=== PATIENT | female | born 1965 | race Caucasian/White ===

== ENCOUNTER → 2018-08-07 | Outpatient (CLI) | payer BC ==
[2018-08-07 11:19] LABS: HGB 14.5 gm/dL (11.4-16.0); MCHC 31.4 g/dL (31.0-37.0); MCV 104.9 fL (80.0-100.0); Macrocytosis Slight; Mean Platelet Volume 8.9; Platelet Count 231 k/uL (150-450); RBC 4.39 m/uL (3.80-5.40); RDW 12.5 % (11.5-15.5); WBC 5.8 k/uL (3.8-10.6)
== END ==
LOC: LABPAT 10:29
PROVIDERS: ATTEND Orthopaedic Surgery
DX: Z01.812 Encounter for preprocedural laboratory examination (principal); S52.91XA Unspecified fracture of right forearm, initial encounter for closed fracture
CPT/HCPCS: 36415; 85027

== ENCOUNTER 2018-08-10 06:25 | Day surgery (SDC) | payer BC ==
[2018-08-04 10:57] VITALS: BMI 19.6
[~2018-08-10 06:25] MED LIST: HYDROmorphone 0.5 MG/0.5 ML SYRINGE IVP PRN; LACTATED RINGERS 1,000 ML IV SCH; LIDOCAINE 1% 20 ML VIAL (10MG/ML) FOR IV START INTRADERMA PRN; ONDANSETRON 4 MG/2 ML VIAL IVP ONE; ceFAZolin IN SWFI 2 GM/20 ML SYRINGE IVP ONE
[2018-08-10] MEDS ORDERED: MIDAZOLAM 2 MG/2 ML VIAL IVP ONE (07:18)
[2018-08-10] MEDS ORDERED: fentaNYL (PF) 50 MCG/ML 2 ML AMP ONE (08:12)
[2018-08-10] MEDS ORDERED: PROPOFOL 10 MG/ML 20 ML VIAL IV ONE (08:12)
[2018-08-10] MEDS ORDERED: MIDAZOLAM 2 MG/2 ML VIAL ONE (08:12)
[2018-08-10] MEDS ORDERED: LIDOCAINE 1% INJ 10MG/ML (20 ML MDV) ONE (08:12)
[2018-08-10] MEDS ORDERED: SUCCINYLCHOLINE CHLORIDE 100 MG/5 ML SYR IV ONE (08:12)
[2018-08-10] MEDS ORDERED: HYDROmorphone (PF) 1 MG/ML ONE (08:12)
[2018-08-10] MEDS ORDERED: ROPIVACAINE 5 MG/ML 30 ML VIAL ONE (08:12)
[2018-08-10] MEDS ORDERED: LACTATED RINGERS 1,000 ML IV ONE (09:37)
[2018-08-10 09:55] VITALS: RESP 16; TEMP 97.3
--- NOTE | 2018-08-10 10:03 | P.OP ---
Date of Procedure: 08/10/18 Procedure(s) Performed: PREOPERATIVE DIAGNOSES: 1. Right ulnar shaft fracture, acute 2. Right ulnar shaft fracture, acute POSTOPERATIVE DIAGNOSES: 1. Right ulnar shaft fracture, acute 2. Right ulnar shaft fracture, acute 3. Poor bone quality/osteopenia PROCEDURES PERFORMED: 1. Right ulnar shaft fracture open reduction and internal fixationwith supplemental local bone graft and application of DBX putty ANESTHESIA: Gen. WINDSCREEN FITTER: Natalie Jimenez PA-C (assistance with: Patient positioning, retraction, exposure, fixation, hemostasis, closure, dressing, splint) COMPLICATIONS: None ESTIMATED BLOOD LOSS: Less than 1 mL. DISPOSITION: To post-anesthesia care unit INDICATIONS: Sarah is a 53-year-old right hand dominant female who has sustained a right ulnar shaft fracture which shows no signs of healing at this point after 7 weeks. I have advised open reduction and internal fixation with the application of local bone graft and/or DBX bone putty. I have explained the risks and potential complications of this surgery as being inclusive of but not limited to bleeding, infection, scarring, discomfort, blood vessel and/or nerve damage, malunion, nonunion, stiffness, hardware irritation, deformity, rotational abnormality, need for further surgery, and other risks. We have extensively discussed the risk of stiffness of the wrist joint, which is something that commonly occurs with these kinds of injuries. she is at increased risk of complications due to her history of alcoholism, smoking, and apparent diminished bone quality. We have discussed the need for extended rehabilitation and occupational therapy to regain motion. The consent form has been signed. PROCEDURE: After appropriate consent was obtained, the patient was taken to the operating room placed in the supine position. Anesthesia was initiated, and after confirmation of adequate anesthesia, the patient was carefully positioned. Care was taken to make sure that all pressure points were adequately padded. Prepping and draping were completed in the usual aseptic fashion using CDuraPrepep. Timeout was called, confirming patient identity, side, procedure, and administration of antibiotics. The limb was exsanguinated with an Esmarch bandage and the tourniquet was inflated to 250 mmHg. Incision was created over the ulnar aspect of the forearm in line with the ulnar shaft. Incision was centered over the fracture site. Total length of incision was approximately 4 inches. Incision was carried down through skin into subcu tissues and then to muscular fascia. The raphae between the extensor and flexor structures was developed. Self- retaining retractor was applied. The fracture site was then exposed with subperiosteal dissection. Bone quality was judged as very poor. A sparse amount of new bone formation was noted around the fracture site which was removed on the volar side to create a flat surface for application of the plate. The interior of the fracture site was exposed and organizing soft tissue in this region was removed. The continuity of the intramedullary canal was reestablished using a small drill bit. Subsequent, the fracture was reduced anatomically. A 5 hole 3.5 mm DCP plate was used on the volar side and clamped into position on both sides of the fracture site. A slight bend was placed in the plate to allow for proper compression technique. Screws were filled first distally using nonlocking 3.5 mm cortical screws. Then compression technique was used on the more proximal screws. Good compression was noted at the fracture site. C-arm imaging was then used to confirm proper plate placement, reduction, and screw lengths. These parameters were judged to be satisfactory. Irrigation was performed using normal saline and hemostasis was obtained using electrocautery after tourniquet deflation. Some of the good quality previous bone that was removed on exposure of the fracture site was reapplied at the fracture site, along with a quantity of DBX bone putty. Closure was performed of the deep fascia using 0 Vicryl suture, followed by 2-0 Vicryl suture in the subcu tissues and 3-0 Monocryl suture for the skin. Dermabond adhesive was then applied. A well-padded well molded ulnar gutter splint was placed. Neurovascular status was satisfactory. Patient tolerated the procedure well and taken to recovery room in stable condition.
[2018-08-10] MEDS ORDERED: KETOROLAC 30 MG/ML 1 ML VIAL IVP ONE (10:16)
--- NOTE | 2018-08-10 10:25 | XR ---
Limited right wrist HISTORY: Open reduction internal fixation 2 intraoperative C-arm images document the procedure.
--- NOTE | 2018-08-10 10:26 | FL ---
Fluoroscopy HISTORY: Open reduction internal fixation 6 seconds fluoroscopy time supplied to the referring clinician. 2 intraoperative C-arm images docume nt the procedure. See dictated report from orthopedic surgery.
[2018-08-10 11:27] VITALS: BP 155/70; PULSE 67
--- NOTE | 2018-08-10 12:46 | P.ONQ ---
Anesthesiology Proc Note - PNB - Peripheral Nerve Block Performed Right Infraclavicular Single Time Out Performed: Yes Procedure Start Time: :18 Procedure Stop Time: : Indication: Acute Post-Operative Pain, Requested by physician Sedation Type: Sedate with meaningful contact maintained Preparation: Sterile Prep Position: Supine Needle Size: 50mm (2") Needle Gauge: 21 Technique: Ultrasound Injectate: 0.5% Ropivacaine (see comment for volume) (ropi .5% 8cc and was rpeated with 20cc of ropi .5%) Blood Aspirated: No Pain Paresthesia on Injection Noted: No Resistance on Injection: Normal Events: Uneventful and Well Tolerated
== END 2018-08-10 11:38 | disposition home or self-care (01) ==
LOC: OR 06:25
PROVIDERS: ATTEND Orthopaedic Surgery
DX: S52.201A Unspecified fracture of shaft of right ulna, initial encounter for closed fracture (principal); W19.XXXA Unspecified fall, initial encounter; M85.80 Other specified disorders of bone density and structure, unspecified site; I10 Essential (primary) hypertension; Z79.899 Other long term (current) drug therapy; F17.210 Nicotine dependence, cigarettes, uncomplicated
CPT/HCPCS: 73100; 25545; C1713 ×2; J2250; J2405; J2001; J3010; J1885; J1170 ×2; J2795; J0330; J2704; J0690

== ENCOUNTER 2018-11-26 06:51 | Day surgery (SDC) | payer BC, OTHER ==
[2018-11-26] MEDS ORDERED: LACTATED RINGERS 1,000 ML IV SCH (06:54)
[2018-11-26] MEDS ORDERED: LIDOCAINE 1% 20 ML VIAL (10MG/ML) FOR IV START INTRADERMA PRN (06:54)
[2018-11-26 07:13] VITALS: RESP 20; TEMP 98.7
[2018-11-26] MEDS ORDERED: PROPOFOL 10 MG/ML 20 ML VIAL IV ONE (08:11)
--- NOTE | 2018-11-26 09:00 | P.PCN ---
Date of Procedure: 11/26/18 Procedure(s) Performed: Procedure: Colonoscopy and biopsy. Preoperative diagnosis: Diarrhea and screening for colon cancer. Postoperative diagnosis: 1. Exam of the colon and terminal ileum within normal limits. 2. Biopsies obtained from the terminal ileum and right colon. Brief clinical history: The patient is a 53-year-old female who is scheduled for this evaluation because of history of diarrhea for the last 3 weeks as well as for screening for neoplasia. She had a prior colonoscopy around 5 years ago. Apparently, she had C. diff colitis at that time. This evaluation is to assess for neoplasia and for etiology of her diarrhea. Procedure: With the patient on her left lateral decubitus position and after informed consent and adequate sedation, the perianal area was inspected and it did not show any fissures or fistulas. There were no masses felt on digital rectal examination. Initially, the Olympus CFH 190L video colonoscope was inserted in the rectum in the usual fashion, however, I was not able to advance it safely in the sigmoid. I exchanged it for the PCFH 190L videocolonoscope which I was able to advance safely all the way to the cecum. I intubated the ileocecal valve and examined the terminal ileum. Terminal ileum and colon appeared healthy with no edema, erythema, friability, ulceration, exudation or spontaneous bleeding. No polyps or tumors were seen or any obvious diverticular disease or other pathology. I obtained biopsies from the terminal ileum and right colon then I retroflexed the endoscope in the rectum before the endoscope was withdrawn. The patient tolerated the procedure well. Plan: I summarized the findings to the patient. Will await biopsy results. Further plans based on her course and biopsy results. For screening for colon cancer, I recommended repeat exam in 10 years. She will follow-up with you as planned.
[2018-11-26 09:08] VITALS: BP 151/94; PULSE 96
== END 2018-11-26 09:37 | disposition home or self-care (01) ==
LOC: ORWHC2ENDO 06:51
DX: R19.7 Diarrhea, unspecified (principal); I10 Essential (primary) hypertension; F32.9 Major depressive disorder, single episode, unspecified; F17.210 Nicotine dependence, cigarettes, uncomplicated; Z79.899 Other long term (current) drug therapy; Z85.3 Personal history of malignant neoplasm of breast
CPT/HCPCS: 88305; 45380; J2704

== ENCOUNTER 2021-01-16 11:45 | Inpatient (IN) | payer BC, OTHER ==
[2021-01-16] MEDS ORDERED: HYDROmorphone 0.5 MG/0.5 ML SYRINGE IVP STA (13:21)
[2021-01-16 13:51] LABS: Basophils % (A) 0 %; Eosinophils # (A) 0.3 k/uL (0-0.7); Eosinophils % (A) 1 %; HGB 13.7 gm/dL (11.4-16.0); Lymphocytes # (A) 1.3 k/uL (1.0-4.8); Lymphocytes % (A) 6 %; MCH 35.2 pg (25.0-35.0); MCHC 34.2 g/dL (31.0-37.0); MCV 103.1 fL (80.0-100.0); Macrocytosis Slight; Mean Platelet Volume 7.3; Monocytes # (A) 0.9 k/uL (0-1.0); Monocytes % (A) 4 %; Neutrophils # (A) 17.3 k/uL (1.3-7.7); Neutrophils % (A) 88 %; Platelet Count 656 k/uL (150-450); RBC 3.88 m/uL (3.80-5.40); RDW 12.9 % (11.5-15.5); WBC 19.7 k/uL (3.8-10.6)
[2021-01-16 14:00] LABS: ALT 17 U/L (4-34); AST 27 U/L (14-36); African American GFR (CKD) >90 (>60 ml/min/1.73 sqM); Albumin 3.4 g/dL (3.5-5.0); Alkaline Phosphatase 147 U/L (38-126); Amylase 45 U/L (30-110); Anion Gap 9 mmol/L; Blood Urea Nitrogen 18 mg/dL (7-17); Calcium 9.4 mg/dL (8.4-10.2); Carbon Dioxide 28 mmol/L (22-30); Chloride 97 mmol/L (98-107); Glucose 101 mg/dL (74-99); Lipase 89 U/L (23-300); Non-African American GFR(CKD) >90 (>60 ml/min/1.73 sqM); Potassium 3.8 mmol/L (3.5-5.1); Sodium 134 mmol/L (137-145); Total Protein 6.7 g/dL (6.3-8.2)
[2021-01-16 14:25] LABS: Appearance,Urine Cloudy (Clear); Bacteria,Urine Many /hpf; Bilirubin,Urine 1+ (Negative); Blood,Urine Negative (Negative); Color,Urine Yellow; Glucose,Urine (UA) Negative (Negative); Ketones,Urine 2+ (Negative); Leukocyte Esterase,Urine Small (Negative); Mucus,Urine Many /hpf; Nitrite,Urine Positive (Negative); Protein,Urine 1+ (Negative); RBC,Urine 1 /hpf (0-5); Specific Gravity,Urine 1.027 (1.001-1.035); Squamous Epithelial Cell,Urine 5 /hpf (0-4); WBC,Urine 13 /hpf (0-5)
--- NOTE | 2021-01-16 14:29 | CT ---
EXAMINATION TYPE: CT abdomen pelvis wo con DATE OF EXAM: 01/16/2021 HISTORY: Generalized pain with bowel changes and nausea CT DLP: 324.4 mGycm. Automated Exposure Control for Dose Reduction was Utilized. TECHNIQUE: CT scan of the abdomen and pelvis is performed without oral or IV contrast. COMPARISON: NONE FINDINGS: Within the limitations of a non-contrast study, the following observations are made. LUNG BASES: No significant abnormality is appreciated. LIVER/GB: Liver heterogeneously slightly hypodense relative to spleen consistent with mild diffuse fa tty infiltration and/or underlying hepatocellular disease. Small amount of ascites anterior superior aspect noted. Liver size upper limits of normal. PANCREAS: No significant abnormality is seen. SPLEEN: No significant abnormality is seen. ADRENALS: No significant abnormality is seen. KIDNEYS: No significant abnormality is seen. BOWEL: Stomach poorly distended and thus suboptimally evaluated. Nondistended small bowel loops in th e central abdomen. There are more prominent fluid filled bowel loops in the periphery including abnor mal fluid-filled colonic loops. Colonic loops are more prominent. There are diverticula in the sigmoi d colon. There is abrupt change in caliber in the left pelvis mid sigmoid colon level with severe con centric wall thickening. Suspicious ovoid 4.6 x 3.7 cm left pelvic fluid-filled structure axial image 115 with air-fluid level. Some adjacent fat stranding. No free air. Suspected additional focal phleg mon or developing abscess upper mid abdomen coronal image 55 difficult localizing this to bowel loop. GENITAL ORGANS: Uterus poorly seen and may be surgically absent and/or atrophic. LYMPH NODES: No greater than 1cm abdominal or pelvic lymph nodes are appreciated. OSSEOUS STRUCTURES: [id number] disc space narrowing with vacuum disc phenomenon lumbosacral j unction. OTHER: No significant additional abnormality is seen. IMPRESSION: Suboptimal study. 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 Cannot exclude adjacent small to moderate size left pelvic abscess(es) and/or phlegmons though they could reflect dilated fluid-filled bowel loop, without contrast it is difficult to trace. Advise surgical consult. Consider colonoscopy or open surg ical exploration to further evaluate. Underlying neoplasm favored over perforated diverticulitis
[2021-01-16] MEDS ORDERED: PIPERACILLIN-TAZOBACTAM 3.375 GM in SODIUM CHLORIDE 0.9% 100 ML IVPB STA (14:33)
--- NOTE | 2021-01-16 15:23 | ED ---
General Adult HPI - General Chief complaint: Abdominal Pain Stated complaint: abd pain Time Seen by Provider: 01/16/21 11:45 Source: patient, RN notes reviewed, old records reviewed Mode of arrival: ambulatory Limitations: no limitations - History of Present Illness Initial comments: This is a 55-year-old female presents emergency Department complaining of abdominal pain. Patient states that abdominal pain started yesterday morning and has been excruciating ever since. Patient states she's mildly nauseated but has not vomited. Patient complains of pain in the lower abdomen both right and left. Patient denies any fever chills. Patient denies any back pain. Patient denies diarrhea. Patient denies any chest pain difficulty breathing shortest breath. Patient denies any dysuria hematuria urinary frequency. - Related Data Home Medications Medication Instructions Recorded Confirmed lisinopriL [Zestril] 20 mg PO BID 08/04/18 01/16/21 Sertraline [Zoloft] 50 mg PO DAILY 11/24/18 01/16/21 Allergies Allergy/AdvReac Type Severity Reaction Status Date / Time No Known Allergies Allergy Verified 01/16/21 13:37 Review of Systems ROS Statement: Those systems with pertinent positive or pertinent negative responses have been documented in the HPI. ROS Other: All systems not noted in ROS Statement are negative. Past Medical History Past Medical History: Cancer, Hypertension Additional Past Medical History / Comment(s): hx lt breast cancer with surgery & radiation tx (Aug 2009)., Hx of right ulnar fx., Hx of c-diff (3 yrs ago) and colitis., states currently having 10-12 diarreha stools per day & hx of blood in stool. History of Any Multi-Drug Resistant Organisms: None Reported Past Surgical History: Breast Surgery, Section, Hysterectomy Additional Past Surgical History / Comment(s): LT BREAST LUMPECTOMY X2 , CLEFT PALATE SURGERYS, RIGHT ULNAR FX WITH PLATE & PINS (JUL 2018). COLONOSCOPY. C- SEC X 2 Past Anesthesia/Blood Transfusion Reactions: No Reported Reaction Past Psychological History: Depression Smoking Status: Current every day smoker Past Alcohol Use History: Occasional Past Drug Use History: None Reported - Past Family History Sister(s) Family Medical History: Pulmonary Embolus General Exam - General Exam Comments Initial Comments: GENERAL: Patient is well-developed and well-nourished. Patient is nontoxic and well- hydrated and is in moderate distress. ENT: Neck is soft and supple. No significant lymphadenopathy is noted. Oropharynx is clear. Moist mucous membranes. Neck has full range of motion without eliciting any pain. EYES: The sclera were anicteric and conjunctiva were pink and moist. Extraocular movements were intact and pupils were equal round and reactive to light. Eyelids were unremarkable. PULMONARY: Unlabored respirations. Good breath sounds bilaterally. No audible rales rhonchi or wheezing was noted. CARDIOVASCULAR: There is a regular rate and rhythm without any murmurs gallops or rubs. ABDOMEN: Lower abdomen is acutely tender patient has rebound tenderness both left and right. SKIN: Skin is clear with no lesions or rashes and otherwise unremarkable. NEUROLOGIC: Patient is alert and oriented x3. Cranial nerves II through XII are grossly intact. Motor and sensory are also intact. Normal speech, volume and content. Symmetrical smile. MUSCULOSKELETAL: Normal extremities with adequate strength and full range of motion. LYMPHATICS: No significant lymphadenopathy is noted PSYCHIATRIC: Normal psychiatric evaluation. Limitations: no limitations Course Vital Signs 01/16/21 11:47 Temperature 97.9 F Pulse Rate 133 H Respiratory 16 Rate Blood Pressure 117/84 O2 Sat by Pulse 97 Oximetry Medical Decision Making - Medical Decision Making Patient had a CAT scan of the abdomen showed probable neoplasm with an apple core appearance and obstruction of the distal bowel. Patient also has an area of inflammation in the pelvis which could correspond to an abscess. I started the patient on an approximately. I spoke with Dr. Mcfarland he ishistory come down and evaluate the patient and he stated that the patient will go to surgery tomorrow. Patient also received pain medicine the emergency department. I wrote admitting orders. - Lab Data Result diagrams: 01/16/21 13:37 01/16/21 13:37 Lab Results 01/16/21 01/16/21 01/16/21 Range/Units 13:37 13:37 13:37 WBC 19.7 H (3.8-10.6) k/uL RBC 3.88 (3.80-5.40) m/uL Hgb 13.7 (11.4-16.0) gm/dL Hct 40.0 (34.0-46.0) % MCV 103.1 H (80.0-100.0) fL MCH 35.2 H (25.0-35.0) pg MCHC 34.2 (31.0-37.0) g/dL RDW 12.9 (11.5-15.5) % Plt Count 656 H (150-450) k/uL MPV 7.3 Neutrophils % 88 % Lymphocytes % 6 % Monocytes % 4 % Eosinophils % 1 % Basophils % 0 % Neutrophils # 17.3 H (1.3-7.7) k/uL Lymphocytes # 1.3 (1.0-4.8) k/uL Monocytes # 0.9 (0-1.0) k/uL Eosinophils # 0.3 (0-0.7) k/uL Basophils # 0.0 (0-0.2) k/uL Macrocytosis Slight Sodium 134 L (137-145) mmol/L Potassium 3.8 (3.5-5.1) mmol/L Chloride 97 L (98-107) mmol/L Carbon Dioxide 28 (22-30) mmol/L Anion Gap 9 mmol/L BUN 18 H (7-17) mg/dL Creatinine 0.52 (0.52-1.04) mg/dL Est GFR (CKD-EPI)AfAm >90 (>60 ml/min/1.73 sqM) Est GFR (CKD-EPI)NonAf >90 (>60 ml/min/1.73 sqM) Glucose 101 H (74-99) mg/dL Plasma Lactic Acid Stewart 1.1 (0.7-2.0) mmol/L Calcium 9.4 (8.4-10.2) mg/dL Total Bilirubin 1.0 (0.2-1.3) mg/dL AST 27 (14-36) U/L ALT 17 (4-34) U/L Alkaline Phosphatase 147 H (38-126) U/L Total Protein 6.7 (6.3-8.2) g/dL Albumin 3.4 L (3.5-5.0) g/dL Amylase 45 (30-110) U/L Lipase 89 (23-300) U/L Urine Color Urine Appearance (Clear) Urine pH (5.0-8.0) Ur Specific [place] (1.001-1.035) Urine Protein (Negative) Urine Glucose (UA) (Negative) Urine Ketones (Negative) Urine Blood (Negative) Urine Nitrite (Negative) Urine Bilirubin (Negative) Urine Urobilinogen (<2.0) mg/dL Ur Leukocyte Esterase (Negative) Urine RBC (0-5) /hpf Urine WBC (0-5) /hpf Ur Squamous Epith Cells (0-4) /hpf Urine Bacteria (None) /hpf Urine Mucus (None) /hpf 01/16/21 Range/Units 13:52 WBC (3.8-10.6) k/uL RBC (3.80-5.40) m/uL Hgb (11.4-16.0) gm/dL Hct (34.0-46.0) % MCV (80.0-100.0) fL MCH (25.0-35.0) pg MCHC (31.0-37.0) g/dL RDW (11.5-15.5) % Plt Count (150-450) k/uL MPV Neutrophils % % Lymphocytes % % Monocytes % % Eosinophils % % Basophils % % Neutrophils # (1.3-7.7) k/uL Lymphocytes # (1.0-4.8) k/uL Monocytes # (0-1.0) k/uL Eosinophils # (0-0.7) k/uL Basophils # (0-0.2) k/uL Macrocytosis Sodium (137-145) mmol/L Potassium (3.5-5.1) mmol/L Chloride (98-107) mmol/L Carbon Dioxide (22-30) mmol/L Anion Gap mmol/L BUN (7-17) mg/dL Creatinine (0.52-1.04) mg/dL Est GFR (CKD-EPI)AfAm (>60 ml/min/1.73 sqM) Est GFR (CKD-EPI)NonAf (>60 ml/min/1.73 sqM) Glucose (74-99) mg/dL Plasma Lactic Acid Stewart (0.7-2.0) mmol/L Calcium (8.4-10.2) mg/dL Total Bilirubin (0.2-1.3) mg/dL AST (14-36) U/L ALT (4-34) U/L Alkaline Phosphatase (38-126) U/L Total Protein (6.3-8.2) g/dL Albumin (3.5-5.0) g/dL Amylase (30-110) U/L Lipase (23-300) U/L Urine Color Yellow Urine Appearance Cloudy H (Clear) Urine pH 6.0 (5.0-8.0) Ur Specific [place] 1.027 (1.001-1.035) Urine Protein 1+ H (Negative) Urine Glucose (UA) Negative (Negative) Urine Ketones 2+ H (Negative) Urine Blood Negative (Negative) Urine Nitrite Positive H (Negative) Urine Bilirubin 1+ H (Negative) Urine Urobilinogen 3.0 (<2.0) mg/dL Ur Leukocyte Esterase Small H (Negative) Urine RBC 1 (0-5) /hpf Urine WBC 13 H (0-5) /hpf Ur Squamous Epith Cells 5 H (0-4) /hpf Urine Bacteria Many H (None) /hpf Urine Mucus Many H (None) /hpf Disposition Clinical Impression: Bowel obstruction, Pelvic abscess Disposition: ADMITTED IP TO THIS HOSP Referrals: Kavita Boyer DO [Primary Care Provider] - 1-2 days Time of Disposition: 15:23
[2021-01-16] MEDS ORDERED: HYDROmorphone 0.5 MG/0.5 ML SYRINGE IVP PRN (15:25)
[2021-01-16] MEDS ORDERED: SODIUM CHLORIDE 0.9% 1,000 ML IV ONE (15:25)
[2021-01-16] MEDS ORDERED: ONDANSETRON 4 MG/2 ML VIAL IVP PRN (15:26)
--- NOTE | 2021-01-16 15:39 | P.GSHP ---
History of Present Illness H&P Date: 01/16/21 CHIEF COMPLAINT: Abdominal pain HISTORY OF PRESENT ILLNESS: This is a 55-year-old female with a known history of alcohol abuse and had currently been at [facility] for rehab admitted on 01/02/2021. Patient also has a known history of left breast cancer with lumpectomy and radiation treatment in 2008, hypertension, depression, C. diff colitis and nicotine dependence. Her last colonoscopy she reports a couple years ago and was told that it was normal. She has surgical history of 2 C-sections and hysterectomy. Patient presented to the emergency room with sudden onset of pain that started yesterday. She reports the pain is stabbing and is throughout her whole abdomen. She rates the pain 10 out of 10. She has been nauseated and having dry heaves. She's had decrease in appetite. Patient has noted some weight loss. She denies any fever or chills. She has been having blood in her stools. She denies any chest pain or shortness of breath. Denies any cardiac history or diabetes. 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 Cannot exclude adjacent small to moderate size left pelvic abscess and/or phlegmons though they could reflect dilated fluid-filled bowel loops. Patient's white count is elevated at 19. And she has been t achycardic. PAST MEDICAL HISTORY: See list. PAST SURGICAL HISTORY: See list. MEDICATIONS: See list. ALLERGIES: See list. SOCIAL HISTORY: No illicit drug use. REVIEW OF SYSTEMS: CONSTITUTIONAL: Denies fever or chills. HEENT: Denies blurred vision, vision changes, or eye pain. Denies hemoptysis CARDIOVASCULAR: Denies chest pain or pressure. RESPIRATORY: No shortness of breath. GASTROINTESTINAL: See HPI for pertinent findings HEMATOLOGIC: Denies bleeding disorders. GENITOURINARY: Denies any blood in urine or increased urinary frequency. SKIN: Denies pruitis. Denies rash. PHYSICAL EXAM: VITAL SIGNS: Reviewed GENERAL: Well-developed in no acute distress. HEENT: No sclera icterus. Extraocular movements grossly intact. Moist buccal mucosa. Head is atraumatic, normocephalic. No nasal drainage. ABDOMEN: Soft. Nondistended. Diffuse abdominal tenderness NEUROLOGIC: Alert and oriented. Cranial nerves II through XII grossly intact. 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 Cannot exclude adjacent small to moderate size left pelvic abscess and/or phlegmons though they could reflect dilated fluid-filled bowel loops. ASSESSMENT: 1. Abdominal pain 2. 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 3. Possible pelvic abscess 4. Prior history of left breast cancer with lumpectomy and radiation treatment in 2008 5. Prior history of alcohol abuse 6. Prior surgical history of 2 and hysterectomy PLAN: -Patient is scheduled for colectomy with colostomy placement tomorrow 01/17/[address] Mcfarland -Keep patient nothing by mouth -Continue IV Zosyn -Continue IV fluids -Continue IV Dilaudid as needed for pain -Continue IV Zofran as needed for nausea and vomiting -Consult medicine for medical management -Follow up with labs in a.m. Physician Pipe St[employer] Repairer note has been reviewed by physician. Signing provider agrees with the documented findings, assessment, and plan of care. Past Medical History Past Medical History: Cancer, Hypertension Additional Past Medical History / Comment(s): hx lt breast cancer with surgery & radiation tx (Aug 2009)., Hx of right ulnar fx., Hx of c-diff (3 yrs ago) and colitis., states currently having 10-12 diarreha stools per day & hx of blood in stool. History of Any Multi-Drug Resistant Organisms: None Reported Past Surgical History: Breast Surgery, Section, Hysterectomy Additional Past Surgical History / Comment(s): LT BREAST LUMPECTOMY X2 , CLEFT PALATE SURGERYS, RIGHT ULNAR FX WITH PLATE & PINS (JUL 2018). COLONOSCOPY. C- SEC X 2 Past Anesthesia/Blood Transfusion Reactions: No Reported Reaction Past Psychological History: Depression Smoking Status: Current every day smoker Past Alcohol Use History: Occasional Past Drug Use History: None Reported - Past Family History Sister(s) Family Medical History: Pulmonary Embolus Medications and Allergies Home Medications Medication Instructions Recorded Confirmed Type lisinopriL [Zestril] 20 mg PO BID 08/04/18 01/16/21 History Sertraline [Zoloft] 50 mg PO DAILY 11/24/18 01/16/21 History Allergies Allergy/AdvReac Type Severity Reaction Status Date / Time No Known Allergies Allergy Verified 01/16/21 13:37 Surgical - Exam Vital Signs Temp Pulse Resp BP Pulse Ox 97.9 F 133 H 16 117/84 97 01/16/21 11:47 01/16/21 11:47 01/16/21 11:47 01/16/21 11:47 01/16/21 11:47 Results - Labs 01/16/21 13:37 01/16/21 13:37 Abnormal Lab Results - Last 24 Hours (Table) 01/16/21 01/16/21 01/16/21 Range/Units 13:37 13:37 13:52 WBC 19.7 H (3.8-10.6) k/uL MCV 103.1 H (80.0-100.0) fL MCH 35.2 H (25.0-35.0) pg Plt Count 656 H (150-450) k/uL Neutrophils # 17.3 H (1.3-7.7) k/uL Sodium 134 L (137-145) mmol/L Chloride 97 L (98-107) mmol/L BUN 18 H (7-17) mg/dL Glucose 101 H (74-99) mg/dL Alkaline Phosphatase 147 H (38-126) U/L Albumin 3.4 L (3.5-5.0) g/dL Urine Appearance Cloudy H (Clear) Urine Protein 1+ H (Negative) Urine Ketones 2+ H (Negative) Urine Nitrite Positive H (Negative) Urine Bilirubin 1+ H (Negative) Ur Leukocyte Esterase Small H (Negative) Urine WBC 13 H (0-5) /hpf Ur Squamous Epith Cells 5 H (0-4) /hpf Urine Bacteria Many H (None) /hpf Urine Mucus Many H (None) /hpf Diabetes panel 01/16/21 Range/Units 13:37 Sodium 134 L (137-145) mmol/L Potassium 3.8 (3.5-5.1) mmol/L Chloride 97 L (98-107) mmol/L Carbon Dioxide 28 (22-30) mmol/L BUN 18 H (7-17) mg/dL Creatinine 0.52 (0.52-1.04) mg/dL Glucose 101 H (74-99) mg/dL Calcium 9.4 (8.4-10.2) mg/dL AST 27 (14-36) U/L ALT 17 (4-34) U/L Alkaline Phosphatase 147 H (38-126) U/L Total Protein 6.7 (6.3-8.2) g/dL Albumin 3.4 L (3.5-5.0) g/dL Calcium panel 01/16/21 Range/Units 13:37 Calcium 9.4 (8.4-10.2) mg/dL Albumin 3.4 L (3.5-5.0) g/dL Pituitary panel 01/16/21 Range/Units 13:37 Sodium 134 L (137-145) mmol/L Potassium 3.8 (3.5-5.1) mmol/L Chloride 97 L (98-107) mmol/L Carbon Dioxide 28 (22-30) mmol/L BUN 18 H (7-17) mg/dL Creatinine 0.52 (0.52-1.04) mg/dL Glucose 101 H (74-99) mg/dL Calcium 9.4 (8.4-10.2) mg/dL Adrenal panel 01/16/21 Range/Units 13:37 Sodium 134 L (137-145) mmol/L Potassium 3.8 (3.5-5.1) mmol/L Chloride 97 L (98-107) mmol/L Carbon Dioxide 28 (22-30) mmol/L BUN 18 H (7-17) mg/dL Creatinine 0.52 (0.52-1.04) mg/dL Glucose 101 H (74-99) mg/dL Calcium 9.4 (8.4-10.2) mg/dL Total Bilirubin 1.0 (0.2-1.3) mg/dL AST 27 (14-36) U/L ALT 17 (4-34) U/L Alkaline Phosphatase 147 H (38-126) U/L Total Protein 6.7 (6.3-8.2) g/dL Albumin 3.4 L (3.5-5.0) g/dL
[2021-01-16] MEDS: PANTOPRAZOLE 40 MG/10 ML VIAL IVP SCH (16:06)
[2021-01-16] MEDS: HYDROmorphone 1 MG/ML 1 ML SYRINGE IVP PRN ×2 (16:08→20:53)
[2021-01-16] MEDS: ENOXAPARIN 40 MG/0.4 ML SYRINGE SQ SCH (20:50)
--- NOTE | 2021-01-16 23:36 | P.CONS ---
History of Present Illness - Reason for Consult Consult date: 01/16/21 Medical management Requesting physician: Hugo Mcfarland - Chief Complaint Abdominal pain - History of Present Illness Consultation: This is a pleasant 55-year-old patient of Dr. Kavita johansen. Chronic stable medical conditions include hypertension, anxiety depression, nicotine dependence. Patient started having yesterday with increasing abdominal pain was progressively got worse. Also some nausea. Some vomiting this morning. Patient bowel movements have been variable for quite some time. Occasionally gets diarrhea. Also notices blood in the stool. Her weight has always been around 100 125 pounds. She lost about 10 pounds in the last few months. No fever no chills. Computed tomography scan of the abdomen and pelvis showed prominent fluid-filled bowel loops and abrupt change in caliber in the sigmoid colon: Area. Question about an abscess 2. Also severe concentric wall thickening. Dr. Mcfarland is planning for surgery. Patient denies any cardiac or pulmonary history. Denies any chest pain or shortness of breath. Has a good exercise tolerance otherwise. Review of systems: GEN.: Decreased appetite and weight loss EYES: None HEENT: None NECK: None RESPIRATORY: None CARDIOVASCULAR: None GASTROINTESTINAL: As above GENITOURINARY: None MUSCULOSKELETAL: None LYMPHATICS: None HEMATOLOGICAL: None PSYCHIATRY: None NEUROLOGICAL: None Past medical history to include: Hypertension, history of left breast cancer with surgery and radiation in 2008. Anxiety depression, smoker, Social history: Smokes about half a pack a day. For many years. Alcohol occasionally. 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 Physical examination: VITAL SIGNS: 98, 113, 17, 137/85, 95% room air GENERAL: BMI 18.8, laying in bed, a bit tired. EYES: Pupils equal. Conjunctiva normal. HEENT: External appearance of nose and ears normal, oral cavity grossly dry mucous membranes. NECK: JVD not raised; masses not palpable. HEART: First and second heart sounds are normal; no edema. LUNGS: Respiratory rate normal; slightly decreased breath sounds. ABDOMEN: Soft, tender, no guarding rigidity, liver spleen not palpable, no masses palpable. PSYCH: Alert and oriented x3; mood and affect normal. NEUROLOGICAL: Cranial nerves grossly intact; no facial asymmetry, power and sensation grossly intact. LYMPHATICS: No lymph nodes palpable in the axilla and neck INVESTIGATIONS, reviewed in the clinical context: WBC 19.7 hemoglobin 13.7 platelets 656 potassium 3.8 creatinine 0.5 to UA positive for nitrite and leukoesterase some WBC Computed tomography scan of the abdomen and pelvis without contrast: Abnormal fluid-filled prominent and dilated colon up to the mid sigmoid colon but does abrupt cutoff to severe concentric wall thickening. Cannot exclude and just a small to moderate-sized left pelvic abscess and/or a phlegmon. Assessment and plan: -Patient presents with a rather acute presentation of increasing abdominal pain with nausea vomiting. Patient's had abnormal bowel pattern for quite some time. Has lost some weight. The clinical picture is very compatible with underlying malignancy. The secondary abscess cannot be ruled out. Patient is started on IV Zosyn. Pending surgery tomorrow. -Mild protein calorie malnutrition from decreased oral intake. BMI 15.8 -Chronic nicotine dependence patient cigarette smoker. Patient be given a nicotine patch. Counseled about the same. -Depression and anxiety not otherwise specified. Patient is on Zoloft -Essential hypertension patient on Zestril. Follow blood pressure closely Care was discussed with the patient. Questions were answered. We'll get a baseline EKG and chest x-ray. IV fluids. Lovenox for DVT prophylaxis. Cardiovascular risk assessment: Hemoglobin patient is smoker patient has this could excise tolerance. Has no active cardiopulmonary symptoms. Patient is a low risk from a cardiac standpoint with no contraindications. And she may proceed with surgery accordingly. Thank you Dr. Mcfarland Past Medical History Past Medical History: Cancer, Hypertension Additional Past Medical History / Comment(s): hx lt breast cancer with surgery & radiation tx (Aug 2009)., Hx of right ulnar fx., Hx of c-diff (3 yrs ago) and colitis., states currently having 10-12 diarreha stools per day & hx of blood in stool. History of Any Multi-Drug Resistant Organisms: None Reported Past Surgical History: Breast Surgery, Section, Hysterectomy Additional Past Surgical History / Comment(s): LT BREAST LUMPECTOMY X2 , CLEFT PALATE SURGERYS, RIGHT ULNAR FX WITH PLATE & PINS (JUL 2018). COLONOSCOPY. C- SEC X 2 Past Anesthesia/Blood Transfusion Reactions: No Reported Reaction Past Psychological History: Anxiety, Depression Smoking Status: Current every day smoker Past Alcohol Use History: Occasional Additional Past Alcohol Use History / Comment(s): SMOKES 1 PPD SINCE AGE 16 (DID QUIT FOR 8 YEARS-THEN STARTED AGAIN) Past Drug Use History: None Reported - Past Family History Sister(s) Family Medical History: Pulmonary Embolus Medications and Allergies Home Medications Medication Instructions Recorded Confirmed Type lisinopriL [Zestril] 20 mg PO BID 08/04/18 01/16/21 History Sertraline [Zoloft] 50 mg PO DAILY 11/24/18 01/16/21 History Allergies Allergy/AdvReac Type Severity Reaction Status Date / Time No Known Allergies Allergy Verified 01/16/21 13:37 Physical Exam Vitals: Vital Signs Temp Pulse Pulse Resp BP BP Pulse Ox 01/16/21 19:50 98.0 F 113 H 17 137/85 95 01/16/21 19:00 16 01/16/21 18:00 98.0 F 109 H 16 135/83 99 01/16/21 17:47 98 18 110/72 96 01/16/21 11:47 97.9 F 133 H 16 117/84 97 Intake and Output 01/16/21 01/16/21 01/17/21 14:59 22:59 06:59 Other: # Voids 1 Weight 51.256 kg 51.256 kg Results CBC & Chem 7: 01/16/21 13:37 01/16/21 13:37 Labs: Abnormal Lab Results - Last 24 Hours (Table) 01/16/21 01/16/21 01/16/21 Range/Units 13:37 13:37 13:52 WBC 19.7 H (3.8-10.6) k/uL MCV 103.1 H (80.0-100.0) fL MCH 35.2 H (25.0-35.0) pg Plt Count 656 H (150-450) k/uL Neutrophils # 17.3 H (1.3-7.7) k/uL Sodium 134 L (137-145) mmol/L Chloride 97 L (98-107) mmol/L BUN 18 H (7-17) mg/dL Glucose 101 H (74-99) mg/dL Alkaline Phosphatase 147 H (38-126) U/L Albumin 3.4 L (3.5-5.0) g/dL Urine Appearance Cloudy H (Clear) Urine Protein 1+ H (Negative) Urine Ketones 2+ H (Negative) Urine Nitrite Positive H (Negative) Urine Bilirubin 1+ H (Negative) Ur Leukocyte Esterase Small H (Negative) Urine WBC 13 H (0-5) /hpf Ur Squamous Epith Cells 5 H (0-4) /hpf Urine Bacteria Many H (None) /hpf Urine Mucus Many H (None) /hpf Microbiology - Last 24 Hours (Table) 01/16/21 13:52 Urine Culture - Preliminary Urine,Voided
[2021-01-17] MEDS: HYDROmorphone 1 MG/ML 1 ML SYRINGE IVP PRN ×6 (00:22→22:41)
[2021-01-17] MEDS: PIPERACILLIN-TAZOBACTAM 3.375 GM in SODIUM CHLORIDE 0.9% 100 ML IVPB SCH ×3 (00:23→19:22)
[2021-01-17 06:05] LABS: ALT 15 U/L (4-34); AST 25 U/L (14-36); African American GFR (CKD) >90 (>60 ml/min/1.73 sqM); Albumin 3.3 g/dL (3.5-5.0); Albumin/Globulin Ratio 1.1; Alkaline Phosphatase 131 U/L (38-126); Anion Gap 9 mmol/L; Blood Urea Nitrogen 23 mg/dL (7-17); Calcium 9.2 mg/dL (8.4-10.2); Carbon Dioxide 25 mmol/L (22-30); Chloride 102 mmol/L (98-107); Globulin 3.1 g/dL; Glucose 90 mg/dL (74-99); Non-African American GFR(CKD) >90 (>60 ml/min/1.73 sqM); Sodium 136 mmol/L (137-145); Total Protein 6.4 g/dL (6.3-8.2)
[2021-01-17 06:10] LABS: Basophils # (A) 0.1 k/uL (0-0.2); Basophils % (A) 0 %; Eosinophils # (A) 0.1 k/uL (0-0.7); Eosinophils % (A) 1 %; HCT 38.1 % (34.0-46.0); HGB 11.9 gm/dL (11.4-16.0); Lymphocytes # (A) 2.1 k/uL (1.0-4.8); Lymphocytes % (A) 12 %; MCH 32.7 pg (25.0-35.0); MCHC 31.1 g/dL (31.0-37.0); MCV 105.2 fL (80.0-100.0); Macrocytosis Moderate; Mean Platelet Volume 7.4; Monocytes # (A) 1.3 k/uL (0-1.0); Monocytes % (A) 7 %; Neutrophils # (A) 14.5 k/uL (1.3-7.7); Neutrophils % (A) 80 %; Platelet Count 616 k/uL (150-450); RBC 3.62 m/uL (3.80-5.40); RDW 13.4 % (11.5-15.5); WBC 18.2 k/uL (3.8-10.6)
[2021-01-17] MEDS: PANTOPRAZOLE 40 MG/10 ML VIAL IVP SCH (08:17)
[2021-01-17] MEDS: ENOXAPARIN 40 MG/0.4 ML SYRINGE SQ SCH (08:17)
--- NOTE | 2021-01-17 10:10 | XR ---
EXAMINATION TYPE: XR chest 2V DATE OF EXAM: 01/17/2021 COMPARISON: None INDICATION:smoker, preoperative evaluation TECHNIQUE: Frontal and lateral views of the chest are obtained. FINDINGS: The heart size is normal. The pulmonary vasculature is normal. The lungs are clear. Nasogastric tube is in placed, the tip is at the distal esophagus. This should be advanced 11 cm. IMPRESSION: 1. No acute pulmonary process. 2. Nasogastric tube tip is within the distal esophagus and should be advanced 11 cm.
[2021-01-17 13:27] LABS: INR 1.1 (<1.2); Partial Thromboplastin Time 24.5 sec (22.0-30.0); Prothrombin Time 11.7 sec (9.0-12.0)
[2021-01-17] MEDS ORDERED: IV FLUID CONTINUATION 800 ML IV ONE (14:40)
[2021-01-17] MEDS ORDERED: ONDANSETRON 4 MG/2 ML VIAL IVP ONE (14:50)
[2021-01-17] MEDS ORDERED: DEXAMETHASONE SOD PHOSPHATE 4 MG/ML 1 ML VIAL IVP ONE (14:50)
[2021-01-17] MEDS ORDERED: ONDANSETRON 4 MG/2 ML VIAL ONE (14:52)
[2021-01-17] MEDS ORDERED: fentaNYL (PF) 50 MCG/ML 2 ML AMP IVP ONE ×2 (15:09→15:15)
[2021-01-17] MEDS ORDERED: MIDAZOLAM 2 MG/2 ML VIAL IVP ONE ×2 (15:09→15:15)
[2021-01-17] MEDS ORDERED: PROPOFOL 10 MG/ML 20 ML VIAL IV ONE (15:47)
[2021-01-17] MEDS ORDERED: SODIUM CHLORIDE 0.9% (PF) 10 ML VIAL ONE (15:47)
[2021-01-17] MEDS ORDERED: PHENYLEPHRINE-0.9% NACL SYG 1,000 MCG/10 ML SYRINGE ONE (15:47)
[2021-01-17] MEDS ORDERED: ROCURONIUM 10 MG/ML (5 ML VIAL) IV ONE (15:47)
[2021-01-17] MEDS ORDERED: LIDOCAINE 1% INJ 10MG/ML (20 ML MDV) ONE (15:47)
[2021-01-17] MEDS ORDERED: fentaNYL (PF) 50 MCG/ML 2 ML AMP ONE (15:47)
[2021-01-17] MEDS ORDERED: SUCCINYLCHOLINE CHLORIDE 100 MG/5 ML SYR IV ONE (15:47)
[2021-01-17] MEDS ORDERED: HYDROmorphone (PF) 1 MG/ML ONE (15:47)
[2021-01-17] MEDS ORDERED: SUGAMMADEX SODIUM 500 MG/5 ML SDV IV ONE (15:47)
[2021-01-17] MEDS ORDERED: ROPIVACAINE 5 MG/ML 30 ML VIAL ONE (15:47)
[2021-01-17] MEDS ORDERED: HEPARIN SODIUM,PORCINE 5,000 UNIT/ML 1 ML VIAL ONE (15:48)
[2021-01-17] MEDS ORDERED: HEPARIN SODIUM,PORCINE 5,000 UNIT/ML 1 ML VIAL SQ ONE (15:52)
[2021-01-17 16:14] VITALS: BMI 18.8
[2021-01-17] MEDS ORDERED: LACTATED RINGERS 1,000 ML IV ONE ×3 (16:43→18:19)
--- NOTE | 2021-01-17 17:10 | P.ANPRN ---
Procedure Note - Anesthesia - Nerve Block Performed Bilateral Erector Spinae Single Time Out Performed: Yes (1508) Date of Procedure: 01/17/21 Procedure Start Time: 15:09 Procedure Stop Time: 15:16 Location of Patient: PreOp Indication: Acute Post-Operative Pain, Requested by Surgeon Specifically requested for management of pain by DrShahid: Hugo Mcfarland Sedation Type: Sedate with meaningful contact maintained Preparation: Sterile Prep Position: Sitting Catheter: None Needle Types: Pajunk Needle Gauge: 21 Ultrasound used to visualize needle placement: Yes Ultrasound used to observe medication spread: Yes Injectate: 0.5% Ropivacaine (see comment for volume) (15cc each side with 15cc nacl PF each side) Narrative: t10-11. Sterile protocol Blood Aspirated: No Pain Paresthesia on Injection Noted: No Resistance on Injection: Normal Image Stored and Saved: Yes Events: Uneventful and Well Tolerated
[2021-01-17] MEDS ORDERED: BENZOCAINE/MENTHOL LOZENG 1 EACH LOZENGE MUCOUS MEM PRN (17:28)
[2021-01-17] MEDS ORDERED: ONDANSETRON 4 MG/2 ML VIAL IVP PRN (17:28)
[2021-01-17] MEDS ORDERED: HYDROmorphone 1 MG/ML 1 ML SYRINGE IVP PRN (17:28)
[2021-01-17] MEDS ORDERED: METOCLOPRAMIDE 5 MG/ML 2 ML VIAL IVP PRN (17:28)
--- NOTE | 2021-01-17 17:28 | P.OP ---
Date of Procedure: 01/17/21 Preoperative Diagnosis: Colonic obstruction Pelvic abscess Postoperative Diagnosis: Inflammatory mass of sigmoid colon Pelvic abscess Procedure(s) Performed: Sigmoid colectomy with end colostomy Drainage of pelvic abscess Anesthesia: MURTAZAA Surgeon: Hugo Mcfarland Estimated Blood Loss (ml): 100 Pathology: other (Sigmoid colon:, Pelvic abscess culture) Condition: stable Disposition: PACU Description of Procedure: Patient's placed on the operative table in the supine position. She received general anesthesia. Was prepped and draped in sterile fashion. It was entered through midline incision. The Bookwalter tract with wound. The colon proximally was dilated. There was inflammatory mass in the sigmoid colon. Was unsure if this was a colonic tumor or diverticulitis. There was a pelvic abscess seen this was aspirated and cultured. Approximately 40 mL of purulent fluid were the abscess. At this point the; was dissected off the lateral pelvic wall and then the descending colon was transected with the linear stapler. And then using the Enseal device the mesentery of the sigmoid colon was dissected and divided. There was intense inflammatory reaction in the pelvis due to the abscess. The ureter could not be seen clearly. Care was taken to divide the mesentery next to the bowel into in order to avoid injury to the ureter. The rectum was then transected with the contour stapler. The abdomen was irrigated with 3 L of saline. A JOSEPH drains placed through separate stabs in the right lower quadrant and the drain was placed the pelvis. The colostomy was brought up in the left upper quadrant and then the fascia was closed with looped #1 PDS suture. Skin is close to 3 glasses then matured with 3-0 Vicryl. Patient top she will was sent to recovery room in stable condition.
[2021-01-17] MEDS: D5-0.45% NACL WITH KCL 20MEQ/L 1,000 ML IV SCH (19:18)
[2021-01-17 20:19] LABS: Basophils % (A) 0 %; Eosinophils # (A) 0.1 k/uL (0-0.7); Eosinophils % (A) 1 %; HCT 36.5 % (34.0-46.0); HGB 11.4 gm/dL (11.4-16.0); Hypochromasia Slight; Lymphocytes # (A) 0.6 k/uL (1.0-4.8); Lymphocytes % (A) 3 %; MCH 33.5 pg (25.0-35.0); MCHC 31.1 g/dL (31.0-37.0); MCV 107.6 fL (80.0-100.0); Macrocytosis Moderate; Mean Platelet Volume 9.3; Monocytes # (A) 0.5 k/uL (0-1.0); Monocytes % (A) 3 %; Neutrophils # (A) 16.3 k/uL (1.3-7.7); Neutrophils % (A) 93 %; Platelet Count 585 k/uL (150-450); RBC 3.39 m/uL (3.80-5.40); RDW 13.5 % (11.5-15.5); WBC 17.5 k/uL (3.8-10.6)
[2021-01-17 20:34] LABS: African American GFR (CKD) >90 (>60 ml/min/1.73 sqM); Anion Gap 12 mmol/L; Blood Urea Nitrogen 20 mg/dL (7-17); Calcium 8.5 mg/dL (8.4-10.2); Carbon Dioxide 17 mmol/L (22-30); Chloride 104 mmol/L (98-107); Glucose 73 mg/dL (74-99); Non-African American GFR(CKD) >90 (>60 ml/min/1.73 sqM); Potassium 4.2 mmol/L (3.5-5.1); Sodium 133 mmol/L (137-145)
[2021-01-17] MEDS: KETOROLAC 15 MG/ML 1 ML VIAL IVP PRN (20:39)
[2021-01-18] MEDS: HEPARIN SODIUM,PORCINE 5,000 UNIT/ML 1 ML VIAL SQ SCH ×3 (00:26→16:08)
[2021-01-18] MEDS: PIPERACILLIN-TAZOBACTAM 3.375 GM in SODIUM CHLORIDE 0.9% 100 ML IVPB SCH ×3 (00:26→16:08)
--- NOTE | 2021-01-18 01:08 | P.PN ---
Progress Note - Text Progress Note Date: 01/17/21 - Chief Complaint Abdominal pain - History of Present Illness Consultation: This is a pleasant 55-year-old patient of Dr. Kavita johansen. Chronic stable medical conditions include hypertension, anxiety depression, nicotine dependence. Patient started having yesterday with increasing abdominal pain was progressively got worse. Also some nausea. Some vomiting this morning. Patient bowel movements have been variable for quite some time. Occasionally gets diarrhea. Also notices blood in the stool. Her weight has always been around 100 125 pounds. She lost about 10 pounds in the last few months. No fever no chills. Computed tomography scan of the abdomen and pelvis showed prominent fluid-filled bowel loops and abrupt change in caliber in the sigmoid colon: Area. Question about an abscess 2. Also severe concentric wall thickening. Dr. Mcfarland is planning for surgery. Patient denies any cardiac or pulmonary history. Denies any chest pain or shortness of breath. Has a good exercise tolerance otherwise. Today: Patient taken to the OR by Dr. Mcfarland. Sigmoid colectomy with end colostomy was done. Drainage of pelvic mass. Unclear if this was tumor with a breakdown on the secondary abscess. JOSEPH drain. NG tube Review of systems: Was done for constitutional, cardiovascular, GI, pulmonary. relevant finding as above Active Medications Benzocaine/Menthol (Benzocaine/Menthol Lozeng 1 Each Lozenge) 1 each MUCOUS MEM Q1HR PRN PRN Reason: Sore Throat Heparin Sodium (Porcine) (Heparin Sodium,Porcine 5,000 Unit/Ml 1 Ml Vial) 5,000 unit SQ Q8HR STACEY Last Admin: 01/18/21 00:26 Dose: 5,000 unit Documented by: Hydromorphone HCl (Hydromorphone 1 Mg/Ml 1 Ml Syringe) 1 mg IVP Q3HR PRN PRN Reason: Pain Last Admin: 01/17/21 22:41 Dose: 1 mg Documented by: Hydromorphone HCl (Hydromorphone 0.5 Mg/0.5 Ml Syringe) 0.5 mg IVP Q4HR PRN PRN Reason: Pain Hydromorphone HCl (Hydromorphone 1 Mg/Ml 1 Ml Syringe) 1 mg IVP Q3HR PRN PRN Reason: Moderate to Severe Pain Piperacillin Sod/Tazobactam (Sod 3.375 gm/ Sodium Chloride) 100 mls @ 25 mls/hr IVPB Q8HR [facility] Last Admin: 01/18/21 00:26 Dose: 25 mls/hr Documented by: Potassium Chloride/Dextrose/Sod Cl (D5%-1/2ns-Kcl 20 Meq/L Iv Solution) 1,000 mls @ 125 mls/hr IV .Q8H [facility] Last Admin: 01/17/21 19:18 Dose: 125 mls/hr Documented by: Ketorolac Tromethamine (Ketorolac 15 Mg/Ml 1 Ml Vial) 15 mg IVP Q6HR PRN PRN Reason: Mild Pain Stop: 01/20/21 17:29 Last Admin: 01/17/21 20:39 Dose: 15 mg Documented by: Metoclopramide HCl (Metoclopramide 5 Mg/Ml 2 Ml Vial) 10 mg IVP Q6HR PRN PRN Reason: Nausea and Vomiting Ondansetron HCl (Ondansetron 4 Mg/2 Ml Vial) 4 mg IVP Q6HR PRN PRN Reason: Nausea And Vomiting Last Admin: 01/16/21 16:05 Dose: 4 mg Documented by: Ondansetron HCl (Ondansetron 4 Mg/2 Ml Vial) 4 mg IVP Q6HR PRN PRN Reason: Nausea And Vomiting Pantoprazole Sodium (Pantoprazole 40 Mg/10 Ml Vial) 40 mg IVP DAILY [facility] Last Admin: 01/17/21 08:17 Dose: 40 mg Documented by: Past medical history to include: Hypertension, history of left breast cancer with surgery and radiation in 2008. Anxiety depression, smoker, Social history: Smokes about half a pack a day. For many years. Alcohol occasionally. 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 Physical examination: VITAL SIGNS: 98.2, 105, 18, 144/82, 93% on 2 L GENERAL: , laying in bed, a bit tired. EYES: Pupils equal. Conjunctiva normal. HEENT: External appearance of nose and ears normal, oral cavity grossly dry mucous membranes. NECK: JVD not raised; masses not palpable. HEART: First and second heart sounds are normal; no edema. LUNGS: Respiratory rate normal; slightly decreased breath sounds. ABDOMEN: Soft, tender, no guarding rigidity, liver spleen not palpable, colostomy bag. JOSEPH drain PSYCH: Tired sleepy. INVESTIGATIONS, reviewed in the clinical context: January 17: WBCs 100.5 hemoglobin 11.4 potassium 4.2 creatinine 0.53 WBC 19.7 hemoglobin 13.7 platelets 656 potassium 3.8 creatinine 0.5 to UA positive for nitrite and leukoesterase some WBC Computed tomography scan of the abdomen and pelvis without contrast: Abnormal fluid-filled prominent and dilated colon up to the mid sigmoid colon but does abrupt cutoff to severe concentric wall thickening. Cannot exclude and just a small to moderate-sized left pelvic abscess and/or a phlegmon. Assessment and plan: -Patient presents with a rather acute presentation of increasing abdominal pain with nausea vomiting. Patient's had abnormal bowel pattern for quite some time. Has lost some weight. The clinical picture is very compatible with underlying malignancy. The secondary abscess cannot be ruled out. IV Zosyn. January 17: Sigmoid colectomy with end colostomy. Drainage of pelvic abscess./Inflammatory mass of sigmoid colon. JOSEPH drain. NG tube -Mild protein calorie malnutrition from decreased oral intake. BMI 15.8 -Chronic nicotine dependence patient cigarette smoker. Patient be given a nicotine patch. Counseled about the same. -Depression and anxiety not otherwise specified. Patient is on Zoloft -Essential hypertension patient on Zestril. Follow blood pressure closely IV fluids. NG tube. IV Zosyn. Thank you Dr. Mcfarland
[2021-01-18] MEDS: HYDROmorphone 1 MG/ML 1 ML SYRINGE IVP PRN ×7 (02:02→22:24)
[2021-01-18] MEDS: D5-0.45% NACL WITH KCL 20MEQ/L 1,000 ML IV SCH ×4 (02:03→20:51)
[2021-01-18] MEDS: KETOROLAC 15 MG/ML 1 ML VIAL IVP PRN ×3 (03:41→17:00)
[2021-01-18 07:26] LABS: Basophils % (A) 0 %; Eosinophils # (A) 0.1 k/uL (0-0.7); Eosinophils % (A) 0 %; HCT 30.9 % (34.0-46.0); HGB 10.4 gm/dL (11.4-16.0); Lymphocytes # (A) 1.2 k/uL (1.0-4.8); Lymphocytes % (A) 8 %; MCH 34.8 pg (25.0-35.0); MCHC 33.7 g/dL (31.0-37.0); MCV 103.1 fL (80.0-100.0); Macrocytosis Slight; Mean Platelet Volume 8.9; Monocytes % (A) 7 %; Neutrophils # (A) 12.5 k/uL (1.3-7.7); Neutrophils % (A) 84 %; Platelet Count 391 k/uL (150-450); RDW 13.2 % (11.5-15.5); WBC 14.9 k/uL (3.8-10.6)
[2021-01-18] MEDS: PANTOPRAZOLE 40 MG/10 ML VIAL IVP SCH (08:13)
[2021-01-18 08:30] LABS: ALT 11 U/L (4-34); AST 27 U/L (14-36); African American GFR (CKD) >90 (>60 ml/min/1.73 sqM); Albumin 2.1 g/dL (3.5-5.0); Albumin/Globulin Ratio 0.8; Alkaline Phosphatase 85 U/L (38-126); Anion Gap 4 mmol/L; Blood Urea Nitrogen 20 mg/dL (7-17); Calcium 8.3 mg/dL (8.4-10.2); Carbon Dioxide 24 mmol/L (22-30); Chloride 105 mmol/L (98-107); Globulin 2.5 g/dL; Glucose 116 mg/dL (74-99); Non-African American GFR(CKD) >90 (>60 ml/min/1.73 sqM); Potassium 4.4 mmol/L (3.5-5.1); Sodium 133 mmol/L (137-145); Total Bilirubin 0.7 mg/dL (0.2-1.3); Total Protein 4.6 g/dL (6.3-8.2)
--- NOTE | 2021-01-18 13:15 | P.PN ---
Subjective From records: This is a pleasant 55-year-old patient of Dr. Kavita johansen. Chronic stable medical conditions include hypertension, anxiety depression, nicotine dependence. Patient started having yesterday with increasing abdominal pain was progressively got worse. Also some nausea. Some vomiting this morning. Patient bowel movements have been variable for quite some time. Occasionally gets diarrhea. Also notices blood in the stool. Her weight has always been around 100 125 pounds. She lost about 10 pounds in the last few months. No fe chiqui no chills. Computed tomography scan of the abdomen and pelvis showed prominent fluid-filled bowel loops and abrupt change in caliber in the sigmoid colon: Area. Question about an abscess 2. Also severe concentric wall thickening. Dr. Mcfarland is planning for surgery. Patient denies any cardiac or pulmonary history. Denies any chest pain or shortness of breath. Has a good exercise tolerance otherwise. Today: Patient taken to the OR by Dr. Mcfarland. Sigmoid colectomy with end colostomy was done. Drainage of pelvic mass. Unclear if this was tumor with a breakdown on the secondary abscess. JOSEPH drain. NG tube Subjective: 01/18/2021 This is a pleasant 55 years old female with medical problems presents with possible pelvic abscess versus colonic neoplasm causing distal bowel obstruction per CAT scan of the abdomen and pelvis done on admission. Patient underwent sigmoid colectomy and end colostomy. Today is postoperative day #1. Also there was suspicion of UTI. She remains nothing by mouth with NG tube is in a Place about 300 mL of dark fluid is in the container. No bowel movement or passing gas. She looks calm but have abdominal pain at the surgical site with no vomiting. Vitals are stable Leukocytosis improving down to 14.9 K. BMP is unremarkable. Liver enzymes e levated today. Pathology specimen is still pending. Wound culture and sensitivity also pending. Urine culture is growing gram-negative bacilli. Currently patient is on Zosyn and D5 half-normal saline at 1 25 mL/h per surgery team CONSTITUTIONAL: No fever, no malaise, no fatigue. HEENT: No recent visual problems or hearing problems. Denied any sore throat. CARDIOVASCULAR: No orthopnea, PND, no palpitations, no syncope. PULMONARY: No shortness of breath, no cough, no hemoptysis. GASTROINTESTINAL: No diarrhea, no nausea, no vomiting NEUROLOGICAL: No headaches, no weakness, no numbness. HEMATOLOGICAL: Denies any bleeding or petechiae. Active Medications Generic Name Dose Route Start Last Admin Trade Name Freq PRN Reason Stop Dose Admin Benzocaine/Menthol 1 each 01/17/21 17:28 Benzocaine/Menthol Lozeng 1 Each Lozenge MUCOUS MEM Q1HR PRN Sore Throat Heparin Sodium (Porcine) 5,000 unit 01/18/21 00:00 01/18/21 08:13 Heparin Sodium,Porcine 5,000 Unit/Ml 1 Ml Vial SQ 5,000 unit Q8HR STACEY Administration Hydromorphone HCl 1 mg 01/16/21 15:24 01/18/21 12:38 Hydromorphone 1 Mg/Ml 1 Ml Syringe IVP 1 mg Q3HR PRN Administration Pain Hydromorphone HCl 0.5 mg 01/16/21 15:25 Hydromorphone 0.5 Mg/0.5 Ml Syringe IVP Q4HR PRN Pain Hydromorphone HCl 1 mg 01/17/21 17:28 Hydromorphone 1 Mg/Ml 1 Ml Syringe IVP Q3HR PRN Moderate to Severe Pain Piperacillin Sod/Tazobactam 100 mls @ 25 mls/hr 01/17/21 00:00 01/18/21 08:13 Sod 3.375 gm/ Sodium Chloride IVPB 25 mls/hr Q8HR STACEY Administration Potassium Chloride/Dextrose/Sod Cl 1,000 mls @ 125 mls/hr 01/17/21 19:00 01/18/21 12:39 D5%-1/2ns-Kcl 20 Meq/L Iv Solution IV 125 mls/hr .Q8H STACEY Administration Ketorolac Tromethamine 15 mg 01/17/21 17:28 01/18/21 10:12 Ketorolac 15 Mg/Ml 1 Ml Vial IVP 01/20/21 17:29 15 mg Q6HR PRN Administration Mild Pain Metoclopramide HCl 10 mg 01/17/21 17:28 Metoclopramide 5 Mg/Ml 2 Ml Vial IVP Q6HR PRN Nausea and Vomiting Ondansetron HCl 4 mg 01/16/21 15:26 01/16/21 16:05 Ondansetron 4 Mg/2 Ml Vial IVP 4 mg Q6HR PRN Administration Nausea And Vomiting Ondansetron HCl 4 mg 01/17/21 17:28 Ondansetron 4 Mg/2 Ml Vial IVP Q6HR PRN Nausea And Vomiting Pantoprazole Sodium 40 mg 01/16/21 15:30 01/18/21 08:13 Pantoprazole 40 Mg/10 Ml Vial IVP 40 mg DAILY STACEY Administration Objective - Vital Signs Vital signs: Vital Signs Temp 98.7 F 01/18/21 12:12 Pulse 100 01/18/21 12:12 Resp 16 01/18/21 12:12 BP 115/69 01/18/21 12:12 Pulse Ox 100 01/18/21 12:12 Intake & Output 01/17/21 01/18/21 01/18/21 18:59 06:59 18:59 Intake Total 1775 1225 Output Total 180 805 Balance 1595 420 Weight 51.256 kg Intake: IV 1775 Intake, IV Titration 1225 Amount D5-0.45% NaCl with KCl 1125 20Meq/l 1,000 ml @ 125 mls/hr IV .Q8H [facility] Rx#: [id number] Piperacillin-Tazobactam 3 100 .375 gm In Sodium Chloride 0.9% 100 ml @ 25 mls/hr IVPB Q8HR [facility] Rx# :[id number] Output: Gastric Drainage 200 Drainage 305 Right Lower Abdomen 305 Urine 130 300 Uretheral ([place]) 300 Estimated Blood Loss 50 Other: Voiding Method Indwelling Catheter Indwelling Catheter - Exam GENERAL: The patient is alert and oriented x3, not in any acute distress. Well developed, well nourished. HEENT: Pupils are round and equally reacting to light. EOMI. No scleral icterus. No conjunctival pallor. Normocephalic, atraumatic. No pharyngeal erythema. No thyromegaly. CARDIOVASCULAR: S1 and S2 present. No murmurs, rubs, or gallops. PULMONARY: Chest is clear to auscultation, no wheezing or crackles. -ABDOMEN: Soft, mild tenderness expected a surgical wound, nondistended, normoactive bowel sounds. No palpable organomegaly. Left lower quadrant colostomy. Surgical wound base clean and closed with a dressing is in place MUSCULOSKELETAL: No joint swelling or deformity. EXTREMITIES: No cyanosis, clubbing, or pedal edema. NEUROLOGICAL: Gross neurological examination did not reveal any focal deficits. SKIN: No rashes. no petechiae. - Labs CBC & Chem 7: 01/18/21 06:37 01/18/21 06:37 Labs: Abnormal Lab Results - Last 24 Hours (Table) 01/17/21 01/17/21 01/18/21 Range/Units 18:47 18:47 06:37 WBC 17.5 H 14.9 H (3.8-10.6) k/uL RBC 3.39 L 3.00 L (3.80-5.40) m/uL Hgb 10.4 L (11.4-16.0) gm/dL Hct 30.9 L (34.0-46.0) % MCV 107.6 H 103.1 H (80.0-100.0) fL Plt Count 585 H (150-450) k/uL Neutrophils # 16.3 H 12.5 H (1.3-7.7) k/uL Lymphocytes # 0.6 L (1.0-4.8) k/uL Sodium 133 L (137-145) mmol/L Carbon Dioxide 17 L (22-30) mmol/L BUN 20 H (7-17) mg/dL Glucose 73 L (74-99) mg/dL Calcium (8.4-10.2) mg/dL Total Protein (6.3-8.2) g/dL Albumin (3.5-5.0) g/dL 01/18/21 Range/Units 06:37 WBC (3.8-10.6) k/uL RBC (3.80-5.40) m/uL Hgb (11.4-16.0) gm/dL Hct (34.0-46.0) % MCV (80.0-100.0) fL Plt Count (150-450) k/uL Neutrophils # (1.3-7.7) k/uL Lymphocytes # (1.0-4.8) k/uL Sodium 133 L (137-145) mmol/L Carbon Dioxide (22-30) mmol/L BUN 20 H (7-17) mg/dL Glucose 116 H (74-99) mg/dL Calcium 8.3 L (8.4-10.2) mg/dL Total Protein 4.6 L (6.3-8.2) g/dL Albumin 2.1 L (3.5-5.0) g/dL Microbiology - Last 24 Hours (Table) 01/17/21 16:50 Gram Stain - Preliminary Groin Wound Culture - Preliminary 01/17/21 16:50 Gram Stain - Preliminary Groin Wound Culture - Preliminary 01/17/21 16:50 Anaerobic Culture - Preliminary Groin 01/17/21 16:50 Anaerobic Culture - Preliminary Groin 01/16/21 13:52 Urine Culture - Preliminary Urine,Voided Gram Neg Bacilli 01/16/21 15:26 Blood Culture - Preliminary Blood No Growth after 24 hours 01/16/21 15:05 Blood Culture - Preliminary Blood No Growth after 24 hours Assessment and Plan Assessment: - Pelvic abscess with possible sigmoid neoplasm, BX occluded. On January 17: Sigmoid colectomy with end colostomy. Surgery primary team on the case, continue on IV Zosyn -Acute urinary tract infection -Mild protein calorie malnutrition from decreased oral intake. BMI 15.8 -Chronic nicotine dependence patient cigarette smoker. Patient be given a nicotine patch. Counseled about the same. -Depression and anxiety not otherwise specified. Patient is on Zoloft -Essential hypertension patient on Zestril. Follow blood pressure closely DVT prophylaxis: Subcutaneous heparin GI prophylaxis: PPI
--- NOTE | 2021-01-18 13:40 | P.PN ---
Subjective Progress Note Date: 01/18/21 CHIEF COMPLAINT: Abdominal pain HISTORY OF PRESENT ILLNESS: Patient is status post sigmoid colectomy with end colostomy and drainage of pelvic abscess for colonic obstruction and pelvic abscess. Patient is complaining of abdominal pain but controlled with pain medication. She denies any nausea or vomiting. NG tube in place. She denies any flatus or BM. Afebrile. She had been tachycardic heart rate in the low 100s now heart rate is 93. WBC is 14.9 Hgb 10.4 PHYSICAL EXAM: VITAL SIGNS: Reviewed. GENERAL: Well-developed in no acute distress. HEENT: No sclera icterus. Extraocular movements grossly intact. Moist buccal mucosa. Head is atraumatic, normocephalic. ABDOMEN: Soft. Nondistended. Incisional dressing has a small area of dried blood. Serosanguineous output through the JOSEPH drain. Colostomy bag had sanguinous fluid. NEUROLOGIC: Alert and oriented. Cranial nerves II through XII grossly intact. ASSESSMENT: 1. Colonic obstruction and pelvic abscess status post sigmoid colectomy with end colostomy and drainage of pelvic abscess PLAN: -Continue NG tube for decompression -Patient is nothing by mouth except for ice chips -Continue IV fluids -Continue IV antibiotics -Infectious disease consulted -Encourage incentive spirometer use -She had prophylaxis Protonix and DVT prophylaxis subcu heparin Physician [employer] Glass Grinder note has been reviewed by physician. Signing provider agrees with the documented findings, assessment, and plan of care. Objective - Vital Signs Vital signs: Vital Signs Temp 98.7 F 01/18/21 12:12 Pulse 100 01/18/21 12:12 Resp 16 01/18/21 12:12 BP 115/69 01/18/21 12:12 Pulse Ox 100 01/18/21 12:12 Intake & Output 01/17/21 01/18/21 01/18/21 18:59 06:59 18:59 Intake Total 1775 1225 Output Total 180 805 Balance 1595 420 Weight 51.256 kg Intake: IV 1775 Intake, IV Titration 1225 Amount D5-0.45% NaCl with KCl 1125 20Meq/l 1,000 ml @ 125 mls/hr IV .Q8H [facility] Rx#: [id number] Piperacillin-Tazobactam 3 100 .375 gm In Sodium Chloride 0.9% 100 ml @ 25 mls/hr IVPB Q8HR [facility] Rx# :[id number] Output: Gastric Drainage 200 Drainage 305 Right Lower Abdomen 305 Urine 130 300 Uretheral ([place]) 300 Estimated Blood Loss 50 Other: Voiding Method Indwelling Catheter Indwelling Catheter - Labs CBC & Chem 7: 01/18/21 06:37 01/18/21 06:37 Labs: Abnormal Lab Results - Last 24 Hours (Table) 01/17/21 01/17/21 01/18/21 Range/Units 18:47 18:47 06:37 WBC 17.5 H 14.9 H (3.8-10.6) k/uL RBC 3.39 L 3.00 L (3.80-5.40) m/uL Hgb 10.4 L (11.4-16.0) gm/dL Hct 30.9 L (34.0-46.0) % MCV 107.6 H 103.1 H (80.0-100.0) fL Plt Count 585 H (150-450) k/uL Neutrophils # 16.3 H 12.5 H (1.3-7.7) k/uL Lymphocytes # 0.6 L (1.0-4.8) k/uL Sodium 133 L (137-145) mmol/L Carbon Dioxide 17 L (22-30) mmol/L BUN 20 H (7-17) mg/dL Glucose 73 L (74-99) mg/dL Calcium (8.4-10.2) mg/dL Total Protein (6.3-8.2) g/dL Albumin (3.5-5.0) g/dL 01/18/21 Range/Units 06:37 WBC (3.8-10.6) k/uL RBC (3.80-5.40) m/uL Hgb (11.4-16.0) gm/dL Hct (34.0-46.0) % MCV (80.0-100.0) fL Plt Count (150-450) k/uL Neutrophils # (1.3-7.7) k/uL Lymphocytes # (1.0-4.8) k/uL Sodium 133 L (137-145) mmol/L Carbon Dioxide (22-30) mmol/L BUN 20 H (7-17) mg/dL Glucose 116 H (74-99) mg/dL Calcium 8.3 L (8.4-10.2) mg/dL Total Protein 4.6 L (6.3-8.2) g/dL Albumin 2.1 L (3.5-5.0) g/dL Microbiology - Last 24 Hours (Table) 01/17/21 16:50 Gram Stain - Preliminary Groin Wound Culture - Preliminary 01/17/21 16:50 Gram Stain - Preliminary Groin Wound Culture - Preliminary 01/17/21 16:50 Anaerobic Culture - Preliminary Groin 01/17/21 16:50 Anaerobic Culture - Preliminary Groin 01/16/21 13:52 Urine Culture - Preliminary Urine,Voided Gram Neg Bacilli 01/16/21 15:26 Blood Culture - Preliminary Blood No Growth after 24 hours 01/16/21 15:05 Blood Culture - Preliminary Blood No Growth after 24 hours
[2021-01-18] MEDS ORDERED: LACTATED RINGERS 1,000 ML IV ONE (16:45)
[2021-01-18] MEDS ORDERED: diphenhydrAMINE 25 MG CAP PO PRN (18:22)
[2021-01-18] MEDS ORDERED: TRIAMCINOLONE 0.1% CREAM 80 GM TUBE TOPICAL PRN (18:23)
[2021-01-18] MEDS ORDERED: diphenhydrAMINE 50 MG/ML 1 ML VIAL IVP PRN (19:13)
[2021-01-19] MEDS ORDERED: HEPARIN SODIUM,PORCINE 5,000 UNIT/ML 1 ML VIAL ONE
[2021-01-19] MEDS ORDERED: KETOROLAC 15 MG/ML 1 ML VIAL ONE (00:28)
[2021-01-19] MEDS ORDERED: HYDROmorphone 1 MG/ML 1 ML SYRINGE ONE (04:08)
[2021-01-19] MEDS ORDERED: FUROSEMIDE 10 MG/ML 4 ML VIAL ONE (05:30)
--- NOTE | 2021-01-19 05:50 | CONS ---
CONSULTATION DATE OF SERVICE: 01/18/2021 REASON FOR CONSULTATION: Abdominal abscess. HISTORY OF PRESENT ILLNESS: The patient is a 55-year-old female presenting to the ER at [facility] on January 16, 2021 for evaluation of abdominal pain. The patient's abdominal pain has been going on for a few days before presentation to the hospital. However, it worsened the day before she presented to the hospital. The pain has been mostly in the lower abdominal area. The patient is describing the pain to be more of a sharp in nature with intensity almost 10/10 by the time she presented to the hospital. The patient did have associated nausea but no vomiting. Denies any diarrhea or any constipation. Did have some chills but denies high-grade fever. On admission to the hospital the patient was afebrile and no fever has been recorded during this hospital stay. The patient did have a white count of 18,000. Patient did have normal liver enzymes. Creatinine was normal. Urine was mildly positive. Arias PCR was negative. Patient did have a CT of abdomen and pelvis at the time of admission which was suboptimal study with abnormal fluid filled prominent and dilated colon up to the sigmoid level and a question of pelvic abscess of phlegmon. The patient was taken to the OR last evening by Dr. Mcfarland. The patient was noticed to have an inflammatory mass on the sigmoid colon and pelvic abscess, status post sigmoid colectomy with end- colostomy and drainage of the pelvic abscess. The patient has been treated with Zosyn. Infectious Disease was consulted for further management of antibiotic therapy. REVIEW OF SYSTEMS: Positive points have been mentioned in HPI. Rest of systems are negative. PAST MEDICAL HISTORY: Left breast cancer, hypertension, right arm infection and colitis. PAST SURGICAL HISTORY: Back surgery, , hysterectomy, left breast lumpectomy. SOCIAL HISTORY: Current everyday smoker. Rarely drinks. No drug use. FAMILY HISTORY: Sister with history of PE. ALLERGIES: No known drug allergies. MEDICATIONS: The patient is currently on Kenalog, Zosyn, Protonix, Zofran, Reglan, Toradol, Dilaudid, heparin, Cepacol lozenges. PHYSICAL EXAMINATION: VITAL SIGNS: Blood pressure 110/72 with a pulse of 95, temperature 98.1, she is 95% on room air. GENERAL DESCRIPTION: Patient is a middle-aged female lying in bed in no distress. No tachypnea or accessory muscles of respiration use. HEENT: Examination shows no pallor or scleral icterus. Oral mucous membrane is dry. NECK: Trachea central, no thyromegaly. LUNGS: Unlabored breathing, decreased breath sounds at the bases. No wheeze. HEART: S1-S2, regular rate and rhythm. ABDOMEN: Soft, mildly distended. No guarding or rigidity. EXTREMITIES: No edema of the feet. SKIN: No rash or mass palpable. NEUROLOGICAL: Patient is awake, alert, oriented. Mood and affect normal. LABS: Hemoglobin is 10.4, was 14.1 on admission, white count 19.7, BUN of 20, creatinine 0.5. Electrolytes have been normal. Liver enzymes are normal. Urine is mildly positive. Influenza serology was negative. CT report as mentioned above. DIAGNOSTIC IMPRESSION: Patient presenting to the hospital with abdominal pain in this patient who did have evidence of pelvic abscess and inflammatory mass in the sigmoid colon, status post hemicolectomy and drainage of the abscess. Will need to cover for the enteric gram- negative which is the likely pathogen. PLAN: 1. The patient is currently covered with Zosyn 3.375 grams q8h to continue. 2. Gentle IV fluid. 3. We will follow on clinical condition and culture to further adjust medication if needed. Thank you for this consultation. Will follow this patient along with you. MMODL / IJN: [id number] /
[2021-01-19] MEDS: KETOROLAC 15 MG/ML 1 ML VIAL IVP PRN ×4 (05:56→22:39)
[2021-01-19] MEDS: PIPERACILLIN-TAZOBACTAM 3.375 GM in SODIUM CHLORIDE 0.9% 100 ML IVPB SCH ×4 (06:10→23:51)
[2021-01-19] MEDS: HEPARIN SODIUM,PORCINE 5,000 UNIT/ML 1 ML VIAL SQ SCH ×4 (06:10→23:51)
[2021-01-19] MEDS: PANTOPRAZOLE 40 MG/10 ML VIAL IVP SCH (08:00)
[2021-01-19] MEDS: HYDROmorphone 1 MG/ML 1 ML SYRINGE IVP PRN ×5 (08:01→23:52)
[2021-01-19 08:54] LABS: Basophils % (A) 0 %; Eosinophils # (A) 0.2 k/uL (0-0.7); Eosinophils % (A) 2 %; HCT 31.7 % (34.0-46.0); HGB 10.2 gm/dL (11.4-16.0); Lymphocytes # (A) 1.2 k/uL (1.0-4.8); Lymphocytes % (A) 8 %; MCH 34.1 pg (25.0-35.0); MCHC 32.3 g/dL (31.0-37.0); MCV 105.8 fL (80.0-100.0); Macrocytosis Moderate; Mean Platelet Volume 8.9; Monocytes # (A) 0.8 k/uL (0-1.0); Monocytes % (A) 5 %; Neutrophils # (A) 12.7 k/uL (1.3-7.7); Neutrophils % (A) 84 %; Platelet Count 447 k/uL (150-450); RDW 13.6 % (11.5-15.5); WBC 15.1 k/uL (3.8-10.6)
[2021-01-19 09:11] LABS: African American GFR (CKD) >90 (>60 ml/min/1.73 sqM); Anion Gap 6 mmol/L; Blood Urea Nitrogen 16 mg/dL (7-17); Calcium 8.5 mg/dL (8.4-10.2); Carbon Dioxide 23 mmol/L (22-30); Chloride 105 mmol/L (98-107); Glucose 90 mg/dL (74-99); Non-African American GFR(CKD) >90 (>60 ml/min/1.73 sqM); Potassium 4.4 mmol/L (3.5-5.1); Sodium 134 mmol/L (137-145)
[2021-01-19] MEDS ORDERED: BENZOCAINE SPRAY 1 CAN MUCOUS MEM PRN ×2 (09:26→14:00)
[2021-01-19] MEDS: D5-0.45% NACL WITH KCL 20MEQ/L 1,000 ML IV SCH ×3 (12:12→22:40)
--- NOTE | 2021-01-19 12:43 | P.PN ---
Subjective Progress Note Date: 01/19/21 CHIEF COMPLAINT: Abdominal pain HISTORY OF PRESENT ILLNESS: Patient is status post sigmoid colectomy with end colostomy and drainage of pelvic abscess for colonic obstruction and pelvic abscess. Patient reports her abdominal pain is controlled. She denies any nausea or vomiting. NG tube in place. She is complaining of throat irritation from the NG tube. She denies any flatus or BM through ostomy. Patient had low urine output yesterday afternoon improved with IV fluid bolus and after ambulating. urine output 1400ml. NG tube 100 output. JOSEPH drain serous fluid with 90 mL output. Afebrile. WBC is up at 15.1 Hgb 10.2 Patient seen and examined with Dr. Mcfarland PHYSICAL EXAM: VITAL SIGNS: Reviewed. GENERAL: Well-developed in no acute distress. HEENT: No sclera icterus. Extraocular movements grossly intact. Moist buccal mucosa. Head is atraumatic, normocephalic. ABDOMEN: Soft. Nondistended. Incisional dressing has dried blood noted at the distal end of dressing. Serous output through the JOSEPH drain. Colostomy bag had sanguinous fluid. NEUROLOGIC: Alert and oriented. Cranial nerves II through XII grossly intact. ASSESSMENT: 1. Colonic obstruction and pelvic abscess status post sigmoid colectomy with end colostomy and drainage of pelvic abscess, postop day #2 PLAN: -NG tube will be discontinued today -Start patient on sips of clears -Continue IV fluids -Continue IV antibiotics per ID -Encourage incentive spirometer use -Encourage patient to ambulate -She had prophylaxis Protonix and DVT prophylaxis subcu heparin Physician H[employer] Journeyman note has been reviewed by physician. Signing provider agrees with the documented findings, assessment, and plan of care. Objective - Vital Signs Vital signs: Vital Signs Temp 98 F 01/19/21 12:31 Pulse 88 01/19/21 12:31 Resp 18 01/19/21 12:31 BP 128/78 01/19/21 12:31 Pulse Ox 94 L 01/19/21 12:31 Intake & Output 01/18/21 01/19/21 01/19/21 18:59 06:59 18:59 Output Total 418 633 6277 Balance -290 -555 -2990 Output: Gastric Drainage 350 100 Drainage 40 30 90 Right Lower Abdomen 40 30 90 Urine 368 [id number] Uretheral ([place]) [phone] Other: Voiding Method Indwelling Catheter Indwelling Catheter Indwelling Catheter - Labs CBC & Chem 7: 01/19/21 08:28 01/19/21 08:28 Labs: Abnormal Lab Results - Last 24 Hours (Table) 01/19/21 01/19/21 Range/Units 08:28 08:28 WBC 15.1 H (3.8-10.6) k/uL RBC 3.00 L (3.80-5.40) m/uL Hgb 10.2 L (11.4-16.0) gm/dL Hct 31.7 L (34.0-46.0) % MCV 105.8 H (80.0-100.0) fL Neutrophils # 12.7 H (1.3-7.7) k/uL Sodium 134 L (137-145) mmol/L Microbiology - Last 24 Hours (Table) 01/17/21 16:50 Gram Stain - Preliminary Groin Wound Culture - Preliminary Gram Neg Bacilli 01/16/21 15:26 Blood Culture - Preliminary Blood No Growth after 48 hours 01/16/21 15:05 Blood Culture - Preliminary Blood No Growth after 48 hours 01/16/21 13:52 Urine Culture - Final Urine,Voided Escherichia coli 01/17/21 16:50 Gram Stain - Preliminary Groin Wound Culture - Preliminary
--- NOTE | 2021-01-19 13:27 | P.PN ---
Subjective From records: This is a pleasant 55-year-old patient of Dr. Kavita johansen. Chronic stable medical conditions include hypertension, anxiety depression, nicotine dependence. Patient started having yesterday with increasing abdominal pain was progressively got worse. Also some nausea. Some vomiting this morning. Patient bowel movements have been variable for quite some time. Occasionally gets diarrhea. Also notices blood in the stool. Her weight has always been around 100 125 pounds. She lost about 10 pounds in the last few months. No fe chiqui no chills. Computed tomography scan of the abdomen and pelvis showed prominent fluid-filled bowel loops and abrupt change in caliber in the sigmoid colon: Area. Question about an abscess 2. Also severe concentric wall thickening. Dr. Mcfarland is planning for surgery. Patient denies any cardiac or pulmonary history. Denies any chest pain or shortness of breath. Has a good exercise tolerance otherwise. Today: Patient taken to the OR by Dr. Mcfarland. Sigmoid colectomy with end colostomy was done. Drainage of pelvic mass. Unclear if this was tumor with a breakdown on the secondary abscess. JOSEPH drain. NG tube Subjective: 01/18/2021 This is a pleasant 55 years old female with medical problems presents with possible pelvic abscess versus colonic neoplasm causing distal bowel obstruction per CAT scan of the abdomen and pelvis done on admission. Patient underwent sigmoid colectomy and end colostomy. Today is postoperative day #1. Also there was suspicion of UTI. She remains nothing by mouth with NG tube is in a Place about 300 mL of dark fluid is in the container. No bowel movement or passing gas. She looks calm but have abdominal pain at the surgical site with no vomiting. Vitals are stable Leukocytosis improving down to 14.9 K. BMP is unremarkable. Liver enzymes e levated today. Pathology specimen is still pending. Wound culture and sensitivity also pending. Urine culture is growing gram-negative bacilli. Currently patient is on Zosyn and D5 half-normal saline at 1 25 mL/h per surgery team 01/19/2021 Patient remains nothing by mouth with NG tube in place with about 100 mL of yellow discharge and container. Colostomy back in the left lower quadrant empty , with passing gas only. Still have some abdominal pain. Vitals are stable. leukocytosis 15.1 k. bmp is unremarkable. we'll culture is growing gram-negative bacilli and urine culture is growing e. coli sensitive to antibiotics pathology report is still pending as per surgery team ng tube will be discontinued today and start patient on clear diet. currently patient remains on zosyn and d5 half-normal saline at 1 25 ml/h per surgery team Objective - Vital Signs Vital signs: Vital Signs Temp 98 F 01/19/21 12:31 Pulse 88 01/19/21 12:31 Resp 18 01/19/21 12:31 BP 128/78 01/19/21 12:31 Pulse Ox 94 L 01/19/21 12:31 Intake & Output 01/18/21 01/19/21 01/19/21 18:59 06:59 18:59 Output Total 420 752 2261 Balance -290 -555 -2990 Weight 51.256 kg Output: Gastric Drainage 350 100 Drainage 40 30 90 Right Lower Abdomen 40 30 90 Urine [id number] Uretheral ([facility]son) [phone] Other: Voiding Method Indwelling Catheter Indwelling Catheter Indwelling Catheter - Exam GENERAL: The patient is alert and oriented x3, not in any acute distress. Well developed, well nourished. HEENT: Pupils are round and equally reacting to light. EOMI. No scleral icterus. No conjunctival pallor. Normocephalic, atraumatic. No pharyngeal erythema. No thyromegaly. CARDIOVASCULAR: S1 and S2 present. No murmurs, rubs, or gallops. PULMONARY: Chest is clear to auscultation, no wheezing or crackles. -ABDOMEN: Soft, mild tenderness expected a surgical wound, nondistended, normoactive bowel sounds. No palpable organomegaly. Left lower quadrant colostomy. Surgical wound base clean and closed with a dressing is in place MUSCULOSKELETAL: No joint swelling or deformity. EXTREMITIES: No cyanosis, clubbing, or pedal edema. NEUROLOGICAL: Gross neurological examination did not reveal any focal deficits. SKIN: No rashes. no petechiae. - Labs CBC & Chem 7: 01/19/21 08:28 01/19/21 08:28 Labs: Abnormal Lab Results - Last 24 Hours (Table) 01/19/21 01/19/21 Range/Units 08:28 08:28 WBC 15.1 H (3.8-10.6) k/uL RBC 3.00 L (3.80-5.40) m/uL Hgb 10.2 L (11.4-16.0) gm/dL Hct 31.7 L (34.0-46.0) % MCV 105.8 H (80.0-100.0) fL Neutrophils # 12.7 H (1.3-7.7) k/uL Sodium 134 L (137-145) mmol/L Microbiology - Last 24 Hours (Table) 01/17/21 16:50 Gram Stain - Preliminary Groin Wound Culture - Preliminary Gram Neg Bacilli 01/16/21 15:26 Blood Culture - Preliminary Blood No Growth after 48 hours 01/16/21 15:05 Blood Culture - Preliminary Blood No Growth after 48 hours 01/16/21 13:52 Urine Culture - Final Urine,Voided Escherichia coli 01/17/21 16:50 Gram Stain - Preliminary Groin Wound Culture - Preliminary Assessment and Plan Assessment: - Pelvic abscess with possible sigmoid neoplasm, BX occluded. On January 17: Sigmoid colectomy with end colostomy. Surgery primary team on the case, continue on IV Zosyn -Acute urinary tract infection -Mild protein calorie malnutrition from decreased oral intake. BMI 15.8 -Chronic nicotine dependence patient cigarette smoker. Patient be given a nicotine patch. Counseled about the same. -Depression and anxiety not otherwise specified. Patient is on Zoloft -Essential hypertension patient on Zestril. Follow blood pressure closely DVT prophylaxis: Subcutaneous heparin GI prophylaxis: PPI
[2021-01-19] MEDS: AMMONIUM LACTATE 12% LOTION 225 GM BTL TOPICAL SCH ×2 (13:55→22:45)
--- NOTE | 2021-01-19 23:16 | PN ---
PROGRESS NOTE DATE OF SERVICE: 01/19/2021 REASON FOR FOLLOWUP: Abdominal abscess. INTERVAL HISTORY: The patient is currently afebrile. The patient is feeling better after removal of the NG tube. Denies having any chest pain or shortness of breath or cough. Abdominal pain has slightly decreased in intensity. No nausea, no vomiting. PHYSICAL EXAMINATION: Blood pressure 128/78 with a pulse of 80, temperature 98. She is 94% on room air. General description is a middle-aged female lying in bed in no distress. RESPIRATORY SYSTEM: Unlabored breathing. Clear to auscultation anteriorly. HEART: S1, S2. Regular rate and rhythm. ABDOMEN: Soft. Mildly tender. No guarding or rigidity. LAB: Hemoglobin is 10, white count 15.1. BUN of 16, creatinine 0.57. Abdominal culture with E coli. DIAGNOSTIC IMPRESSION AND PLAN: Patient with abdominal abscess, status post drainage and sigmoid colectomy. Culture with an E coli sensitive pathogen. Antibiotic will be switched to Unasyn and we will monitor clinical course closely. MMODL / IJN: [id number] /
[2021-01-20] MEDS: HYDROmorphone 1 MG/ML 1 ML SYRINGE IVP PRN ×7 (03:04→21:55)
[2021-01-20] MEDS: KETOROLAC 15 MG/ML 1 ML VIAL IVP PRN ×3 (04:38→16:28)
[2021-01-20 07:21] LABS: Basophils % (A) 0 %; Eosinophils # (A) 0.3 k/uL (0-0.7); Eosinophils % (A) 2 %; HCT 32.2 % (34.0-46.0); HGB 10.8 gm/dL (11.4-16.0); Lymphocytes # (A) 1.1 k/uL (1.0-4.8); Lymphocytes % (A) 7 %; MCH 34.3 pg (25.0-35.0); MCHC 33.4 g/dL (31.0-37.0); MCV 102.4 fL (80.0-100.0); Macrocytosis Slight; Mean Platelet Volume 8.6; Monocytes # (A) 0.9 k/uL (0-1.0); Monocytes % (A) 6 %; Neutrophils # (A) 13.6 k/uL (1.3-7.7); Neutrophils % (A) 85 %; Platelet Count 482 k/uL (150-450); RBC 3.14 m/uL (3.80-5.40); RDW 13.1 % (11.5-15.5); WBC 16.1 k/uL (3.8-10.6)
[2021-01-20 07:28] LABS: African American GFR (CKD) >90 (>60 ml/min/1.73 sqM); Anion Gap 7 mmol/L; Blood Urea Nitrogen 9 mg/dL (7-17); Calcium 8.7 mg/dL (8.4-10.2); Carbon Dioxide 23 mmol/L (22-30); Chloride 102 mmol/L (98-107); Glucose 108 mg/dL (74-99); Non-African American GFR(CKD) >90 (>60 ml/min/1.73 sqM); Potassium 4.6 mmol/L (3.5-5.1); Sodium 132 mmol/L (137-145)
[2021-01-20] MEDS: PANTOPRAZOLE 40 MG/10 ML VIAL IVP SCH (08:45)
[2021-01-20] MEDS: PIPERACILLIN-TAZOBACTAM 3.375 GM in SODIUM CHLORIDE 0.9% 100 ML IVPB SCH (08:45)
[2021-01-20] MEDS: D5-0.45% NACL WITH KCL 20MEQ/L 1,000 ML IV SCH ×2 (08:49→15:35)
[2021-01-20] MEDS: AMMONIUM LACTATE 12% LOTION 225 GM BTL TOPICAL SCH ×2 (09:06→20:24)
[2021-01-20] MEDS: HEPARIN SODIUM,PORCINE 5,000 UNIT/ML 1 ML VIAL SQ SCH ×2 (09:06→16:28)
--- NOTE | 2021-01-20 13:29 | P.PN ---
Subjective Progress Note Date: 01/20/21 CHIEF COMPLAINT: Bowel obstruction HISTORY OF PRESENT ILLNESS: The patient is a 56-year-old female who presented with severe bilateral lower abdominal pain with computed tomography scan findings of colonic neoplasm. She is status post status post sigmoid colectomy with end colostomy and drainage of pelvic abscess, 01/17/2021. She is on clear liquid diet and tolerating. "I am hungry." She reports flatus in her ostomy. "I am itching all over," as she wants to shower. ROS: No reports of nausea and vomiting. Has hypertensive heart disease. No fevers or chills. PHYSICAL EXAM: VITAL SIGNS: Reviewed CONSTITUTIONAL: Well developed and in no acute distress. EYES: Conjuctivae without sclera icterus. Extraocular movements grossly intact. HEAD, EARS, NOSE, THROAT: Moist buccal mucosa. Head is atraumatic, normocephalic. Hears conversational speech. No nasal drainage. NECK: . No thyroidomegaly. RESPIRATORY: Non-labored respirations and equal bilateral excursions. CARDIOVASCULAR: Palpable 2+ radial pulses. Regular rate. Re ABDOMEN: No peritonitis. Ostomy pink patent. JOSEPH serosanguineous. MUSCULOSKELETAL: No gross deformity of the lower extremities noted. No clubbing. No cyanosis. SKIN: Good skin turgor. Well perfused. NEUROLOGIC: Cranial nerves II through XII grossly intact. No focal or lateralizing signs. PSYCH: Appropriate affect. Alert and oriented to person, place and time. CLINICAL LABS: White blood cell elevated from 15-16,000. Hemoglobin stable 10.2-10.8. Sodium level low 132 ASSESSMENT: 1. 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 Status post sigmoid colectomy with ostomy 3. Hyponatremia 4. Hypertensive heart disease. 5. Pelvic abscess PLAN: 1. May advance to full liquid diet. 2. May sponge bath and wash hair. Avoid wetting dressing and drain sites. Objective - Vital Signs Vital signs: Vital Signs Temp 98.2 F 01/20/21 04:43 Pulse 91 01/20/21 04:43 Resp 18 01/20/21 04:43 BP 145/91 01/20/21 04:43 Pulse Ox 94 L 01/20/21 04:43 Intake & Output 01/19/21 01/20/21 01/20/21 18:59 06:59 18:59 Intake Total 1540 Output Total 3390 2700 Balance -3390 -1160 Weight 51.256 kg Intake: Intake, IV Titration 1250 Amount D5-0.45% NaCl with KCl 1150 20Meq/l 1,000 ml @ 125 mls/hr IV .Q8H [facility] Rx#: [id number] Piperacillin-Tazobactam 3 100 .375 gm In Sodium Chloride 0.9% 100 ml @ 25 mls/hr IVPB Q8HR [facility] Rx# :[id number] Oral 290 Output: Gastric Drainage 100 Drainage 90 25 Right Lower Abdomen 90 25 Urine 3200 2675 Uretheral ([place]son) 1800 1675 Other: Voiding Method Indwelling Catheter Indwelling Catheter Indwelling Catheter - Labs CBC & Chem 7: 01/20/21 06:54 01/20/21 06:54 Labs: Abnormal Lab Results - Last 24 Hours (Table) 01/20/21 01/20/21 Range/Units 06:54 06:54 WBC 16.1 H (3.8-10.6) k/uL RBC 3.14 L (3.80-5.40) m/uL Hgb 10.8 L (11.4-16.0) gm/dL Hct 32.2 L (34.0-46.0) % MCV 102.4 H (80.0-100.0) fL Plt Count 482 H (150-450) k/uL Neutrophils # 13.6 H (1.3-7.7) k/uL Sodium 132 L (137-145) mmol/L Glucose 108 H (74-99) mg/dL Microbiology - Last 24 Hours (Table) 01/17/21 16:50 Gram Stain - Final Groin Wound Culture - Final Escherichia coli 01/17/21 16:50 Gram Stain - Final Groin Wound Culture - Final Escherichia coli 01/16/21 15:26 Blood Culture - Preliminary Blood No Growth after 72 hours 01/16/21 15:05 Blood Culture - Preliminary Blood No Growth after 72 hours Assessment and Plan (1) Hyponatremia Current Visit: Yes Status: Acute Code(s): E87.1 - HYPO-OSMOLALITY AND HYPONATREMIA SNOMED Code(s): 81005757 (2) Neoplasm of sigmoid colon Current Visit: Yes Status: Acute Code(s): D49.0 - NEOPLASM OF UNSPECIFIED BEHAVIOR OF DIGESTIVE SYSTEM SNOMED Code(s): 327647519 (3) Bowel obstruction Current Visit: Yes Status: Acute Code(s): K56.609 - UNSP INTESTNL OBST, UNSP TO PARTIAL VERSUS COMPLETE OBST SNOMED Code(s): 00122097 (4) Pelvic abscess Current Visit: Yes Status: Acute Code(s): YEE0922 - SNOMED Code(s): 318914708
[2021-01-20] MEDS: AMPICILLIN-SULBACTAM 3 GM in SODIUM CHLORIDE 0.9% 100 ML IVPB SCH (17:36)
--- NOTE | 2021-01-20 18:10 | PN ---
PROGRESS NOTE DATE OF SERVICE: 01/20/2021 REASON FOR FOLLOWUP: Abdominal/pelvic abscess from a diverticulitis/inflammatory colon mass. INTERVAL HISTORY: The patient is currently afebrile. The patient is breathing comfortably. Patient denies having any chest pain. No shortness of breath or cough. Abdominal pain is better. No vomiting and denies having any diarrhea. PHYSICAL EXAMINATION: Blood pressure 142/96, pulse of 85, temperature is 97.8. She is 98% on room air. General description is a middle-aged female up in the room in no distress. Respiratory system: Unlabored breathing, clear to auscultation anteriorly. Heart S1, S2. Regular rate and rhythm. Abdomen soft. Mildly tender. No guarding. No rigidity. LABS: Hemoglobin is 10.1, white count 16.9, BUN of 9, creatinine 0.54. DIAGNOSTIC IMPRESSION AND PLAN: Patient with a pelvic abscess from inflammatory colon, now status post resection and diverting colostomy. Abdominal culture with E coli sensitive pathogen. Patient covered with Unasyn. White count jumped up. We will monitor closely. Continue supportive care. MMODL / IJN: [id number] /
--- NOTE | 2021-01-20 18:35 | P.PN ---
Subjective From records: This is a pleasant 55-year-old patient of Dr. Kavita johansen. Chronic stable medical conditions include hypertension, anxiety depression, nicotine dependence. Patient started having yesterday with increasing abdominal pain was progressively got worse. Also some nausea. Some vomiting this morning. Patient bowel movements have been variable for quite some time. Occasionally gets diarrhea. Also notices blood in the stool. Her weight has always been around 100 125 pounds. She lost about 10 pounds in the last few months. No fe chiqui no chills. Computed tomography scan of the abdomen and pelvis showed prominent fluid-filled bowel loops and abrupt change in caliber in the sigmoid colon: Area. Question about an abscess 2. Also severe concentric wall thickening. Dr. Mcfarland is planning for surgery. Patient denies any cardiac or pulmonary history. Denies any chest pain or shortness of breath. Has a good exercise tolerance otherwise. Today: Patient taken to the OR by Dr. Mcfarland. Sigmoid colectomy with end colostomy was done. Drainage of pelvic mass. Unclear if this was tumor with a breakdown on the secondary abscess. JOSEPH drain. NG tube Subjective: 01/18/2021 This is a pleasant 55 years old female with medical problems presents with possible pelvic abscess versus colonic neoplasm causing distal bowel obstruction per CAT scan of the abdomen and pelvis done on admission. Patient underwent sigmoid colectomy and end colostomy. Today is postoperative day #1. Also there was suspicion of UTI. She remains nothing by mouth with NG tube is in a Place about 300 mL of dark fluid is in the container. No bowel movement or passing gas. She looks calm but have abdominal pain at the surgical site with no vomiting. Vitals are stable Leukocytosis improving down to 14.9 K. BMP is unremarkable. Liver enzymes e levated today. Pathology specimen is still pending. Wound culture and sensitivity also pending. Urine culture is growing gram-negative bacilli. Currently patient is on Zosyn and D5 half-normal saline at 1 25 mL/h per surgery team 01/19/2021 Patient remains nothing by mouth with NG tube in place with about 100 mL of yellow discharge and container. Colostomy back in the left lower quadrant empty , with passing gas only. Still have some abdominal pain. Vitals are stable. leukocytosis 15.1 k. bmp is unremarkable. we'll culture is growing gram-negative bacilli and urine culture is growing e. coli sensitive to antibiotics pathology report is still pending as per surgery team ng tube will be discontinued today and start patient on clear diet. currently patient remains on zosyn and d5 half-normal saline at 1 25 ml/h per surgery team 01/20/2021 Patient responded slowly to treatment, she has this abdominal pain and diet has been advanced to full liquid diet today. NG tube was discontinued yesterday 1 culture is growing E. coli and antibiotic adjustment to Unasyn accordingly per ID team recommendation Objective - Vital Signs Vital signs: Vital Signs Temp 97.8 F 01/20/21 12:30 Pulse 85 01/20/21 12:30 Resp 14 01/20/21 12:30 BP 142/96 01/20/21 12:30 Pulse Ox 98 01/20/21 12:30 Intake & Output 01/19/21 01/20/21 01/20/21 18:59 06:59 18:59 Intake Total 1540 Output Total 3390 2700 70 Balance -3390 -1160 -70 Weight 51.256 kg Intake: Intake, IV Titration 1250 Amount D5-0.45% NaCl with KCl 1150 20Meq/l 1,000 ml @ 125 mls/hr IV .Q8H [facility] Rx#: [id number] Piperacillin-Tazobactam 3 100 .375 gm In Sodium Chloride 0.9% 100 ml @ 25 mls/hr IVPB Q8HR [facility] Rx# :[id number] Oral 290 Output: Gastric Drainage 100 Drainage 90 25 70 Right Lower Abdomen 90 25 70 Urine 3200 2675 Uretheral ([place]) 1800 1675 Other: Voiding Method Indwelling Catheter Indwelling Catheter Indwelling Catheter - Exam GENERAL: The patient is alert and oriented x3, not in any acute distress. Well developed, well nourished. HEENT: Pupils are round and equally reacting to light. EOMI. No scleral icterus. No conjunctival pallor. Normocephalic, atraumatic. No pharyngeal erythema. No thyromegaly. CARDIOVASCULAR: S1 and S2 present. No murmurs, rubs, or gallops. PULMONARY: Chest is clear to auscultation, no wheezing or crackles. -ABDOMEN: Soft, mild tenderness expected a surgical wound, nondistended, normoactive bowel sounds. No palpable organomegaly. Left lower quadrant colostomy. Surgical wound base clean and closed with a dressing is in place MUSCULOSKELETAL: No joint swelling or deformity. EXTREMITIES: No cyanosis, clubbing, or pedal edema. NEUROLOGICAL: Gross neurological examination did not reveal any focal deficits. SKIN: No rashes. no petechiae. - Labs CBC & Chem 7: 01/20/21 06:54 01/20/21 06:54 Labs: Abnormal Lab Results - Last 24 Hours (Table) 01/20/21 01/20/21 Range/Units 06:54 06:54 WBC 16.1 H (3.8-10.6) k/uL RBC 3.14 L (3.80-5.40) m/uL Hgb 10.8 L (11.4-16.0) gm/dL Hct 32.2 L (34.0-46.0) % MCV 102.4 H (80.0-100.0) fL Plt Count 482 H (150-450) k/uL Neutrophils # 13.6 H (1.3-7.7) k/uL Sodium 132 L (137-145) mmol/L Glucose 108 H (74-99) mg/dL Microbiology - Last 24 Hours (Table) 01/17/21 16:50 Gram Stain - Final Groin Wound Culture - Final Escherichia coli 01/17/21 16:50 Gram Stain - Final Groin Wound Culture - Final Escherichia coli 01/16/21 15:26 Blood Culture - Preliminary Blood No Growth after 72 hours 01/16/21 15:05 Blood Culture - Preliminary Blood No Growth after 72 hours Assessment and Plan Assessment: - Pelvic abscess with possible sigmoid neoplasm, BX occluded. On January 17: Sigmoid colectomy with end colostomy. Surgery primary team on the case, dina randall on IV Zosyn -Acute urinary tract infection -Mild protein calorie malnutrition from decreased oral intake. BMI 15.8 -Chronic nicotine dependence patient cigarette smoker. Patient be given a n icotine patch. Counseled about the same. -Depression and anxiety not otherwise specified. Patient is on Zoloft -Essential hypertension patient on Zestril. Follow blood pressure closely DVT prophylaxis: Subcutaneous heparin GI prophylaxis: PPI
[2021-01-21] MEDS: HYDROmorphone 1 MG/ML 1 ML SYRINGE IVP PRN ×8 (00:52→22:36)
[2021-01-21] MEDS: AMPICILLIN-SULBACTAM 3 GM in SODIUM CHLORIDE 0.9% 100 ML IVPB SCH ×4 (00:52→17:54)
[2021-01-21] MEDS: D5-0.45% NACL WITH KCL 20MEQ/L 1,000 ML IV SCH ×3 (00:59→19:43)
[2021-01-21] MEDS: HEPARIN SODIUM,PORCINE 5,000 UNIT/ML 1 ML VIAL SQ SCH ×4 (00:59→22:36)
[2021-01-21] MEDS: AMMONIUM LACTATE 12% LOTION 225 GM BTL TOPICAL SCH ×2 (08:55→22:24)
[2021-01-21] MEDS: lisinopriL 20 MG TAB PO SCH ×2 (08:55→22:24)
[2021-01-21] MEDS: SERTRALINE 50 MG TAB PO SCH (08:55)
[2021-01-21] MEDS: PANTOPRAZOLE 40 MG/10 ML VIAL IVP SCH (08:55)
[2021-01-21] MEDS ORDERED: HYDROmorphone 1 MG/ML 1 ML SYRINGE IVP STA (10:23)
--- NOTE | 2021-01-21 16:06 | P.PN ---
Subjective Progress Note Date: 01/21/21 CHIEF COMPLAINT: Bowel obstruction HISTORY OF PRESENT ILLNESS: The patient is a 56-year-old female who presented with severe bilateral lower abdominal pain with computed tomography scan findings of colonic neoplasm. She is status post status post sigmoid colectomy with end colostomy and drainage of pelvic abscess, 01/17/2021. She is having bowel movements. She is tolerating diet. She reports new right upper quadrant abdominal pain. She still has her gallbladder. Her anti-inflammatory has been discontinued ROS: No reports of nausea and vomiting. Has hypertensive heart disease. No fevers or chills. PHYSICAL EXAM: VITAL SIGNS: Reviewed CONSTITUTIONAL: Well developed and in no acute distress. EYES: Conjuctivae without sclera icterus. Extraocular movements grossly intact. HEAD, EARS, NOSE, THROAT: Moist buccal mucosa. Head is atraumatic, normocephalic. Hears conversational speech. No nasal drainage. RESPIRATORY: Non-labored respirations and equal bilateral excursions. CARDIOVASCULAR: Palpable 2+ radial pulses. Regular rate. Re ABDOMEN: No peritonitis. Ostomy pink patent. JOSEPH serosanguineous.Mild tenderness right upper quadrant. Brown stool in ostomy MUSCULOSKELETAL: No gross deformity of the lower extremities noted. No clubbing. No cyanosis. SKIN: Good skin turgor. Well perfused. NEUROLOGIC: Cranial nerves II through XII grossly intact. No focal or laterali zing signs. PSYCH: Appropriate affect. Alert and oriented to person, place and time. CLINICAL LABS: No new labs. ASSESSMENT: 1. 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 Status post sigmoid colectomy with ostomy 3. Hyponatremia 4. Hypertensive heart disease. 5. Pelvic abscess 6. Right quadrant abdominal pain. PLAN: 1. Advance to low-fat diet 2. Restart anti-inflammatory Objective - Vital Signs Vital signs: Vital Signs Temp 98.0 F 01/21/21 04:43 Pulse 99 01/21/21 04:43 Resp 16 01/21/21 04:43 BP 148/94 01/21/21 04:43 Pulse Ox 96 01/21/21 04:43 Intake & Output 01/20/21 01/21/21 01/21/21 18:59 06:59 18:59 Output Total 120 60 Balance -120 -60 Output: Drainage 120 60 Right Lower Abdomen 120 60 Other: Voiding Method Indwelling Catheter Toilet # Voids 2 # Bowel Movements 1 - Labs CBC & Chem 7: 01/20/21 06:54 01/20/21 06:54 Labs: Microbiology - Last 24 Hours (Table) 01/17/21 16:50 Gram Stain - Final Groin Wound Culture - Final Escherichia coli 01/17/21 16:50 Anaerobic Culture - Final Groin Anaerobic Gm Negative Bacilli 01/16/21 15:26 Blood Culture - Preliminary Blood No Growth after 96 hours 01/16/21 15:05 Blood Culture - Preliminary Blood No Growth after 96 hours Assessment and Plan (1) Hyponatremia Current Visit: Yes Status: Acute Code(s): E87.1 - HYPO-OSMOLALITY AND HYPONATREMIA SNOMED Code(s): 50453066 (2) Neoplasm of sigmoid colon Current Visit: Yes Status: Acute Code(s): D49.0 - NEOPLASM OF UNSPECIFIED BEHAVIOR OF DIGESTIVE SYSTEM SNOMED Code(s): 880858184 (3) Bowel obstruction Current Visit: Yes Status: Acute Code(s): K56.609 - UNSP INTESTNL OBST, UNSP TO PARTIAL VERSUS COMPLETE OBST SNOMED Code(s): 92254992 (4) Pelvic abscess Current Visit: Yes Status: Acute Code(s): YFO1779 - SNOMED Code(s): 912134128
[2021-01-21] MEDS: KETOROLAC 15 MG/ML 1 ML VIAL IVP SCH ×2 (16:33→22:35)
--- NOTE | 2021-01-21 19:50 | P.PN ---
Subjective From records: This is a pleasant 55-year-old patient of Dr. Kavita johansen. Chronic stable medical conditions include hypertension, anxiety depression, nicotine dependence. Patient started having yesterday with increasing abdominal pain was progressively got worse. Also some nausea. Some vomiting this morning. Patient bowel movements have been variable for quite some time. Occasionally gets diarrhea. Also notices blood in the stool. Her weight has always been around 100 125 pounds. She lost about 10 pounds in the last few months. No fe chiqui no chills. Computed tomography scan of the abdomen and pelvis showed prominent fluid-filled bowel loops and abrupt change in caliber in the sigmoid colon: Area. Question about an abscess 2. Also severe concentric wall thickening. Dr. Mcfarland is planning for surgery. Patient denies any cardiac or pulmonary history. Denies any chest pain or shortness of breath. Has a good exercise tolerance otherwise. Today: Patient taken to the OR by Dr. Mcfarland. Sigmoid colectomy with end colostomy was done. Drainage of pelvic mass. Unclear if this was tumor with a breakdown on the secondary abscess. JOSEPH drain. NG tube Subjective: 01/18/2021 This is a pleasant 55 years old female with medical problems presents with possible pelvic abscess versus colonic neoplasm causing distal bowel obstruction per CAT scan of the abdomen and pelvis done on admission. Patient underwent sigmoid colectomy and end colostomy. Today is postoperative day #1. Also there was suspicion of UTI. She remains nothing by mouth with NG tube is in a Place about 300 mL of dark fluid is in the container. No bowel movement or passing gas. She looks calm but have abdominal pain at the surgical site with no vomiting. Vitals are stable Leukocytosis improving down to 14.9 K. BMP is unremarkable. Liver enzymes e levated today. Pathology specimen is still pending. Wound culture and sensitivity also pending. Urine culture is growing gram-negative bacilli. Currently patient is on Zosyn and D5 half-normal saline at 1 25 mL/h per surgery team 01/19/2021 Patient remains nothing by mouth with NG tube in place with about 100 mL of yellow discharge and container. Colostomy back in the left lower quadrant empty , with passing gas only. Still have some abdominal pain. Vitals are stable. leukocytosis 15.1 k. bmp is unremarkable. we'll culture is growing gram-negative bacilli and urine culture is growing e. coli sensitive to antibiotics pathology report is still pending as per surgery team ng tube will be discontinued today and start patient on clear diet. currently patient remains on zosyn and d5 half-normal saline at 1 25 ml/h per surgery team 01/20/2021 Patient responded slowly to treatment, she has this abdominal pain and diet has been advanced to full liquid diet today. NG tube was discontinued yesterday 1 culture is growing E. coli and antibiotic adjustment to Unasyn accordingly per ID team recommendation 01/21/2021 Patient is awake and alert and oriented today. She has an episode of severe abdominal pain in the morning that needed extra dose of Dilaudid. Toradol is added. No labs today, we will order labs tomorrow including ESR and C-reactive protein Surgery team of the case and the added Toradol as above. Her urine culture was positive for E. coli as well as wound culture and patient antibiotics was adjusted to Unasyn per ID team. Patient is also on IV fluids per surgery team and D5 half normal saline at 1 25 mL/h Pathology report still pending Objective - Vital Signs Vital signs: Vital Signs Temp 97.4 F L 01/21/21 12:43 Pulse 105 H 01/21/21 12:43 Resp 16 01/21/21 12:43 BP 153/90 01/21/21 12:43 Pulse Ox 99 01/21/21 12:43 Intake & Output 01/20/21 01/21/21 01/21/21 18:59 06:59 18:59 Output Total 120 60 Balance -120 -60 Output: Drainage 120 60 Right Lower Abdomen 120 60 Other: Voiding Method Indwelling Catheter Toilet # Voids 2 # Bowel Movements 1 - Exam GENERAL: The patient is alert and oriented x3, not in any acute distress. Well developed, well nourished. HEENT: Pupils are round and equally reacting to light. EOMI. No scleral icterus. No conjunctival pallor. Normocephalic, atraumatic. No pharyngeal erythema. No thyromegaly. CARDIOVASCULAR: S1 and S2 present. No murmurs, rubs, or gallops. PULMONARY: Chest is clear to auscultation, no wheezing or crackles. -ABDOMEN: Soft, mild tenderness expected a surgical wound, nondistended, normoactive bowel sounds. No palpable organomegaly. Left lower quadrant colostomy. Surgical wound base clean and closed with a dressing is in place MUSCULOSKELETAL: No joint swelling or deformity. EXTREMITIES: No cyanosis, clubbing, or pedal edema. NEUROLOGICAL: Gross neurological examination did not reveal any focal deficits. SKIN: No rashes. no petechiae. - Labs CBC & Chem 7: 01/20/21 06:54 01/20/21 06:54 Labs: Microbiology - Last 24 Hours (Table) 01/17/21 16:50 Gram Stain - Final Groin Wound Culture - Final Escherichia coli 01/17/21 16:50 Anaerobic Culture - Final Groin Anaerobic Gm Negative Bacilli 01/16/21 15:26 Blood Culture - Preliminary Blood No Growth after 96 hours 01/16/21 15:05 Blood Culture - Preliminary Blood No Growth after 96 hours Assessment and Plan Assessment: - Pelvic abscess with possible sigmoid neoplasm, BX occluded. On January 17: Sigmoid colectomy with end colostomy. Surgery primary team on the case, continue on IV Zosyn -Acute urinary tract infection -Mild protein calorie malnutrition from decreased oral intake. BMI 15.8 -Chronic nicotine dependence patient cigarette smoker. Patient be given a nicotine patch. Counseled about the same. -Depression and anxiety not otherwise specified. Patient is on Zoloft -Essential hypertension patient on Zestril. Follow blood pressure closely DVT prophylaxis: Subcutaneous heparin GI prophylaxis: PPI
--- NOTE | 2021-01-21 19:53 | PN ---
PROGRESS NOTE DATE OF SERVICE: 01/21/2021 REASON FOR FOLLOWUP: Abdominal abscess. INTERVAL HISTORY: The patient is currently afebrile. The patient is complaining of more abdominal pain today and wants her Toradol to be restarted. The patient denies having any chest pain. No shortness of breath or cough. PHYSICAL EXAMINATION: Blood pressure is 153/90 with a pulse of 105. Temperature 97.4. She 99% on room air. General description is a middle-aged female lying in bed in no distress. Respiratory system: Unlabored breathing, clear to auscultation anteriorly. Heart S1, S2. Regular rate and rhythm. Abdomen: Soft. Incision is currently intact. Extremities: No edema of the feet. LABS: No new labs have been obtained today. DIAGNOSTIC IMPRESSION AND PLAN: Patient with abdominal abscess. This patient is status post laparotomy, sigmoid colectomy and diverting colostomy. Abdominal culture with E coli sensitive pathogen. Patient is covered with Unasyn. We will repeat her CBC and CRP tomorrow. Continue supportive care. MMODL / IJN: [id number] /
[2021-01-22] MEDS: AMPICILLIN-SULBACTAM 3 GM in SODIUM CHLORIDE 0.9% 100 ML IVPB SCH ×5 (00:31→23:56)
[2021-01-22] MEDS: HYDROmorphone 1 MG/ML 1 ML SYRINGE IVP PRN ×3 (01:48→20:01)
[2021-01-22] MEDS: KETOROLAC 15 MG/ML 1 ML VIAL IVP SCH ×4 (05:37→23:55)
[2021-01-22] MEDS: SERTRALINE 50 MG TAB PO SCH (08:02)
[2021-01-22] MEDS: HEPARIN SODIUM,PORCINE 5,000 UNIT/ML 1 ML VIAL SQ SCH ×3 (08:02→23:56)
[2021-01-22] MEDS: lisinopriL 20 MG TAB PO SCH ×2 (08:02→21:18)
[2021-01-22] MEDS: PANTOPRAZOLE 40 MG/10 ML VIAL IVP SCH (08:03)
[2021-01-22 08:51] LABS: HCT 29.9 % (37.2-46.3); HGB 10.1 g/dL (12.0-15.0); MCH 34.5 pg (27.0-32.0); MCHC 33.8 g/dL (32.0-37.0); Mean Platelet Volume 11.1 fL (9.5-12.2); Platelet Count 376 X 10*3/uL (140-440); RBC 2.93 X 10*6/uL (4.10-5.20); RDW 12.4 % (11.5-14.5); WBC 10.71 X 10*3/uL (4.50-10.00)
[2021-01-22] MEDS: D5-0.45% NACL WITH KCL 20MEQ/L 1,000 ML IV SCH ×4 (09:22→22:49)
[2021-01-22] MEDS: AMMONIUM LACTATE 12% LOTION 225 GM BTL TOPICAL SCH ×2 (09:23→21:29)
[2021-01-22 10:03] LABS: African American GFR (CKD) 134.9 (60.0-200.0); Blood Urea Nitrogen <5.0 mg/dL (9.0-27.0); C Reactive Protein 8.1 mg/dL (0.0-0.8); Calcium 8.3 mg/dL (8.7-10.3); Carbon Dioxide 26.4 mmol/L (21.6-31.8); Chloride 102 mmol/L (96-109); Glucose 92 mg/dL (70-110); Non-African American GFR(CKD) 116.4 (60.0-200.0); Potassium 4.4 mmol/L (3.5-5.5); Sodium 135 mmol/L (135-145)
[2021-01-22 10:52] LABS: Basophils # (A) 0.06 X 10*3/uL (0.00-0.10); Basophils % (A) 0.6 %; Eosinophils # (A) 0.34 X 10*3/uL (0.04-0.35); Eosinophils % (A) 3.2 %; Lymphocytes # (A) 1.61 X 10*3/uL (0.90-5.00); Monocytes # (A) 1.53 X 10*3/uL (0.20-1.00); Monocytes % (A) 14.3 %; Neutrophils # (A) 7.04 X 10*3/uL (1.80-7.70); Neutrophils % (A) 65.7 %
[2021-01-22] MEDS: HYDROcodone/APAP 5-325MG 1 EACH TAB PO PRN ×2 (11:05→21:18)
--- NOTE | 2021-01-22 11:31 | P.PN ---
Subjective Progress Note Date: 01/22/21 CHIEF COMPLAINT: Abdominal pain HISTORY OF PRESENT ILLNESS: Patient is status post sigmoid colectomy with end colostomy and drainage of pelvic abscess for colonic obstruction and pelvic abscess. Patient has been having abdominal pain. It is controlled with IV pain medication. She denies any nausea or vomiting. Her ostomy is functioning. There was serous drainage from the JOSEPH drain with 80 ML output this morning. She's currently on a low-fat diet. The right upper quadrant pain that she had been complaining of yesterday has now improved. Patient is afebrile. She did have some tachycardia heart rate of 105 during the night. Heart rate now 91 WBC 10.71 hemoglobin 10.1 platelets 376 Patient seen and examined with Dr. Mcfarland PHYSICAL EXAM: VITAL SIGNS: Reviewed. GENERAL: Well-developed in no acute distress. HEENT: No sclera icterus. Extraocular movements grossly intact. Moist buccal mucosa. Head is atraumatic, normocephalic. ABDOMEN: Soft. Nondistended. Incision clean dry and intact. Minimal tenderness with palpation near incision Serous output through the JOSEPH drain. Colostomy bag has stool and air NEUROLOGIC: Alert and oriented. Cranial nerves II through XII grossly intact. ASSESSMENT: 1. Colonic obstruction and pelvic abscess status post sigmoid colectomy with en d colostomy and drainage of pelvic abscess, postop day #5 PLAN: -Continue low-fat diet -Add [place] for oral pain medication -Patient scheduled for ostomy teaching today -Continue IV antibiotics per ID -Encourage incentive spirometer use -Encourage patient to ambulate -She had prophylaxis Protonix and DVT prophylaxis subcu heparin Physician Implementation Technician note has been reviewed by physician. Signing provider agrees with the documented findings, assessment, and plan of care. Objective - Vital Signs Vital signs: Vital Signs Temp 97.9 F 01/22/21 05:00 Pulse 91 01/22/21 05:00 Resp 16 01/22/21 05:00 BP 140/91 01/22/21 05:00 Pulse Ox 96 01/22/21 05:00 Intake & Output 01/21/21 01/22/21 01/22/21 18:59 06:59 18:59 Output Total 85 Balance -85 Weight 51.256 kg Output: Drainage 85 Right Lower Abdomen 85 Other: Voiding Method Toilet Toilet # Voids 1 - Labs CBC & Chem 7: 01/22/21 06:08 01/22/21 06:08 Labs: Abnormal Lab Results - Last 24 Hours (Table) 01/22/21 01/22/21 Range/Units 06:08 06:08 WBC 10.71 H (4.50-10.00) X 10*3/uL RBC 2.93 L (4.10-5.20) X 10*6/uL Hgb 10.1 L (12.0-15.0) g/dL Hct 29.9 L (37.2-46.3) % MCV 102.0 H (80.0-97.0) fL MCH 34.5 H (27.0-32.0) pg Immature Gran # 0.13 H (0.00-0.04) X 10*3/uL Monocytes # 1.53 H (0.20-1.00) X 10*3/uL BUN <5.0 L (9.0-27.0) mg/dL Creatinine 0.4 L (0.6-1.5) mg/dL Calcium 8.3 L (8.7-10.3) mg/dL C-Reactive Protein 8.1 H (0.0-0.8) mg/dL Microbiology - Last 24 Hours (Table) 01/16/21 15:26 Blood Culture - Preliminary Blood No Growth after 120 hours 01/16/21 15:05 Blood Culture - Preliminary Blood No Growth after 120 hours 01/17/21 16:50 Anaerobic Culture - Final Groin 01/17/21 16:50 Gram Stain - Final Groin Wound Culture - Final Escherichia coli
[2021-01-22 12:11] LABS: Erythrocyte Sedimentation Rate 47 mm/Hr (0-30)
--- NOTE | 2021-01-22 21:15 | P.PN ---
Subjective From records: This is a pleasant 55-year-old patient of Dr. Kavita johansen. Chronic stable medical conditions include hypertension, anxiety depression, nicotine dependence. Patient started having yesterday with increasing abdominal pain was progressively got worse. Also some nausea. Some vomiting this morning. Patient bowel movements have been variable for quite some time. Occasionally gets diarrhea. Also notices blood in the stool. Her weight has always been around 100 125 pounds. She lost about 10 pounds in the last few months. No fe chiqui no chills. Computed tomography scan of the abdomen and pelvis showed prominent fluid-filled bowel loops and abrupt change in caliber in the sigmoid colon: Area. Question about an abscess 2. Also severe concentric wall thickening. Dr. Mcfarland is planning for surgery. Patient denies any cardiac or pulmonary history. Denies any chest pain or shortness of breath. Has a good exercise tolerance otherwise. Today: Patient taken to the OR by Dr. Mcfarland. Sigmoid colectomy with end colostomy was done. Drainage of pelvic mass. Unclear if this was tumor with a breakdown on the secondary abscess. JOSEPH drain. NG tube Subjective: 01/18/2021 This is a pleasant 55 years old female with medical problems presents with possible pelvic abscess versus colonic neoplasm causing distal bowel obstruction per CAT scan of the abdomen and pelvis done on admission. Patient underwent sigmoid colectomy and end colostomy. Today is postoperative day #1. Also there was suspicion of UTI. She remains nothing by mouth with NG tube is in a Place about 300 mL of dark fluid is in the container. No bowel movement or passing gas. She looks calm but have abdominal pain at the surgical site with no vomiting. Vitals are stable Leukocytosis improving down to 14.9 K. BMP is unremarkable. Liver enzymes e levated today. Pathology specimen is still pending. Wound culture and sensitivity also pending. Urine culture is growing gram-negative bacilli. Currently patient is on Zosyn and D5 half-normal saline at 1 25 mL/h per surgery team 01/19/2021 Patient remains nothing by mouth with NG tube in place with about 100 mL of yellow discharge and container. Colostomy back in the left lower quadrant empty , with passing gas only. Still have some abdominal pain. Vitals are stable. leukocytosis 15.1 k. bmp is unremarkable. we'll culture is growing gram-negative bacilli and urine culture is growing e. coli sensitive to antibiotics pathology report is still pending as per surgery team ng tube will be discontinued today and start patient on clear diet. currently patient remains on zosyn and d5 half-normal saline at 1 25 ml/h per surgery team 01/20/2021 Patient responded slowly to treatment, she has this abdominal pain and diet has been advanced to full liquid diet today. NG tube was discontinued yesterday 1 culture is growing E. coli and antibiotic adjustment to Unasyn accordingly per ID team recommendation 01/21/2021 Patient is awake and alert and oriented today. She has an episode of severe abdominal pain in the morning that needed extra dose of Dilaudid. Toradol is added. No labs today, we will order labs tomorrow including ESR and C-reactive protein Surgery team of the case and the added Toradol as above. Her urine culture was positive for E. coli as well as wound culture and patient antibiotics was adjusted to Unasyn per ID team. Patient is also on IV fluids per surgery team and D5 half normal saline at 1 25 mL/h Pathology report still pending 01/22/2021 Patient remains on low-fat diet, advanced slowly and she still complaining of from abdominal pain with eating. Patient is eating 5200% of her meals. Surgery team for on the case closely. Patient has improved leukocytosis down to 10.7 K. Based on E. coli wound culture. She is on Unasyn per ID and D5 half-normal saline at 1 25 mL/h per surgery team. Pathology report showing diverticulitis and abscess with no malignancy, and incidental appendicitis with no evidence of malignancy as well Objective - Vital Signs Vital signs: Vital Signs Temp 97.8 F 01/22/21 12:33 Pulse 84 01/22/21 12:33 Resp 18 01/22/21 12:33 BP 160/99 01/22/21 12:33 Pulse Ox 100 01/22/21 12:33 Intake & Output 01/22/21 01/22/21 01/23/21 06:59 18:59 06:59 Output Total 135 Balance -135 Weight 51.256 kg Output: Drainage 135 Right Lower Abdomen 135 Other: Voiding Method Toilet Toilet # Voids 1 - Exam GENERAL: The patient is alert and oriented x3, not in any acute distress. Well developed, well nourished. HEENT: Pupils are round and equally reacting to light. EOMI. No scleral icterus. No conjunctival pallor. Normocephalic, atraumatic. No pharyngeal erythema. No thyromegaly. CARDIOVASCULAR: S1 and S2 present. No murmurs, rubs, or gallops. PULMONARY: Chest is clear to auscultation, no wheezing or crackles. -ABDOMEN: Soft, mild tenderness expected a surgical wound, nondistended, normoactive bowel sounds. No palpable organomegaly. Left lower quadrant colostomy. Surgical wound base clean and closed with a dressing is in place MUSCULOSKELETAL: No joint swelling or deformity. EXTREMITIES: No cyanosis, clubbing, or pedal edema. NEUROLOGICAL: Gross neurological examination did not reveal any focal deficits. SKIN: No rashes. no petechiae. - Labs CBC & Chem 7: 01/22/21 06:08 01/22/21 06:08 Labs: Abnormal Lab Results - Last 24 Hours (Table) 01/22/21 01/22/21 Range/Units 06:08 06:08 WBC 10.71 H (4.50-10.00) X 10*3/uL RBC 2.93 L (4.10-5.20) X 10*6/uL Hgb 10.1 L (12.0-15.0) g/dL Hct 29.9 L (37.2-46.3) % MCV 102.0 H (80.0-97.0) fL MCH 34.5 H (27.0-32.0) pg Immature Gran # 0.13 H (0.00-0.04) X 10*3/uL Monocytes # 1.53 H (0.20-1.00) X 10*3/uL ESR 47 H (0-30) mm/Hr BUN <5.0 L (9.0-27.0) mg/dL Creatinine 0.4 L (0.6-1.5) mg/dL Calcium 8.3 L (8.7-10.3) mg/dL C-Reactive Protein 8.1 H (0.0-0.8) mg/dL Microbiology - Last 24 Hours (Table) 01/16/21 15:26 Blood Culture - Final Blood No Growth after 144 hours 01/16/21 15:05 Blood Culture - Final Blood No Growth after 144 hours Assessment and Plan Assessment: - Pelvic abscess secondary to perforated diverticulitis per pathology report. No malignant cells. On January 17: Sigmoid colectomy with end colostomy. Surgery primary team on the case, continue on IV Unasyn for wound E coli. Advance diet per surgery team -Appendicitis with no malignancy on pathology report. Incidental finding -Acute urinary tract infection -Mild protein calorie malnutrition from decreased oral intake. BMI 15.8 -Chronic nicotine dependence patient cigarette smoker. Patient be given a nicotine patch. Counseled about the same. -Depression and anxiety not otherwise specified. Patient is on Zoloft -Essential hypertension patient on Zestril. Follow blood pressure closely DVT prophylaxis: Subcutaneous heparin GI prophylaxis: PPI
--- NOTE | 2021-01-22 23:46 | PN ---
PROGRESS NOTE DATE OF SERVICE: 01/22/2021 REASON FOR FOLLOWUP: Abdominal abscess. INTERVAL HISTORY: Patient is currently afebrile. The patient is breathing comfortably. Abdominal pain is currently controlled. No chest pain, shortness of breath or cough. Did have output in her colostomy bag. PHYSICAL EXAMINATION: Blood pressure 160/99, pulse of 84, temperature 97.8. She is 100% on room air. General description is a middle-aged male up in a chair in no distress. Respiratory system: Unlabored breathing, clear to auscultation. HEART: S1, S2. Regular rate and rhythm. ABDOMEN: Soft. Midline incision intact. Did have some . Extremities: No edema of the feet. LABS: Hemoglobin is 10.1, white count 10.71, BUN of 5, creatinine 0.4. DIAGNOSTIC IMPRESSION AND PLAN: Patient with abdominal abscess from ruptured colon, status post diverting colostomy. Abdominal culture positive for E coli sensitive as well as anaerobes. Patient is covered with Unasyn to continue to finish therapy with oral antibiotics. Continue supportive care. MMODL / IJN: [id number] /
[2021-01-23] MEDS: HYDROcodone/APAP 5-325MG 1 EACH TAB PO PRN ×3 (02:33→19:30)
[2021-01-23] MEDS: KETOROLAC 15 MG/ML 1 ML VIAL IVP SCH ×4 (05:42→23:02)
[2021-01-23] MEDS: AMPICILLIN-SULBACTAM 3 GM in SODIUM CHLORIDE 0.9% 100 ML IVPB SCH ×3 (05:42→17:51)
[2021-01-23] MEDS: HYDROmorphone 1 MG/ML 1 ML SYRINGE IVP PRN ×2 (08:05→15:27)
[2021-01-23] MEDS: HEPARIN SODIUM,PORCINE 5,000 UNIT/ML 1 ML VIAL SQ SCH ×3 (08:09→23:03)
[2021-01-23] MEDS: SERTRALINE 50 MG TAB PO SCH (08:09)
[2021-01-23] MEDS: lisinopriL 20 MG TAB PO SCH ×2 (08:09→23:02)
[2021-01-23] MEDS: PANTOPRAZOLE 40 MG/10 ML VIAL IVP SCH (08:09)
[2021-01-23] MEDS: AMMONIUM LACTATE 12% LOTION 225 GM BTL TOPICAL SCH (08:10)
[2021-01-23 09:37] LABS: HGB 10.7 g/dL (12.0-15.0); MCH 33.1 pg (27.0-32.0); MCHC 31.5 g/dL (32.0-37.0); MCV 105.3 fL (80.0-97.0); Mean Platelet Volume 11.2 fL (9.5-12.2); Platelet Count 422 X 10*3/uL (140-440); RBC 3.23 X 10*6/uL (4.10-5.20); WBC 10.97 X 10*3/uL (4.50-10.00)
[2021-01-23 11:39] LABS: Basophils # (A) 0.06 X 10*3/uL (0.00-0.10); Basophils % (A) 0.5 %; Eosinophils # (A) 0.27 X 10*3/uL (0.04-0.35); Eosinophils % (A) 2.5 %; Lymphocytes # (A) 1.91 X 10*3/uL (0.90-5.00); Lymphocytes % (A) 17.4 %; Monocytes # (A) 1.34 X 10*3/uL (0.20-1.00); Monocytes % (A) 12.2 %; Neutrophils # (A) 7.26 X 10*3/uL (1.80-7.70); Neutrophils % (A) 66.2 %
[2021-01-23] MEDS: D5-0.45% NACL WITH KCL 20MEQ/L 1,000 ML IV SCH (12:02)
--- NOTE | 2021-01-23 13:26 | P.PN ---
Subjective Progress Note Date: 01/23/21 CHIEF COMPLAINT: Abdominal pain HISTORY OF PRESENT ILLNESS: Patient is status post sigmoid colectomy with end colostomy and drainage of pelvic abscess for colonic obstruction and pelvic abscess. Patient has been having abdominal pain. She reports decrease in abdominal pain. However, she is still requiring the IV Dilaudid occasionally. She is having stool and gas through her ostomy. She denies any nausea or vomiting. She's currently on a low-fat diet. Afebrile. WBC 10.97 Hgb 10.7 Patient seen and examined with Dr. Mcfarland PHYSICAL EXAM: VITAL SIGNS: Reviewed. GENERAL: Well-developed in no acute distress. HEENT: No sclera icterus. Extraocular movements grossly intact. Moist buccal mucosa. Head is atraumatic, normocephalic. ABDOMEN: Soft. Nondistended. Incision clean dry and intact. Minimal tenderness with palpation near incision Serous output through the JOSEPH drain. Colostomy bag has stool and air NEUROLOGIC: Alert and oriented. Cranial nerves II through XII grossly intact. ASSESSMENT: 1. Colonic obstruction and pelvic abscess status post sigmoid colectomy with end colostomy and drainage of pelvic abscess, postop day #6 PLAN: -Continue low-fat diet -Hep-Lock IV -Continue pain medication as needed -Continue IV antibiotics per ID -Encourage incentive spirometer use -Encourage patient to ambulate -She had prophylaxis Protonix and DVT prophylaxis subcu heparin -Anticipate discharge tomorrow Physician Crop Production Advisor note has been reviewed by physician. Signing provider agrees with the documented findings, assessment, and plan of care. Objective - Vital Signs Vital signs: Vital Signs Temp 98 F 01/23/21 12:37 Pulse 86 01/23/21 12:37 Resp 18 01/23/21 12:37 BP 169/98 01/23/21 12:37 Pulse Ox 98 01/23/21 12:37 Intake & Output 01/22/21 01/23/21 01/23/21 18:59 06:59 18:59 Intake Total 100 Output Total 135 Balance -135 100 Weight 51.256 kg Intake: Oral 100 Output: Drainage 135 Right Lower Abdomen 135 Other: Voiding Method Toilet Toilet Toilet # Voids 1 - Labs CBC & Chem 7: 01/23/21 05:15 01/22/21 06:08 Labs: Abnormal Lab Results - Last 24 Hours (Table) 01/23/21 Range/Units 05:15 WBC 10.97 H (4.50-10.00) X 10*3/uL RBC 3.23 L (4.10-5.20) X 10*6/uL Hgb 10.7 L (12.0-15.0) g/dL Hct 34.0 L (37.2-46.3) % MCV 105.3 H (80.0-97.0) fL MCH 33.1 H (27.0-32.0) pg MCHC 31.5 L (32.0-37.0) g/dL Immature Gran # 0.13 H (0.00-0.04) X 10*3/uL Monocytes # 1.34 H (0.20-1.00) X 10*3/uL Microbiology - Last 24 Hours (Table) 01/16/21 15:26 Blood Culture - Final Blood No Growth after 144 hours 01/16/21 15:05 Blood Culture - Final Blood No Growth after 144 hours
--- NOTE | 2021-01-23 14:43 | P.PN ---
Subjective From records: This is a pleasant 55-year-old patient of Dr. Kavita johansen. Chronic stable medical conditions include hypertension, anxiety depression, nicotine dependence. Patient started having yesterday with increasing abdominal pain was progressively got worse. Also some nausea. Some vomiting this morning. Patient bowel movements have been variable for quite some time. Occasionally gets diarrhea. Also notices blood in the stool. Her weight has always been around 100 125 pounds. She lost about 10 pounds in the last few months. No fe chiqui no chills. Computed tomography scan of the abdomen and pelvis showed prominent fluid-filled bowel loops and abrupt change in caliber in the sigmoid colon: Area. Question about an abscess 2. Also severe concentric wall thickening. Dr. Mcfarland is planning for surgery. Patient denies any cardiac or pulmonary history. Denies any chest pain or shortness of breath. Has a good exercise tolerance otherwise. Today: Patient taken to the OR by Dr. Mcfarland. Sigmoid colectomy with end colostomy was done. Drainage of pelvic mass. Unclear if this was tumor with a breakdown on the secondary abscess. JOSEPH drain. NG tube Subjective: 01/18/2021 This is a pleasant 55 years old female with medical problems presents with possible pelvic abscess versus colonic neoplasm causing distal bowel obstruction per CAT scan of the abdomen and pelvis done on admission. Patient underwent sigmoid colectomy and end colostomy. Today is postoperative day #1. Also there was suspicion of UTI. She remains nothing by mouth with NG tube is in a Place about 300 mL of dark fluid is in the container. No bowel movement or passing gas. She looks calm but have abdominal pain at the surgical site with no vomiting. Vitals are stable Leukocytosis improving down to 14.9 K. BMP is unremarkable. Liver enzymes e levated today. Pathology specimen is still pending. Wound culture and sensitivity also pending. Urine culture is growing gram-negative bacilli. Currently patient is on Zosyn and D5 half-normal saline at 1 25 mL/h per surgery team 01/19/2021 Patient remains nothing by mouth with NG tube in place with about 100 mL of yellow discharge and container. Colostomy back in the left lower quadrant empty , with passing gas only. Still have some abdominal pain. Vitals are stable. leukocytosis 15.1 k. bmp is unremarkable. we'll culture is growing gram-negative bacilli and urine culture is growing e. coli sensitive to antibiotics pathology report is still pending as per surgery team ng tube will be discontinued today and start patient on clear diet. currently patient remains on zosyn and d5 half-normal saline at 1 25 ml/h per surgery team 01/20/2021 Patient responded slowly to treatment, she has this abdominal pain and diet has been advanced to full liquid diet today. NG tube was discontinued yesterday 1 culture is growing E. coli and antibiotic adjustment to Unasyn accordingly per ID team recommendation 01/21/2021 Patient is awake and alert and oriented today. She has an episode of severe abdominal pain in the morning that needed extra dose of Dilaudid. Toradol is added. No labs today, we will order labs tomorrow including ESR and C-reactive protein Surgery team of the case and the added Toradol as above. Her urine culture was positive for E. coli as well as wound culture and patient antibiotics was adjusted to Unasyn per ID team. Patient is also on IV fluids per surgery team and D5 half normal saline at 1 25 mL/h Pathology report still pending 01/22/2021 Patient remains on low-fat diet, advanced slowly and she still complaining of from abdominal pain with eating. Patient is eating 5200% of her meals. Surgery team for on the case closely. Patient has improved leukocytosis down to 10.7 K. Based on E. coli wound culture. She is on Unasyn per ID and D5 half-normal saline at 1 25 mL/h per surgery team. Pathology report showing diverticulitis and abscess with no malignancy, and incidental appendicitis with no evidence of malignancy as well 01/23/2021 Patient is doing well today, she is tolerating diet which is her regular diet now. Minimal abdominal pain and she has regular bowel movements through her colostomy bag. She is hemodynamically stable, blood pressure is slightly elevated. But most of the time is better controlled. Her WBC is trending down to 10.9 K. Her IV fluid By surgery team. Currently she is on Unasyn. Objective - Vital Signs Vital signs: Vital Signs Temp 98 F 01/23/21 12:37 Pulse 86 01/23/21 12:37 Resp 18 01/23/21 12:37 BP 169/98 01/23/21 12:37 Pulse Ox 98 01/23/21 12:37 Intake & Output 01/22/21 01/23/2121 18:59 06:59 18:59 Intake Total 100 Output Total 135 Balance -135 100 Weight 51.256 kg Intake: Oral 100 Output: Drainage 135 Right Lower Abdomen 135 Other: Voiding Method Toilet Toilet Toilet # Voids 1 - Exam GENERAL: The patient is alert and oriented x3, not in any acute distress. Well developed, well nourished. HEENT: Pupils are round and equally reacting to light. EOMI. No scleral icterus. No conjunctival pallor. Normocephalic, atraumatic. No pharyngeal erythema. No thyromegaly. CARDIOVASCULAR: S1 and S2 present. No murmurs, rubs, or gallops. PULMONARY: Chest is clear to auscultation, no wheezing or crackles. -ABDOMEN: Soft, mild tenderness expected a surgical wound, nondistended, normoactive bowel sounds. No palpable organomegaly. Left lower quadrant colostomy. Surgical wound base clean and closed with a dressing is in place MUSCULOSKELETAL: No joint swelling or deformity. EXTREMITIES: No cyanosis, clubbing, or pedal edema. NEUROLOGICAL: Gross neurological examination did not reveal any focal deficits. SKIN: No rashes. no petechiae. - Labs CBC & Chem 7: 01/23/21 05:15 01/22/21 06:08 Labs: Abnormal Lab Results - Last 24 Hours (Table) 01/23/21 Range/Units 05:15 WBC 10.97 H (4.50-10.00) X 10*3/uL RBC 3.23 L (4.10-5.20) X 10*6/uL Hgb 10.7 L (12.0-15.0) g/dL Hct 34.0 L (37.2-46.3) % MCV 105.3 H (80.0-97.0) fL MCH 33.1 H (27.0-32.0) pg MCHC 31.5 L (32.0-37.0) g/dL Immature Gran # 0.13 H (0.00-0.04) X 10*3/uL Monocytes # 1.34 H (0.20-1.00) X 10*3/uL Microbiology - Last 24 Hours (Table) 01/16/21 15:26 Blood Culture - Final Blood No Growth after 144 hours 01/16/21 15:05 Blood Culture - Final Blood No Growth after 144 hours Assessment and Plan Assessment: - Pelvic abscess secondary to perforated diverticulitis per pathology report. No malignant cells. On January 17: Sigmoid colectomy with end colostomy. Surgery primary team on the case, continue on IV Unasyn for wound E coli. Advance diet per surgery team -Appendicitis with no malignancy on pathology report. Incidental finding -Acute urinary tract infection -Mild protein calorie malnutrition from decreased oral intake. BMI 15.8 -Chronic nicotine dependence patient cigarette smoker. Patient be given a nicotine patch. Counseled about the same. -Depression and anxiety not otherwise specified. Patient is on Zoloft -Essential hypertension patient on Zestril. Follow blood pressure closely DVT prophylaxis: Subcutaneous heparin GI prophylaxis: PPI
[2021-01-24] MEDS: AMPICILLIN-SULBACTAM 3 GM in SODIUM CHLORIDE 0.9% 100 ML IVPB SCH ×5 (00:21→23:49)
[2021-01-24] MEDS: HYDROmorphone 1 MG/ML 1 ML SYRINGE IVP PRN ×4 (00:25→21:33)
--- NOTE | 2021-01-24 02:37 | PN ---
PROGRESS NOTE DATE OF SERVICE: 01/23/2021 REASON FOR FOLLOWUP: Abdominal abscess from perforated diverticulitis. INTERVAL HISTORY: The patient is currently afebrile. The patient is breathing comfortably, denies having any chest pain, shortness of breath or cough. Abdominal pain is currently controlled. No nausea, no vomiting. Did have output in her colostomy bag. PHYSICAL EXAMINATION: Blood pressure is 169/98, pulse of 83, temperature 98. She is 98% on room air. General description is a middle-aged female up in the bed in no distress. Respiratory system: Unlabored breathing, clear to auscultation anteriorly. Heart S1, S2. Regular rate and rhythm. Abdomen: Soft, no tenderness. No guarding. No rigidity. LABS: Hemoglobin is 10.7, white count 10.97. DIAGNOSTIC IMPRESSION AND PLAN: Patient with abdominal abscess from ruptured sigmoid diverticulitis, diverting colostomy. Abdominal culture positive for E coli and anaerobic gram-negative. Patient is covered with Unasyn to finish therapy with oral Augmentin and close outpatient followup. MMODL / IJN: [id number] /
[2021-01-24] MEDS: AMMONIUM LACTATE 12% LOTION 225 GM BTL TOPICAL SCH ×3 (03:50→21:42)
[2021-01-24] MEDS: KETOROLAC 15 MG/ML 1 ML VIAL IVP SCH ×4 (05:11→23:48)
[2021-01-24] MEDS: HYDROcodone/APAP 5-325MG 1 EACH TAB PO PRN ×4 (07:48→23:52)
[2021-01-24] MEDS: SERTRALINE 50 MG TAB PO SCH (07:48)
[2021-01-24] MEDS: PANTOPRAZOLE 40 MG/10 ML VIAL IVP SCH (07:49)
[2021-01-24] MEDS: lisinopriL 20 MG TAB PO SCH ×2 (07:49→21:42)
[2021-01-24] MEDS: HEPARIN SODIUM,PORCINE 5,000 UNIT/ML 1 ML VIAL SQ SCH ×3 (12:29→23:52)
--- NOTE | 2021-01-24 14:48 | P.PN ---
Subjective From records: This is a pleasant 55-year-old patient of Dr. Kaivta johansen. Chronic stable medical conditions include hypertension, anxiety depression, nicotine dependence. Patient started having yesterday with increasing abdominal pain was progressively got worse. Also some nausea. Some vomiting this morning. Patient bowel movements have been variable for quite some time. Occasionally gets diarrhea. Also notices blood in the stool. Her weight has always been around 100 125 pounds. She lost about 10 pounds in the last few months. No fe chiqui no chills. Computed tomography scan of the abdomen and pelvis showed prominent fluid-filled bowel loops and abrupt change in caliber in the sigmoid colon: Area. Question about an abscess 2. Also severe concentric wall thickening. Dr. Mcfarland is planning for surgery. Patient denies any cardiac or pulmonary history. Denies any chest pain or shortness of breath. Has a good exercise tolerance otherwise. Today: Patient taken to the OR by Dr. Mcfarland. Sigmoid colectomy with end colostomy was done. Drainage of pelvic mass. Unclear if this was tumor with a breakdown on the secondary abscess. JOSEPH drain. NG tube Subjective: 01/18/2021 This is a pleasant 55 years old female with medical problems presents with possible pelvic abscess versus colonic neoplasm causing distal bowel obstruction per CAT scan of the abdomen and pelvis done on admission. Patient underwent sigmoid colectomy and end colostomy. Today is postoperative day #1. Also there was suspicion of UTI. She remains nothing by mouth with NG tube is in a Place about 300 mL of dark fluid is in the container. No bowel movement or passing gas. She looks calm but have abdominal pain at the surgical site with no vomiting. Vitals are stable Leukocytosis improving down to 14.9 K. BMP is unremarkable. Liver enzymes e levated today. Pathology specimen is still pending. Wound culture and sensitivity also pending. Urine culture is growing gram-negative bacilli. Currently patient is on Zosyn and D5 half-normal saline at 1 25 mL/h per surgery team 01/19/2021 Patient remains nothing by mouth with NG tube in place with about 100 mL of yellow discharge and container. Colostomy back in the left lower quadrant empty , with passing gas only. Still have some abdominal pain. Vitals are stable. leukocytosis 15.1 k. bmp is unremarkable. we'll culture is growing gram-negative bacilli and urine culture is growing e. coli sensitive to antibiotics pathology report is still pending as per surgery team ng tube will be discontinued today and start patient on clear diet. currently patient remains on zosyn and d5 half-normal saline at 1 25 ml/h per surgery team 01/20/2021 Patient responded slowly to treatment, she has this abdominal pain and diet has been advanced to full liquid diet today. NG tube was discontinued yesterday 1 culture is growing E. coli and antibiotic adjustment to Unasyn accordingly per ID team recommendation 01/21/2021 Patient is awake and alert and oriented today. She has an episode of severe abdominal pain in the morning that needed extra dose of Dilaudid. Toradol is added. No labs today, we will order labs tomorrow including ESR and C-reactive protein Surgery team of the case and the added Toradol as above. Her urine culture was positive for E. coli as well as wound culture and patient antibiotics was adjusted to Unasyn per ID team. Patient is also on IV fluids per surgery team and D5 half normal saline at 1 25 mL/h Pathology report still pending 01/22/2021 Patient remains on low-fat diet, advanced slowly and she still complaining of from abdominal pain with eating. Patient is eating 5200% of her meals. Surgery team for on the case closely. Patient has improved leukocytosis down to 10.7 K. Based on E. coli wound culture. She is on Unasyn per ID and D5 half-normal saline at 1 25 mL/h per surgery team. Pathology report showing diverticulitis and abscess with no malignancy, and incidental appendicitis with no evidence of malignancy as well 01/23/2021 Patient is doing well today, she is tolerating diet which is her regular diet now. Minimal abdominal pain and she has regular bowel movements through her colostomy bag. She is hemodynamically stable, blood pressure is slightly elevated. But most of the time is better controlled. Her WBC is trending down to 10.9 K. Her IV fluid By surgery team. Currently she is on Unasyn. 01/24/2021 Patient is tolerating her low fiber diet, she still complaining of from some pain on the right side of her surgical wound with some mild tenderness and she rates her pain as 4/10 however she denies any nausea vomiting She has regular bowel movement and her colostomy bag. Her leukocytosis is already improved very close to normal at 10.7 K. Wound culture is growing E. coli, patient is on Unasyn to be finish therapy with oral Augmentin upon discharge as per ID team recommendation. Primary team on the case Objective - Vital Signs Vital signs: Vital Signs Temp 97.6 F 01/24/21 05:00 Pulse 80 01/24/21 05:00 Resp 20 01/24/21 05:00 BP 152/89 01/24/21 05:00 Pulse Ox 98 01/24/21 05:00 Intake & Output 01/23/21 01/24/21 01/24/21 18:59 06:59 18:59 Intake Total 100 Balance 100 Intake: Oral 100 Other: Voiding Method Toilet Toilet Toilet # Voids 1 - Exam GENERAL: The patient is alert and oriented x3, not in any acute distress. Well developed, well nourished. HEENT: Pupils are round and equally reacting to light. EOMI. No scleral icterus. No conjunctival pallor. Normocephalic, atraumatic. No pharyngeal erythema. No thyromegaly. CARDIOVASCULAR: S1 and S2 present. No murmurs, rubs, or gallops. PULMONARY: Chest is clear to auscultation, no wheezing or crackles. -ABDOMEN: Soft, mild tenderness expected a surgical wound, nondistended, normoactive bowel sounds. No palpable organomegaly. Left lower quadrant colostomy. Surgical wound base clean and closed with a dressing is in place MUSCULOSKELETAL: No joint swelling or deformity. EXTREMITIES: No cyanosis, clubbing, or pedal edema. NEUROLOGICAL: Gross neurological examination did not reveal any focal deficits. SKIN: No rashes. no petechiae. - Labs CBC & Chem 7: 01/23/21 05:15 01/22/21 06:08 Assessment and Plan Assessment: - Pelvic abscess secondary to perforated diverticulitis per pathology report. N o malignant cells. On January 17: Sigmoid colectomy with end colostomy. Surgery primary team on the case, continue on IV Unasyn for wound E coli. Advance diet per surgery team -Appendicitis with no malignancy on pathology report. Incidental finding -Acute urinary tract infection -Mild protein calorie malnutrition from decreased oral intake. BMI 15.8 -Chronic nicotine dependence patient cigarette smoker. Patient be given a nicotine patch. Counseled about the same. -Depression and anxiety not otherwise specified. Patient is on Zoloft -Essential hypertension patient on Zestril. Follow blood pressure closely DVT prophylaxis: Subcutaneous heparin GI prophylaxis: PPI
--- NOTE | 2021-01-24 15:08 | P.PN ---
Subjective Progress Note Date: 01/24/21 CHIEF COMPLAINT: Abdominal pain HISTORY OF PRESENT ILLNESS: Patient is status post sigmoid colectomy with end colostomy and drainage of pelvic abscess for colonic obstruction and pelvic abscess. Patient has been having abdominal pain. She reports her pain is controlled. She denies any nausea or vomiting. She has been having minimal drainage from the incision site mostly serosanguineous. One staple was removed and no drainage noted. She is having stool and gas through her ostomy. She denies any nausea or vomiting. She's currently on a low-fat diet. Afebrile. WBC 10.97 Hgb 10.7 Patient seen and examined with Dr. Mcfarland PHYSICAL EXAM: VITAL SIGNS: Reviewed. GENERAL: Well-developed in no acute distress. HEENT: No sclera icterus. Extraocular movements grossly intact. Moist buccal mucosa. Head is atraumatic, normocephalic. ABDOMEN: Soft. Nondistended. Incision site near the umbilicus noted to have serosanguineous drainage. One staple removed. Minimal tenderness with palpati on near incision Serous output through the JOSEPH drain. Colostomy bag has stool and air NEUROLOGIC: Alert and oriented. Cranial nerves II through XII grossly intact. ASSESSMENT: 1. Colonic obstruction and pelvic abscess status post sigmoid colectomy with end colostomy and drainage of pelvic abscess, postop day #7 PLAN: -Continue low-fat diet -Continue pain medication as needed -Continue IV antibiotics per ID -Encourage incentive spirometer use -Encourage patient to ambulate -We'll reevaluate incision in a.m. -She had prophylaxis Protonix and DVT prophylaxis subcu heparin Physician Accountant Manager note has been reviewed by physician. Signing provider agrees with the documented findings, assessment, and plan of care. Objective - Vital Signs Vital signs: Vital Signs Temp 97.6 F 01/24/21 05:00 Pulse 80 01/24/21 05:00 Resp 20 01/24/21 05:00 BP 152/89 01/24/21 05:00 Pulse Ox 98 01/24/21 05:00 Intake & Output 01/23/21 01/24/21 01/24/21 18:59 06:59 18:59 Intake Total 100 Balance 100 Intake: Oral 100 Other: Voiding Method Toilet Toilet Toilet # Voids 1 - Labs CBC & Chem 7: 01/23/21 05:15 03/29/21 06:08
--- NOTE | 2021-01-24 22:19 | PN ---
PROGRESS NOTE DATE OF SERVICE: 01/24/2021 REASON FOR FOLLOWUP: Abdominal abscess. INTERVAL HISTORY: Patient is currently afebrile. The patient is breathing comfortably. Denies having any chest pain. No shortness of breath or cough. Abdominal pain is currently controlled. No nausea. No vomiting. PHYSICAL EXAMINATION: Blood pressure 165/95 with a pulse of 87, temperature 98.4. She is 96% on room air. General description: The patient is a middle-aged female up in the bed in no distress. Respiratory system: Unlabored breathing, clear to auscultation anteriorly. Heart S1, S2. Regular rate and rhythm. ABDOMEN: Soft. No tenderness. No guarding. No rigidity. LABS: Hemoglobin is 10.3, white count of 10.97. DIAGNOSTIC IMPRESSION AND PLAN: Patient with abdominal abscess from perforated sigmoid diverticulitis in this patient status post drainage of the abscess and diverting colostomy. Abdominal culture positive E coli and anaerobic Gram-negative bacilli. The patient is currently covered on Unasyn. Plan is to finish therapy with either Augmentin or oral Cipro and Flagyl and close outpatient followup. MMODL / IJN: [id number] /
[2021-01-25] MEDS: HYDROmorphone 1 MG/ML 1 ML SYRINGE IVP PRN ×3 (03:29→19:54)
[2021-01-25] MEDS: AMPICILLIN-SULBACTAM 3 GM in SODIUM CHLORIDE 0.9% 100 ML IVPB SCH ×4 (06:16→23:21)
[2021-01-25] MEDS: KETOROLAC 15 MG/ML 1 ML VIAL IVP SCH ×4 (06:17→23:21)
[2021-01-25] MEDS: HYDROcodone/APAP 5-325MG 1 EACH TAB PO PRN ×2 (06:18→23:23)
[2021-01-25] MEDS: PANTOPRAZOLE 40 MG/10 ML VIAL IVP SCH (08:19)
[2021-01-25] MEDS: SERTRALINE 50 MG TAB PO SCH (08:19)
[2021-01-25] MEDS: lisinopriL 20 MG TAB PO SCH ×2 (08:19→19:55)
[2021-01-25] MEDS: AMMONIUM LACTATE 12% LOTION 225 GM BTL TOPICAL SCH ×2 (08:20→19:55)
[2021-01-25] MEDS: HEPARIN SODIUM,PORCINE 5,000 UNIT/ML 1 ML VIAL SQ SCH (08:20)
[2021-01-25 09:13] LABS: Basophils # (A) 0.1 k/uL (0-0.2); Basophils % (A) 1 %; Eosinophils # (A) 0.3 k/uL (0-0.7); Eosinophils % (A) 3 %; HCT 37.1 % (34.0-46.0); HGB 11.8 gm/dL (11.4-16.0); Lymphocytes # (A) 1.7 k/uL (1.0-4.8); Lymphocytes % (A) 17 %; MCH 32.8 pg (25.0-35.0); MCHC 31.7 g/dL (31.0-37.0); MCV 103.3 fL (80.0-100.0); Macrocytosis Slight; Monocytes # (A) 0.6 k/uL (0-1.0); Monocytes % (A) 6 %; Neutrophils # (A) 7.2 k/uL (1.3-7.7); Neutrophils % (A) 72 %; Platelet Count 471 k/uL (150-450); RBC 3.59 m/uL (3.80-5.40); RDW 13.8 % (11.5-15.5)
--- NOTE | 2021-01-25 12:55 | P.PN ---
Subjective From records: This is a pleasant 55-year-old patient of Dr. Kavita johansen. Chronic stable medical conditions include hypertension, anxiety depression, nicotine dependence. Patient started having yesterday with increasing abdominal pain was progressively got worse. Also some nausea. Some vomiting this morning. Patient bowel movements have been variable for quite some time. Occasionally gets diarrhea. Also notices blood in the stool. Her weight has always been around 100 125 pounds. She lost about 10 pounds in the last few months. No fe chiqui no chills. Computed tomography scan of the abdomen and pelvis showed prominent fluid-filled bowel loops and abrupt change in caliber in the sigmoid colon: Area. Question about an abscess 2. Also severe concentric wall thickening. Dr. Mcfarland is planning for surgery. Patient denies any cardiac or pulmonary history. Denies any chest pain or shortness of breath. Has a good exercise tolerance otherwise. Today: Patient taken to the OR by Dr. Mcfarland. Sigmoid colectomy with end colostomy was done. Drainage of pelvic mass. Unclear if this was tumor with a breakdown on the secondary abscess. JOSEPH drain. NG tube Subjective: 01/18/2021 This is a pleasant 55 years old female with medical problems presents with possible pelvic abscess versus colonic neoplasm causing distal bowel obstruction per CAT scan of the abdomen and pelvis done on admission. Patient underwent sigmoid colectomy and end colostomy. Today is postoperative day #1. Also there was suspicion of UTI. She remains nothing by mouth with NG tube is in a Place about 300 mL of dark fluid is in the container. No bowel movement or passing gas. She looks calm but have abdominal pain at the surgical site with no vomiting. Vitals are stable Leukocytosis improving down to 14.9 K. BMP is unremarkable. Liver enzymes e levated today. Pathology specimen is still pending. Wound culture and sensitivity also pending. Urine culture is growing gram-negative bacilli. Currently patient is on Zosyn and D5 half-normal saline at 1 25 mL/h per surgery team 01/19/2021 Patient remains nothing by mouth with NG tube in place with about 100 mL of yellow discharge and container. Colostomy back in the left lower quadrant empty , with passing gas only. Still have some abdominal pain. Vitals are stable. leukocytosis 15.1 k. bmp is unremarkable. we'll culture is growing gram-negative bacilli and urine culture is growing e. coli sensitive to antibiotics pathology report is still pending as per surgery team ng tube will be discontinued today and start patient on clear diet. currently patient remains on zosyn and d5 half-normal saline at 1 25 ml/h per surgery team 01/20/2021 Patient responded slowly to treatment, she has this abdominal pain and diet has been advanced to full liquid diet today. NG tube was discontinued yesterday 1 culture is growing E. coli and antibiotic adjustment to Unasyn accordingly per ID team recommendation 01/21/2021 Patient is awake and alert and oriented today. She has an episode of severe abdominal pain in the morning that needed extra dose of Dilaudid. Toradol is added. No labs today, we will order labs tomorrow including ESR and C-reactive protein Surgery team of the case and the added Toradol as above. Her urine culture was positive for E. coli as well as wound culture and patient antibiotics was adjusted to Unasyn per ID team. Patient is also on IV fluids per surgery team and D5 half normal saline at 1 25 mL/h Pathology report still pending 01/22/2021 Patient remains on low-fat diet, advanced slowly and she still complaining of from abdominal pain with eating. Patient is eating 5200% of her meals. Surgery team for on the case closely. Patient has improved leukocytosis down to 10.7 K. Based on E. coli wound culture. She is on Unasyn per ID and D5 half-normal saline at 1 25 mL/h per surgery team. Pathology report showing diverticulitis and abscess with no malignancy, and incidental appendicitis with no evidence of malignancy as well 01/23/2021 Patient is doing well today, she is tolerating diet which is her regular diet now. Minimal abdominal pain and she has regular bowel movements through her colostomy bag. She is hemodynamically stable, blood pressure is slightly elevated. But most of the time is better controlled. Her WBC is trending down to 10.9 K. Her IV fluid By surgery team. Currently she is on Unasyn. 01/24/2021 Patient is tolerating her low fiber diet, she still complaining of from some pain on the right side of her surgical wound with some mild tenderness and she rates her pain as 4/10 however she denies any nausea vomiting She has regular bowel movement and her colostomy bag. Her leukocytosis is already improved very close to normal at 10.7 K. Wound culture is growing E. coli, patient is on Unasyn to be finish therapy with oral Augmentin upon discharge as per ID team recommendation. Primary team on the case 01/25/2021 Patient is pleasant. Tolerating diet well. She has regular bowel movements and colostomy bag. She was expected to be discharged today however that was held due to still some purulent discharge from her right side of the surgical wound of the abdomen. Surgery team are aware of this problem and they going to address that today. No fever. No leukocytosis as she came back to normal at 10.0 K. Hemoglobin and platelets are normal. Patient remains on Unasyn with ID team on the case. Wound culture is growing E. coli and gram-negative bacilli. Objective - Vital Signs Vital signs: Vital Signs Temp 98 F 01/25/21 12:40 Pulse 87 01/25/21 12:40 Resp 17 01/25/21 12:40 BP 154/92 01/25/21 12:40 Pulse Ox 97 01/25/21 12:40 Intake & Output 01/24/21 01/25/21 01/25/21 18:59 06:59 18:59 Intake Total 240 Output Total 25 Balance 215 Intake: Oral 240 Output: Drainage 25 Right Lower Abdomen 25 Other: Voiding Method Toilet Toilet Toilet # Voids 1 0 # Bowel Movements 0 - Exam GENERAL: The patient is alert and oriented x3, not in any acute distress. Well developed, well nourished. HEENT: Pupils are round and equally reacting to light. EOMI. No scleral icterus. No conjunctival pallor. Normocephalic, atraumatic. No pharyngeal erythema. No thyromegaly. CARDIOVASCULAR: S1 and S2 present. No murmurs, rubs, or gallops. PULMONARY: Chest is clear to auscultation, no wheezing or crackles. -ABDOMEN: Soft, mild tenderness expected a surgical wound, nondistended, normoactive bowel sounds. No palpable organomegaly. Left lower quadrant colostomy. Surgical wound base clean and closed with a dressing is in place MUSCULOSKELETAL: No joint swelling or deformity. EXTREMITIES: No cyanosis, clubbing, or pedal edema. NEUROLOGICAL: Gross neurological examination did not reveal any focal deficits. SKIN: No rashes. no petechiae. - Labs CBC & Chem 7: 01/25/21 08:26 03/29/21 06:08 Labs: Abnormal Lab Results - Last 24 Hours (Table) 01/25/21 Range/Units 08:26 RBC 3.59 L (3.80-5.40) m/uL MCV 103.3 H (80.0-100.0) fL Plt Count 471 H (150-450) k/uL Assessment and Plan Assessment: - Pelvic abscess secondary to perforated diverticulitis per pathology report. No malignant cells. On January 17: Sigmoid colectomy with end colostomy. Surgery primary team on the case, continue on IV Unasyn for wound E coli. Advance diet per surgery team -Appendicitis with no malignancy on pathology report. Incidental finding -Acute urinary tract infection -Mild protein calorie malnutrition from decreased oral intake. BMI 15.8 -Chronic nicotine dependence patient cigarette smoker. Patient be given a nicotine patch. Counseled about the same. -Depression and anxiety not otherwise specified. Patient is on Zoloft -Essential hypertension patient on Zestril. Follow blood pressure closely DVT prophylaxis: Subcutaneous heparin GI prophylaxis: PPI
--- NOTE | 2021-01-25 14:32 | P.PN ---
Subjective Progress Note Date: 01/25/21 CHIEF COMPLAINT: Abdominal pain HISTORY OF PRESENT ILLNESS: Patient is status post sigmoid colectomy with end colostomy and drainage of pelvic abscess for colonic obstruction and pelvic abscess. Patient is complaining of drainage from her incision site. She had another staple remove this morning from the distal aspect of the incision. Minimal drainage noted culture obtained. Patient complaining more pain from JOSEPH site. Otherwise pain is controlled. She is having stool and gas through her ostomy. She denies any nausea or vomiting. She's currently on a low-fat diet. Afebrile. WBC is down to 10 Hgb 11.8 Patient seen and examined with Dr. Mcfarland PHYSICAL EXAM: VITAL SIGNS: Reviewed. GENERAL: Well-developed in no acute distress. HEENT: No sclera icterus. Extraocular movements grossly intact. Moist buccal mucosa. Head is atraumatic, normocephalic. ABDOMEN: Soft. Nondistended. Incision site some mild erythema noted along the incision. Patient was noted to have some drainage from the distal aspect of the incision 2 sariah removed culture obtained. Drainage clear yellowish in color. Colostomy bag has stool and air NEUROLOGIC: Alert and oriented. Cranial nerves II through XII grossly intact. ASSESSMENT: 1. Colonic obstruction and pelvic abscess status post sigmoid colectomy with end colostomy and drainage of pelvic abscess, postop day #8 2. Infection at incision site PLAN: -Start Bactrim 1 tablet twice a day -Send drainage from incision site for culture -Discontinue JOSEPH drain -Continue low-fat diet -Continue pain medication as needed -Continue IV antibiotics per ID -Encourage incentive spirometer use -Encourage patient to ambulate -She had prophylaxis Protonix and DVT prophylaxis subcu heparin Physician Code Enforcement Inspector note has been reviewed by physician. Signing provider agrees with the documented findings, assessment, and plan of care. Objective - Vital Signs Vital signs: Vital Signs Temp 98 F 01/25/21 12:40 Pulse 87 01/25/21 12:40 Resp 17 01/25/21 12:40 BP 154/92 01/25/21 12:40 Pulse Ox 97 01/25/21 12:40 Intake & Output 01/24/21 01/25/21 01/25/21 18:59 06:59 18:59 Intake Total 240 Output Total 25 Balance 215 Weight 51.256 kg Intake: Oral 240 Output: Drainage 25 Right Lower Abdomen 25 Other: Voiding Method Toilet Toilet Toilet # Voids 1 0 # Bowel Movements 0 - Labs CBC & Chem 7: 01/25/21 08:26 01/22/21 06:08 Labs: Abnormal Lab Results - Last 24 Hours (Table) 01/25/21 Range/Units 08:26 RBC 3.59 L (3.80-5.40) m/uL MCV 103.3 H (80.0-100.0) fL Plt Count 471 H (150-450) k/uL
[2021-01-25] MEDS: SULFAMETHOX-TMP 800-160MG 1 EACH TAB PO SCH ×2 (17:10→19:55)
[2021-01-25] MEDS: HEPARIN SODIUM,PORCINE/PF 5,000 UNIT/0.5 ML SYRINGE SQ SCH ×2 (17:11→23:21)
--- NOTE | 2021-01-25 23:36 | PN ---
PROGRESS NOTE DATE OF SERVICE: 01/25/2021 REASON FOR FOLLOWUP: Abdominal abscess. Perforated diverticulitis. INTERVAL HISTORY: The patient is currently afebrile. The patient is breathing comfortably. Patient complaining of slight drainage from the incision area. No chest pain, shortness of breath or cough. No nausea, vomiting. PHYSICAL EXAMINATION: Blood pressure 131/95 with a pulse of 83, temperature 98. She is 100% on room air. General description is a middle-aged female up in the bed in no distress. Respiratory system: Unlabored breathing, clear to auscultation anteriorly. Heart S1, S2. Regular rate and rhythm. Abdomen soft. Midline incision minimal serous drainage. Extremities are no edema of the feet. LABS: Hemoglobin 11.1, white count 10.0, creatinine 0.6. DIAGNOSTIC IMPRESSION AND PLAN: Patient with abdominal abscess from perforated diverticulitis status post diverting colostomy. Abdominal culture positive for E coli, anaerobes and patient covered with Unasyn. Mild drainage from the incision. has been added. Clinical condition will be monitored closely. Continue supportive care. MMODL / IJN: [id number] /
[2021-01-26] MEDS: HYDROmorphone 1 MG/ML 1 ML SYRINGE IVP PRN (03:59)
[2021-01-26] MEDS: KETOROLAC 15 MG/ML 1 ML VIAL IVP SCH ×2 (05:46→12:41)
[2021-01-26] MEDS: AMPICILLIN-SULBACTAM 3 GM in SODIUM CHLORIDE 0.9% 100 ML IVPB SCH ×2 (05:46→12:41)
[2021-01-26] MEDS: HEPARIN SODIUM,PORCINE/PF 5,000 UNIT/0.5 ML SYRINGE SQ SCH (09:05)
[2021-01-26] MEDS: SERTRALINE 50 MG TAB PO SCH (09:06)
[2021-01-26] MEDS: lisinopriL 20 MG TAB PO SCH (09:06)
[2021-01-26] MEDS: HYDROcodone/APAP 5-325MG 1 EACH TAB PO PRN ×2 (09:06→12:48)
[2021-01-26] MEDS: PANTOPRAZOLE 40 MG/10 ML VIAL IVP SCH (09:06)
[2021-01-26] MEDS: AMMONIUM LACTATE 12% LOTION 225 GM BTL TOPICAL SCH (09:07)
[2021-01-26] MEDS: SULFAMETHOX-TMP 800-160MG 1 EACH TAB PO SCH (09:07)
[2021-01-26 12:48] VITALS: BP 165/96; PULSE 70; RESP 18; TEMP 98.2
--- NOTE | 2021-01-26 16:06 | P.DS ---
Providers Date of admission: 01/16/21 15:25 Expected date of discharge: 01/26/21 Attending physician: Hugo Mcfarland Consults: 01/16/21 15:26 Consult Physician Routine Consulting Provider: Lenard Vance Consult Reason/Comments: medical management Do you want consulting provider notified?: Yes 01/17/21 17:30 Consult Physician Routine Consulting Provider: Felicia Erwin Consult Reason/Comments: Pelvic abscess Do you want consulting provider notified?: Yes Primary care physician: Kavita Boyer Hospital Course: This a 56-year-old female who was admitted to the hospital with complaints of abdominal pain. She is worked up found evidence of a pelvic abscess. Patient underwent surgery. Patient underwent sigmoid colectomy with end colostomy for presumed perforated diverticulitis. Patient's postoperative arrival. Please hospital chart for details. Procedures: Jose procedure Patient Condition at Discharge: Good Plan - Discharge Summary New Discharge Prescriptions: New Docusate [Colace] 100 mg PO BID #20 capsule oxyCODONE HCL [OxyIR] 5 mg PO Q6H PRN 3 Days #10 tab PRN Reason: Pain Ibuprofen [Motrin] 600 mg PO Q6HR PRN #40 tab PRN Reason: Pain Acetaminophen Tab [Tylenol] 650 mg PO Q6H #30 tab No Action lisinopriL [Zestril] 20 mg PO BID Sertraline [Zoloft] 50 mg PO DAILY Discharge Medication List lisinopriL [Zestril] 20 mg PO BID 08/04/18 [History] Sertraline [Zoloft] 50 mg PO DAILY 11/24/18 [History] Acetaminophen Tab [Tylenol] 650 mg PO Q6H #30 tab 01/26/21 [Rx] Docusate [Colace] 100 mg PO BID #20 capsule 01/26/21 [Rx] Ibuprofen [Motrin] 600 mg PO Q6HR PRN #40 tab 01/26/21 [Rx] oxyCODONE HCL [OxyIR] 5 mg PO Q6H PRN 3 Days #10 tab 01/26/21 [Rx] Follow up Appointment(s)/Referral(s): Kavita Boyer, [Primary Care Provider] - 1-2 days [facility], [NON-STAFF] - 1-2 Days () Hugo Mcfarland MD [STAFF PHYSICIAN] - 02/06/21 3:15 pm (Follow up appointment with Dr. Mcfarland on February 06, 2021 at 3:15 pm) Patient Instructions/Handouts: How to Stop Smoking (ED), Colostomy Care (GEN), Abscess (GEN) Activity/Diet/Wound Care/Special Instructions: Colostomy Care Recommendations for Discharge: Last ostomy pouching system change on 01.26.2021 James Deidra Davila will supply Ms Kessler with the following ostomy supplies for home as follows: Convatec one piece cut to fit #[id number] with filter (3) Chiquita seal rings (3) Coloplast one piece convex #[id number] (3) Osotmy powder (1) No sting prep pads (10) Osotmy belt Ms Kessler is to change the entire pouching system every 3-5 days Ms Kessler is to empty the pouching system in the bathroom when it is 1/3 to 1/2 full Home care please note that Ms Kessler may need to utilize the Coloplast convex pouching system if the the Convatec with Chiquita rings fails to provide a seal Ms Kessler has a separation of stoma and skin at 3- 9 oclcok position needs to be filled with osotmy powder with each ostoym poch change unless otherwise directed by Dr Mendoza Also, Home care please make your appointments for early childhood worker if it is a day to change the pouching system
--- NOTE | 2021-01-26 17:30 | PN ---
PROGRESS NOTE DATE OF SERVICE: 01/26/2021 REASON FOR FOLLOWUP: Abdominal sepsis, perforated diverticulitis. INTERVAL HISTORY: The patient is currently afebrile. The patient is feeling better, breathing comfortably. The patient's abdominal pain is currently improved. Patient has already been discharged by the surgeon, asking for the discharge antibiotic. No nausea, no vomiting. Did have output in her colostomy bag. PHYSICAL EXAMINATION: Blood pressure 165/96, pulse of 90, temperature 98.2. She is 99% on room air. General description is a middle-aged female lying in bed in no distress. RESPIRATORY SYSTEM: Unlabored breathing. Clear to auscultation anteriorly. HEART: S1, S2. Regular rate and rhythm. ABDOMEN: Soft. Incision is currently dressed. No drainage on the dressing. LABS: No new labs have been obtained today. White count has normalized. DIAGNOSTIC IMPRESSION AND PLAN: Patient with abdominal abscess from perforated diverticulitis in this patient who is status post laparotomy and diverting colostomy. Abdominal culture positive for E coli along with anaerobes. Patient has clinically responded to the Unasyn. White count normalized. Prescription for Augmentin for 10 days has been sent to the pharmacy. Close outpatient followup. MMODL / IJN: [id number] /
== END 2021-01-26 16:45 | disposition home health service (06) | DRG 329 ==
LOC: EC 11:45 → 5NMEDONC 15:25 → 6NMEDSUR 17:42 → 5NMEDONC 01-17 15:36
PROVIDERS: ADMIT Surgery; ATTEND Surgery
PROC: 0D1M0Z4 Bypass Descending Colon to Cutaneous, Open Approach (ICD-10-PCS; 2021-01-17)
PROC: 0W9G00Z Drainage of Peritoneal Cavity with Drainage Device, Open Approach (ICD-10-PCS; 2021-01-17)
PROC: 0DBN0ZZ Excision of Sigmoid Colon, Open Approach (ICD-10-PCS; principal; 2021-01-17 08:35)
DX: K57.20 Diverticulitis of large intestine with perforation and abscess without bleeding (principal); K65.1 Peritoneal abscess; E44.1 Mild protein-calorie malnutrition; Z68.1 Body mass index [BMI] 19.9 or less, adult; E87.1 Hypo-osmolality and hyponatremia; N39.0 Urinary tract infection, site not specified; R10.9 Unspecified abdominal pain; N73.9 Female pelvic inflammatory disease, unspecified; Z20.828 Contact with and (suspected) exposure to other viral communicable diseases; Z85.3 Personal history of malignant neoplasm of breast; Z92.3 Personal history of irradiation; I10 Essential (primary) hypertension; F41.9 Anxiety disorder, unspecified; F32.9 Major depressive disorder, single episode, unspecified; F17.210 Nicotine dependence, cigarettes, uncomplicated; I11.9 Hypertensive heart disease without heart failure; D49.0 Neoplasm of unspecified behavior of digestive system; K37 Unspecified appendicitis
CPT/HCPCS: 36415; 64999; 71046; 74176; 76942; 80048; 80053; 81001; 82150; 83605; 83690; 85025; 85610; 85652; 85730; 86140; 86850; 86900; 86901; 87040; 87070; 87075; 87077; 87086; 87186; 87205; 87635; 88302; 88307; 88309; 93005; 99285

== ENCOUNTER 2021-03-01 21:03 | Emergency (ER) | payer OTHER ==
[2021-03-01 22:20] LABS: Basophils # (A) 0.1 k/uL (0-0.2); Basophils % (A) 1 %; Eosinophils # (A) 0.2 k/uL (0-0.7); Eosinophils % (A) 2 %; HCT 38.5 % (34.0-46.0); HGB 12.6 gm/dL (11.4-16.0); Lymphocytes # (A) 3.9 k/uL (1.0-4.8); Lymphocytes % (A) 51 %; MCH 30.7 pg (25.0-35.0); MCHC 32.7 g/dL (31.0-37.0); Mean Platelet Volume 6.5; Monocytes # (A) 0.2 k/uL (0-1.0); Monocytes % (A) 3 %; Neutrophils # (A) 3.1 k/uL (1.3-7.7); Neutrophils % (A) 41 %; Platelet Count 272 k/uL (150-450); RDW 14.3 % (11.5-15.5); WBC 7.6 k/uL (3.8-10.6)
[2021-03-01 22:29] LABS: MCV 93.9 fL (80.0-100.0)
[2021-03-01 23:09] LABS: ALT 10 U/L (4-34); AST 36 U/L (14-36); African American GFR (CKD) >90 (>60 ml/min/1.73 sqM); Albumin 3.6 g/dL (3.5-5.0); Alkaline Phosphatase 126 U/L (38-126); Anion Gap 7 mmol/L; Blood Urea Nitrogen 10 mg/dL (7-17); Calcium 8.9 mg/dL (8.4-10.2); Carbon Dioxide 28 mmol/L (22-30); Chloride 112 mmol/L (98-107); Glucose 89 mg/dL (74-99); Lipase 624 U/L (23-300); Non-African American GFR(CKD) >90 (>60 ml/min/1.73 sqM); Potassium 3.8 mmol/L (3.5-5.1); Sodium 147 mmol/L (137-145); Total Bilirubin 0.3 mg/dL (0.2-1.3); Total Protein 6.7 g/dL (6.3-8.2)
[2021-03-01 23:12] LABS: Alcohol 293 mg/dL
[2021-03-01] MEDS ORDERED: SODIUM CHLORIDE 0.9% 1,000 ML IV ONE (23:14)
[2021-03-01] MEDS ORDERED: PIPERACILLIN-TAZOBACTAM 3.375 GM in SODIUM CHLORIDE 0.9% 100 ML IVPB STA (23:20)
--- NOTE | 2021-03-01 23:20 | ED ---
General Adult HPI <Ahmet Singleton - Last Filed: 03/02/21 03:43> - General Source: patient Mode of arrival: ambulatory Limitations: no limitations <Tanya Bonilla - Last Filed: 03/02/21 23:42> - General Chief complaint: Wound/Laceration Stated complaint: Post-op issue Time Seen by Provider: 03/01/21 21:05 - History of Present Illness Initial comments: Patient is a 56-year-old female with past medical history of breast cancer him a pelvic abscess who presents emergency Department requesting that her sariah taken out. Patient was hospitalized from January 16 through January 26. At that time she had a bowel instruction, pelvic abscess which ended in a colostomy. Patient was under the care of Dr. Mcfarland. She did have abdominal wall sariah placed. Patient reports that she originally followed up with Dr. Mcfarland's and he was placed on 2 courses of antibiotics that she has had some drainage from her abdominal wall. She failed to follow-up after that as she did not like Dr. Mcfarland. Patient presents today stating that she was drinking at home and her friend ended up calling EMS. Patient admits that she drank a pink of vodka. She is requesting that her sariah be taken out. Incision does appear to have some bloody brown drainage. Patient states this drainage has been getting worse. HPI is limited because the patient's intoxicated state (Tanya Bonilla) - Related Data Home Medications Medication Instructions Recorded Confirmed lisinopriL [Zestril] 20 mg PO BID 08/04/18 03/01/21 Sertraline [Zoloft] 50 mg PO DAILY 11/24/18 03/01/21 Naproxen Sodium [Aleve] 440 mg PO DAILY PRN 03/01/21 03/01/21 Allergies Allergy/AdvReac Type Severity Reaction Status Date / Time No Known Allergies Allergy Verified 03/01/21 22:07 Review of Systems ROS Other: All systems not noted in ROS Statement are negative. <Ahmet Singleton - Last Filed: 03/02/21 03:43> ROS Other: All systems not noted in ROS Statement are negative. <Tanya Bonilla - Last Filed: 03/02/21 23:42> ROS Statement: Those systems with pertinent positive or pertinent negative responses have been documented in the HPI. Past Medical History Past Medical History: Cancer, Hypertension Additional Past Medical History / Comment(s): hx lt breast cancer with surgery & radiation tx (Aug 2009)., Hx of right ulnar fx., Hx of c-diff (3 yrs ago) and colitis., states currently having 10-12 diarreha stools per day & hx of blood in stool. History of Any Multi-Drug Resistant Organisms: None Reported Past Surgical History: Bowel Resection, Breast Surgery, Section, Hysterectomy Additional Past Surgical History / Comment(s): LT BREAST LUMPECTOMY X2 , CLEFT PALATE SURGERYS, RIGHT ULNAR FX WITH PLATE & PINS (JUL 2018). COLONOSCOPY. C- SEC X 2 Past Anesthesia/Blood Transfusion Reactions: No Reported Reaction Past Psychological History: Anxiety, Depression Smoking Status: Current every day smoker Past Alcohol Use History: Occasional Past Drug Use History: None Reported - Past Family History Sister(s) Family Medical History: Pulmonary Embolus <Tanya Bonilla - Last Filed: 03/02/21 23:42> General Exam Limitations: altered mental status General appearance: alert, appears intoxicated Head exam: Present: atraumatic, normocephalic, normal inspection Eye exam: Present: normal appearance, PERRL, EOMI. Absent: scleral icterus, co njunctival injection, periorbital swelling ENT exam: Present: normal exam, mucous membranes moist Neck exam: Present: normal inspection. Absent: tenderness, meningismus, lymphadenopathy Respiratory exam: Present: normal lung sounds bilaterally. Absent: respiratory distress, wheezes, rales, rhonchi, stridor Cardiovascular Exam: Present: regular rate, normal rhythm, normal heart sounds. Absent: systolic murmur, diastolic murmur, rubs, gallop, clicks GI/Abdominal exam: Present: soft, normal bowel sounds, other (anterior incision with surrounding cellulitis. Brown-bloody drainage near middle of incision. Colostomy to left of incision with brown drainage). Absent: distended, tenderness, guarding, rebound, rigid Extremities exam: Present: normal inspection, full ROM, normal capillary refill. Absent: tenderness, pedal edema, joint swelling, calf tenderness Back exam: Present: normal inspection Neurological exam: Present: alert, altered, CN II-XII intact Psychiatric exam: Present: normal affect, normal mood Skin exam: Present: warm, dry, intact, normal color. Absent: rash <Tanya Bonilla - Last Filed: 03/02/21 23:42> Course Vital Signs 03/01/21 03/01/21 03/02/21 21:06 23:40 01:46 Temperature 97.9 F 97.7 F Pulse Rate 90 97 106 H Respiratory 16 16 16 Rate Blood Pressure 155/101 121/80 147/106 O2 Sat by Pulse 95 96 97 Oximetry 03/02/21 05:29 Temperature 97.9 F Pulse Rate 89 Respiratory 14 Rate Blood Pressure 145/95 O2 Sat by Pulse 94 L Oximetry Medical Decision Making - Lab Data Result diagrams: 03/01/21 22:12 03/01/21 22:12 <Ahmet Singleton - Last Filed: 03/02/21 03:43> - Lab Data Result diagrams: 03/01/21 22:12 03/01/21 22:12 <Tanya Bonilla - Last Filed: 03/02/21 23:42> - Medical Decision Making Upon arrival patient is placed in room 2. A thorough history and physical exam was performed. Patient does agree to laboratory studies. They are reviewed and demonstrate a sodium of 147. Alcohol 293. I did request a CT of the patient's abdomen and pelvis which is pending. Patient will be given antibiotics and signed out to Dr. Singleton. (Tanya Bonilla) - Lab Data Lab Results 03/01/21 03/01/21 03/01/21 Range/Units 22:12 22:12 22:12 WBC 7.6 (3.8-10.6) k/uL RBC 4.10 (3.80-5.40) m/uL Hgb 12.6 (11.4-16.0) gm/dL Hct 38.5 (34.0-46.0) % MCV 93.9 D (80.0-100.0) fL MCH 30.7 (25.0-35.0) pg MCHC 32.7 (31.0-37.0) g/dL RDW 14.3 (11.5-15.5) % Plt Count 272 (150-450) k/uL MPV 6.5 Neutrophils % 41 % Lymphocytes % 51 % Monocytes % 3 % Eosinophils % 2 % Basophils % 1 % Neutrophils # 3.1 (1.3-7.7) k/uL Lymphocytes # 3.9 (1.0-4.8) k/uL Monocytes # 0.2 (0-1.0) k/uL Eosinophils # 0.2 (0-0.7) k/uL Basophils # 0.1 (0-0.2) k/uL Sodium 147 H (137-145) mmol/L Potassium 3.8 (3.5-5.1) mmol/L Chloride 112 H (98-107) mmol/L Carbon Dioxide 28 (22-30) mmol/L Anion Gap 7 mmol/L BUN 10 (7-17) mg/dL Creatinine 0.52 (0.52-1.04) mg/dL Est GFR (CKD-EPI)AfAm >90 (>60 ml/min/1.73 sqM) Est GFR (CKD-EPI)NonAf >90 (>60 ml/min/1.73 sqM) Glucose 89 (74-99) mg/dL Plasma Lactic Acid Stewart 1.1 (0.7-2.0) mmol/L Calcium 8.9 (8.4-10.2) mg/dL Total Bilirubin 0.3 (0.2-1.3) mg/dL AST 36 (14-36) U/L ALT 10 (4-34) U/L Alkaline Phosphatase 126 (38-126) U/L Total Protein 6.7 (6.3-8.2) g/dL Albumin 3.6 (3.5-5.0) g/dL Lipase 624 H (23-300) U/L Serum Alcohol 293 H* mg/dL Disposition Is patient prescribed a controlled substance at d/c from ED?: No <Ahmet Singleton - Last Filed: 03/02/21 03:43> <Tanya Bonilla - Last Filed: 03/02/21 23:42> Clinical Impression: Removal of staple, Alcohol intoxication Disposition: HOME SELF-CARE Condition: Good Instructions (If sedation given, give patient instructions): Staple Care (ED) Referrals: Kavita Boyer DO [Primary Care Provider] - 1-2 days
--- NOTE | 2021-03-01 23:46 | CT ---
EXAMINATION TYPE: CT abdomen pelvis w con DATE OF EXAM: 03/01/2021 COMPARISON: 01/16/2021 HISTORY: Abdominal pain CT DLP: 578.7 mGycm Automated exposure control for dose reduction was used. CONTRAST: Performed with IV Contrast, patient injected with 100 mL of Isovue 300. Images obtained from the diaphragm to the floor the pelvis with IV contrast. Lung bases are clear. There is no pleural effusion. Heart size is normal. There is no pericardial eff usion. Liver spleen stomach pancreas gallbladder appear normal. The bile ducts are not dilated. There is no adrenal mass. Kidneys show satisfactory contrast opacification. There is no hydronephrosi s. There is no retroperitoneal adenopathy. Ureters are not dilated. Delayed images show normal renal excretion. Abdominal aorta is atheromatous. There is colostomy in the left mid abdomen. Bladder diste nds smoothly. There is no inguinal hernia. There is minimal fat stranding in the pelvis. There are sk in sariah over the midline abdomen. The bowel is not dilated. There is no evidence of free air. Lumbar vertebra have fairly normal alignment. There is no compression fracture. There is L5 spondylol ysis with minimal spondylolisthesis. The bony pelvis is intact. The hip joints are intact. There is n o hip dysplasia. IMPRESSION: Recent surgery. No bowel obstruction. There is clearing of the dilated loops of small bowel compared to old exam. Minimal fluid and stranding in the pelvis has low density and could be recent postsurgic al changes. No free air. No evidence of a bowel obstruction.
[2021-03-02 05:31] VITALS: BP 145/95; PULSE 89; RESP 14; TEMP 97.9
== END 2021-03-02 06:00 | disposition home or self-care (01) ==
LOC: EC 21:03
DX: Z48.02 Encounter for removal of sutures (principal); F10.129 Alcohol abuse with intoxication, unspecified; F17.200 Nicotine dependence, unspecified, uncomplicated; I10 Essential (primary) hypertension; F32.9 Major depressive disorder, single episode, unspecified; Z85.3 Personal history of malignant neoplasm of breast; Z93.3 Colostomy status; Y90.8 Blood alcohol level of 240 mg/100 ml or more
CPT/HCPCS: 36415; 80053; 83605; 83690; 85025; 74177; 99284; 96365; 96361; G0480; J2543; Q9967; 80320

== ENCOUNTER 2021-07-03 14:23 | Emergency (ER) | payer OTHER ==
[2021-07-03 14:37] VITALS: RESP 18; TEMP 98.3
--- NOTE | 2021-07-03 15:37 | ED ---
General Adult HPI - General Chief complaint: Recheck/Abnormal Lab/Rx Stated complaint: Abdominal Pain Time Seen by Provider: 07/03/21 15:14 Source: patient, EMS, RN notes reviewed, old records reviewed Mode of arrival: EMS Limitations: no limitations - History of Present Illness Initial comments: 56-year-old white female presents to the emergency room in need of ostomy supplies. Patient states that she does not want to go back to her surgeon because she doesn't like his bedside manner. She states that he will not write her a prescription for ostomy supplies. She has been using the same ostomy bag and using multiple different types of adhesive to keep this in place for the past 2 weeks. She states that the skin is sore now under the tape. She denies any fevers, nausea vomiting or diarrhea. There is brown stool in the ostomy bag. Her abdomen is soft. -: week(s) (2) Location: abdomen Radiation: non-radiation Severity scale (1-10): 0 Associated Symptoms: denies other symptoms Treatments Prior to Arrival: none - Related Data Home Medications Medication Instructions Recorded Confirmed lisinopriL [Zestril] 20 mg PO BID 08/04/18 03/01/21 Sertraline [Zoloft] 50 mg PO DAILY 11/24/18 03/01/21 Naproxen Sodium [Aleve] 440 mg PO DAILY PRN 03/01/21 03/01/21 Allergies Allergy/AdvReac Type Severity Reaction Status Date / Time cephalexin [From Keflex] AdvReac Diarrhea Verified 07/03/21 14:37 Review of Systems ROS Statement: Those systems with pertinent positive or pertinent negative responses have been documented in the HPI. ROS Other: All systems not noted in ROS Statement are negative. Past Medical History Past Medical History: Cancer, Hypertension Additional Past Medical History / Comment(s): hx lt breast cancer with surgery & radiation tx (Aug 2009)., Hx of right ulnar fx., Hx of c-diff (3 yrs ago) and colitis., states currently having 10-12 diarreha stools per day & hx of blood in stool. History of Any Multi-Drug Resistant Organisms: None Reported Past Surgical History: Bowel Resection, Breast Surgery, Section, Hysterectomy Additional Past Surgical History / Comment(s): LT BREAST LUMPECTOMY X2 , CLEFT PALATE SURGERYS, RIGHT ULNAR FX WITH PLATE & PINS (JUL 2018). COLONOSCOPY. C- SEC X 2 Past Anesthesia/Blood Transfusion Reactions: No Reported Reaction Past Psychological History: Anxiety, Depression Smoking Status: Current every day smoker Past Alcohol Use History: Abuse, Daily Past Drug Use History: None Reported - Past Family History Sister(s) Family Medical History: Pulmonary Embolus General Exam Limitations: no limitations General appearance: alert, in no apparent distress Head exam: Present: atraumatic, normocephalic, normal inspection Eye exam: Present: normal appearance, PERRL, EOMI. Absent: scleral icterus, conjunctival injection, periorbital swelling ENT exam: Present: normal exam, normal oropharynx, mucous membranes moist Neck exam: Present: normal inspection, full ROM. Absent: tenderness, meningismus, lymphadenopathy Respiratory exam: Present: normal lung sounds bilaterally. Absent: respiratory distress, wheezes, rales, rhonchi, stridor Cardiovascular Exam: Present: regular rate, normal rhythm, normal heart sounds. Absent: systolic murmur, diastolic murmur, rubs, gallop, clicks GI/Abdominal exam: Present: soft, normal bowel sounds, other (Ostomy bag with brown stool.). Absent: distended, tenderness, guarding, rebound, rigid Extremities exam: Present: normal inspection, full ROM, normal capillary refill. Absent: tenderness, pedal edema, joint swelling, calf tenderness Back exam: Present: full ROM. Absent: tenderness, CVA tenderness (R), CVA tenderness (L) Neurological exam: Present: alert, oriented X3, CN II-XII intact Psychiatric exam: Present: normal affect, normal mood Skin exam: Present: warm, dry, normal color. Absent: rash, cyanosis, diaphoretic, vesicles, petechiae, pallor, mottled, abrasion, other (There is a 2 mm open area with clear drainage midline incision, there is a dried scale approximately 5 mm also along the incision no drainage or erythema noted) Course Vital Signs 07/03/21 07/03/21 14:34 16:16 Temperature 98.3 F Pulse Rate 98 88 Respiratory 18 18 Rate Blood Pressure 149/94 133/86 O2 Sat by Pulse 95 96 Oximetry Medical Decision Making - Medical Decision Making The ostomy care nurse came down and replaced the patient's ostomy bag and gave her a 10 day supply. She was directed to contact Dr. Mcfarland's office for continuation of care as she would not be getting any further supplies from him until he can reevaluate her ostomy. The ostomy care nurse and myself explained to the patient that for proper continuation of care she would need to do for follow-up this week as there may be a risk of hernia, further complications or poor healing including infection and/or . Patient states understanding the importance of follow-up Disposition Clinical Impression: Encounter for ostomy care education Disposition: HOME SELF-CARE Condition: Good Additional Instructions: Follow-up with Dr. Mcfarland this week. Return to the emergency room with a new or worsening symptoms, including pain or swelling. You do need to see your surgeon for continuation of care to prevent negative health consequences. Is patient prescribed a controlled substance at d/c from ED?: No Referrals: Nonstaff,Physician [Primary Care Provider] - 1-2 days Hugo Mcfarland MD [STAFF PHYSICIAN] - 1-2 days Time of Disposition: 16:44
[2021-07-03 16:16] VITALS: BP 133/86; PULSE 88
== END 2021-07-03 17:00 | disposition home or self-care (01) ==
LOC: EC 14:23
DX: Z43.3 Encounter for attention to colostomy (principal); F17.200 Nicotine dependence, unspecified, uncomplicated; I10 Essential (primary) hypertension; Z88.1 Allergy status to other antibiotic agents
CPT/HCPCS: 99283

== ENCOUNTER 2021-08-22 06:37 | Inpatient (IN) | payer OTHER ==
[2021-08-22] MEDS ORDERED: SODIUM CHLORIDE 0.9% 1,000 ML IV STA (06:58)
[2021-08-22] MEDS ORDERED: MORPHINE SULFATE 4 MG/ML SYRINGE IVP STA (06:59)
--- NOTE | 2021-08-22 07:04 | ED ---
General Adult HPI - General Source: patient, RN notes reviewed Mode of arrival: ambulatory Limitations: no limitations <Shiraz Santizo - Last Filed: 08/22/21 11:27> <Tanya Bonilla - Last Filed: 09/02/21 14:22> - General Chief complaint: Abdominal Pain Stated complaint: Abdominal Pain Time Seen by Provider: 08/22/21 06:47 - History of Present Illness Initial comments: 56-year-old female presents to the emergency department for a chief complaint of abdominal pain. Patient has a history of a pelvic abscess requiring bowel resection and ostomy in January. Patient states that she has been having pain around her ostomy site. Patient reports this started several weeks ago and she saw her surgeon who diagnosed her with a hernia. Patient states that the pain has started to spread it is no more on the right side as well. Patient sates she has had chills on and off. Unsure of fevers.Patient has no other complaints at this time including shortness of breath, chest pain, nausea or vomiting, headache, or visual changes. (Shiraz Santizo) - Related Data Home Medications Medication Instructions Recorded Confirmed lisinopriL [Zestril] 20 mg PO BID 08/04/18 08/22/21 Sertraline [Zoloft] 50 mg PO DAILY 11/24/18 08/22/21 Allergies Allergy/AdvReac Type Severity Reaction Status Date / Time cephalexin [From Keflex] AdvReac Diarrhea Verified 08/22/21 08:27 Review of Systems ROS Other: All systems not noted in ROS Statement are negative. <Shiraz Santizo - Last Filed: 08/22/21 11:27> ROS Other: All systems not noted in ROS Statement are negative. <Tanya Bonilla - Last Filed: 09/02/21 14:22> ROS Statement: Those systems with pertinent positive or pertinent negative responses have been documented in the HPI. Past Medical History Past Medical History: Cancer, Hypertension Additional Past Medical History / Comment(s): hx lt breast cancer with surgery & radiation tx (Aug 2009)., Hx of right ulnar fx., Hx of c-diff (3 yrs ago) and colitis., states currently having 10-12 diarreha stools per day & hx of blood in stool. History of Any Multi-Drug Resistant Organisms: None Reported Past Surgical History: Bowel Resection, Breast Surgery, Section, Hysterectomy Additional Past Surgical History / Comment(s): LT BREAST LUMPECTOMY X2 , CLEFT P ALATE SURGERYS, RIGHT ULNAR FX WITH PLATE & PINS (JUL 2018). COLONOSCOPY, colostomy. C-SEC X 2 Past Anesthesia/Blood Transfusion Reactions: No Reported Reaction Past Psychological History: Anxiety, Depression Smoking Status: Current every day smoker Past Alcohol Use History: Abuse, Daily, Heavy Past Drug Use History: None Reported - Past Family History Sister(s) Family Medical History: Pulmonary Embolus <Shiraz Santizo P - Last Filed: 08/22/21 11:27> General Exam Limitations: no limitations General appearance: alert, in no apparent distress Head exam: Present: atraumatic Eye exam: Present: normal appearance, PERRL, EOMI. Absent: scleral icterus, conjunctival injection ENT exam: Present: normal exam, mucous membranes moist Neck exam: Present: normal inspection, full ROM. Absent: tenderness Respiratory exam: Present: normal lung sounds bilaterally. Absent: respiratory distress, wheezes Cardiovascular Exam: Present: regular rate, normal rhythm, normal heart sounds GI/Abdominal exam: Present: soft, tenderness (generalized abdomen), normal bowel sounds, hernia (hernia noted). Absent: distended Neurological exam: Present: alert <Shiraz Santizo P - Last Filed: 08/22/21 11:27> Course Vital Signs 08/22/21 08/22/21 08/22/21 06:47 08:02 08:30 Temperature 99 F Pulse Rate 116 H Pulse Rate [ Right] Respiratory 18 Rate Blood Pressure 133/95 147/85 Blood Pressure [Right Arm] O2 Sat by Pulse 100 98 Oximetry 08/22/21 08/22/21 08/22/21 09:00 10: 14:35 Temperature 97.9 F Pulse Rate 105 H Pulse Rate [ 112 H Right] Respiratory 18 15 Rate Blood Pressure 149/93 115/73 Blood Pressure 133/79 [Right Arm] O2 Sat by Pulse 97 97 Oximetry Medical Decision Making - Lab Data Result diagrams: 08/22/21 08:02 08/22/21 08:02 <Shiraz Santizo P - Last Filed: 08/22/21 11:27> - Lab Data Result diagrams: 09/02/21 06:16 09/02/21 06:16 <Tanya Bonilla - Last Filed: 09/02/21 14:22> - Medical Decision Making Vitals are stable. Patient does have abdominal pain on exam. Colostomy noted. She also has right upper quadrant pain. Laboratory evaluation was obtained. CBC does reveal leukocytosis. Lactic acid 2.4. No source of infection at this time. CMP does reveal a total bilirubin of 4.7. Urinalysis is remarkable for 2+ bilirubin and 3+ ketones. CT abdomen and pelvis was initially obtained which showed findings felt to reflect metastatic disease to the liver. Patient does have a history of breast cancer in 2008. There is also. Portal and left para- aortic adenopathy soft tissues in the left pelvis may reflect additional adenopathy. No obstruction with left-sided ostomy. There is mild distention of gallbladder without cholelithiasis. Ultrasound was obtained which did reveal hepatomegaly with a complex hypoechoic mass within the right lower liver measuring 2.2 cm with internal vascularity. Correlate for metastatic disease. Case is discussed with patient's general surgeon Dr. Mcfarland. At this time he is agreeable to admitting patient to medicine and consulted on the case. He does recommend IV antibiotics given patient's white blood cell count. (Shiraz Santizo) I was available for consultation in the emergency department. The history and physical exam were done by the midlevel provider. I was consulted for this patients care. I reviewed the case with the midlevel provider and based on their presentation of the patient, I agree with the assessment, medical decision making and plan of care as documented. Chart was dictated using [employer] dictation software. Attempts were made to correct any dictation errors however some typographical errors may persist. (Tanya Bonilla) - Lab Data Lab Results 08/22/21 08/22/21 08/22/21 Range/Units 08:02 08:02 08:02 WBC 19.2 H (3.8-10.6) k/uL RBC 3.05 L (3.80-5.40) m/uL Hgb 10.7 L (11.4-16.0) gm/dL Hct 32.9 L (34.0-46.0) % MCV 107.9 H (80.0-100.0) fL MCH 35.0 (25.0-35.0) pg MCHC 32.5 (31.0-37.0) g/dL RDW 12.6 (11.5-15.5) % Plt Count 372 (150-450) k/uL MPV 7.5 Neutrophils % 90 % Lymphocytes % 5 % Monocytes % 4 % Eosinophils % 0 % Basophils % 0 % Neutrophils # 17.3 H (1.3-7.7) k/uL Lymphocytes # 0.9 L (1.0-4.8) k/uL Monocytes # 0.7 (0-1.0) k/uL Eosinophils # 0.0 (0-0.7) k/uL Basophils # 0.0 (0-0.2) k/uL Macrocytosis Moderate Sodium 132 L (137-145) mmol/L Potassium 4.0 (3.5-5.1) mmol/L Chloride 102 (98-107) mmol/L Carbon Dioxide 16 L (22-30) mmol/L Anion Gap 14 mmol/L BUN 12 (7-17) mg/dL Creatinine 0.58 (0.52-1.04) mg/dL Est GFR (CKD-EPI)AfAm >90 (>60 ml/min/1.73 sqM) Est GFR (CKD-EPI)NonAf >90 (>60 ml/min/1.73 sqM) Glucose 82 (74-99) mg/dL Lactic Ac Sepsis Rflx Plasma Lactic Acid Stewart (0.7-2.0) mmol/L Calcium 8.3 L (8.4-10.2) mg/dL Total Bilirubin 4.7 H (0.2-1.3) mg/dL AST 51 H (14-36) U/L ALT 18 (4-34) U/L Alkaline Phosphatase 255 H (38-126) U/L Total Protein 6.8 (6.3-8.2) g/dL Albumin 3.0 L (3.5-5.0) g/dL Amylase 49 (30-110) U/L Lipase 112 (23-300) U/L Tumor Marker AFP (0.00-7.90) ng/mL Carcinoembryonic Ag (0.0-4.9) ng/mL Urine Color Light Brown Urine Appearance Cloudy H (Clear) Urine pH 6.0 (5.0-8.0) Ur Specific [place] 1.023 (1.001-1.035) Urine Protein 1+ H (Negative) Urine Glucose (UA) Negative (Negative) Urine Ketones 3+ H (Negative) Urine Blood Negative (Negative) Urine Nitrite Negative (Negative) Urine Bilirubin 2+ H (Negative) Urine Urobilinogen 8.0 (<2.0) mg/dL Ur Leukocyte Esterase Negative (Negative) Urine WBC 1 (0-5) /hpf Ur Squamous Epith Cells 4 (0-4) /hpf Hyaline Casts 4 H (0-2) /lpf Urine Mucus Many H (None) /hpf Coronavirus (PCR) (Not Detectd) 08/22/21 08/22/21 08/22/21 Range/Units 08:02 08:02 08:49 WBC (3.8-10.6) k/uL RBC (3.80-5.40) m/uL Hgb (11.4-16.0) gm/dL Hct (34.0-46.0) % MCV (80.0-100.0) fL MCH (25.0-35.0) pg MCHC (31.0-37.0) g/dL RDW (11.5-15.5) % Plt Count (150-450) k/uL MPV Neutrophils % % Lymphocytes % % Monocytes % % Eosinophils % % Basophils % % Neutrophils # (1.3-7.7) k/uL Lymphocytes # (1.0-4.8) k/uL Monocytes # (0-1.0) k/uL Eosinophils # (0-0.7) k/uL Basophils # (0-0.2) k/uL Macrocytosis Sodium (137-145) mmol/L Potassium (3.5-5.1) mmol/L Chloride (98-107) mmol/L Carbon Dioxide (22-30) mmol/L Anion Gap mmol/L BUN (7-17) mg/dL Creatinine (0.52-1.04) mg/dL Est GFR (CKD-EPI)AfAm (>60 ml/min/1.73 sqM) Est GFR (CKD-EPI)NonAf (>60 ml/min/1.73 sqM) Glucose (74-99) mg/dL Lactic Ac Sepsis Rflx Y Plasma Lactic Acid Stewart 2.4 H* (0.7-2.0) mmol/L Calcium (8.4-10.2) mg/dL Total Bilirubin (0.2-1.3) mg/dL AST (14-36) U/L ALT (4-34) U/L Alkaline Phosphatase (38-126) U/L Total Protein (6.3-8.2) g/dL Albumin (3.5-5.0) g/dL Amylase (30-110) U/L Lipase (23-300) U/L Tumor Marker AFP 3.00 (0.00-7.90) ng/mL Carcinoembryonic Ag 6.3 H (0.0-4.9) ng/mL Urine Color Urine Appearance (Clear) Urine pH (5.0-8.0) Ur Specific [place] (1.001-1.035) Urine Protein (Negative) Urine Glucose (UA) (Negative) Urine Ketones (Negative) Urine Blood (Negative) Urine Nitrite (Negative) Urine Bilirubin (Negative) Urine Urobilinogen (<2.0) mg/dL Ur Leukocyte Esterase (Negative) Urine WBC (0-5) /hpf Ur Squamous Epith Cells (0-4) /hpf Hyaline Casts (0-2) /lpf Urine Mucus (None) /hpf Coronavirus (PCR) (Not Detectd) 08/22/21 Range/Units 11:20 WBC (3.8-10.6) k/uL RBC (3.80-5.40) m/uL Hgb (11.4-16.0) gm/dL Hct (34.0-46.0) % MCV (80.0-100.0) fL MCH (25.0-35.0) pg MCHC (31.0-37.0) g/dL RDW (11.5-15.5) % Plt Count (150-450) k/uL MPV Neutrophils % % Lymphocytes % % Monocytes % % Eosinophils % % Basophils % % Neutrophils # (1.3-7.7) k/uL Lymphocytes # (1.0-4.8) k/uL Monocytes # (0-1.0) k/uL Eosinophils # (0-0.7) k/uL Basophils # (0-0.2) k/uL Macrocytosis Sodium (137-145) mmol/L Potassium (3.5-5.1) mmol/L Chloride (98-107) mmol/L Carbon Dioxide (22-30) mmol/L Anion Gap mmol/L BUN (7-17) mg/dL Creatinine (0.52-1.04) mg/dL Est GFR (CKD-EPI)AfAm (>60 ml/min/1.73 sqM) Est GFR (CKD-EPI)NonAf (>60 ml/min/1.73 sqM) Glucose (74-99) mg/dL Lactic Ac Sepsis Rflx Plasma Lactic Acid Stewart (0.7-2.0) mmol/L Calcium (8.4-10.2) mg/dL Total Bilirubin (0.2-1.3) mg/dL AST (14-36) U/L ALT (4-34) U/L Alkaline Phosphatase (38-126) U/L Total Protein (6.3-8.2) g/dL Albumin (3.5-5.0) g/dL Amylase (30-110) U/L Lipase (23-300) U/L Tumor Marker AFP (0.00-7.90) ng/mL Carcinoembryonic Ag (0.0-4.9) ng/mL Urine Color Urine Appearance (Clear) Urine pH (5.0-8.0) Ur Specific [place] (1.001-1.035) Urine Protein (Negative) Urine Glucose (UA) (Negative) Urine Ketones (Negative) Urine Blood (Negative) Urine Nitrite (Negative) Urine Bilirubin (Negative) Urine Urobilinogen (<2.0) mg/dL Ur Leukocyte Esterase (Negative) Urine WBC (0-5) /hpf Ur Squamous Epith Cells (0-4) /hpf Hyaline Casts (0-2) /lpf Urine Mucus (None) /hpf Coronavirus (PCR) Not Detected (Not Detectd) Disposition Is patient prescribed a controlled substance at d/c from ED?: No Time of Disposition: 11:28 <Shiraz Santizo P - Last Filed: 08/22/21 11:27> <Tanya Bonilla - Last Filed: 09/02/21 14:22> Clinical Impression: Liver metastases, Hyperbilirubinemia, Leukocytosis Disposition: ADMITTED IP TO THIS HOSP
[2021-08-22 08:19] LABS: Basophils % (A) 0 %; Eosinophils % (A) 0 %; HCT 32.9 % (34.0-46.0); HGB 10.7 gm/dL (11.4-16.0); Lymphocytes # (A) 0.9 k/uL (1.0-4.8); Lymphocytes % (A) 5 %; MCHC 32.5 g/dL (31.0-37.0); MCV 107.9 fL (80.0-100.0); Macrocytosis Moderate; Mean Platelet Volume 7.5; Monocytes # (A) 0.7 k/uL (0-1.0); Monocytes % (A) 4 %; Neutrophils # (A) 17.3 k/uL (1.3-7.7); Neutrophils % (A) 90 %; Platelet Count 372 k/uL (150-450); RBC 3.05 m/uL (3.80-5.40); RDW 12.6 % (11.5-15.5); WBC 19.2 k/uL (3.8-10.6)
[2021-08-22 08:30] LABS: Appearance,Urine Cloudy (Clear); Bilirubin,Urine 2+ (Negative); Blood,Urine Negative (Negative); Color,Urine Light Brown; Glucose,Urine (UA) Negative (Negative); Hyaline Casts,Urine 4 /lpf (0-2); Ketones,Urine 3+ (Negative); Leukocyte Esterase,Urine Negative (Negative); Mucus,Urine Many /hpf; Nitrite,Urine Negative (Negative); Protein,Urine 1+ (Negative); Specific Gravity,Urine 1.023 (1.001-1.035); Squamous Epithelial Cell,Urine 4 /hpf (0-4); WBC,Urine 1 /hpf (0-5)
[2021-08-22 08:36] LABS: ALT 18 U/L (4-34); AST 51 U/L (14-36); African American GFR (CKD) >90 (>60 ml/min/1.73 sqM); Alkaline Phosphatase 255 U/L (38-126); Amylase 49 U/L (30-110); Anion Gap 14 mmol/L; Blood Urea Nitrogen 12 mg/dL (7-17); Calcium 8.3 mg/dL (8.4-10.2); Carbon Dioxide 16 mmol/L (22-30); Chloride 102 mmol/L (98-107); Glucose 82 mg/dL (74-99); Lipase 112 U/L (23-300); Non-African American GFR(CKD) >90 (>60 ml/min/1.73 sqM); Sodium 132 mmol/L (137-145); Total Bilirubin 4.7 mg/dL (0.2-1.3); Total Protein 6.8 g/dL (6.3-8.2)
--- NOTE | 2021-08-22 09:08 | CT ---
EXAMINATION TYPE: CT abdomen pelvis w con DATE OF EXAM: 08/22/2021 COMPARISON: 03/01/2021 HISTORY: Abd pain CT DLP: 466 mGycm CONTRAST: CT scan of the abdomen and pelvis is performed without Oral Contrast and with IV Contrast, patient in jected with 100 mL of Isovue 300. FINDINGS: LUNG BASES-: No visible nodule. No infiltrate. LIVER/GB: Distention of the gallbladder without evidence for cholelithiasis. There is evidence of h epatic steatosis mild hepatomegaly. There are new hypoattenuating lesions identified posterior and an terior segment right hepatic lobe ranging in size from 2 cm to 6 mm. Total number of lesions within t he right hepatic lobe is approximately 5 or 6.. Additional hypoattenuating lesion left hepatic lobe m edial segment measures 1 cm. Findings are suspicious for metastatic disease. PANCREAS: No inflammation. No distinct mass. SPLEEN: No splenic enlargement. No lesion seen. ADRENALS: No nodule. No thickening. KIDNEYS/BLADDER: No hydronephrosis. No nephrolithiasis. No distinct renal mass. Urinary bladder g rossly unremarkable. BOWEL: Left-sided ostomy noted. Gastrointestinal tract appears to be of normal caliber. GENITAL ORGANS: Soft tissue left hemipelvis measures 3.8 cm and is of uncertain etiology and could re flect conglomerate adenopathy. The uterus appears to be surgically absent. LYMPH NODES: Periportal lymph nodes measuring up to 1 cm. Group of left periaortic lymph nodes measur ing 2.1 cm. AORTA: No significant abnormality. OSSEOUS STRUCTURES: No significant abnormality is seen. OTHER: No significant additional abnormality is seen. IMPRESSION: 1. Findings felt to reflect metastatic disease to the liver. 2. Periportal, left para-aortic adenopathy. Soft tissue within the left hemipelvis may reflect additi onal conglomerate adenopathy. 3. Left-sided ostomy without evidence for bowel obstruction. 4. Mild distention of the gallbladder without cholelithiasis.
--- NOTE | 2021-08-22 10:38 | US ---
EXAMINATION TYPE: US gallbladder DATE OF EXAM: 08/22/2021 COMPARISON: CT abdomen and pelvis 08/22/2021 CLINICAL HISTORY: pain. RUQ pain EXAM MEASUREMENTS: Liver Length: 19.2 cm Gallbladder Wall: 0.3 cm CBD: 0.4 cm Right Kidney: 10.6 x 4.3 x 4.6 cm Pancreas: visualized portions appear wnl Liver: enlarged with multiple complex hypoechoic areas noted, largest = 2.4 x 2.2 x 2.2cm Gallbladder: appears hydropic Evidence for sonographic Asher's sign: no CBD: wnl Right Kidney: no evidence of hydronephrosis IMPRESSION: 1. Hepatomegaly. 2. There is a complex hypoechoic mass within the right lobe liver measuring approximately 2.2 cm with internal vascularity. Correlate for metastatic disease.
[2021-08-22] MEDS ORDERED: NALOXONE 0.4 MG/ML 1 ML VIAL IV PRN (11:30)
[2021-08-22] MEDS ORDERED: ONDANSETRON 4 MG/2 ML VIAL IVP PRN (11:30)
[2021-08-22] MEDS: HYDROmorphone 0.5 MG/0.5 ML SYRINGE IVP PRN ×4 (11:58→23:40)
[2021-08-22] MEDS: SODIUM CHLORIDE 0.9% 1,000 ML IV SCH ×2 (11:59→23:41)
--- NOTE | 2021-08-22 15:22 | P.GSCN ---
History of Present Illness Consult date: 08/22/21 Reason for Consult: Hyperbilirubinemia, liver metastasis History of present illness: CHIEF COMPLAINT: Abdominal pain HISTORY OF PRESENT ILLNESS: This is a 56-year-old female who presented to the emergency department with complaints of abdominal pain and distention that began yesterday. Patient states she started having abdominal pain surrounding her colostomy and then some abdominal distention to the right lower abdomen. She recently has seen Dr. Mcfarland in the office for hernia at colostomy site. She has a history of pelvic abscess and inflammatory mass of the sigmoid colon and is status post sigmoid colectomy with end colostomy done in December of this year. On admission patient was noted to have elevated LFTs including a bilirubin of 4.7 with imgaing concerning for liver metastasis and therefore general surgery was consulted. She had a CT of the abdomen that showed distention of the gallbladder without evidence of cholelithiasis. Evidence of hepatic states ptosis mild hepatomegaly. New hypoattenuating lesions identified posterior and anterior segment right hepatic lobe ranging in size from 2 cm to 6 mm. Total number of lesions within the right hepatic lobe is approximately 5-6. Additional hypoattenuating lesion left hepatic lobe medial segment measuring 1 cm. Findings are suspicious for metastatic disease. Periportal, left para- aortic adenopathy. Soft tissue within the left hemipelvis may reflect additional conglomerate adenopathy. Left-sided ostomy without evidence for bowel obstruction. Gallbladder ultrasound shows hepatomegaly, complex hyperechoic mass within the right lobe liver measuring approximately 2.2 cm with internal vascularity. Correlate for metastatic disease. CBD within normal limits. Gallbladder appears hydropic. She denies any previous history of liver disease. She does have a history of significant alcohol abuse over the last 3-4 years. She drinks 3-4 vodka and cranberry's daily. She is a daily smoker. Patient has a history of breast cancer status post lumpectomy and radiation therapy in 2008. Her oncologist is Dr. Maricruz dupont of [facility], has not seen recently. Her last colonoscopy was 2018 with was normal. She denies any nausea or vomiting other than some occasional coughing/vomit from nasal drainage. States bowel movements have been normal, daily, soft, brown. She's been afebrile. No complaints of fevers or chills. PAST MEDICAL HISTORY: Breast cancer 2009, status post radiation treatment, hypertension, alcohol abuse, abdominal hernia, history of C. diff colitis PAST SURGICAL HISTORY: Sigmoid colectomy with end colostomy, lumpectomy left breast, colonoscopy 2019 section 2, hysterectomy, cleft palate surgery, orthopedic surgery with plate and pins in right wrist MEDICATIONS: See list. ALLERGIES: Cephalexin SOCIAL HISTORY: No illicit drug use. Alcohol abuse. Current daily smoker REVIEW OF SYSTEMS: CONSTITUTIONAL: Denies fever or chills. HEENT: Denies blurred vision, vision changes, or eye pain. Denies hemoptysis CARDIOVASCULAR: Denies chest pain or pressure. RESPIRATORY: No shortness of breath. GASTROINTESTINAL: Abdominal pain surrounding colostomy site as well as right lower quadrant with distention. Denies any nausea or vomiting. Denies any hematemesis or hematochezia. HEMATOLOGIC: Denies bleeding disorders. GENITOURINARY: Denies any blood in urine or increased urinary frequency. SKIN: Denies pruitis. Denies rash. PHYSICAL EXAM: VITAL SIGNS: Reviewed GENERAL: Well-developed in no acute distress. HEENT: No sclera icterus. Extraocular movements grossly intact. Moist buccal mucosa. Head is atraumatic, normocephalic. No nasal drainage. ABDOMEN: Soft. Colostomy present, soft brown stool in bed. Abdominal distention. Mild tenderness to palpation to the right lower abdomen. SKIN: Mildly jaundiced. No rashes. NEUROLOGIC: Alert and oriented. Cranial nerves II through XII grossly intact. LABORATORY DATA: WBC 19.2 hemoglobin 10.7 hematocrit 32.9 platelet count 372,000 Sodium 132 potassium 4.0 nightly 12 creatinine 0.58 calcium 8.3 plasma lactic acid 1.8 Total bilirubin 4.7 AST 51 ALT 18 alkaline phosphatase 255 amylase 49 lipase 112 total protein 6.8 albumin 3.0 IMAGING: CT of the abdomen/pelvis showed distention of the gallbladder without evidence of cholelithiasis. Evidence of hepatic states ptosis mild hepatomegaly. New hypoattenuating lesions identified posterior and anterior segment right hepatic lobe ranging in size from 2 cm to 6 mm. Total number of lesions within the right hepatic lobe is approximately 5-6. Additional hypoattenuating lesion left hepatic lobe medial segment measuring 1 cm. Findings are suspicious for metastatic disease. Periportal, left para-aortic adenopathy. Soft tissue within the left hemipelvis may reflect additional conglomerate adenopathy. Left-sided ostomy without evidence for bowel obstruction. Gallbladder ultrasound shows hepatomegaly, complex hyperechoic mass within the right lobe liver measuring approximately 2.2 cm with internal vascularity. Correlate for metastatic disease. CBD within normal limits. Gallbladder appears hydropic. ASSESSMENT: 1. Hyperbilirubinemia 2. Abnormal CT of abdomen and pelvis and gallbladder ultrasound with liver lesions concerning for liver metastasis 3. Alcohol abuse 4. History of breast cancer status post lumpectomy and radiation therapy 5. History of pelvic abscess and colon obstruction status post sigmoid colectomy with end ostomy PLAN: 1. CEA and AFP ordered 2. Continue current medical management 3. Diet as tolerated 4. Further recommendations forthcoming per surgeon Thank you for this consultation, and allowing us take part in the plan of care of your patient during his hospital stay. The impression and plan of care has been dictated as directed. Dr. Mcfarland I performed a history and examination of this patient, discussed the same with the dictator. I agree with the dictator's note ,documented as a scribe. Any additional findings or plans will be noted. Past Medical History Past Medical History: Cancer, Hypertension Additional Past Medical History / Comment(s): hx lt breast cancer with surgery & radiation tx (Aug 2009)., Hx of right ulnar fx., Hx of c-diff (3 yrs ago) and colitis., states currently having 10-12 diarreha stools per day & hx of blood in stool. History of Any Multi-Drug Resistant Organisms: None Reported Past Surgical History: Bowel Resection, Breast Surgery, Section, Hysterectomy Additional Past Surgical History / Comment(s): LT BREAST LUMPECTOMY X2 , CLEFT PALATE SURGERYS, RIGHT ULNAR FX WITH PLATE & PINS (JUL 2018). COLONOSCOPY, colostomy. C-SEC X 2 Past Anesthesia/Blood Transfusion Reactions: No Reported Reaction Past Psychological History: Anxiety, Depression Smoking Status: Current every day smoker Past Alcohol Use History: Abuse, Daily, Heavy Past Drug Use History: None Reported - Past Family History Sister(s) Family Medical History: Pulmonary Embolus Medications and Allergies Home Medications Medication Instructions Recorded Confirmed Type lisinopriL [Zestril] 20 mg PO BID 08/04/18 08/22/21 History Sertraline [Zoloft] 50 mg PO DAILY 11/24/18 08/22/21 History Allergies Allergy/AdvReac Type Severity Reaction Status Date / Time cephalexin [From Keflex] AdvReac Diarrhea Verified 08/22/21 08:27 Surgical - Exam Vital Signs Temp Pulse Resp BP Pulse Ox 99 F 116 H 18 133/95 100 08/22/21 06:47 08/22/21 06:47 08/22/21 06:47 08/22/21 06:47 08/22/21 06:47 Results - Labs 08/22/21 08:02 08/22/21 08:02 Abnormal Lab Results - Last 24 Hours (Table) 08/22/21 08/22/21 08/22/21 Range/Units 08:02 08:02 08:02 WBC 19.2 H (3.8-10.6) k/uL RBC 3.05 L (3.80-5.40) m/uL Hgb 10.7 L (11.4-16.0) gm/dL Hct 32.9 L (34.0-46.0) % MCV 107.9 H (80.0-100.0) fL Neutrophils # 17.3 H (1.3-7.7) k/uL Lymphocytes # 0.9 L (1.0-4.8) k/uL Sodium 132 L (137-145) mmol/L Carbon Dioxide 16 L (22-30) mmol/L Plasma Lactic Acid Stewart (0.7-2.0) mmol/L Calcium 8.3 L (8.4-10.2) mg/dL Total Bilirubin 4.7 H (0.2-1.3) mg/dL AST 51 H (14-36) U/L Alkaline Phosphatase 255 H (38-126) U/L Albumin 3.0 L (3.5-5.0) g/dL Urine Appearance Cloudy H (Clear) Urine Protein 1+ H (Negative) Urine Ketones 3+ H (Negative) Urine Bilirubin 2+ H (Negative) Hyaline Casts 4 H (0-2) /lpf Urine Mucus Many H (None) /hpf 08/22/21 Range/Units 08:02 WBC (3.8-10.6) k/uL RBC (3.80-5.40) m/uL Hgb (11.4-16.0) gm/dL Hct (34.0-46.0) % MCV (80.0-100.0) fL Neutrophils # (1.3-7.7) k/uL Lymphocytes # (1.0-4.8) k/uL Sodium (137-145) mmol/L Carbon Dioxide (22-30) mmol/L Plasma Lactic Acid Stewart 2.4 H* (0.7-2.0) mmol/L Calcium (8.4-10.2) mg/dL Total Bilirubin (0.2-1.3) mg/dL AST (14-36) U/L Alkaline Phosphatase (38-126) U/L Albumin (3.5-5.0) g/dL Urine Appearance (Clear) Urine Protein (Negative) Urine Ketones (Negative) Urine Bilirubin (Negative) Hyaline Casts (0-2) /lpf Urine Mucus (None) /hpf Diabetes panel 08/22/21 Range/Units 08:02 Sodium 132 L (137-145) mmol/L Potassium 4.0 (3.5-5.1) mmol/L Chloride 102 (98-107) mmol/L Carbon Dioxide 16 L (22-30) mmol/L BUN 12 (7-17) mg/dL Creatinine 0.58 (0.52-1.04) mg/dL Glucose 82 (74-99) mg/dL Calcium 8.3 L (8.4-10.2) mg/dL AST 51 H (14-36) U/L ALT 18 (4-34) U/L Alkaline Phosphatase 255 H (38-126) U/L Total Protein 6.8 (6.3-8.2) g/dL Albumin 3.0 L (3.5-5.0) g/dL Calcium panel 08/22/21 Range/Units 08:02 Calcium 8.3 L (8.4-10.2) mg/dL Albumin 3.0 L (3.5-5.0) g/dL Pituitary panel 08/22/21 Range/Units 08:02 Sodium 132 L (137-145) mmol/L Potassium 4.0 (3.5-5.1) mmol/L Chloride 102 (98-107) mmol/L Carbon Dioxide 16 L (22-30) mmol/L BUN 12 (7-17) mg/dL Creatinine 0.58 (0.52-1.04) mg/dL Glucose 82 (74-99) mg/dL Calcium 8.3 L (8.4-10.2) mg/dL Adrenal panel 08/22/21 Range/Units 08:02 Sodium 132 L (137-145) mmol/L Potassium 4.0 (3.5-5.1) mmol/L Chloride 102 (98-107) mmol/L Carbon Dioxide 16 L (22-30) mmol/L BUN 12 (7-17) mg/dL Creatinine 0.58 (0.52-1.04) mg/dL Glucose 82 (74-99) mg/dL Calcium 8.3 L (8.4-10.2) mg/dL Total Bilirubin 4.7 H (0.2-1.3) mg/dL AST 51 H (14-36) U/L ALT 18 (4-34) U/L Alkaline Phosphatase 255 H (38-126) U/L Total Protein 6.8 (6.3-8.2) g/dL Albumin 3.0 L (3.5-5.0) g/dL
[2021-08-23] MEDS: HYDROmorphone 0.5 MG/0.5 ML SYRINGE IVP PRN ×3 (03:07→09:45)
[2021-08-23 03:42] LABS: Carcinoembryonic Antigen 6.3 ng/mL (0.0-4.9)
[2021-08-23 06:59] LABS: Basophils # (A) 0.1 k/uL (0-0.2); Basophils % (A) 0 %; Eosinophils # (A) 0.1 k/uL (0-0.7); Eosinophils % (A) 0 %; HGB 9.4 gm/dL (11.4-16.0); Lymphocytes # (A) 0.6 k/uL (1.0-4.8); Lymphocytes % (A) 3 %; MCH 35.6 pg (25.0-35.0); MCHC 32.3 g/dL (31.0-37.0); Macrocytosis Marked; Mean Platelet Volume 7.7; Monocytes # (A) 0.9 k/uL (0-1.0); Monocytes % (A) 5 %; Neutrophils # (A) 16.1 k/uL (1.3-7.7); Neutrophils % (A) 90 %; Platelet Count 297 k/uL (150-450); RBC 2.63 m/uL (3.80-5.40); RDW 13.2 % (11.5-15.5); WBC 17.9 k/uL (3.8-10.6)
[2021-08-23 08:51] LABS: Polychromasia Present
[2021-08-23] MEDS ORDERED: METOPROLOL TARTRATE 25 MG TAB PO SCH (09:00)
[2021-08-23] MEDS ORDERED: RX INFO: IV CONTRAST WAS GIVEN 1 EACH MISC MISCELLANE PRN (10:38)
[2021-08-23 11:01] LABS: African American GFR (CKD) 112.3 (60.0-200.0); Albumin 2.8 g/dL (3.8-4.9); Albumin/Globulin Ratio 0.93 (1.60-3.17); Anion Gap 18.5 mmol/L (4.00-12.00); Blood Urea Nitrogen 8.4 mg/dL (9.0-27.0); Calcium 7.8 mg/dL (8.7-10.3); Carbon Dioxide 10.5 mmol/L (21.6-31.8); Non-African American GFR(CKD) 96.9 (60.0-200.0); Total Bilirubin 4.5 mg/dL (0.30-1.20); Total Protein 5.8 g/dL (6.2-8.2)
[2021-08-23 11:38] LABS: African American GFR (CKD) >90 (>60 ml/min/1.73 sqM); Blood Urea Nitrogen 8 mg/dL (7-17); Non-African American GFR(CKD) >90 (>60 ml/min/1.73 sqM)
[2021-08-23 11:54] LABS: INR 1.2 (<1.2); Prothrombin Time 12.8 sec (9.0-12.0)
[2021-08-23] MEDS ORDERED: ONDANSETRON 4 MG/2 ML VIAL IVP PRN (12:17)
--- NOTE | 2021-08-23 13:24 | CT ---
EXAMINATION TYPE: CT chest w con DATE OF EXAM: 08/23/2021 COMPARISON: NONE HISTORY: Prior History of breast ca. Abnormal recent CT with hepatic lesions CT DLP: 127 mGycm. Automated Exposure Control for Dose Reduction was Utilized. TECHNIQUE: CT scan of the thorax is performed following with IV Contrast, patient injected with 80 m L of Isovue 300. FINDINGS: LUNGS: Mild biapical parenchymal scarring. Mild left basilar linear scarring. No suspicious nodules o r masses. No suspicious focal consolidation. No pleural effusion or pneumothorax seen bilaterally. MEDIASTINUM: There are no greater than 1 cm hilar or mediastinal lymph nodes. No cardiomegaly or pe ricardial effusion is seen. 4 vessel origin from aortic arch which is normal variant OTHER: Liver is heterogeneously hypodense with scattered nonspecific round hypodense lesions redemons trated. Surgical clips medially in the left breast axial image 24 are present. Heterogeneously dense fibroglandular tissue bilaterally is seen. Mild multilevel anterior spurring in the thoracic spine IMPRESSION: No suspicious thoracic mass or adenopathy.
[2021-08-23 14:01] VITALS: BMI 16.9
[2021-08-23] MEDS: PANTOPRAZOLE 40 MG/10 ML VIAL IVP SCH (14:36)
[2021-08-23] MEDS: SODIUM CHLORIDE 0.9% 1,000 ML IV SCH (14:37)
[2021-08-23] MEDS: MORPHINE SULFATE 4 MG/ML SYRINGE IVP PRN ×2 (14:37→21:19)
--- NOTE | 2021-08-23 15:34 | P.PN ---
Subjective Progress Note Date: 08/23/21 CHIEF COMPLAINT: Right upper quadrant abdominal pain HISTORY OF PRESENT ILLNESS: Patient complains of right upper quadrant abdominal pain. At this time she denies any nausea or vomiting. Her CEA is elevated at 6.3. She was found to have liver lesions on computed tomography scan of abdomen. She is scheduled for liver biopsy today. She has a prior history of sigmoid colectomy with end colostomy and drainage of pelvic abscess on 01/17/2021. Pathology results showed no evidence of malignancy. Did show severe acute diverticulitis with pericolonic abscess. Patient's states spent about 5 days since her last alcoholic drink. She is still having the serous drainage from her abdominal incision. Afebrile. Tachycardic heart rate 117 WBC down from 19.2-17.9 hemoglobin 9.4 platelets 297 INR 1.2 sodium 124 total bilirubin 4.50 AST 54 ALT 12 alk phos 196 AFP 3.00 patient does report her ostomy is functioning. Patient had normal colonoscopy in 2019 PHYSICAL EXAM: VITAL SIGNS: Reviewed. GENERAL: Well-developed in no acute distress. HEENT: No sclera icterus. Extraocular movements grossly intact. Moist buccal mucosa. Head is atraumatic, normocephalic. ABDOMEN: Soft. Abdominal distention with parastomal hernia. Incision site hole expressing serous drainage NEUROLOGIC: Alert and oriented. Cranial nerves II through XII grossly intact. ASSESSMENT: 1. Liver lesions concerning for liver metastasis 2. Elevated CEA 3. Hyperbilirubinemia 4. Alcohol abuse 5. History of breast cancer status post lumpectomy and radiation therapy 6. History of pelvic abscess and colon obstruction status post sigmoid colectomy with end colostomy 7. Parastomal hernia PLAN: -No surgical intervention planned -Continue supportive care -Continue oncology workup Physician Nephrology Social Worker note has been reviewed by physician. Signing provider agrees with the documented findings, assessment, and plan of care. Objective - Vital Signs Vital signs: Vital Signs Temp 99.5 F 08/23/21 12:43 Pulse 117 H 08/23/21 15:13 Resp 18 08/23/21 15:13 BP 128/78 08/23/21 15:13 Pulse Ox 95 08/23/21 15:13 Intake & Output 08/22/21 08/23/21 08/23/21 18:59 06:59 18:59 Weight 46.266 kg 46.266 kg Other: Voiding Method Toilet Toilet # Voids 4 2 - Labs CBC & Chem 7: 08/23/21 06:28 08/23/21 11:06 Labs: Abnormal Lab Results - Last 24 Hours (Table) 08/22/21 08/23/21 08/23/21 Range/Units 08:02 06:28 06:28 WBC 17.9 H (3.8-10.6) k/uL RBC 2.63 L (3.80-5.40) m/uL Hgb 9.4 L (11.4-16.0) gm/dL Hct 29.0 L (34.0-46.0) % MCV 110.0 H (80.0-100.0) fL MCH 35.6 H (25.0-35.0) pg Neutrophils # 16.1 H (1.3-7.7) k/uL Lymphocytes # 0.6 L (1.0-4.8) k/uL Macrocytosis Marked A PT (9.0-12.0) sec INR (<1.2) Sodium 124 L (135-145) mmol/L Chloride 95 L (96-109) mmol/L Carbon Dioxide 10.5 L (21.6-31.8) mmol/L Anion Gap 18.50 H (4.00-12.00) mmol/L BUN 8.4 L (9.0-27.0) mg/dL Calcium 7.8 L (8.7-10.3) mg/dL Total Bilirubin 4.50 H (0.30-1.20) mg/dL AST 54 H (13-35) U/L Alkaline Phosphatase 196 H (41-126) U/L Total Protein 5.8 L (6.2-8.2) g/dL Albumin 2.8 L (3.8-4.9) g/dL Albumin/Globulin Ratio 0.93 L (1.60-3.17) g/dL Carcinoembryonic Ag 6.3 H (0.0-4.9) ng/mL 08/23/21 Range/Units 11:06 WBC (3.8-10.6) k/uL RBC (3.80-5.40) m/uL Hgb (11.4-16.0) gm/dL Hct (34.0-46.0) % MCV (80.0-100.0) fL MCH (25.0-35.0) pg Neutrophils # (1.3-7.7) k/uL Lymphocytes # (1.0-4.8) k/uL Macrocytosis PT 12.8 H (9.0-12.0) sec INR 1.2 H (<1.2) Sodium (135-145) mmol/L Chloride (96-109) mmol/L Carbon Dioxide (21.6-31.8) mmol/L Anion Gap (4.00-12.00) mmol/L BUN (9.0-27.0) mg/dL Calcium (8.7-10.3) mg/dL Total Bilirubin (0.30-1.20) mg/dL AST (13-35) U/L Alkaline Phosphatase (41-126) U/L Total Protein (6.2-8.2) g/dL Albumin (3.8-4.9) g/dL Albumin/Globulin Ratio (1.60-3.17) g/dL Carcinoembryonic Ag (0.0-4.9) ng/mL
--- NOTE | 2021-08-23 16:14 | US ---
EXAMINATION TYPE: US biopsy liver DATE OF EXAM: 08/23/2021 HISTORY: Liver masses. FINDINGS: Maximal barrier technique was utilized. Hand hygiene achieved with soap and water and alco hol-based hand rub. The skin overlying a suitable path to the patient's mass in the right lobe of mary jane er was localized with ultrasound and the overlying skin prepped and draped. Ultrasound was utilized with sterile technique. Lidocaine was used for local anesthesia. A skin mor was made with a scalpe l. An 18-gauge needle was advanced under direct ultrasound guidance and core specimen obtained of th e mass. Specimen submitted in formalin to Pathology. Following the procedure, hemostasis achieved a nd the patient is discharged in stable condition without complication. IMPRESSION:STATUS POST ULTRASOUND GUIDED CORE BIOPSY OF right lobe liver mass, PATHOLOGY IS PENDING. THIS PROCEDURE IS PERFORMED BY THE UNDERSIGNED.
[2021-08-23] MEDS: ACETAMINOPHEN TAB 325 MG TAB PO PRN (17:59)
--- NOTE | 2021-08-23 19:09 | P.CONS ---
History of Present Illness - Reason for Consult Consult date: 08/23/21 Hx breast cancer, liver lesions Requesting physician: Kulwinder Short - Chief Complaint abd pain - History of Present Illness Ms. Kessler is a very pleasant female we have been asked to see re: vascular lesion found on liver. She is admitted with vomiting, abd pain and distension x 1 day, around ostomy, she was being seen by Surgeon for hernia at colostomy site. Hx of pelvic abscess and mass at sigmoid colon, she had sigmoid colectomy 01/14. She denies fever, chest pain, SUJATHA, cough, dysuria, hematuria, stool color and consistency in the ostomy is baseline. She states that an area the size of a pencil eraser opened up and draining next to her ostomy (9 oclock). She has Hx breast cancer in 2008, surgery, radiation, denies any hormonal therapy. Current smoker, ETOH abuse, last drink 5 days ago. Review of Systems 10 point ROS is neg except as stated in HPI Past Medical History Past Medical History: Cancer, Hypertension Additional Past Medical History / Comment(s): hx lt breast cancer with surgery & radiation tx (Aug 2009)., Hx of right ulnar fx., Hx of c-diff (3 yrs ago) and colitis., states currently having 10-12 diarreha stools per day & hx of blood in stool. History of Any Multi-Drug Resistant Organisms: None Reported Past Surgical History: Bowel Resection, Breast Surgery, Section, Hysterectomy Additional Past Surgical History / Comment(s): LT BREAST LUMPECTOMY X2 , CLEFT PALATE SURGERYS, RIGHT ULNAR FX WITH PLATE & PINS (JUL 2018). COLONOSCOPY, colostomy. C-SEC X 2 Past Anesthesia/Blood Transfusion Reactions: No Reported Reaction Past Psychological History: Anxiety, Depression Smoking Status: Current every day smoker Past Alcohol Use History: Abuse, Daily, Heavy Past Drug Use History: None Reported - Past Family History Sister(s) Family Medical History: Pulmonary Embolus Medications and Allergies Home Medications Medication Instructions Recorded Confirmed Type lisinopriL [Zestril] 20 mg PO BID 08/04/18 08/22/21 History Sertraline [Zoloft] 50 mg PO DAILY 11/24/18 08/22/21 History Allergies Allergy/AdvReac Type Severity Reaction Status Date / Time cephalexin [From Keflex] AdvReac Diarrhea Verified 08/22/21 08:27 Physical Exam Vitals: Vital Signs Temp Pulse Resp BP Pulse Ox 08/23/21 15:50 100.2 F H 111 H 16 127/76 95 08/23/21 15:35 100.2 F H 112 H 16 124/70 98 08/23/21 15:20 110 H 16 136/75 95 08/23/21 15:13 117 H 18 128/78 95 08/23/21 15:06 112 H 16 147/78 96 08/23/21 14:49 114 H 18 134/69 96 08/23/21 12:43 99.5 F 97 17 134/80 100 08/23/21 09:00 112 H 138/68 08/23/21 08:20 133 H 20 08/23/21 05:01 99 F 133 H 20 144/82 96 08/22/21 20:00 99.9 F H 125 H 16 148/78 99 Intake and Output 08/23/21 08/23/21 08/23/21 06:59 14:59 22:59 Other: Voiding Method Toilet # Voids 4 2 Weight 46.266 kg - Constitutional General appearance: cooperative, no acute distress, thin - EENT Eyes: anicteric sclerae, EOMI ENT: hearing grossly normal, normal oropharynx - Neck Neck: no lymphadenopathy - Respiratory Respiratory: bilateral: CTA - Cardiovascular Rhythm: regular Heart sounds: normal: S1, S2 Abnormal Heart Sounds: no systolic murmur, no diastolic murmur, no rub, no S3 Gallop, no S4 Gallop, no click, no other - Gastrointestinal 3mm opening, no current drainage General gastrointestinal: distended, normal bowel sounds, soft, tenderness, ventral hernia - Neurologic Neurologic: CNII-XII intact - Musculoskeletal Musculoskeletal: strength equal bilaterally - Psychiatric Psychiatric: A&O x's 3, appropriate affect, intact judgment & insight Results CBC & Chem 7: 08/23/21 06:28 08/23/21 11:06 Labs: Abnormal Lab Results - Last 24 Hours (Table) 08/22/21 08/23/21 08/23/21 Range/Units 08:02 06:28 06:28 WBC 17.9 H (3.8-10.6) k/uL RBC 2.63 L (3.80-5.40) m/uL Hgb 9.4 L (11.4-16.0) gm/dL Hct 29.0 L (34.0-46.0) % MCV 110.0 H (80.0-100.0) fL MCH 35.6 H (25.0-35.0) pg Neutrophils # 16.1 H (1.3-7.7) k/uL Lymphocytes # 0.6 L (1.0-4.8) k/uL Macrocytosis Marked A PT (9.0-12.0) sec INR (<1.2) Sodium 124 L (135-145) mmol/L Chloride 95 L (96-109) mmol/L Carbon Dioxide 10.5 L (21.6-31.8) mmol/L Anion Gap 18.50 H (4.00-12.00) mmol/L BUN 8.4 L (9.0-27.0) mg/dL Calcium 7.8 L (8.7-10.3) mg/dL Total Bilirubin 4.50 H (0.30-1.20) mg/dL AST 54 H (13-35) U/L Alkaline Phosphatase 196 H (41-126) U/L Total Protein 5.8 L (6.2-8.2) g/dL Albumin 2.8 L (3.8-4.9) g/dL Albumin/Globulin Ratio 0.93 L (1.60-3.17) g/dL Carcinoembryonic Ag 6.3 H (0.0-4.9) ng/mL 08/23/21 Range/Units 11:06 WBC (3.8-10.6) k/uL RBC (3.80-5.40) m/uL Hgb (11.4-16.0) gm/dL Hct (34.0-46.0) % MCV (80.0-100.0) fL MCH (25.0-35.0) pg Neutrophils # (1.3-7.7) k/uL Lymphocytes # (1.0-4.8) k/uL Macrocytosis PT 12.8 H (9.0-12.0) sec INR 1.2 H (<1.2) Sodium (135-145) mmol/L Chloride (96-109) mmol/L Carbon Dioxide (21.6-31.8) mmol/L Anion Gap (4.00-12.00) mmol/L BUN (9.0-27.0) mg/dL Calcium (8.7-10.3) mg/dL Total Bilirubin (0.30-1.20) mg/dL AST (13-35) U/L Alkaline Phosphatase (41-126) U/L Total Protein (6.2-8.2) g/dL Albumin (3.8-4.9) g/dL Albumin/Globulin Ratio (1.60-3.17) g/dL Carcinoembryonic Ag (0.0-4.9) ng/mL CT scan - abdomen: report reviewed CT scan - chest: report reviewed CT scan - pelvis: report reviewed Assessment and Plan (1) Liver mass Narrative/Plan: Presenting symptoms and vascular lesion on liver suspicious for malignant process. CT chest ordered for Hx smoking and liver lesions. Hx of ETOH, AFP ordered. IR consulted for liver biopsy Current Visit: Yes Status: Acute Code(s): R16.0 - HEPATOMEGALY, NOT ELSEWHERE CLASSIFIED SNOMED Code(s): 957313769 (2) HX: breast cancer Narrative/Plan: Remote history of the same. Breast cancer tumor markers ordered Current Visit: Yes Status: Acute Code(s): Z85.3 - PERSONAL HISTORY OF MALIGNANT NEOPLASM OF BREAST SNOMED Code(s): 297316574 Plan: attests: I have performed H&P, seen and examined pt, developed impression and plan of care. Discussed with dictator. Agree with dictated note, documented as a scribe.
[2021-08-23] MEDS ORDERED: LORazepam 2 MG/ML INJ IV PRN ×2 (21:54)
[2021-08-23] MEDS: METOPROLOL TARTRATE 50 MG TAB PO SCH (22:47)
--- NOTE | 2021-08-23 23:21 | P.HPIM ---
History of Present Illness H&P Date: 08/23/21 Chief Complaint: abdominal pain Sarah Kessler is a 56 yo F with PMH of breast cancer s/p lumpectomy in 2008, hx ruptured diverticulitis with colostomy approx 6 months ago, alcohol abuse who presented to the ED complaining of progressively worsening abdominal pain, weakness, chills. She states that ever since she had her ostomy she has been having some mild abdominal pain but recently has worsened. She complains that over the past month she has been having progressive generalized pain and early satiety. She has not followed with a physician for her breast cancer in years. She is a current daily drinker. On presentation pt tachycardic, WBC 19k, bilirubin 4.7, CEA elevated at 6.3. CT abd/pelvis showing multiple hepatic lesions, associated lymphadenopathy. Review of Systems All systems: negative Constitutional: Reports fatigue, Reports malaise, Reports weakness, Denies chills, Denies fever Eyes: denies blurred vision, denies pain Ears, nose, mouth and throat: Denies headache, Denies sore throat Cardiovascular: Denies chest pain, Denies shortness of breath Respiratory: Denies cough Gastrointestinal: Reports abdominal pain, Denies diarrhea, Denies nausea, Denies vomiting Genitourinary: Denies dysuria, Denies hematuria Musculoskeletal: Denies myalgias Integumentary: Denies pruritus, Denies rash Neurological: Denies numbness, Denies weakness Psychiatric: Denies anxiety, Denies depression Endocrine: Denies fatigue, Denies weight change Past Medical History Past Medical History: Cancer, Hypertension Additional Past Medical History / Comment(s): hx lt breast cancer with surgery & radiation tx (Aug 2009)., Hx of right ulnar fx., Hx of c-diff (3 yrs ago) and colitis., states currently having 10-12 diarreha stools per day & hx of blood in stool. History of Any Multi-Drug Resistant Organisms: None Reported Past Surgical History: Bowel Resection, Breast Surgery, Section, Hysterectomy Additional Past Surgical History / Comment(s): LT BREAST LUMPECTOMY X2 , CLEFT PALATE SURGERYS, RIGHT ULNAR FX WITH PLATE & PINS (JUL 2018). COLONOSCOPY, colostomy. C-SEC X 2 Past Anesthesia/Blood Transfusion Reactions: No Reported Reaction Past Psychological History: Anxiety, Depression Smoking Status: Current every day smoker Past Alcohol Use History: Abuse, Daily, Heavy Past Drug Use History: None Reported - Past Family History Sister(s) Family Medical History: Pulmonary Embolus Medications and Allergies Home Medications Medication Instructions Recorded Confirmed Type lisinopriL [Zestril] 20 mg PO BID 08/04/18 08/22/21 History Sertraline [Zoloft] 50 mg PO DAILY 11/24/18 08/22/21 History Allergies Allergy/AdvReac Type Severity Reaction Status Date / Time cephalexin [From Keflex] AdvReac Diarrhea Verified 08/22/21 08:27 Physical Exam Vitals: Vital Signs Temp Pulse Resp BP Pulse Ox 08/23/21 21:29 98.3 F 104 H 20 129/74 100 08/23/21 20:56 98.6 F 96 18 106/70 96 08/23/21 19:38 110 H 16 08/23/21 19:24 99.2 F 110 H 18 105/61 97 08/23/21 17:50 99.9 F H 105 H 18 122/70 99 08/23/21 17:24 99.6 F 113 H 16 115/71 98 08/23/21 16:55 100 F H 94 18 134/69 99 08/23/21 16:50 99.6 F 109 H 18 126/76 97 08/23/21 16:33 99.0 F 88 160/78 08/23/21 16:20 100.2 F H 110 H 16 122/73 98 08/23/21 16:05 100.4 F H 109 H 16 121/72 96 08/23/21 15:50 100.2 F H 111 H 16 127/76 95 08/23/21 15:35 100.2 F H 112 H 16 124/70 98 08/23/21 15:20 110 H 16 136/75 95 08/23/21 15:13 117 H 18 128/78 95 08/23/21 15:06 112 H 16 147/78 96 08/23/21 14:49 114 H 18 134/69 96 08/23/21 12:43 99.5 F 97 17 134/80 100 08/23/21 09:00 112 H 138/68 08/23/21 08:20 133 H 20 08/23/21 05:01 99 F 133 H 20 144/82 96 Intake and Output 08/23/21 08/23/21 08/23/21 06:59 14:59 22:59 Intake Total 1080 Balance 1080 Intake: Intake, IV Titration 300 Amount Sodium Chloride 0.9% 1, 300 000 ml @ 75 mls/hr IV . [id number] [facility] Rx#:[id number] Oral 780 Other: Voiding Method Toilet Toilet # Voids 4 2 3 Weight 46.266 kg General: well nourished, well developed, NAD. Vitals reviewed Eyes: PERRL, EOMI, conjunctiva normal HENT: normocephalic, mucus membranes moist Neck: supple, no JVD Lungs: normal respiratory effort, no wheezes or rales CV: Regular rate and rhythm, no murmur. Peripheral pulses 2+ Abdomen: soft, generalized tenderness. Ostomy in place Lymph: no cervical or axillary LAD Skin: warm and dry. Neuro: A&Ox3, normal mood and affect Results CBC & Chem 7: 08/23/21 06:28 08/23/21 11:06 Labs: Abnormal Lab Results - Last 24 Hours (Table) 08/22/21 08/23/21 08/23/21 Range/Units 08:02 06:28 06:28 WBC 17.9 H (3.8-10.6) k/uL RBC 2.63 L (3.80-5.40) m/uL Hgb 9.4 L (11.4-16.0) gm/dL Hct 29.0 L (34.0-46.0) % MCV 110.0 H (80.0-100.0) fL MCH 35.6 H (25.0-35.0) pg Neutrophils # 16.1 H (1.3-7.7) k/uL Lymphocytes # 0.6 L (1.0-4.8) k/uL Macrocytosis Marked A PT (9.0-12.0) sec INR (<1.2) Sodium 124 L (135-145) mmol/L Chloride 95 L (96-109) mmol/L Carbon Dioxide 10.5 L (21.6-31.8) mmol/L Anion Gap 18.50 H (4.00-12.00) mmol/L BUN 8.4 L (9.0-27.0) mg/dL Calcium 7.8 L (8.7-10.3) mg/dL Total Bilirubin 4.50 H (0.30-1.20) mg/dL AST 54 H (13-35) U/L Alkaline Phosphatase 196 H (41-126) U/L Total Protein 5.8 L (6.2-8.2) g/dL Albumin 2.8 L (3.8-4.9) g/dL Albumin/Globulin Ratio 0.93 L (1.60-3.17) g/dL Carcinoembryonic Ag 6.3 H (0.0-4.9) ng/mL 08/23/21 Range/Units 11:06 WBC (3.8-10.6) k/uL RBC (3.80-5.40) m/uL Hgb (11.4-16.0) gm/dL Hct (34.0-46.0) % MCV (80.0-100.0) fL MCH (25.0-35.0) pg Neutrophils # (1.3-7.7) k/uL Lymphocytes # (1.0-4.8) k/uL Macrocytosis PT 12.8 H (9.0-12.0) sec INR 1.2 H (<1.2) Sodium (135-145) mmol/L Chloride (96-109) mmol/L Carbon Dioxide (21.6-31.8) mmol/L Anion Gap (4.00-12.00) mmol/L BUN (9.0-27.0) mg/dL Calcium (8.7-10.3) mg/dL Total Bilirubin (0.30-1.20) mg/dL AST (13-35) U/L Alkaline Phosphatase (41-126) U/L Total Protein (6.2-8.2) g/dL Albumin (3.8-4.9) g/dL Albumin/Globulin Ratio (1.60-3.17) g/dL Carcinoembryonic Ag (0.0-4.9) ng/mL Thrombosis Risk Factor Assmnt - Choose All That Apply Each Factor Represents 1 point: Age 41-60 years Thrombosis Risk Factor Assessment Total Risk Factor Score: 1 Thrombosis Risk Factor Assessment Level: Low Risk Assessment and Plan (1) HX: breast cancer Current Visit: Yes Status: Acute Code(s): Z85.3 - PERSONAL HISTORY OF MALIGNANT NEOPLASM OF BREAST SNOMED Code(s): 174178944 (2) Hyperbilirubinemia Current Visit: Yes Status: Acute Code(s): E80.6 - OTHER DISORDERS OF BILIRUBIN METABOLISM SNOMED Code(s): 26637462 (3) Liver mass Current Visit: Yes Status: Acute Code(s): R16.0 - HEPATOMEGALY, NOT ELSEWHERE CLASSIFIED SNOMED Code(s): 234338033 Plan: 1. Abdominal pain, with hepatic lesions suspect metastatic cancer. Consult to surgery, oncology and plan for IR biopsy. Pain control. IV protonix and zofran as needed 2. Leukocytosis, suspect reactive with chronic inflammation. Check procalcitonin 3. Alcohol withdrawal. CWIA protocol 4. Hx breast cancer 5. Elevated CEA
[2021-08-24 06:45] LABS: Cancer Antigen 153 20.8 U/mL (0.0-32.3)
[2021-08-24] MEDS: METOPROLOL TARTRATE 50 MG TAB PO SCH ×2 (07:55→22:22)
[2021-08-24] MEDS: PANTOPRAZOLE 40 MG/10 ML VIAL IVP SCH (07:55)
[2021-08-24] MEDS: THIAMINE 100 MG TAB PO SCH ×2 (07:55→15:27)
[2021-08-24 09:19] LABS: Basophils % (A) 0 %; Eosinophils % (A) 0 %; HCT 28.8 % (34.0-46.0); HGB 9.1 gm/dL (11.4-16.0); Lymphocytes # (A) 0.5 k/uL (1.0-4.8); Lymphocytes % (A) 2 %; MCH 34.7 pg (25.0-35.0); MCHC 31.6 g/dL (31.0-37.0); MCV 109.9 fL (80.0-100.0); Macrocytosis Marked; Mean Platelet Volume 8.3; Monocytes # (A) 0.5 k/uL (0-1.0); Monocytes % (A) 2 %; Neutrophils # (A) 21.8 k/uL (1.3-7.7); Neutrophils % (A) 95 %; Platelet Count 283 k/uL (150-450); RBC 2.62 m/uL (3.80-5.40); RDW 12.6 % (11.5-15.5)
[2021-08-24 09:31] LABS: ALT 21 U/L (4-34); AST 122 U/L (14-36); African American GFR (CKD) 68 (>60 ml/min/1.73 sqM); Albumin 2.5 g/dL (3.5-5.0); Albumin/Globulin Ratio 0.8; Alkaline Phosphatase 152 U/L (38-126); Anion Gap 12 mmol/L; Blood Urea Nitrogen 13 mg/dL (7-17); Carbon Dioxide 17 mmol/L (22-30); Chloride 98 mmol/L (98-107); Globulin 3.3 g/dL; Glucose 58 mg/dL (74-99); Non-African American GFR(CKD) 59 (>60 ml/min/1.73 sqM); Potassium 3.9 mmol/L (3.5-5.1); Sodium 127 mmol/L (137-145); Total Bilirubin 5.7 mg/dL (0.2-1.3); Total Protein 5.8 g/dL (6.3-8.2)
--- NOTE | 2021-08-24 11:27 | P.PN ---
Subjective Progress Note Date: 08/24/21 CHIEF COMPLAINT: Right upper quadrant abdominal pain with liver lesions HISTORY OF PRESENT ILLNESS: Patient complains of right upper quadrant abdominal pain at biopsy site. She is status post biopsy of liver lesion. Her CEA is elevated at 6.3. She was found to have liver lesions on computed tomography scan of abdomen. She has a prior history of sigmoid colectomy with end colostomy and drainage of pelvic abscess on 01/17/2021. Pathology results showed no evidence of malignancy. Did show severe acute diverticulitis with pericolonic abscess. Last colonoscopy 2018. Afebrile. Heart rate 107 pressure 94/61. WBC is up at 23 hemoglobin 9.1 sodium 127 creatinine 1.06 total bili 5.7 AST 122 ALT 21 alk phos 152 Patient seen and examined with Dr. servin PHYSICAL EXAM: VITAL SIGNS: Reviewed. GENERAL: Well-developed in no acute distress. HEENT: No sclera icterus. Extraocular movements grossly intact. Moist buccal mucosa. Head is atraumatic, normocephalic. ABDOMEN: Soft. Abdominal distention with parastomal hernia. Incision site small 3mm hole expressing small serous drainage NEUROLOGIC: Alert and oriented. Cranial nerves II through XII grossly intact. ASSESSMENT: 1. Liver lesions concerning for liver metastasis status post biopsy 2. Elevated CEA 3. Hyperbilirubinemia 4. Alcohol abuse 5. History of breast cancer status post lumpectomy and radiation therapy 6. History of pelvic abscess and colon obstruction status post sigmoid colectomy with end colostomy 7. Parastomal hernia PLAN: -No surgical intervention planned -Continue supportive care -Continue oncology workup -For colostomy supplies: Patient has a colostomy on the left side of the abdomen with a known parastomal hernia. She has no current skin irritation at the site. Recommend to change colostomy bag every 3 days or as needed Physician [employer] Super[employer] note has been reviewed by physician. Signing provider agrees with the documented findings, assessment, and plan of care. Objective - Vital Signs Vital signs: Vital Signs Temp 98.4 F 08/24/21 05:00 Pulse 107 H 08/24/21 08:00 Resp 20 08/24/21 08:00 BP 94/61 08/24/21 05:00 Pulse Ox 97 08/24/21 05:00 Intake & Output 08/23/21 08/24/21 08/24/21 18:59 06:59 18:59 Intake Total 540 540 Balance 540 540 Weight 46.266 kg 46.266 kg Intake: Intake, IV Titration 300 Amount Sodium Chloride 0.9% 1, 300 000 ml @ 75 mls/hr IV . [id number] [facility] Rx#:[id number] Oral 240 540 Other: Voiding Method Toilet Toilet Toilet # Voids 3 3 - Labs CBC & Chem 7: 08/24/21 09:03 08/24/21 09:03 Labs: Abnormal Lab Results - Last 24 Hours (Table) 08/23/21 08/24/21 08/24/21 Range/Units 11:06 09:03 09:03 WBC 23.0 H (3.8-10.6) k/uL RBC 2.62 L (3.80-5.40) m/uL Hgb 9.1 L (11.4-16.0) gm/dL Hct 28.8 L (34.0-46.0) % MCV 109.9 H (80.0-100.0) fL Neutrophils # 21.8 H (1.3-7.7) k/uL Lymphocytes # 0.5 L (1.0-4.8) k/uL Macrocytosis Marked A PT 12.8 H (9.0-12.0) sec INR 1.2 H (<1.2) Sodium 127 L (137-145) mmol/L Carbon Dioxide 17 L (22-30) mmol/L Creatinine 1.06 H (0.52-1.04) mg/dL Glucose 58 L (74-99) mg/dL Calcium 8.0 L (8.4-10.2) mg/dL Total Bilirubin 5.7 H (0.2-1.3) mg/dL AST 122 H (14-36) U/L Alkaline Phosphatase 152 H (38-126) U/L Total Protein 5.8 L (6.3-8.2) g/dL Albumin 2.5 L (3.5-5.0) g/dL Microbiology - Last 24 Hours (Table) 08/23/21 04:11 Blood Culture - Preliminary Blood No Growth after 24 hours
[2021-08-24] MEDS: MORPHINE SULFATE 4 MG/ML SYRINGE IVP PRN ×3 (12:07→19:19)
[2021-08-24] MEDS ORDERED: AMPICILLIN-SULBACTAM 3 GM in SODIUM CHLORIDE 0.9% 100 ML IVPB SCH (14:00)
--- NOTE | 2021-08-24 14:20 | P.PN ---
Subjective Progress Note Date: 08/24/21 Sarah Kessler is a 56 yo F with PMH of breast cancer s/p lumpectomy in 2008, hx ruptured diverticulitis with colostomy approx 6 months ago, alcohol abuse who presented to the ED complaining of progressively worsening abdominal pain, weakness, chills. She states that ever since she had her ostomy she has been having some mild abdominal pain but recently has worsened. She complains that over the past month she has been having progressive generalized pain and early satiety. She has not followed with a physician for her breast cancer in years. She is a current daily drinker. On presentation pt tachycardic, WBC 19k, bilirubin 4.7, CEA elevated at 6.3. CT abd/pelvis showing multiple hepatic lesions, associated lymphadenopathy. 08/24/2021 evaluated by surgery with no surgical intervention recommended at this time. T bili increased to 5.7 AST increased to 122 alk phos decreased to 152. Oncology workup in progress. CA 27.29. Underwent liver biopsy yesterday, pathology pending. Positive abdominal pain, controlled with morphine. Tolerated procedure well. Afebrile, T-max 100.4, WBC increased to 23 ,preliminary bronchial cultures no growth at 24 hours.Pro-calcitonin elevated 1.63, Zosyn initiated. Sodium improving, 127, creatinine increased, 1.06. Maintained on CIWA protocol, no DTs. Objective - Vital Signs Vital signs: Vital Signs Temp 97.5 F L 08/24/21 12:05 Pulse 92 08/24/21 12:05 Resp 16 08/24/21 12:05 BP 105/66 08/24/21 12:05 Pulse Ox 97 08/24/21 12:05 Intake & Output 08/23/21 08/24/21 08/24/21 18:59 06:59 18:59 Intake Total 540 540 Balance 540 540 Weight 46.266 kg 46.266 kg Intake: Intake, IV Titration 300 Amount Sodium Chloride 0.9% 1, 300 000 ml @ 75 mls/hr IV . [id number] [facility] Rx#:[id number] Oral 240 540 Other: Voiding Method Toilet Toilet Toilet # Voids 3 3 - Exam General: well nourished, well developed, NAD. Vitals reviewed Eyes: PERRL, EOMI, conjunctiva normal HENT: normocephalic, mucus membranes moist Neck: supple, no JVD Lungs: normal respiratory effort, no wheezes or rales CV: Regular rate and rhythm, no murmur. Peripheral pulses 2+ Abdomen: soft, generalized tenderness. Distended, left-sided Ostomy present, ventral hernia. Skin: warm and dry. Neuro: A&Ox3, normal mood and affect - Labs CBC & Chem 7: 08/24/21 09:03 08/24/21 09:03 Labs: Abnormal Lab Results - Last 24 Hours (Table) 08/23/21 08/24/21 08/24/21 Range/Units 11:06 09:03 09:03 WBC 23.0 H (3.8-10.6) k/uL RBC 2.62 L (3.80-5.40) m/uL Hgb 9.1 L (11.4-16.0) gm/dL Hct 28.8 L (34.0-46.0) % MCV 109.9 H (80.0-100.0) fL Neutrophils # 21.8 H (1.3-7.7) k/uL Lymphocytes # 0.5 L (1.0-4.8) k/uL Macrocytosis Marked A Sodium 127 L (137-145) mmol/L Carbon Dioxide 17 L (22-30) mmol/L Creatinine 1.06 H (0.52-1.04) mg/dL Glucose 58 L (74-99) mg/dL Calcium 8.0 L (8.4-10.2) mg/dL Total Bilirubin 5.7 H (0.2-1.3) mg/dL AST 122 H (14-36) U/L Alkaline Phosphatase 152 H (38-126) U/L Total Protein 5.8 L (6.3-8.2) g/dL Albumin 2.5 L (3.5-5.0) g/dL Procalcitonin 1.63 H (0.02-0.09) ng/mL Microbiology - Last 24 Hours (Table) 08/23/21 04:11 Blood Culture - Preliminary Blood No Growth after 24 hours Assessment and Plan Assessment: Abdominal pain with hepatic lesions, suspect metastatic cancer, status post liver biopsy, pathology pending Leukocytosis, pro-calcitonin 1.63 Alcohol withdrawal Status post sigmoid colectomy with end colostomy and drainage of pelvic abscess 01/17/2021 History of breast cancer, status post lumpectomy and radiation therapy Elevated CEA Ongoing nicotine dependence Alcohol abuse, dependence Plan: Continue on current medication regime ,monitoring and symptomatic treatment. Pro-calcitonin elevated, Zosyn initiated. Zoloft resumed. Liver biopsy pathology pending. Pain management. Prognosis guarded given multiple complex medical issues. The impression and plan of care has been dictated as directed. : I performed a history and examination of this patient, discussed the same with the dictator. I agree with the dictator's note ,documented as a scribe. Any additional findings or plans will be noted.
[2021-08-24] MEDS: SERTRALINE 50 MG TAB PO SCH (15:27)
[2021-08-24] MEDS: LORazepam 2 MG/ML INJ IV PRN ×2 (15:27→22:19)
[2021-08-24] MEDS: PIPERACILLIN-TAZOBACTAM 3.375 GM in SODIUM CHLORIDE 0.9% 100 ML IVPB SCH ×2 (15:33→23:16)
[2021-08-24] MEDS: SODIUM CHLORIDE 0.9% 1,000 ML IV SCH ×3 (15:33→23:17)
[2021-08-24 16:01] LABS: Glucose,Whole Blood 83 mg/dL (75-99)
--- NOTE | 2021-08-24 20:54 | P.PN ---
Subjective Progress Note Date: 08/24/21 Principal diagnosis: Liver lesion Status POst Liver Biopsy, await pathology Objective - Vital Signs Vital signs: Vital Signs Temp 97.8 F 08/24/21 19:04 Pulse 93 08/24/21 20:01 Resp 20 08/24/21 20:01 BP 97/64 08/24/21 20:01 Pulse Ox 98 08/24/21 20:01 Intake & Output 08/24/21 08/24/21 08/25/21 06:59 18:59 06:59 Intake Total 540 225 290 Balance 540 225 290 Weight 46.266 kg Intake: Intake, IV Titration 225 Amount Sodium Chloride 0.9% 1, 225 000 ml @ 75 mls/hr IV . [id number] [facility] Rx#:[id number] Oral 540 290 Other: Voiding Method Toilet Toilet # Voids 3 1 - Exam Alert and oriented NAD Neck: Supple Lungs: CTA Abd: Soft, Ostomy Heart: RRR Ext: no - Labs CBC & Chem 7: 08/24/21 09:03 08/24/21 09:03 Labs: Abnormal Lab Results - Last 24 Hours (Table) 08/23/21 08/24/21 08/24/21 Range/Units 11:06 09:03 09:03 WBC 23.0 H (3.8-10.6) k/uL RBC 2.62 L (3.80-5.40) m/uL Hgb 9.1 L (11.4-16.0) gm/dL Hct 28.8 L (34.0-46.0) % MCV 109.9 H (80.0-100.0) fL Neutrophils # 21.8 H (1.3-7.7) k/uL Lymphocytes # 0.5 L (1.0-4.8) k/uL Macrocytosis Marked A Sodium 127 L (137-145) mmol/L Carbon Dioxide 17 L (22-30) mmol/L Creatinine 1.06 H (0.52-1.04) mg/dL Glucose 58 L (74-99) mg/dL Calcium 8.0 L (8.4-10.2) mg/dL Total Bilirubin 5.7 H (0.2-1.3) mg/dL AST 122 H (14-36) U/L Alkaline Phosphatase 152 H (38-126) U/L Total Protein 5.8 L (6.3-8.2) g/dL Albumin 2.5 L (3.5-5.0) g/dL Procalcitonin 1.63 H (0.02-0.09) ng/mL Microbiology - Last 24 Hours (Table) 08/23/21 04:11 Blood Culture - Preliminary Blood No Growth after 24 hours Assessment and Plan (1) HX: breast cancer Current Visit: Yes Status: Acute Code(s): Z85.3 - PERSONAL HISTORY OF MA LIGNANT NEOPLASM OF BREAST SNOMED Code(s): 540667779 (2) Hyperbilirubinemia Current Visit: Yes Status: Acute Code(s): E80.6 - OTHER DISORDERS OF BILIRUBIN METABOLISM SNOMED Code(s): 86946624 (3) Liver mass Current Visit: Yes Status: Acute Code(s): R16.0 - HEPATOMEGALY, NOT ELSEWHERE CLASSIFIED SNOMED Code(s): 832620775 (4) Neoplasm of sigmoid colon Current Visit: No Status: Acute Code(s): D49.0 - NEOPLASM OF UNSPECIFIED BEHAVIOR OF DIGESTIVE SYSTEM SNOMED Code(s): 453564329 (5) Pelvic abscess Current Visit: No Status: Acute Code(s): LKL5732 - SNOMED Code(s): 456398120 Plan: Breast Cancer tumor markers are not significantly elevated She is status post liver biiopsy - awaiting path Recommend Genetic testing if not performed to date (can be done as outpatient) She has a known history of tobacco and ETOH abuse. Physician Attest: I have completed the full history and physical and agree with above dictation, dictated as a ascribe.
[2021-08-25] MEDS: PIPERACILLIN-TAZOBACTAM 3.375 GM in SODIUM CHLORIDE 0.9% 100 ML IVPB SCH ×3 (07:44→23:50)
[2021-08-25] MEDS: SERTRALINE 50 MG TAB PO SCH (08:03)
[2021-08-25] MEDS: THIAMINE 100 MG TAB PO SCH ×2 (08:03→17:57)
[2021-08-25] MEDS: METOPROLOL TARTRATE 50 MG TAB PO SCH ×2 (08:03→20:38)
[2021-08-25 08:09] LABS: Basophils % (A) 0 %; Eosinophils # (A) 0.1 k/uL (0-0.7); Eosinophils % (A) 0 %; HCT 28.2 % (34.0-46.0); HGB 9.2 gm/dL (11.4-16.0); Lymphocytes # (A) 0.7 k/uL (1.0-4.8); Lymphocytes % (A) 4 %; MCH 35.8 pg (25.0-35.0); MCHC 32.8 g/dL (31.0-37.0); Macrocytosis Marked; Mean Platelet Volume 8.2; Monocytes # (A) 0.6 k/uL (0-1.0); Monocytes % (A) 3 %; Neutrophils % (A) 91 %; Platelet Count 318 k/uL (150-450); RBC 2.59 m/uL (3.80-5.40); RDW 13.2 % (11.5-15.5); WBC 16.5 k/uL (3.8-10.6)
[2021-08-25 08:38] LABS: MCV 109.1 fL (80.0-100.0)
[2021-08-25] MEDS: PANTOPRAZOLE 40 MG/10 ML VIAL IVP SCH (10:17)
[2021-08-25] MEDS: ACETAMINOPHEN TAB 325 MG TAB PO PRN (12:24)
[2021-08-25 13:22] LABS: African American GFR (CKD) 58.5 (60.0-200.0); Albumin 2.3 g/dL (3.8-4.9); Albumin/Globulin Ratio 0.82 (1.60-3.17); Anion Gap 16.6 mmol/L (4.00-12.00); BUN/Creat Ratio 20.75 Ratio (12.00-20.00); Blood Urea Nitrogen 24.9 mg/dL (9.0-27.0); Calcium 7.6 mg/dL (8.7-10.3); Carbon Dioxide 14.4 mmol/L (21.6-31.8); Globulin 2.8 g/dL (1.6-3.3); Non-African American GFR(CKD) 50.5 (60.0-200.0); Total Bilirubin 3.8 mg/dL (0.30-1.20); Total Protein 5.1 g/dL (6.2-8.2)
--- NOTE | 2021-08-25 15:33 | P.PN ---
Subjective Progress Note Date: 08/25/21 CHIEF COMPLAINT: Metastatic colon cancer HISTORY OF PRESENT ILLNESS: The patient is a 56-year-old female status post sigmoid colectomy with descending colostomy now with metastatic colon cancer. She has a parastomal hernia. She is status post liver biopsy for metastatic liver lesion. Right upper quadrant pain consistent with tumor burden of the liver. She is resting comfortably. ROS: No fevers or chills. No new chest pain. No productive sputum PHYSICAL EXAM: VITAL SIGNS: Reviewed CONSTITUTIONAL: Well developed and in no acute distress. EYES: Conjuctivae without sclera icterus. Extraocular movements grossly intact. HEAD, EARS, NOSE, THROAT: Moist buccal mucosa. Head is atraumatic, normocephalic. No nasal drainage. NECK: No gross thyroidomegaly. No jugular venous distention. RESPIRATORY: Non-labored respirations and equal bilateral excursions. CARDIOVASCULAR: Palpable 2+ radial pulses. ABDOMEN: Descending colostomy intact MUSCULOSKELETAL: No gross deformity of the lower extremities noted. No clubbing. No cyanosis. SKIN: Good skin turgor. Well perfused. NEUROLOGIC: Cranial nerves II through XII grossly intact. No focal or lateralizing signs. PSYCH: Appropriate affect. Alert and oriented to person, place and time. CLINICAL LABS: Reviewed. WBC down 23,000 and 16,000. Hemoglobin stable 9.1- 9.2. ASSESSMENT: 1. Metastatic colon cancer with liver metastases PLAN: 1. No acute surgical intervention at this time 2. Diet as tolerated. Objective - Vital Signs Vital signs: Vital Signs Temp 101.0 F H 08/25/21 12:17 Pulse 108 H 08/25/21 12:17 Resp 17 08/25/21 12:17 BP 118/79 08/25/21 12:17 Pulse Ox 95 08/25/21 12:17 Intake & Output 08/24/21 08/25/21 08/25/21 18:59 06:59 18:59 Intake Total 225 1115 Balance 225 1115 Weight 46.266 kg Intake: Intake, IV Titration 225 825 Amount Piperacillin-Tazobactam 3 100 .375 gm In Sodium Chloride 0.9% 100 ml @ 25 mls/hr IVPB Q8HR [facility] Rx# :[id number] Sodium Chloride 0.9% 1, 225 725 000 ml @ 75 mls/hr IV . [id number] [facility] Rx#:[id number] Oral 290 Other: Voiding Method Toilet Toilet # Voids 2 - Labs CBC & Chem 7: 08/25/21 07:25 08/25/21 07:25 Labs: Abnormal Lab Results - Last 24 Hours (Table) 08/25/21 08/25/21 Range/Units 07:25 07:25 WBC 16.5 H (3.8-10.6) k/uL RBC 2.59 L (3.80-5.40) m/uL Hgb 9.2 L (11.4-16.0) gm/dL Hct 28.2 L (34.0-46.0) % MCV 109.1 H (80.0-100.0) fL MCH 35.8 H (25.0-35.0) pg Neutrophils # 15.0 H (1.3-7.7) k/uL Lymphocytes # 0.7 L (1.0-4.8) k/uL Macrocytosis Marked A Sodium 126 L (135-145) mmol/L Chloride 95 L (96-109) mmol/L Carbon Dioxide 14.4 L (21.6-31.8) mmol/L Anion Gap 16.60 H (4.00-12.00) mmol/L Est GFR (CKD-EPI)AfAm 58.5 L (60.0-200.0) Est GFR (CKD-EPI)NonAf 50.5 L (60.0-200.0) BUN/Creatinine Ratio 20.75 H (12.00-20.00) Ratio Calcium 7.6 L (8.7-10.3) mg/dL Total Bilirubin 3.80 H (0.30-1.20) mg/dL AST 82 H (13-35) U/L Alkaline Phosphatase 140 H (41-126) U/L Total Protein 5.1 L (6.2-8.2) g/dL Albumin 2.3 L (3.8-4.9) g/dL Albumin/Globulin Ratio 0.82 L (1.60-3.17) g/dL Microbiology - Last 24 Hours (Table) 08/23/21 04:11 Blood Culture - Preliminary Blood No Growth after 48 hours Assessment and Plan (1) Leukocytosis Current Visit: Yes Status: Acute Code(s): D72.829 - ELEVATED WHITE BLOOD CELL COUNT, UNSPECIFIED SNOMED Code(s): 302225502 (2) Liver mass Current Visit: Yes Status: Acute Code(s): R16.0 - HEPATOMEGALY, NOT ELSEWHERE CLASSIFIED SNOMED Code(s): 838542751 (3) Liver metastases Current Visit: Yes Status: Acute Code(s): C78.7 - SECONDARY MALIG NEOPLASM OF LIVER AND INTRAHEPATIC BILE DUCT SNOMED Code(s): 75739045 (4) Neoplasm of sigmoid colon Current Visit: No Status: Acute Code(s): D49.0 - NEOPLASM OF UNSPECIFIED BEHAVIOR OF DIGESTIVE SYSTEM SNOMED Code(s): 566399190
[2021-08-25] MEDS: SODIUM CHLORIDE 0.9% 1,000 ML IV SCH (16:23)
[2021-08-25 19:44] LABS: Glucose,Whole Blood 96 mg/dL (75-99)
--- NOTE | 2021-08-25 21:51 | P.PN ---
Subjective Progress Note Date: 08/25/21 Sarah Kessler is a 56 yo F with PMH of breast cancer s/p lumpectomy in 2008, hx ruptured diverticulitis with colostomy approx 6 months ago, alcohol abuse who presented to the ED complaining of progressively worsening abdominal pain, weakness, chills. She states that ever since she had her ostomy she has been having some mild abdominal pain but recently has worsened. She complains that over the past month she has been having progressive generalized pain and early satiety. She has not followed with a physician for her breast cancer in years. She is a current daily drinker. On presentation pt tachycardic, WBC 19k, bilirubin 4.7, CEA elevated at 6.3. CT abd/pelvis showing multiple hepatic lesions, associated lymphadenopathy. 08/24/2021 evaluated by surgery with no surgical intervention recommended at this time. T bili increased to 5.7 AST increased to 122 alk phos decreased to 152. Oncology workup in progress. CA 27.29. Underwent liver biopsy yesterday, pathology pending. Positive abdominal pain, controlled with morphine. Tolerated procedure well. Afebrile, T-max 100.4, WBC increased to 23 ,preliminary bronchial cultures no growth at 24 hours.Pro-calcitonin elevated 1.63, Zosyn initiated. Sodium improving, 127, creatinine increased, 1.06. Maintained on CIWA protocol, no DTs. 08/25/2021 Pathology pending from liver biopsy. Patient still receiving morphine for pain management. She remains on Zosyn. Labs today show white count 16.5, hemoglobin 9.2. Her chemistry panel still pending from today. Vital signs today include a temp of 98.7 oral, heart rate 110, blood pressure 109/73. She is 96% on room air. She is resting comfortably in the bed able to eat and drink. She has no a cute complaints today. No signs of acute alcohol withdrawal. ROS Constitutional: Denied any fatigue denied any fever. Cardio vascular: denied any chest pain, palpitations Gastrointestinal denied any nausea vomiting Pulmonary: Denied any shortness of breath cough Neurologic denied any new focal deficits All inpatient medications were reviewed and appropriate changes in these medications as dictated in the interval history and assessment and plan. Objective - Vital Signs Vital signs: Vital Signs Temp 98.7 F 08/25/21 05:20 Pulse 110 H 08/25/21 05:20 Resp 20 08/25/21 05:20 BP 109/73 08/25/21 05:20 Pulse Ox 96 08/25/21 05:20 Intake & Output 08/24/21 08/25/21 08/25/21 18:59 06:59 18:59 Intake Total 225 1115 Balance 225 1115 Weight 46.266 kg Intake: Intake, IV Titration 225 825 Amount Piperacillin-Tazobactam 3 100 .375 gm In Sodium Chloride 0.9% 100 ml @ 25 mls/hr IVPB Q8HR [facility] Rx# :[id number] Sodium Chloride 0.9% 1, 225 725 000 ml @ 75 mls/hr IV . [id number] [facility] Rx#:[id number] Oral 290 Other: Voiding Method Toilet Toilet # Voids 2 - Constitutional General appearance: Present: average body habitus - EENT Eyes: Present: PERRLA - Respiratory Respiratory: bilateral: diminished - Cardiovascular Rhythm: regular Heart sounds: normal: S1, S2 - Gastrointestinal General gastrointestinal: Present: normal bowel sounds - Neurologic Neurologic: Present: CNII-XII intact - Musculoskeletal Musculoskeletal: Present: generalized weakness - Psychiatric Psychiatric: Present: A&O x's 3, appropriate affect - Labs CBC & Chem 7: 08/25/21 07:25 08/25/21 07:25 Labs: Abnormal Lab Results - Last 24 Hours (Table) 08/23/21 08/25/21 Range/Units 11:06 07:25 WBC 16.5 H (3.8-10.6) k/uL RBC 2.59 L (3.80-5.40) m/uL Hgb 9.2 L (11.4-16.0) gm/dL Hct 28.2 L (34.0-46.0) % MCV 109.1 H (80.0-100.0) fL MCH 35.8 H (25.0-35.0) pg Neutrophils # 15.0 H (1.3-7.7) k/uL Lymphocytes # 0.7 L (1.0-4.8) k/uL Macrocytosis Marked A Procalcitonin 1.63 H (0.02-0.09) ng/mL Microbiology - Last 24 Hours (Table) 08/23/21 04:11 Blood Culture - Preliminary Blood No Growth after 48 hours Assessment and Plan Assessment: Abdominal pain with hepatic lesions, suspect metastatic cancer, status post liver biopsy, pathology pending History of colon cancer status post sigmoid colectomy with colostomy Leukocytosis, pro-calcitonin 1.63 Alcohol withdrawal Status post sigmoid colectomy with end colostomy and drainage of pelvic abscess 01/17/2021 History of breast cancer, status post lumpectomy and radiation therapy Elevated CEA Ongoing nicotine dependence Alcohol abuse, dependence Plan: Plan: Continue on current medication regime ,monitoring and symptomatic treatment. Pro-calcitonin elevated, Zosyn initiated. Zoloft resumed. Liver biopsy pathology pending. Pain management. Prognosis guarded given multiple complex medical issues. Thank you for this consultation. Time with Patient: Greater than 30
[2021-08-26] MEDS: SODIUM CHLORIDE 0.9% 1,000 ML IV SCH ×2 (04:10→17:34)
[2021-08-26 06:21] LABS: Basophils % (A) 0 %; Eosinophils # (A) 0.1 k/uL (0-0.7); Eosinophils % (A) 1 %; HCT 27.6 % (34.0-46.0); Lymphocytes # (A) 0.7 k/uL (1.0-4.8); Lymphocytes % (A) 7 %; MCH 35.5 pg (25.0-35.0); MCHC 32.6 g/dL (31.0-37.0); Macrocytosis Marked; Mean Platelet Volume 7.9; Monocytes # (A) 0.4 k/uL (0-1.0); Monocytes % (A) 4 %; Neutrophils # (A) 8.1 k/uL (1.3-7.7); Neutrophils % (A) 87 %; Platelet Count 337 k/uL (150-450); RBC 2.53 m/uL (3.80-5.40); RDW 13.3 % (11.5-15.5); WBC 9.3 k/uL (3.8-10.6)
[2021-08-26] MEDS: METOPROLOL TARTRATE 50 MG TAB PO SCH ×2 (08:12→21:36)
[2021-08-26] MEDS: PIPERACILLIN-TAZOBACTAM 3.375 GM in SODIUM CHLORIDE 0.9% 100 ML IVPB SCH ×2 (08:12→17:34)
[2021-08-26] MEDS: THIAMINE 100 MG TAB PO SCH ×2 (08:12→17:34)
[2021-08-26] MEDS: SERTRALINE 50 MG TAB PO SCH (08:12)
[2021-08-26] MEDS: PANTOPRAZOLE 40 MG/10 ML VIAL IVP SCH (08:12)
[2021-08-26 10:38] LABS: African American GFR (CKD) 95.5 (60.0-200.0); Albumin 2.1 g/dL (3.8-4.9); Albumin/Globulin Ratio 0.81 (1.60-3.17); Anion Gap 13.3 mmol/L (4.00-12.00); Blood Urea Nitrogen 20.8 mg/dL (9.0-27.0); Calcium 7.5 mg/dL (8.7-10.3); Carbon Dioxide 15.7 mmol/L (21.6-31.8); Globulin 2.6 g/dL (1.6-3.3); Non-African American GFR(CKD) 82.4 (60.0-200.0); Potassium 3.7 mmol/L (3.5-5.5); Total Bilirubin 3.7 mg/dL (0.30-1.20); Total Protein 4.7 g/dL (6.2-8.2)
--- NOTE | 2021-08-26 11:30 | P.PN ---
Subjective Progress Note Date: 08/26/21 Sarah Kessler is a 56 yo F with PMH of breast cancer s/p lumpectomy in 2008, hx ruptured diverticulitis with colostomy approx 6 months ago, alcohol abuse who presented to the ED complaining of progressively worsening abdominal pain, weakness, chills. She states that ever since she had her ostomy she has been having some mild abdominal pain but recently has worsened. She complains that over the past month she has been having progressive generalized pain and early satiety. She has not followed with a physician for her breast cancer in years. She is a current daily drinker. On presentation pt tachycardic, WBC 19k, bilirubin 4.7, CEA elevated at 6.3. CT abd/pelvis showing multiple hepatic lesions, associated lymphadenopathy. 08/24/2021 evaluated by surgery with no surgical intervention recommended at this time. T bili increased to 5.7 AST increased to 122 alk phos decreased to 152. Oncology workup in progress. CA 27.29. Underwent liver biopsy yesterday, pathology pending. Positive abdominal pain, controlled with morphine. Tolerated procedure well. Afebrile, T-max 100.4, WBC increased to 23 ,preliminary bronchial cultures no growth at 24 hours.Pro-calcitonin elevated 1.63, Zosyn initiated. Sodium improving, 127, creatinine increased, 1.06. Maintained on CIWA protocol, no DTs. 08/25/2021 Pathology pending from liver biopsy. Patient still receiving morphine for pain management. She remains on Zosyn. Labs today show white count 16.5, hemoglobin 9.2. Her chemistry panel still pending from today. Vital signs today include a temp of 98.7 oral, heart rate 110, blood pressure 109/73. She is 96% on room air. She is resting comfortably in the bed able to eat and drink. She has no a cute complaints today. No signs of acute alcohol withdrawal. 08/26/2021 Pathology still pending from liver biopsy. Labs today show a hemoglobin of 9. Sodium improving to 130. Potassium 3.7, CO2 15.7, AST trending down to 79, Alk Phos remains elevated. Continue with current diet from surgical recommendations. Oncology is recommending genetic testing to be done on an outpatient basis. Patient still complaining of some chronic pain. Pain medication with Tylenol and morphine. We added a PT/OT consultation today to start working towards discharge planning. Last drink 6 days ago there've been no signs of acute alcohol withdrawal. Afebrile currently, T-max 101 last 24 hours. Blood pressure 127/80. Room air. ROS Constitutional: Denied any fatigue denied any fever. Cardio vascular: denied any chest pain, palpitations Gastrointestinal denied any nausea vomiting Pulmonary: Denied any shortness of breath cough Neurologic denied any new focal deficits All inpatient medications were reviewed and appropriate changes in these medications as dictated in the interval history and assessment and plan. Objective - Vital Signs Vital signs: Vital Signs Temp 98.2 F 08/26/21 05:00 Pulse 82 08/26/21 08:00 Resp 16 08/26/21 08:00 BP 127/80 08/26/21 05:00 Pulse Ox 96 08/26/21 05:00 Intake & Output 08/25/21 08/26/21 08/26/21 18:59 06:59 18:59 Intake Total 475 Balance 475 Intake: Intake, IV Titration 475 Amount Piperacillin-Tazobactam 3 100 .375 gm In Sodium Chloride 0.9% 100 ml @ 25 mls/hr IVPB Q8HR [facility] Rx# :[id number] Sodium Chloride 0.9% 1, 375 000 ml @ 75 mls/hr IV . [id number] [facility] Rx#:[id number] Other: Voiding Method Toilet Toilet # Voids 2 2 # Bowel Movements 1 - Exam PHYSICAL EXAMINATION: GENERAL: The patient is alert and oriented x3, not in any acute distress. Well developed, well nourished. HEENT: Pupils are round and equally reacting to light. EOMI. No scleral icterus. No conjunctival pallor. Normocephalic, atraumatic. No pharyngeal erythema. No thyromegaly. CARDIOVASCULAR: S1 and S2 present. No murmurs, rubs, or gallops. PULMONARY: Chest is clear to auscultation, no wheezing or crackles. ABDOMEN: Soft, nontender, normoactive bowel sounds. There is a stoma present in the left lower quadrant with distention of the lower abdomen MUSCULOSKELETAL: No joint swelling or deformity. EXTREMITIES: No cyanosis, clubbing, or pedal edema. NEUROLOGICAL: Gross neurological examination did not reveal any focal deficits. SKIN: No rashes. - Labs CBC & Chem 7: 08/26/21 05:50 08/26/21 05:50 Labs: Abnormal Lab Results - Last 24 Hours (Table) 08/25/21 08/26/21 08/26/21 Range/Units 07:25 05:50 05:50 RBC 2.53 L (3.80-5.40) m/uL Hgb 9.0 L (11.4-16.0) gm/dL Hct 27.6 L (34.0-46.0) % MCV 109.0 H (80.0-100.0) fL MCH 35.5 H (25.0-35.0) pg Neutrophils # 8.1 H (1.3-7.7) k/uL Lymphocytes # 0.7 L (1.0-4.8) k/uL Macrocytosis Marked A Sodium 126 L 130 L (135-145) mmol/L Chloride 95 L (96-109) mmol/L Carbon Dioxide 14.4 L 15.7 L (21.6-31.8) mmol/L Anion Gap 16.60 H 13.30 H (4.00-12.00) mmol/L Est GFR (CKD-EPI)AfAm 58.5 L (60.0-200.0) Est GFR (CKD-EPI)NonAf 50.5 L (60.0-200.0) BUN/Creatinine Ratio 20.75 H 26.00 H (12.00-20.00) Ratio Calcium 7.6 L 7.5 L (8.7-10.3) mg/dL Total Bilirubin 3.80 H 3.70 H (0.30-1.20) mg/dL AST 82 H 79 H (13-35) U/L Alkaline Phosphatase 140 H 162 H (41-126) U/L Total Protein 5.1 L 4.7 L (6.2-8.2) g/dL Albumin 2.3 L 2.1 L (3.8-4.9) g/dL Albumin/Globulin Ratio 0.82 L 0.81 L (1.60-3.17) g/dL Microbiology - Last 24 Hours (Table) 08/23/21 04:11 Blood Culture - Preliminary Blood No Growth after 72 hours Assessment and Plan Assessment: Abdominal pain with hepatic lesions, suspect metastatic cancer, status post liver biopsy, pathology pending History of colon cancer status post sigmoid colectomy with colostomy Leukocytosis, pro-calcitonin 1.63, temps Alcohol withdrawal Hyponatremia most likely hypovolemic due to deyhdration Status post sigmoid colectomy with end colostomy and drainage of pelvic abscess 01/17/2021 History of breast cancer, status post lumpectomy and radiation therapy Elevated CEA Ongoing nicotine dependence Alcohol abuse, dependence Plan: Plan: Continue on current medication regime monitoring and symptomatic treatment IV Zosyn IV fluids Liver biopsy pathology pending Pain Management CIWA, monitor for acute alcohol withdrawal PT OT consult GI prophylaxis Protonix Time with Patient: Greater than 30
[2021-08-26] MEDS: MORPHINE SULFATE 4 MG/ML SYRINGE IVP PRN (14:03)
--- NOTE | 2021-08-26 14:55 | P.PN ---
Subjective Progress Note Date: 08/26/21 CHIEF COMPLAINT: Metastatic colon cancer HISTORY OF PRESENT ILLNESS: The patient is a 56-year-old female status post sigmoid colectomy with descending colostomy now with metastatic colon cancer. She has a parastomal hernia. She is status post liver biopsy for metastatic liver lesion. She is resting comfortably. No new complaints overnight. ROS: No fevers or chills. No new chest pain. No productive sputum PHYSICAL EXAM: VITAL SIGNS: Reviewed CONSTITUTIONAL: Well developed and in no acute distress. EYES: Conjuctivae without sclera icterus. Extraocular movements grossly intact. HEAD, EARS, NOSE, THROAT: Moist buccal mucosa. Head is atraumatic, normocephalic. No nasal drainage. NECK: No gross thyroidomegaly. No jugular venous distention. RESPIRATORY: Non-labored respirations and equal bilateral excursions. CARDIOVASCULAR: Palpable 2+ radial pulses. ABDOMEN: Descending colostomy intact MUSCULOSKELETAL: No gross deformity of the lower extremities noted. No clubbing. No cyanosis. SKIN: Good skin turgor. Well perfused. NEUROLOGIC: Cranial nerves II through XII grossly intact. No focal or lateralizing signs. PSYCH: Appropriate affect. Alert and oriented to person, place and time. CLINICAL LABS: Reviewed. WBC down 23,000 and 16,000, now 9300 and normal. Hemoglobin stable 9.1-9.2, today 9.0 with anemia. ASSESSMENT: 1. Metastatic colon cancer with liver metastases PLAN: 1. Diet as tolerated. 2. Oncology management of metastatic disease Objective - Vital Signs Vital signs: Vital Signs Temp 97.9 F 08/26/21 11:26 Pulse 93 08/26/21 11:26 Resp 16 08/26/21 11:26 BP 125/80 08/26/21 11:26 Pulse Ox 94 L 08/26/21 11:26 Intake & Output 08/25/21 08/26/21 08/26/21 18:59 06:59 18:59 Intake Total 475 Balance 475 Intake: Intake, IV Titration 475 Amount Piperacillin-Tazobactam 3 100 .375 gm In Sodium Chloride 0.9% 100 ml @ 25 mls/hr IVPB Q8HR [facility] Rx# :[id number] Sodium Chloride 0.9% 1, 375 000 ml @ 75 mls/hr IV . [id number] [facility] Rx#:[id number] Other: Voiding Method Toilet Toilet # Voids 2 2 # Bowel Movements 1 - Labs CBC & Chem 7: 08/26/21 05:50 08/26/21 05:50 Labs: Abnormal Lab Results - Last 24 Hours (Table) 08/26/21 08/26/21 Range/Units 05:50 05:50 RBC 2.53 L (3.80-5.40) m/uL Hgb 9.0 L (11.4-16.0) gm/dL Hct 27.6 L (34.0-46.0) % MCV 109.0 H (80.0-100.0) fL MCH 35.5 H (25.0-35.0) pg Neutrophils # 8.1 H (1.3-7.7) k/uL Lymphocytes # 0.7 L (1.0-4.8) k/uL Macrocytosis Marked A Sodium 130 L (135-145) mmol/L Carbon Dioxide 15.7 L (21.6-31.8) mmol/L Anion Gap 13.30 H (4.00-12.00) mmol/L BUN/Creatinine Ratio 26.00 H (12.00-20.00) Ratio Calcium 7.5 L (8.7-10.3) mg/dL Total Bilirubin 3.70 H (0.30-1.20) mg/dL AST 79 H (13-35) U/L Alkaline Phosphatase 162 H (41-126) U/L Total Protein 4.7 L (6.2-8.2) g/dL Albumin 2.1 L (3.8-4.9) g/dL Albumin/Globulin Ratio 0.81 L (1.60-3.17) g/dL Microbiology - Last 24 Hours (Table) 08/23/21 04:11 Blood Culture - Preliminary Blood No Growth after 72 hours Assessment and Plan (1) Leukocytosis Current Visit: Yes Status: Acute Code(s): D72.829 - ELEVATED WHITE BLOOD CELL COUNT, UNSPECIFIED SNOMED Code(s): 912285655 (2) Liver mass Current Visit: Yes Status: Acute Code(s): R16.0 - HEPATOMEGALY, NOT ELSEWHERE CLASSIFIED SNOMED Code(s): 793294460 (3) Liver metastases Current Visit: Yes Status: Acute Code(s): C78.7 - SECONDARY MALIG NEOPLASM OF LIVER AND INTRAHEPATIC BILE DUCT SNOMED Code(s): 20365459 (4) Neoplasm of sigmoid colon Current Visit: No Status: Acute Code(s): D49.0 - NEOPLASM OF UNSPECIFIED BEHAVIOR OF DIGESTIVE SYSTEM SNOMED Code(s): 164426720
[2021-08-27] MEDS: PIPERACILLIN-TAZOBACTAM 3.375 GM in SODIUM CHLORIDE 0.9% 100 ML IVPB SCH ×3 (00:46→15:41)
[2021-08-27] MEDS: METOPROLOL TARTRATE 50 MG TAB PO SCH ×2 (08:38→20:04)
[2021-08-27] MEDS: SERTRALINE 50 MG TAB PO SCH (08:38)
[2021-08-27] MEDS: PANTOPRAZOLE 40 MG/10 ML VIAL IVP SCH (08:38)
[2021-08-27] MEDS: THIAMINE 100 MG TAB PO SCH ×2 (08:38→17:05)
[2021-08-27 11:44] LABS: HCT 35.4 % (34.0-46.0); HGB 11.1 gm/dL (11.4-16.0); Hypochromasia Slight; MCH 35.5 pg (25.0-35.0); MCHC 31.5 g/dL (31.0-37.0); MCV 112.7 fL (80.0-100.0); Macrocytosis Marked; Mean Platelet Volume 8.2; Platelet Count 567 k/uL (150-450); RBC 3.14 m/uL (3.80-5.40); RDW 13.3 % (11.5-15.5); WBC 15.5 k/uL (3.8-10.6)
[2021-08-27 12:32] LABS: Band Neutrophils % 2 %; Eosinophils # (M) 0.16 k/uL (0-0.7); Lymphocytes # (M) 1.55 k/uL (1.0-4.8); Metamyelocytes # (M) 0.31 k/uL (0); Metamyelocytes % 2 %; Monocytes # (M) 1.86 k/uL (0-1.0); Myelocytes # (M) 0.16 k/uL (0); Myelocytes % 1 %; Neutrophils % (M) 72 %; Nucleated Red Blood Cells 0 /100 WBC (0-0); Total Cells Counted 100
[2021-08-27 12:33] LABS: ALT 23 U/L (4-34); AST 81 U/L (14-36); African American GFR (CKD) >90 (>60 ml/min/1.73 sqM); Albumin 2.5 g/dL (3.5-5.0); Albumin/Globulin Ratio 0.7; Alkaline Phosphatase 305 U/L (38-126); Anion Gap 14 mmol/L; Blood Urea Nitrogen 19 mg/dL (7-17); Calcium 8.5 mg/dL (8.4-10.2); Carbon Dioxide 14 mmol/L (22-30); Chloride 107 mmol/L (98-107); Globulin 3.5 g/dL; Glucose 78 mg/dL (74-99); Magnesium 1.7 mg/dL (1.6-2.3); Non-African American GFR(CKD) >90 (>60 ml/min/1.73 sqM); Potassium 3.9 mmol/L (3.5-5.1); Sodium 135 mmol/L (137-145); Total Bilirubin 4.3 mg/dL (0.2-1.3)
--- NOTE | 2021-08-27 13:57 | P.PN ---
Subjective Progress Note Date: 08/27/21 CHIEF COMPLAINT: Right upper quadrant abdominal pain with liver lesions HISTORY OF PRESENT ILLNESS: Patient complains of right upper quadrant abdominal pain at biopsy site. She is status post biopsy of liver lesion. Her CEA is elevated at 6.3. She was found to have liver lesions on computed tomography scan of abdomen. Patient's liver biopsy shows hepatic parenchyma with abundant inflammation compatible with abscess. Current specimen nondiagnostic for malignancy. Negative for diagnostic features of cirrhosis. She has a prior history of sigmoid colectomy with end colostomy and drainage of pelvic abscess on 01/17/2021. Afebrile. WBC 15.5 hemoglobin 11.1 platelets 567 sodium 135 potassium 3.9 BUN 19 creatinine 0.58 total bilirubin 4.3 AST 81 ALT 23 and alk phos 305 ammonia 16 PHYSICAL EXAM: VITAL SIGNS: Reviewed. GENERAL: Well-developed in no acute distress. HEENT: No sclera icterus. Extraocular movements grossly intact. Moist buccal mucosa. Head is atraumatic, normocephalic. ABDOMEN: Soft. Abdominal distention with parastomal hernia. Incision site small 3mm hole expressing small serous drainage NEUROLOGIC: Alert and oriented. Cranial nerves II through XII grossly intact. ASSESSMENT: 1. Liver abscess. Patient's liver biopsy showing possible abscess and was nondiagnostic for malignancy. 2. Elevated CEA 3. Hyperbilirubinemia 4. Alcohol abuse 5. History of breast cancer status post lumpectomy and radiation therapy 6. History of pelvic abscess and colon obstruction status post sigmoid colectomy with end colostomy 7. Parastomal hernia PLAN: -Consult interventional radiology for drainage of liver abscess -Continue supportive care -Continue antibiotic Physician Ground Host/Hostess note has been reviewed by physician. Signing provider agrees with the documented findings, assessment, and plan of care. Objective - Vital Signs Vital signs: Vital Signs Temp 97.4 F L 08/27/21 11:38 Pulse 71 08/27/21 11:38 Resp 16 08/27/21 11:38 BP 123/77 08/27/21 11:38 Pulse Ox 99 08/27/21 11:38 Intake & Output 08/26/21 08/27/21 08/27/21 18:59 06:59 18:59 Intake Total 600 1240 Balance 600 1240 Weight 46.266 kg Intake: Intake, IV Titration 600 1000 Amount Piperacillin-Tazobactam 3 100 .375 gm In Sodium Chloride 0.9% 100 ml @ 25 mls/hr IVPB Q8HR [facility] Rx# :[id number] Sodium Chloride 0.9% 1, 600 900 000 ml @ 75 mls/hr IV . [id number] [facility] Rx#:[id number] Oral 240 Other: Voiding Method Toilet Toilet Toilet Diaper Diaper Incontinent Incontinent # Voids 3 1 - Labs CBC & Chem 7: 08/27/21 11:08 08/27/21 11:08 Labs: Abnormal Lab Results - Last 24 Hours (Table) 08/27/21 08/27/21 Range/Units 11:08 11:08 WBC 15.5 H (3.8-10.6) k/uL RBC 3.14 L (3.80-5.40) m/uL Hgb 11.1 L (11.4-16.0) gm/dL MCV 112.7 H (80.0-100.0) fL MCH 35.5 H (25.0-35.0) pg Plt Count 567 H (150-450) k/uL Neutrophils # 12.7 H (1.3-7.7) k/uL Neutrophils # (Manual) 11.40 H (1.3-7.7) k/uL Monocytes # (Manual) 1.86 H (0-1.0) k/uL Metamyelocytes # (Man) 0.31 H (0) k/uL Myelocytes # (Manual) 0.16 H (0) k/uL Macrocytosis Marked A Sodium 135 L (137-145) mmol/L Carbon Dioxide 14 L (22-30) mmol/L BUN 19 H (7-17) mg/dL Total Bilirubin 4.3 H (0.2-1.3) mg/dL AST 81 H (14-36) U/L Alkaline Phosphatase 305 H (38-126) U/L Total Protein 6.0 L (6.3-8.2) g/dL Albumin 2.5 L (3.5-5.0) g/dL Microbiology - Last 24 Hours (Table) 08/23/21 04:11 Blood Culture - Preliminary Blood No Growth after 96 hours
[2021-08-27] MEDS: MORPHINE SULFATE 4 MG/ML SYRINGE IVP PRN (14:58)
[2021-08-27] MEDS: SODIUM CHLORIDE 0.9% 1,000 ML IV SCH ×2 (14:58→20:04)
[2021-08-27] MEDS ORDERED: Magnesium Replacement Protocol 1 EACH MISC MISCELLANE PRN (15:51)
--- NOTE | 2021-08-27 16:00 | P.PN ---
Subjective Progress Note Date: 08/27/21 Sarah Kessler is a 56 yo F with PMH of breast cancer s/p lumpectomy in 2008, hx ruptured diverticulitis with colostomy approx 6 months ago, alcohol abuse who presented to the ED complaining of progressively worsening abdominal pain, weakness, chills. She states that ever since she had her ostomy she has been having some mild abdominal pain but recently has worsened. She complains that over the past month she has been having progressive generalized pain and early satiety. She has not followed with a physician for her breast cancer in years. She is a current daily drinker. On presentation pt tachycardic, WBC 19k, bilirubin 4.7, CEA elevated at 6.3. CT abd/pelvis showing multiple hepatic lesions, associated lymphadenopathy. 08/24/2021 evaluated by surgery with no surgical intervention recommended at this time. T bili increased to 5.7 AST increased to 122 alk phos decreased to 152. Oncology workup in progress. CA 27.29. Underwent liver biopsy yesterday, pathology pending. Positive abdominal pain, controlled with morphine. Tolerated procedure well. Afebrile, T-max 100.4, WBC increased to 23 ,preliminary bronchial cultures no growth at 24 hours.Pro-calcitonin elevated 1.63, Zosyn initiated. Sodium improving, 127, creatinine increased, 1.06. Maintained on CIWA protocol, no DTs. 08/27/2021 liver biopsy pathology pending.and complains of right upper quadrant pain. receiving morphine, Tylenol for pain control. maintained on Zosyn.. Afebrile, T-max 101.repeat blood cultures ordered.labs pending. Objective - Vital Signs Vital signs: Vital Signs Temp 97.4 F L 08/27/21 11:38 Pulse 71 08/27/21 11:38 Resp 16 08/27/21 11:38 BP 123/77 08/27/21 11:38 Pulse Ox 99 08/27/21 11:38 Intake & Output 08/26/21 08/27/21 08/27/21 18:59 06:59 18:59 Intake Total 600 1240 Balance 600 1240 Weight 46.266 kg Intake: Intake, IV Titration 600 1000 Amount Piperacillin-Tazobactam 3 100 .375 gm In Sodium Chloride 0.9% 100 ml @ 25 mls/hr IVPB Q8HR [facility] Rx# :[id number] Sodium Chloride 0.9% 1, 600 900 000 ml @ 75 mls/hr IV . [id number] [facility] Rx#:[id number] Oral 240 Other: Voiding Method Toilet Toilet Toilet Diaper Diaper Incontinent Incontinent # Voids 3 1 - Exam General: sitting up in bed,NAD. Vitals reviewed Eyes: PERRL, EOMI, conjunctiva normal HENT: normocephalic, mucus membranes moist Neck: supple, no JVD Lungs: normal respiratory effort, no wheezes or rales CV: Regular rate and rhythm, no murmur. Peripheral pulses 2+ Abdomen: soft, generalized tenderness. Distended, left-sided Ostomy present, ventral hernia.cellulitis near colostomy. Skin: warm and dry. Neuro: A&Ox3, normal mood and affect. - Labs CBC & Chem 7: 08/27/21 11:08 08/27/21 11:08 Labs: Abnormal Lab Results - Last 24 Hours (Table) 08/27/21 08/27/21 Range/Units 11:08 11:08 WBC 15.5 H (3.8-10.6) k/uL RBC 3.14 L (3.80-5.40) m/uL Hgb 11.1 L (11.4-16.0) gm/dL MCV 112.7 H (80.0-100.0) fL MCH 35.5 H (25.0-35.0) pg Plt Count 567 H (150-450) k/uL Neutrophils # 12.7 H (1.3-7.7) k/uL Neutrophils # (Manual) 11.40 H (1.3-7.7) k/uL Monocytes # (Manual) 1.86 H (0-1.0) k/uL Metamyelocytes # (Man) 0.31 H (0) k/uL Myelocytes # (Manual) 0.16 H (0) k/uL Macrocytosis Marked A Sodium 135 L (137-145) mmol/L Carbon Dioxide 14 L (22-30) mmol/L BUN 19 H (7-17) mg/dL Total Bilirubin 4.3 H (0.2-1.3) mg/dL AST 81 H (14-36) U/L Alkaline Phosphatase 305 H (38-126) U/L Total Protein 6.0 L (6.3-8.2) g/dL Albumin 2.5 L (3.5-5.0) g/dL Microbiology - Last 24 Hours (Table) 08/23/21 04:11 Blood Culture - Preliminary Blood No Growth after 96 hours Assessment and Plan Assessment: Abdominal pain with hepatic lesions, suspect metastatic cancer, status post liver biopsy, pathology pending Leukocytosis, pro-calcitonin 1.63 hyponatremia, improving Alcohol withdrawal Alcohol abuse, dependence Status post sigmoid colectomy with end colostomy and drainage of pelvic abscess 01/17/2021 History of breast cancer, status post lumpectomy and radiation therapy Elevated CEA Ongoing nicotine dependence Plan: Continue on current medication regime ,monitoring and symptomatic treatment. maintainZosyn. repeat blood cultures ordered. Liver biopsy pathology pending. PT OT,possible EZE at mi. Pain management. Prognosis guarded given multiple complex medical issues. The impression and plan of care has been dictated as directed. : I performed a history and examination of this patient, discussed the same with the dictator. I agree with the dictator's note ,documented as a scribe. Any additional findings or plans will be noted.
--- NOTE | 2021-08-27 18:47 | P.PN ---
Subjective Progress Note Date: 08/27/21 Principal diagnosis: Liver lesion Status post biopsy, non diagnostic results as abscess. Daughter at bedside, she is concerned by her lethargy. Total Bili worsening. Objective - Vital Signs Vital signs: Vital Signs Temp 97.4 F L 08/27/21 11:38 Pulse 71 08/27/21 11:38 Resp 16 08/27/21 11:38 BP 123/77 08/27/21 11:38 Pulse Ox 99 08/27/21 11:38 Intake & Output 08/26/21 08/27/21 08/27/21 18:59 06:59 18:59 Intake Total 600 1240 Balance 600 1240 Weight 46.266 kg Intake: Intake, IV Titration 600 1000 Amount Piperacillin-Tazobactam 3 100 .375 gm In Sodium Chloride 0.9% 100 ml @ 25 mls/hr IVPB Q8HR [facility] Rx# :[id number] Sodium Chloride 0.9% 1, 600 900 000 ml @ 75 mls/hr IV . [id number] [facility] Rx#:[id number] Oral 240 Other: Voiding Method Toilet Toilet Toilet Diaper Diaper Incontinent Incontinent # Voids 3 1 - Exam Alert and oriented Jaundice NAD Neck: Supple Lungs: CTA Abd: Soft, Ostomy Heart: RRR Ext: no - Labs CBC & Chem 7: 08/27/21 11:08 08/27/21 11:08 Labs: Abnormal Lab Results - Last 24 Hours (Table) 08/27/21 Range/Units 11:08 WBC 15.5 H (3.8-10.6) k/uL RBC 3.14 L (3.80-5.40) m/uL Hgb 11.1 L (11.4-16.0) gm/dL MCV 112.7 H (80.0-100.0) fL MCH 35.5 H (25.0-35.0) pg Plt Count 567 H (150-450) k/uL Macrocytosis Marked A Microbiology - Last 24 Hours (Table) 08/23/21 04:11 Blood Culture - Preliminary Blood No Growth after 96 hours Assessment and Plan (1) HX: breast cancer Current Visit: Yes Status: Acute Code(s): Z85.3 - PERSONAL HISTORY OF MALIGNANT NEOPLASM OF BREAST SNOMED Code(s): 213211748 (2) Hyperbilirubinemia Current Visit: Yes Status: Acute Code(s): E80.6 - OTHER DISORDERS OF BILIRUBIN METABOLISM SNOMED Code(s): 65307061 (3) Liver mass Current Visit: Yes Status: Acute Code(s): R16.0 - HEPATOMEGALY, NOT ELSE WHERE CLASSIFIED SNOMED Code(s): 646600298 (4) Neoplasm of sigmoid colon Current Visit: No Status: Acute Code(s): D49.0 - NEOPLASM OF UNSPECIFIED BEHAVIOR OF DIGESTIVE SYSTEM SNOMED Code(s): 690209068 (5) Pelvic abscess Current Visit: No Status: Acute Code(s): VID0679 - SNOMED Code(s): 270358714 Plan: Breast Cancer tumor markers are not significantly elevated She is status post liver biiopsy - infectious abscess on zosyn Recommend Genetic testing if not performed to date (can be done as outpatient) She has a known history of tobacco and ETOH abuse. Pathology is non-diagnostic, abscess IR to reassess Increased lethargy and increased encephalopathy - Repeat Blood Cultures. Will further discuss if options of additional tissue samples
[2021-08-28] MEDS: PIPERACILLIN-TAZOBACTAM 3.375 GM in SODIUM CHLORIDE 0.9% 100 ML IVPB SCH ×3 (00:11→16:24)
[2021-08-28] MEDS: MAGNESIUM SULFATE-D5W PMX 1 GM in DEXTROSE/WATER 1 100ML.BAG IVPB SCH ×2 (05:38→07:02)
[2021-08-28 08:34] LABS: ALT 19 U/L (4-34); AST 69 U/L (14-36); African American GFR (CKD) >90 (>60 ml/min/1.73 sqM); Albumin 2.1 g/dL (3.5-5.0); Albumin/Globulin Ratio 0.7; Alkaline Phosphatase 275 U/L (38-126); Anion Gap 13 mmol/L; Blood Urea Nitrogen 17 mg/dL (7-17); Calcium 7.9 mg/dL (8.4-10.2); Carbon Dioxide 11 mmol/L (22-30); Chloride 109 mmol/L (98-107); Globulin 3.1 g/dL; Glucose 92 mg/dL (74-99); Non-African American GFR(CKD) >90 (>60 ml/min/1.73 sqM); Sodium 133 mmol/L (137-145); Total Bilirubin 2.7 mg/dL (0.2-1.3); Total Protein 5.2 g/dL (6.3-8.2)
[2021-08-28 08:42] LABS: HCT 30.9 % (34.0-46.0); HGB 9.9 gm/dL (11.4-16.0); MCH 34.9 pg (25.0-35.0); MCV 108.8 fL (80.0-100.0); Macrocytosis Marked; Mean Platelet Volume 11.1; RBC 2.84 m/uL (3.80-5.40); RDW 13.5 % (11.5-15.5); WBC 15.3 k/uL (3.8-10.6)
[2021-08-28 09:02] LABS: Potassium 3.7 mmol/L (3.5-5.1)
[2021-08-28 09:14] LABS: Band Neutrophils % 7 %; Lymphocytes # (M) 1.07 k/uL (1.0-4.8); Metamyelocytes # (M) 0.61 k/uL (0); Metamyelocytes % 4 %; Monocytes # (M) 1.22 k/uL (0-1.0); Myelocytes # (M) 0.77 k/uL (0); Myelocytes % 5 %; Neutrophils % (M) 72 %; Nucleated Red Blood Cells 0 /100 WBC (0-0); Total Cells Counted 200
[2021-08-28 09:18] LABS: Platelet Count 308 k/uL (150-450)
[2021-08-28] MEDS: THIAMINE 100 MG TAB PO SCH ×2 (09:20→16:26)
[2021-08-28] MEDS: METOPROLOL TARTRATE 50 MG TAB PO SCH ×2 (09:20→19:44)
[2021-08-28] MEDS: SERTRALINE 50 MG TAB PO SCH (09:20)
[2021-08-28] MEDS: PANTOPRAZOLE 40 MG/10 ML VIAL IVP SCH (09:20)
[2021-08-28 09:21] LABS: Toxic Granulation Present
[2021-08-28] MEDS ORDERED: Potassium Replacement Protocol 1 EACH MISC MISCELLANE PRN (12:40)
--- NOTE | 2021-08-28 12:46 | P.PN ---
Subjective Progress Note Date: 08/28/21 Sarah Kessler is a 56 yo F with PMH of breast cancer s/p lumpectomy in 2008, hx ruptured diverticulitis with colostomy approx 6 months ago, alcohol abuse who presented to the ED complaining of progressively worsening abdominal pain, weakness, chills. She states that ever since she had her ostomy she has been having some mild abdominal pain but recently has worsened. She complains that over the past month she has been having progressive generalized pain and early satiety. She has not followed with a physician for her breast cancer in years. She is a current daily drinker. On presentation pt tachycardic, WBC 19k, bilirubin 4.7, CEA elevated at 6.3. CT abd/pelvis showing multiple hepatic lesions, associated lymphadenopathy. 08/24/2021 evaluated by surgery with no surgical intervention recommended at this time. T bili increased to 5.7 AST increased to 122 alk phos decreased to 152. Oncology workup in progress. CA 27.29. Underwent liver biopsy yesterday, pathology pending. Positive abdominal pain, controlled with morphine. Tolerated procedure well. Afebrile, T-max 100.4, WBC increased to 23 ,preliminary bronchial cultures no growth at 24 hours.Pro-calcitonin elevated 1.63, Zosyn initiated. Sodium improving, 127, creatinine increased, 1.06. Maintained on CIWA protocol, no DTs. 08/25/2021 Pathology pending from liver biopsy. Patient still receiving morphine for pain management. She remains on Zosyn. Labs today show white count 16.5, hemoglobin 9.2. Her chemistry panel still pending from today. Vital signs today include a temp of 98.7 oral, heart rate 110, blood pressure 109/73. She is 96% on room air. She is resting comfortably in the bed able to eat and drink. She has no a cute complaints today. No signs of acute alcohol withdrawal. 08/26/2021 Pathology still pending from liver biopsy. Labs today show a hemoglobin of 9. Sodium improving to 130. Potassium 3.7, CO2 15.7, AST trending down to 79, Alk Phos remains elevated. Continue with current diet from surgical recommendations. Oncology is recommending genetic testing to be done on an outpatient basis. Patient still complaining of some chronic pain. Pain medication with Tylenol and morphine. We added a PT/OT consultation today to start working towards discharge planning. Last drink 6 days ago there've been no signs of acute alcohol withdrawal. Afebrile currently, T-max 101 last 24 hours. Blood pressure 127/80. Room air. 08/28/2021 Patient is evaluated today sitting in chair. She is quite sleepy and states that she just does not have energy. She reports abdominal pain and states that this is chronic for her. There is a colostomy present in the left lower quadrant. Liver biopsy completed shows hepatic parenchyma with abundant inflammation compatible with abscess. There is hepatic steatosis with findings of acute and chronic inflammation of the liver. This is nondiagnostic for malignancy and negative for diagnostic features of cirrhosis. White count today is 15.3, hemoglobin 9.9. Sodium level is 133, potassium 3.7, chloride 109, CO2 11, magnesium 1.6, total bili is 2.7, alk phos 275, albumin low at 2.1. AST is elevated. Blood pressure 128/79, afebrile. Interventional radiology was consulted for drainage of what appears to be liver abscess. Discharge pending with PT including subacute rehab versus home with home care if she is able to achieve PT goals. ROS Constitutional: Denied any fatigue denied any fever. Cardio vascular: denied any chest pain, palpitations Gastrointestinal denied any nausea vomiting Pulmonary: Denied any shortness of breath cough Neurologic denied any new focal deficits All inpatient medications were reviewed and appropriate changes in these med ications as dictated in the interval history and assessment and plan. Objective - Vital Signs Vital signs: Vital Signs Temp 99 F 08/28/21 05:35 Pulse 80 08/28/21 09:19 Resp 16 08/28/21 05:35 BP 130/84 08/28/21 09:19 Pulse Ox 96 08/28/21 05:35 Intake & Output 08/27/21 08/28/21 08/28/21 18:59 06:59 18:59 Intake Total 1100 1160 Balance 1100 1160 Weight 46.266 kg Intake: Intake, IV Titration 1100 800 Amount Magnesium Sulfate-D5w Pmx 100 1 gm In Dextrose/Water 1 100ml.bag @ 100 mls/hr IVPB Q1H [facility] Rx#: [id number] Piperacillin-Tazobactam 3 200 100 .375 gm In Sodium Chloride 0.9% 100 ml @ 25 mls/hr IVPB Q8HR [facility] Rx# :[id number] Sodium Chloride 0.9% 1, 900 600 000 ml @ 75 mls/hr IV . [id number] [facility] Rx#:[id number] Oral 360 Other: Voiding Method Toilet Toilet Toilet Diaper Diaper Diaper Incontinent Incontinent Incontinent # Voids 1 1 - Exam PHYSICAL EXAMINATION: GENERAL: The patient is alert and oriented x3, not in any acute distress. Well developed. HEENT: Pupils are round and equally reacting to light. EOMI. No scleral icterus. No conjunctival pallor. Normocephalic, atraumatic. No pharyngeal erythema. No th yromegaly. CARDIOVASCULAR: S1 and S2 present. No murmurs, rubs, or gallops. PULMONARY: Chest is clear to auscultation, no wheezing or crackles. ABDOMEN: Soft, nontender, normoactive bowel sounds. There is a stoma present in the left lower quadrant with distention of the lower abdomen MUSCULOSKELETAL: No joint swelling or deformity. EXTREMITIES: No cyanosis, clubbing, or pedal edema. NEUROLOGICAL: Gross neurological examination did not reveal any focal deficits. SKIN: No rashes. - Labs CBC & Chem 7: 08/28/21 04:01 08/28/21 04:01 Labs: Abnormal Lab Results - Last 24 Hours (Table) 08/27/21 08/27/21 08/28/21 Range/Units 11:08 11:08 04:01 WBC 15.5 H 15.3 H (3.8-10.6) k/uL RBC 3.14 L 2.84 L (3.80-5.40) m/uL Hgb 11.1 L 9.9 L (11.4-16.0) gm/dL Hct 30.9 L (34.0-46.0) % MCV 112.7 H 108.8 H (80.0-100.0) fL MCH 35.5 H (25.0-35.0) pg Plt Count 567 H (150-450) k/uL Neutrophils # 12.7 H (1.3-7.7) k/uL Neutrophils # (Manual) 11.40 H 12.00 H (1.3-7.7) k/uL Monocytes # (Manual) 1.86 H 1.22 H (0-1.0) k/uL Metamyelocytes # (Man) 0.31 H 0.61 H (0) k/uL Myelocytes # (Manual) 0.16 H 0.77 H (0) k/uL Macrocytosis Marked A Marked A Sodium 135 L (137-145) mmol/L Chloride (98-107) mmol/L Carbon Dioxide 14 L (22-30) mmol/L BUN 19 H (7-17) mg/dL Creatinine (0.52-1.04) mg/dL Calcium (8.4-10.2) mg/dL Total Bilirubin 4.3 H (0.2-1.3) mg/dL AST 81 H (14-36) U/L Alkaline Phosphatase 305 H (38-126) U/L Total Protein 6.0 L (6.3-8.2) g/dL Albumin 2.5 L (3.5-5.0) g/dL 08/28/21 Range/Units 04:01 WBC (3.8-10.6) k/uL RBC (3.80-5.40) m/uL Hgb (11.4-16.0) gm/dL Hct (34.0-46.0) % MCV (80.0-100.0) fL MCH (25.0-35.0) pg Plt Count (150-450) k/uL Neutrophils # (1.3-7.7) k/uL Neutrophils # (Manual) (1.3-7.7) k/uL Monocytes # (Manual) (0-1.0) k/uL Metamyelocytes # (Man) (0) k/uL Myelocytes # (Manual) (0) k/uL Macrocytosis Sodium 133 L (137-145) mmol/L Chloride 109 H (98-107) mmol/L Carbon Dioxide 11 L (22-30) mmol/L BUN (7-17) mg/dL Creatinine 0.51 L (0.52-1.04) mg/dL Calcium 7.9 L (8.4-10.2) mg/dL Total Bilirubin 2.7 H (0.2-1.3) mg/dL AST 69 H (14-36) U/L Alkaline Phosphatase 275 H (38-126) U/L Total Protein 5.2 L (6.3-8.2) g/dL Albumin 2.1 L (3.5-5.0) g/dL Microbiology - Last 24 Hours (Table) 08/23/21 04:11 Blood Culture - Preliminary Blood No Growth after 120 hours Assessment and Plan Assessment: Abdominal pain with hepatic lesions, pathology nondiagnostic for cancer or cirrhosis Possible liver abscess, white count 15.3 Leukocytosis, improved on initial, now elevated to 15, most likely reactive to the liver biopsy Alcohol withdrawal, Ativan has not been given since August 24. Hyponatremia most likely hypovolemic due to deyhdration and poor oral intake, continue with IV fluids Hypomagnesemia, probably chronic related to chronic alcohol abuse as well as decreased oral intake Status post sigmoid colectomy with end colostomy and drainage of pelvic abscess 01/17/2021 History of breast cancer, status post lumpectomy and radiation therapy History of colon cancer status post sigmoid colectomy with colostomy Elevated CEA Ongoing nicotine dependence Alcohol abuse, dependence Plan: Plan: Continue on current medication regime monitoring and symptomatic treatment IV Zosyn IV fluids Liver biopsy pathology complete Interventional radiology consultation for liver drainage of possible abscess Pain Management CIWA, monitor for acute alcohol withdrawal PT OT consult GI prophylaxis Protonix Time with Patient: Greater than 30
[2021-08-28] MEDS ORDERED: POTASSIUM CHLORIDE ER 20 MEQ TAB.ER PO SCH (13:00)
[2021-08-28] MEDS: SODIUM CHLORIDE 0.9% 1,000 ML IV SCH (14:34)
--- NOTE | 2021-08-28 15:06 | P.PN ---
Subjective Progress Note Date: 08/28/21 CHIEF COMPLAINT: Right upper quadrant abdominal pain with liver lesions HISTORY OF PRESENT ILLNESS: Patient complains of right upper quadrant abdominal pain at biopsy site. She is status post biopsy of liver lesion. Her CEA is elevated at 6.3. She was found to have liver lesions on computed tomography scan of abdomen. Patient's liver biopsy shows hepatic parenchyma with abundant inflammation compatible with abscess. Current specimen nondiagnostic for malignancy. Negative for diagnostic features of cirrhosis. Patient evaluated by interventional radiology and no evidence of a drainable abscess. Patient is on antibiotics. Afebrile WBC 15.3 hemoglobin 9.9 total bilirubin down from 4.3- 2.7 LFTs trending downwards PHYSICAL EXAM: VITAL SIGNS: Reviewed. GENERAL: Well-developed in no acute distress. HEENT: No sclera icterus. Extraocular movements grossly intact. Moist buccal mucosa. Head is atraumatic, normocephalic. ABDOMEN: Soft. Abdominal distention with parastomal hernia. Ostomy functioning NEUROLOGIC: Alert and oriented. Cranial nerves II through XII grossly intact. ASSESSMENT: 1. Liver abscess 2. Elevated CEA 3. Hyperbilirubinemia 4. Alcohol abuse 5. History of breast cancer status post lumpectomy and radiation therapy 6. History of pelvic abscess and colon obstruction status post sigmoid colectomy with end colostomy 7. Parastomal hernia PLAN: -Continue supportive care -Continue antibiotic -No surgical intervention planned Physician Strip Feeder note has been reviewed by physician. Signing provider agrees with the documented findings, assessment, and plan of care. Objective - Vital Signs Vital signs: Vital Signs Temp 98.9 F 08/28/21 11:42 Pulse 88 08/28/21 11:42 Resp 18 08/28/21 11:42 BP 128/79 08/28/21 11:42 Pulse Ox 96 08/28/21 11:42 Intake & Output 08/27/21 08/28/21 08/28/21 18:59 06:59 18:59 Intake Total 1100 1160 Balance 1100 1160 Weight 46.266 kg Intake: Intake, IV Titration 1100 800 Amount Magnesium Sulfate-D5w Pmx 100 1 gm In Dextrose/Water 1 100ml.bag @ 100 mls/hr IVPB Q1H [facility] Rx#: [id number] Piperacillin-Tazobactam 3 200 100 .375 gm In Sodium Chloride 0.9% 100 ml @ 25 mls/hr IVPB Q8HR [facility] Rx# :[id number] Sodium Chloride 0.9% 1, 900 600 000 ml @ 75 mls/hr IV . [id number] [facility] Rx#:[id number] Oral 360 Other: Voiding Method Toilet Toilet Toilet Diaper Diaper Diaper Incontinent Incontinent Incontinent # Voids 1 1 - Labs CBC & Chem 7: 08/28/21 04:01 08/28/21 04:01 Labs: Abnormal Lab Results - Last 24 Hours (Table) 08/28/21 08/28/21 Range/Units 04:01 04:01 WBC 15.3 H (3.8-10.6) k/uL RBC 2.84 L (3.80-5.40) m/uL Hgb 9.9 L (11.4-16.0) gm/dL Hct 30.9 L (34.0-46.0) % MCV 108.8 H (80.0-100.0) fL Neutrophils # (Manual) 12.00 H (1.3-7.7) k/uL Monocytes # (Manual) 1.22 H (0-1.0) k/uL Metamyelocytes # (Man) 0.61 H (0) k/uL Myelocytes # (Manual) 0.77 H (0) k/uL Macrocytosis Marked A Sodium 133 L (137-145) mmol/L Chloride 109 H (98-107) mmol/L Carbon Dioxide 11 L (22-30) mmol/L Creatinine 0.51 L (0.52-1.04) mg/dL Calcium 7.9 L (8.4-10.2) mg/dL Total Bilirubin 2.7 H (0.2-1.3) mg/dL AST 69 H (14-36) U/L Alkaline Phosphatase 275 H (38-126) U/L Total Protein 5.2 L (6.3-8.2) g/dL Albumin 2.1 L (3.5-5.0) g/dL Microbiology - Last 24 Hours (Table) 08/23/21 04:11 Blood Culture - Preliminary Blood No Growth after 120 hours
[2021-08-28] MEDS: MORPHINE SULFATE 4 MG/ML SYRINGE IVP PRN (19:44)
[2021-08-29] MEDS: SODIUM CHLORIDE 0.9% 1,000 ML IV SCH (00:16)
[2021-08-29] MEDS: PIPERACILLIN-TAZOBACTAM 3.375 GM in SODIUM CHLORIDE 0.9% 100 ML IVPB SCH ×4 (00:16→22:53)
[2021-08-29 07:24] LABS: African American GFR (CKD) >90 (>60 ml/min/1.73 sqM); Anion Gap 8 mmol/L; Blood Urea Nitrogen 11 mg/dL (7-17); Calcium 7.7 mg/dL (8.4-10.2); Carbon Dioxide 18 mmol/L (22-30); Chloride 108 mmol/L (98-107); Glucose 91 mg/dL (74-99); Magnesium 1.8 mg/dL (1.6-2.3); Non-African American GFR(CKD) >90 (>60 ml/min/1.73 sqM); Potassium 3.4 mmol/L (3.5-5.1); Sodium 134 mmol/L (137-145)
[2021-08-29 07:44] LABS: HCT 29.2 % (34.0-46.0); HGB 9.1 gm/dL (11.4-16.0); MCH 34.7 pg (25.0-35.0); MCHC 31.3 g/dL (31.0-37.0); Macrocytosis Marked; Mean Platelet Volume 8.5; Platelet Count 529 k/uL (150-450); RBC 2.63 m/uL (3.80-5.40); RDW 13.1 % (11.5-15.5); WBC 14.5 k/uL (3.8-10.6)
[2021-08-29 09:13] LABS: Band Neutrophils % 4 %; Lymphocytes # (M) 1.16 k/uL (1.0-4.8); Metamyelocytes # (M) 0.29 k/uL (0); Metamyelocytes % 2 %; Monocytes # (M) 1.02 k/uL (0-1.0); Myelocytes # (M) 0.73 k/uL (0); Myelocytes % 5 %; Neutrophils % (M) 75 %; Nucleated Red Blood Cells 0 /100 WBC (0-0); Total Cells Counted 200
[2021-08-29] MEDS: SERTRALINE 50 MG TAB PO SCH (09:43)
[2021-08-29] MEDS: METOPROLOL TARTRATE 50 MG TAB PO SCH ×2 (09:43→19:36)
[2021-08-29] MEDS: PANTOPRAZOLE 40 MG/10 ML VIAL IVP SCH (09:43)
[2021-08-29] MEDS: THIAMINE 100 MG TAB PO SCH ×2 (09:43→18:22)
[2021-08-29] MEDS: MAGNESIUM SULFATE-D5W PMX 1 GM in DEXTROSE/WATER 1 100ML.BAG IVPB SCH ×2 (10:01→14:16)
[2021-08-29] MEDS: POTASSIUM CHLORIDE ER 20 MEQ TAB.ER PO SCH ×2 (10:02→13:45)
--- NOTE | 2021-08-29 15:26 | P.PN ---
Subjective Progress Note Date: 08/29/21 CHIEF COMPLAINT: Right upper quadrant abdominal pain with liver lesions HISTORY OF PRESENT ILLNESS: Patient complains of the same pain at right upper quadrant abdominal pain at biopsy site. She is status post biopsy of liver lesion. Her CEA is elevated at 6.3. She was found to have liver lesions on com puted tomography scan of abdomen. Patient's liver biopsy shows hepatic parenchyma with abundant inflammation compatible with abscess. Current specimen nondiagnostic for malignancy. Negative for diagnostic features of cirrhosis. Patient evaluated by interventional radiology and no evidence of a drainable abscess. Patient is on antibiotics. Afebrile WBC is down from 15.3-14.5 hemoglobin 9.1 LFTs have been trending downwards Patient seen and examined with Dr. servin PHYSICAL EXAM: VITAL SIGNS: Reviewed. GENERAL: Well-developed in no acute distress. HEENT: No sclera icterus. Extraocular movements grossly intact. Moist buccal mucosa. Head is atraumatic, normocephalic. ABDOMEN: Soft. Abdominal distention with parastomal hernia. Ostomy functioning. Tenderness to palpation right upper quadrant NEUROLOGIC: Alert and oriented. Cranial nerves II through XII grossly intact. ASSESSMENT: 1. Liver abscess 2. Elevated CEA 3. Hyperbilirubinemia 4. Alcohol abuse 5. History of breast cancer status post lumpectomy and radiation therapy 6. History of pelvic abscess and colon obstruction status post sigmoid colectomy with end colostomy 7. Parastomal hernia PLAN: -Continue supportive care -Continue antibiotic -Consult infectious disease for further antibiotic recommendations for liver abscess -No surgical intervention planned -Parastomal hernia will be repaired at a later date after her liver abscess has healed Physician [employer] Operator note has been reviewed by physician. Signing provider agrees with the documented findings, assessment, and plan of care. Objective - Vital Signs Vital signs: Vital Signs Temp 98.2 F 08/29/21 12:50 Pulse 70 08/29/21 12:50 Resp 20 08/29/21 12:50 BP 143/72 08/29/21 12:50 Pulse Ox 95 08/29/21 12:50 Intake & Output 08/28/21 08/29/21 08/29/21 18:59 06:59 18:59 Intake Total 1300 1460 Balance 1300 1460 Intake: Intake, IV Titration 1300 1100 Amount Magnesium Sulfate-D5w Pmx 200 1 gm In Dextrose/Water 1 100ml.bag @ 100 mls/hr IVPB Q1H [facility] Rx#: [id number] Piperacillin-Tazobactam 3 200 200 .375 gm In Sodium Chloride 0.9% 100 ml @ 25 mls/hr IVPB Q8HR [facility] Rx# :[id number] Sodium Chloride 0.9% 1, 900 900 000 ml @ 75 mls/hr IV . [id number] [facility] Rx#:[id number] Oral 360 Other: Voiding Method Toilet Toilet Toilet Diaper Diaper Diaper Incontinent Incontinent # Voids 3 1 # Bowel Movements 2 - Labs CBC & Chem 7: 08/29/21 06:39 08/29/21 06:39 Labs: Abnormal Lab Results - Last 24 Hours (Table) 08/29/21 08/29/21 Range/Units 06:39 06:39 WBC 14.5 H (3.8-10.6) k/uL RBC 2.63 L (3.80-5.40) m/uL Hgb 9.1 L (11.4-16.0) gm/dL Hct 29.2 L (34.0-46.0) % MCV 111.0 H (80.0-100.0) fL Plt Count 529 H (150-450) k/uL Neutrophils # (Manual) 11.40 H (1.3-7.7) k/uL Monocytes # (Manual) 1.02 H (0-1.0) k/uL Metamyelocytes # (Man) 0.29 H (0) k/uL Myelocytes # (Manual) 0.73 H (0) k/uL Macrocytosis Marked A Sodium 134 L (137-145) mmol/L Potassium 3.4 L (3.5-5.1) mmol/L Chloride 108 H (98-107) mmol/L Carbon Dioxide 18 L (22-30) mmol/L Creatinine 0.50 L (0.52-1.04) mg/dL Calcium 7.7 L (8.4-10.2) mg/dL Microbiology - Last 24 Hours (Table) 08/23/21 04:11 Blood Culture - Final Blood No Growth after 144 hours 08/27/21 19:49 Blood Culture - Preliminary Blood No Growth after 24 hours 08/27/21 19:42 Blood Culture - Preliminary Blood No Growth after 24 hours
--- NOTE | 2021-08-29 16:48 | P.PN ---
Subjective Progress Note Date: 08/29/21 Principal diagnosis: Liver lesion She is doing better today, no acute complaints. Objective - Vital Signs Vital signs: Vital Signs Temp 97.6 F 08/29/21 05:00 Pulse 97 08/29/21 05:00 Resp 16 08/29/21 05:00 BP 148/85 08/29/21 05:00 Pulse Ox 94 L 08/29/21 05:00 Intake & Output 08/28/21 08/29/21 08/29/21 18:59 06:59 18:59 Intake Total 1300 1460 Balance 1300 1460 Intake: Intake, IV Titration 1300 1100 Amount Magnesium Sulfate-D5w Pmx 200 1 gm In Dextrose/Water 1 100ml.bag @ 100 mls/hr IVPB Q1H [facility] Rx#: [id number] Piperacillin-Tazobactam 3 200 200 .375 gm In Sodium Chloride 0.9% 100 ml @ 25 mls/hr IVPB Q8HR [facility] Rx# :[id number] Sodium Chloride 0.9% 1, 900 900 000 ml @ 75 mls/hr IV . [id number] [facility] Rx#:[id number] Oral 360 Other: Voiding Method Toilet Toilet Diaper Diaper Incontinent Incontinent # Voids 3 1 # Bowel Movements 2 - Exam Alert and oriented Jaundice NAD Neck: Supple Lungs: CTA Abd: Soft, Ostomy Heart: RRR Ext: no - Labs CBC & Chem 7: 08/29/21 06:39 08/29/21 06:39 Labs: Abnormal Lab Results - Last 24 Hours (Table) 08/28/21 08/29/21 08/29/21 Range/Units 04:01 06:39 06:39 WBC 14.5 H (3.8-10.6) k/uL RBC 2.63 L (3.80-5.40) m/uL Hgb 9.1 L (11.4-16.0) gm/dL Hct 29.2 L (34.0-46.0) % MCV 111.0 H (80.0-100.0) fL Plt Count 529 H (150-450) k/uL Neutrophils # (Manual) 12.00 H (1.3-7.7) k/uL Monocytes # (Manual) 1.22 H (0-1.0) k/uL Metamyelocytes # (Man) 0.61 H (0) k/uL Myelocytes # (Manual) 0.77 H (0) k/uL Macrocytosis Marked A Sodium 134 L (137-145) mmol/L Potassium 3.4 L (3.5-5.1) mmol/L Chloride 108 H (98-107) mmol/L Carbon Dioxide 18 L (22-30) mmol/L Creatinine 0.50 L (0.52-1.04) mg/dL Calcium 7.7 L (8.4-10.2) mg/dL Microbiology - Last 24 Hours (Table) 08/23/21 04:11 Blood Culture - Final Blood No Growth after 144 hours 08/27/21 19:49 Blood Culture - Preliminary Blood No Growth after 24 hours 08/27/21 19:42 Blood Culture - Preliminary Blood No Growth after 24 hours Assessment and Plan (1) HX: breast cancer Current Visit: Yes Status: Acute Code(s): Z85.3 - PERSONAL HISTORY OF MALIGNANT NEOPLASM OF BREAST SNOMED Code(s): 518322837 (2) Hyperbilirubinemia Current Visit: Yes Status: Acute Code(s): E80.6 - OTHER DISORDERS OF BILIRUBIN METABOLISM SNOMED Code(s): 13759043 (3) Liver mass Current Visit: Yes Status: Acute Code(s): R16.0 - HEPATOMEGALY, NOT ELSEWH ERE CLASSIFIED SNOMED Code(s): 770329444 (4) Neoplasm of sigmoid colon Current Visit: No Status: Acute Code(s): D49.0 - NEOPLASM OF UNSPECIFIED BEHAVIOR OF DIGESTIVE SYSTEM SNOMED Code(s): 199370022 (5) Pelvic abscess Current Visit: No Status: Acute Code(s): DYT3901 - SNOMED Code(s): 676152545 Plan: Breast Cancer tumor markers are not significantly elevated She is status post liver biiopsy - infectious abscess on zosyn Recommend Genetic testing if not performed to date (can be done as outpatient) She has a known history of tobacco and ETOH abuse. Defer management of abscess to other specialities.
[2021-08-29] MEDS: MORPHINE SULFATE 4 MG/ML SYRINGE IVP PRN ×2 (17:15→22:53)
[2021-08-29] MEDS: ACETAMINOPHEN TAB 325 MG TAB PO PRN (19:18)
--- NOTE | 2021-08-29 22:24 | P.PN ---
Subjective Progress Note Date: 08/29/21 Sarah Kessler is a 56 yo F with PMH of breast cancer s/p lumpectomy in 2008, hx ruptured diverticulitis with colostomy approx 6 months ago, alcohol abuse who presented to the ED complaining of progressively worsening abdominal pain, weakness, chills. She states that ever since she had her ostomy she has been having some mild abdominal pain but recently has worsened. She complains that over the past month she has been having progressive generalized pain and early satiety. She has not followed with a physician for her breast cancer in years. She is a current daily drinker. On presentation pt tachycardic, WBC 19k, bilirubin 4.7, CEA elevated at 6.3. CT abd/pelvis showing multiple hepatic lesions, associated lymphadenopathy. 08/24/2021 evaluated by surgery with no surgical intervention recommended at this time. T bili increased to 5.7 AST increased to 122 alk phos decreased to 152. Oncology workup in progress. CA 27.29. Underwent liver biopsy yesterday, pathology pending. Positive abdominal pain, controlled with morphine. Tolerated procedure well. Afebrile, T-max 100.4, WBC increased to 23 ,preliminary bronchial cultures no growth at 24 hours.Pro-calcitonin elevated 1.63, Zosyn initiated. Sodium improving, 127, creatinine increased, 1.06. Maintained on CIWA protocol, no DTs. 08/25/2021 Pathology pending from liver biopsy. Patient still receiving morphine for pain management. She remains on Zosyn. Labs today show white count 16.5, hemoglobin 9.2. Her chemistry panel still pending from today. Vital signs today include a temp of 98.7 oral, heart rate 110, blood pressure 109/73. She is 96% on room air. She is resting comfortably in the bed able to eat and drink. She has no a cute complaints today. No signs of acute alcohol withdrawal. 08/26/2021 Pathology still pending from liver biopsy. Labs today show a hemoglobin of 9. Sodium improving to 130. Potassium 3.7, CO2 15.7, AST trending down to 79, Alk Phos remains elevated. Continue with current diet from surgical recommendations. Oncology is recommending genetic testing to be done on an outpatient basis. Patient still complaining of some chronic pain. Pain medication with Tylenol and morphine. We added a PT/OT consultation today to start working towards discharge planning. Last drink 6 days ago there've been no signs of acute alcohol withdrawal. Afebrile currently, T-max 101 last 24 hours. Blood pressure 127/80. Room air. 08/28/2021 Patient is evaluated today sitting in chair. She is quite sleepy and states that she just does not have energy. She reports abdominal pain and states that this is chronic for her. There is a colostomy present in the left lower quadrant. Liver biopsy completed shows hepatic parenchyma with abundant inflammation compatible with abscess. There is hepatic steatosis with findings of acute and chronic inflammation of the liver. This is nondiagnostic for malignancy and negative for diagnostic features of cirrhosis. White count today is 15.3, hemoglobin 9.9. Sodium level is 133, potassium 3.7, chloride 109, CO2 11, magnesium 1.6, total bili is 2.7, alk phos 275, albumin low at 2.1. AST is elevated. Blood pressure 128/79, afebrile. Interventional radiology was consulted for drainage of what appears to be liver abscess. Discharge pending with PT including subacute rehab versus home with home care if she is able to achieve PT goals. 08/29/2021 Patient is resting in the bed. She is currently denying any pain, her colostomy was changed yesterday. Labs today show white count of 14.5, hemoglobin 9.1. Her sodium levels 134, potassium 3.4, chloride 108 and CO2 18, mag 1.8. Patient is afebrile, heart rate 97 sinus rhythm, blood pressure 148/85. She is 94% on room air. There is no plan for surgical intervention at this time for liver abscess. Infectious disease was consulted for antibiotic recommendations and we will begin discharge planning. Pt is following along with PT and OT who are currently recommending home with home care vs. subacute rehab pending clinical course. ROS Constitutional: Denied any fatigue denied any fever. Cardio vascular: denied any chest pain, palpitations Gastrointestinal denied any nausea vomiting Pulmonary: Denied any shortness of breath cough Neurologic denied any new focal deficits All inpatient medications were reviewed and appropriate changes in these medications as dictated in the interval history and assessment and plan. Objective - Vital Signs Vital signs: Vital Signs Temp 97.6 F 08/29/21 05:00 Pulse 97 08/29/21 05:00 Resp 16 08/29/21 05:00 BP 148/85 08/29/21 05:00 Pulse Ox 94 L 08/29/21 05:00 Intake & Output 08/28/21 08/29/21 08/29/21 18:59 06:59 18:59 Intake Total 1300 1460 Balance 1300 1460 Intake: Intake, IV Titration 1300 1100 Amount Magnesium Sulfate-D5w Pmx 200 1 gm In Dextrose/Water 1 100ml.bag @ 100 mls/hr IVPB Q1H [facility] Rx#: [id number] Piperacillin-Tazobactam 3 200 200 .375 gm In Sodium Chloride 0.9% 100 ml @ 25 mls/hr IVPB Q8HR [facility] Rx# :[id number] Sodium Chloride 0.9% 1, 900 900 000 ml @ 75 mls/hr IV . [id number] [facility] Rx#:[id number] Oral 360 Other: Voiding Method Toilet Toilet Diaper Diaper Incontinent Incontinent # Voids 3 1 # Bowel Movements 2 - Exam PHYSICAL EXAMINATION: GENERAL: The patient is alert and oriented x3, not in any acute distress. Well developed. HEENT: Pupils are round and equally reacting to light. EOMI. No scleral icterus. No conjunctival pallor. Normocephalic, atraumatic. No pharyngeal erythema. No thyromegaly. CARDIOVASCULAR: S1 and S2 present. No murmurs, rubs, or gallops. PULMONARY: Chest is clear to auscultation, no wheezing or crackles. ABDOMEN: Soft, nontender, normoactive bowel sounds. There is a stoma present in the left lower quadrant with distention of the lower abdomen MUSCULOSKELETAL: No joint swelling or deformity. EXTREMITIES: No cyanosis, clubbing, or pedal edema. NEUROLOGICAL: Gross neurological examination did not reveal any focal deficits. SKIN: No rashes. - Labs CBC & Chem 7: 08/29/21 06:39 08/29/21 06:39 Labs: Abnormal Lab Results - Last 24 Hours (Table) 08/29/21 08/29/21 Range/Units 06:39 06:39 WBC 14.5 H (3.8-10.6) k/uL RBC 2.63 L (3.80-5.40) m/uL Hgb 9.1 L (11.4-16.0) gm/dL Hct 29.2 L (34.0-46.0) % MCV 111.0 H (80.0-100.0) fL Plt Count 529 H (150-450) k/uL Neutrophils # (Manual) 11.40 H (1.3-7.7) k/uL Monocytes # (Manual) 1.02 H (0-1.0) k/uL Metamyelocytes # (Man) 0.29 H (0) k/uL Myelocytes # (Manual) 0.73 H (0) k/uL Macrocytosis Marked A Sodium 134 L (137-145) mmol/L Potassium 3.4 L (3.5-5.1) mmol/L Chloride 108 H (98-107) mmol/L Carbon Dioxide 18 L (22-30) mmol/L Creatinine 0.50 L (0.52-1.04) mg/dL Calcium 7.7 L (8.4-10.2) mg/dL Microbiology - Last 24 Hours (Table) 08/23/21 04:11 Blood Culture - Final Blood No Growth after 144 hours 08/27/21 19:49 Blood Culture - Preliminary Blood No Growth after 24 hours 08/27/21 19:42 Blood Culture - Preliminary Blood No Growth after 24 hours Assessment and Plan Assessment: Abdominal pain with hepatic lesions, pathology nondiagnostic for cancer or cir rhosis Possible liver abscess Leukocytosis, improved on initial, now elevated to 14.5, most likely reactive to the liver biopsy Alcohol withdrawal, Ativan has not been given since August 24. Hyponatremia most likely hypovolemic due to deyhdration and poor oral intake, continue with IV fluids Hypomagnesemia, probably chronic related to chronic alcohol abuse as well as decreased oral intake Status post sigmoid colectomy with end colostomy and drainage of pelvic abscess 01/17/2021 History of breast cancer, status post lumpectomy and radiation therapy History of colon cancer status post sigmoid colectomy with colostomy Elevated CEA Ongoing nicotine dependence Alcohol abuse, dependence Plan: Plan: Continue on current medication regime monitoring and symptomatic treatment IV Zosyn IV fluids Liver biopsy pathology complete ID consult for antibiotic recommendations Pain Management CIWA, monitor for acute alcohol withdrawal PT OT consult GI prophylaxis Protonix Time with Patient: Greater than 30
[2021-08-30] MEDS: SODIUM CHLORIDE 0.9% 1,000 ML IV SCH ×3 (01:49→22:25)
[2021-08-30 06:46] LABS: HCT 29.8 % (34.0-46.0); HGB 9.6 gm/dL (11.4-16.0); MCH 35.1 pg (25.0-35.0); MCHC 32.2 g/dL (31.0-37.0); MCV 108.9 fL (80.0-100.0); Macrocytosis Marked; Mean Platelet Volume 8.8; Platelet Count 561 k/uL (150-450); RBC 2.74 m/uL (3.80-5.40); RDW 13.7 % (11.5-15.5); WBC 17.1 k/uL (3.8-10.6)
[2021-08-30] MEDS: METOPROLOL TARTRATE 50 MG TAB PO SCH ×2 (08:25→22:32)
[2021-08-30] MEDS: SERTRALINE 50 MG TAB PO SCH (08:25)
[2021-08-30] MEDS: THIAMINE 100 MG TAB PO SCH ×2 (08:25→15:27)
[2021-08-30] MEDS: PANTOPRAZOLE 40 MG/10 ML VIAL IVP SCH (08:47)
[2021-08-30] MEDS: PIPERACILLIN-TAZOBACTAM 3.375 GM in SODIUM CHLORIDE 0.9% 100 ML IVPB SCH ×3 (08:48→23:55)
[2021-08-30 11:41] LABS: Band Neutrophils % 4 %; Eosinophils # (M) 0.17 k/uL (0-0.7); Lymphocytes # (M) 1.71 k/uL (1.0-4.8); Metamyelocytes # (M) 0.34 k/uL (0); Metamyelocytes % 2 %; Monocytes # (M) 0.68 k/uL (0-1.0); Myelocytes # (M) 0.68 k/uL (0); Myelocytes % 4 %; Neutrophils % (M) 76 %; Nucleated Red Blood Cells 0 /100 WBC (0-0); Total Cells Counted 200
[2021-08-30 11:43] LABS: INR 1.3 (<1.2); Prothrombin Time 13.2 sec (9.0-12.0)
[2021-08-30] MEDS: MORPHINE SULFATE 4 MG/ML SYRINGE IVP PRN ×3 (11:56→20:45)
--- NOTE | 2021-08-30 12:05 | P.PN ---
<TressaronaldHailee - Last Filed: 08/30/21 12:01> Subjective Progress Note Date: 08/30/21 CHIEF COMPLAINT: Right upper quadrant abdominal pain with liver lesions HISTORY OF PRESENT ILLNESS: Patient complains of the same pain at right upper quadrant abdominal pain at biopsy site. She does report decrease in her pain today. She is status post biopsy of liver lesion. Her CEA is elevated at 6.3. She was found to have liver lesions on computed tomography scan of abdomen. Patient's liver biopsy shows hepatic parenchyma with abundant inflammation compatible with abscess. Current specimen nondiagnostic for malignancy. Negative for diagnostic features of cirrhosis. Patient is on antibiotics. Patient is evaluated by infectious disease. They have consulted interventional radiology again for possible aspiration or drainage of liver abscess. Afebrile WBC is up from 14.5-17.1 hemoglobin 9.6 INR 1.3 PHYSICAL EXAM: VITAL SIGNS: Reviewed. GENERAL: Well-developed in no acute distress. HEENT: No sclera icterus. Extraocular movements grossly intact. Moist buccal mucosa. Head is atraumatic, normocephalic. ABDOMEN: Soft. Abdominal distention with parastomal hernia. Ostomy functioning. Tenderness to palpation right upper quadrant NEUROLOGIC: Alert and oriented. Cranial nerves II through XII grossly intact. ASSESSMENT: 1. Liver abscess 2. Elevated CEA 3. Hyperbilirubinemia 4. Alcohol abuse 5. History of breast cancer status post lumpectomy and radiation therapy 6. History of pelvic abscess and colon obstruction status post sigmoid colectomy with end colostomy 7. Parastomal hernia PLAN: -Continue supportive care -Continue antibiotic -Await further recommendations per ID and interventional radiology regarding liver abscess -No surgical intervention planned -Parastomal hernia will be repaired at a later date with Dr. Mcfarland after her liver abscess has healed Physician [employer] note has been reviewed by physician. Signing provider agrees with the documented findings, assessment, and plan of care. Objective - Vital Signs Vital signs: Vital Signs Temp 98.5 F 08/30/21 11:48 Pulse 78 08/30/21 11:48 Resp 17 08/30/21 11:48 BP 148/75 08/30/21 11:48 Pulse Ox 95 08/30/21 11:48 Intake & Output 08/29/21 08/30/21 08/30/21 18:59 06:59 18:59 Intake Total 240 Balance 240 Intake: Oral 240 Other: Voiding Method Toilet Toilet Toilet Diaper Diaper Diaper # Voids 3 3 - Labs CBC & Chem 7: 08/30/21 05:41 08/29/21 06:39 Labs: Abnormal Lab Results - Last 24 Hours (Table) 08/30/21 08/30/21 Range/Units 05:41 11:02 WBC 17.1 H (3.8-10.6) k/uL RBC 2.74 L (3.80-5.40) m/uL Hgb 9.6 L (11.4-16.0) gm/dL Hct 29.8 L (34.0-46.0) % MCV 108.9 H (80.0-100.0) fL MCH 35.1 H (25.0-35.0) pg Plt Count 561 H (150-450) k/uL Neutrophils # (Manual) 13.60 H (1.3-7.7) k/uL Metamyelocytes # (Man) 0.34 H (0) k/uL Myelocytes # (Manual) 0.68 H (0) k/uL Macrocytosis Marked A PT 13.2 H (9.0-12.0) sec INR 1.3 H (<1.2) Microbiology - Last 24 Hours (Table) 08/27/21 19:42 Blood Culture - Preliminary Blood No Growth after 48 hours 08/27/21 19:49 Blood Culture - Preliminary Blood No Growth after 48 hours <Carlos Richardson - Last Filed: 08/30/21 14:04> Subjective As above. Continue antibiotics. Await cultures from aspiration today. Continue diet as tolerated. Objective - Vital Signs Vital signs: Vital Signs Temp 98.5 F 08/30/21 11:48 Pulse 76 08/30/21 13:06 Resp 16 08/30/21 13:06 BP 153/93 08/30/21 13:06 Pulse Ox 97 08/30/21 13:06 Intake & Output 08/29/21 08/30/21 08/30/21 18:59 06:59 18:59 Intake Total 240 Balance 240 Weight 46.266 kg Intake: Oral 240 Other: Voiding Method Toilet Toilet Toilet Diaper Diaper Diaper # Voids 3 3 - Labs CBC & Chem 7: 08/30/21 05:41 08/29/21 06:39 Labs: Abnormal Lab Results - Last 24 Hours (Table) 08/30/21 08/30/21 Range/Units 05:41 11:02 WBC 17.1 H (3.8-10.6) k/uL RBC 2.74 L (3.80-5.40) m/uL Hgb 9.6 L (11.4-16.0) gm/dL Hct 29.8 L (34.0-46.0) % MCV 108.9 H (80.0-100.0) fL MCH 35.1 H (25.0-35.0) pg Plt Count 561 H (150-450) k/uL Neutrophils # (Manual) 13.60 H (1.3-7.7) k/uL Metamyelocytes # (Man) 0.34 H (0) k/uL Myelocytes # (Manual) 0.68 H (0) k/uL Macrocytosis Marked A PT 13.2 H (9.0-12.0) sec INR 1.3 H (<1.2) Microbiology - Last 24 Hours (Table) 08/27/21 19:42 Blood Culture - Preliminary Blood No Growth after 48 hours 08/27/21 19:49 Blood Culture - Preliminary Blood No Growth after 48 hours
--- NOTE | 2021-08-30 13:03 | CT ---
EXAMINATION TYPE: CT guided abscess drainage DATE OF EXAM: 08/30/2021 COMPARISON: 08/23/2021 HISTORY: liver abscess CT DLP: 295.4 mGycm The procedure is discussed with the patient, the risks, complications, benefits and alternatives, wer e discussed and any questions were answered. Informed consent was obtained. The patient is placed s upine on the CT table, prepped and draped in the usual sterile fashion. Utilizing a 18 Chiba needle access into the requested right lobe liver lesion was achieved with sampl e obtained for pathology. Pathology pending. All elements of maximal barrier technique were utilize d. The patient remained stable throughout the procedure with no immediate postprocedural complicatio n. IMPRESSION: 1. Successful CT guided fine needle aspiration of liver lesion
--- NOTE | 2021-08-30 13:34 | P.PN ---
Subjective Progress Note Date: 08/30/21 Sarah Kessler is a 56 yo F with PMH of breast cancer s/p lumpectomy in 2008, hx ruptured diverticulitis with colostomy approx 6 months ago, alcohol abuse who presented to the ED complaining of progressively worsening abdominal pain, weakness, chills. She states that ever since she had her ostomy she has been having some mild abdominal pain but recently has worsened. She complains that over the past month she has been having progressive generalized pain and early satiety. She has not followed with a physician for her breast cancer in years. She is a current daily drinker. On presentation pt tachycardic, WBC 19k, bilirubin 4.7, CEA elevated at 6.3. CT abd/pelvis showing multiple hepatic lesions, associated lymphadenopathy. 08/24/2021 evaluated by surgery with no surgical intervention recommended at this time. T bili increased to 5.7 AST increased to 122 alk phos decreased to 152. Oncology workup in progress. CA 27.29. Underwent liver biopsy yesterday, pathology pending. Positive abdominal pain, controlled with morphine. Tolerated procedure well. Afebrile, T-max 100.4, WBC increased to 23 ,preliminary bronchial cultures no growth at 24 hours.Pro-calcitonin elevated 1.63, Zosyn initiated. Sodium improving, 127, creatinine increased, 1.06. Maintained on CIWA protocol, no DTs. 08/25/2021 Pathology pending from liver biopsy. Patient still receiving morphine for pain management. She remains on Zosyn. Labs today show white count 16.5, hemoglobin 9.2. Her chemistry panel still pending from today. Vital signs today include a temp of 98.7 oral, heart rate 110, blood pressure 109/73. She is 96% on room air. She is resting comfortably in the bed able to eat and drink. She has no a cute complaints today. No signs of acute alcohol withdrawal. 08/26/2021 Pathology still pending from liver biopsy. Labs today show a hemoglobin of 9. Sodium improving to 130. Potassium 3.7, CO2 15.7, AST trending down to 79, Alk Phos remains elevated. Continue with current diet from surgical recommendations. Oncology is recommending genetic testing to be done on an outpatient basis. Patient still complaining of some chronic pain. Pain medication with Tylenol and morphine. We added a PT/OT consultation today to start working towards discharge planning. Last drink 6 days ago there've been no signs of acute alcohol withdrawal. Afebrile currently, T-max 101 last 24 hours. Blood pressure 127/80. Room air. 08/28/2021 Patient is evaluated today sitting in chair. She is quite sleepy and states that she just does not have energy. She reports abdominal pain and states that this is chronic for her. There is a colostomy present in the left lower quadrant. Liver biopsy completed shows hepatic parenchyma with abundant inflammation compatible with abscess. There is hepatic steatosis with findings of acute and chronic inflammation of the liver. This is nondiagnostic for malignancy and negative for diagnostic features of cirrhosis. White count today is 15.3, hemoglobin 9.9. Sodium level is 133, potassium 3.7, chloride 109, CO2 11, magnesium 1.6, total bili is 2.7, alk phos 275, albumin low at 2.1. AST is elevated. Blood pressure 128/79, afebrile. Interventional radiology was consulted for drainage of what appears to be liver abscess. Discharge pending with PT including subacute rehab versus home with home care if she is able to achieve PT goals. 08/29/2021 Patient is resting in the bed. She is currently denying any pain, her colostomy was changed yesterday. Labs today show white count of 14.5, hemoglobin 9.1. Her sodium levels 134, potassium 3.4, chloride 108 and CO2 18, mag 1.8. Patient is afebrile, heart rate 97 sinus rhythm, blood pressure 148/85. She is 94% on room air. There is no plan for surgical intervention at this time for liver abscess. Infectious disease was consulted for antibiotic recommendations and we will begin discharge planning. Pt is following along with PT and OT who are currently recommending home with home care vs. subacute rehab pending clinical course. 08/30/21 Patient is feeling much better today, she is up in the chair. She denies any pain. Patient will discharge to rehab once medically cleared. She has been becca ared to go to [facility], she has preauthorization until Friday. She did undergo a fine-needle aspiration of liver abscess today. Infectious disease is on consult for antibiotic recommendations. Labs today show white count 17.1, hemoglobin 9.6. Her INR today is 1.3. We're still pending her chemistry panel from today. Blood pressure today is 13/93, 97% on room air, she is afebrile. ROS Constitutional: Denied any fatigue denied any fever. Cardio vascular: denied any chest pain, palpitations Gastrointestinal denied any nausea vomiting Pulmonary: Denied any shortness of breath cough Neurologic denied any new focal deficits All inpatient medications were reviewed and appropriate changes in these medications as dictated in the interval history and assessment and plan. Objective - Vital Signs Vital signs: Vital Signs Temp 98.5 F 08/30/21 11:48 Pulse 75 08/30/21 12:29 Resp 16 08/30/21 12:29 BP 166/98 08/30/21 12:29 Pulse Ox 97 08/30/21 12:29 Intake & Output 08/29/21 08/30/21 08/30/21 18:59 06:59 18:59 Intake Total 240 Balance 240 Intake: Oral 240 Other: Voiding Method Toilet Toilet Toilet Diaper Diaper Diaper # Voids 3 3 - Exam PHYSICAL EXAMINATION: GENERAL: The patient is alert and oriented x3, not in any acute distress. Well developed. HEENT: Pupils are round and equally reacting to light. EOMI. No scleral icterus. No conjunctival pallor. Normocephalic, atraumatic. No pharyngeal erythema. No thyromegaly. CARDIOVASCULAR: S1 and S2 present. No murmurs, rubs, or gallops. PULMONARY: Chest is clear to auscultation, no wheezing or crackles. ABDOMEN: Soft, nontender, normoactive bowel sounds. There is a stoma present in the left lower quadrant with distention of the lower abdomen MUSCULOSKELETAL: No joint swelling or deformity. EXTREMITIES: No cyanosis, clubbing, or pedal edema. NEUROLOGICAL: Gross neurological examination did not reveal any focal deficits. SKIN: No rashes. - Labs CBC & Chem 7: 08/30/21 05:41 08/29/21 06:39 Labs: Abnormal Lab Results - Last 24 Hours (Table) 08/30/21 08/30/21 Range/Units 05:41 11:02 WBC 17.1 H (3.8-10.6) k/uL RBC 2.74 L (3.80-5.40) m/uL Hgb 9.6 L (11.4-16.0) gm/dL Hct 29.8 L (34.0-46.0) % MCV 108.9 H (80.0-100.0) fL MCH 35.1 H (25.0-35.0) pg Plt Count 561 H (150-450) k/uL Neutrophils # (Manual) 13.60 H (1.3-7.7) k/uL Metamyelocytes # (Man) 0.34 H (0) k/uL Myelocytes # (Manual) 0.68 H (0) k/uL Macrocytosis Marked A PT 13.2 H (9.0-12.0) sec INR 1.3 H (<1.2) Microbiology - Last 24 Hours (Table) 08/27/21 19:42 Blood Culture - Preliminary Blood No Growth after 48 hours 08/27/21 19:49 Blood Culture - Preliminary Blood No Growth after 48 hours Assessment and Plan Assessment: Abdominal pain with hepatic lesions, pathology nondiagnostic for cancer or cirrhosis Possible liver abscess, FNA of liver completed today by IR Leukocytosis, improved on initial, now elevated to 17.1, most likely reactive to the liver biopsy Alcohol withdrawal, Ativan has not been given since August 24. Hyponatremia most likely hypovolemic due to deyhdration and poor oral intake, continue with IV fluids Hypomagnesemia, probably chronic related to chronic alcohol abuse as well as decreased oral intake Status post sigmoid colectomy with end colostomy and drainage of pelvic abscess 01/17/2021 History of breast cancer, status post lumpectomy and radiation therapy History of colon cancer status post sigmoid colectomy with colostomy Elevated CEA Ongoing nicotine dependence Alcohol abuse, dependence Plan: Plan: Continue on current medication regime monitoring and symptomatic treatment IV Zosyn IV fluids Liver biopsy pathology complete ID consult for antibiotic recommendations FNA aspiration of liver abscess today, antibiotic recommendations from ID once cultures are finalized Pain Management CIWA, monitor for acute alcohol withdrawal PT OT consult DC to rehab once medically cleared, pending finalized cultures GI prophylaxis Protonix Time with Patient: Greater than 30
[2021-08-30 21:38] LABS: Magnesium 1.9 mg/dL (1.5-2.4)
[2021-08-30 21:52] LABS: Anion Gap 14.6 mmol/L (4.00-12.00); BUN/Creat Ratio 17.49 Ratio (12.00-20.00); Calcium 7.8 mg/dL (8.7-10.3); Carbon Dioxide 16.6 mmol/L (21.6-31.8); Non-African American GFR(CKD) 111.3 (60.0-200.0); Potassium 3.6 mmol/L (3.5-5.5)
--- NOTE | 2021-08-30 23:00 | PN ---
PROGRESS NOTE DATE OF SERVICE: 08/30/2021 REASON FOR FOLLOW UP: Liver abscess. INTERVAL HISTORY: Patient is afebrile. The patient is breathing comfortably. Pain to the right upper quadrant is slightly decreased. No chest pain, shortness of breath or cough. No vomiting or diarrhea. PHYSICAL EXAMINATION: Blood pressure 151/76, pulse of 90. Temperature is 97.6. She is 92% on room air. General description is a middle-aged female lying in bed in no distress. Respiratory system: Unlabored breathing, clear to auscultation anteriorly. Heart S1, S2. Regular rate and rhythm. Abdomen soft, mildly tender in the right upper quadrant area. Extremities: No edema of the feet. LABS: Hemoglobin 9.1, white count 17.1 creatinine 0.5. DIAGNOSTIC IMPRESSION AND PLAN: Patient with liver abscess in this patient with on the basis of the biopsy detailed discussion with the radiologist for obtaining a sample for the cultures, which subsequently was obtained. We will plan on continue the patient on Zosyn with the discharge antibiotic on the basis of the culture report. Continue supportive care. MMODL / IJN: [id number] /
[2021-08-31] MEDS: MORPHINE SULFATE 4 MG/ML SYRINGE IVP PRN ×4 (05:04→23:41)
[2021-08-31 07:10] LABS: HCT 31.4 % (34.0-46.0); HGB 9.6 gm/dL (11.4-16.0); Hypochromasia Slight; MCH 34.2 pg (25.0-35.0); MCHC 30.6 g/dL (31.0-37.0); Macrocytosis Marked; Mean Platelet Volume 7.7; Platelet Count 599 k/uL (150-450); RDW 13.4 % (11.5-15.5); WBC 20.5 k/uL (3.8-10.6)
[2021-08-31] MEDS: PANTOPRAZOLE 40 MG/10 ML VIAL IVP SCH (07:49)
[2021-08-31] MEDS: ACETAMINOPHEN TAB 325 MG TAB PO PRN (07:49)
[2021-08-31] MEDS: PIPERACILLIN-TAZOBACTAM 3.375 GM in SODIUM CHLORIDE 0.9% 100 ML IVPB SCH ×3 (07:50→23:41)
[2021-08-31] MEDS: THIAMINE 100 MG TAB PO SCH ×2 (07:50→16:40)
[2021-08-31] MEDS: METOPROLOL TARTRATE 50 MG TAB PO SCH ×2 (07:50→20:26)
[2021-08-31] MEDS: SERTRALINE 50 MG TAB PO SCH (07:50)
[2021-08-31] MEDS: SODIUM CHLORIDE 0.9% 1,000 ML IV SCH (10:48)
[2021-08-31 11:37] LABS: African American GFR (CKD) 134.9 (60.0-200.0); Anion Gap 11.2 mmol/L (4.00-12.00); BUN/Creat Ratio 21.25 Ratio (12.00-20.00); Blood Urea Nitrogen 8.5 mg/dL (9.0-27.0); Calcium 7.5 mg/dL (8.7-10.3); Carbon Dioxide 17.8 mmol/L (21.6-31.8); Non-African American GFR(CKD) 116.4 (60.0-200.0); Potassium 3.4 mmol/L (3.5-5.5)
--- NOTE | 2021-08-31 11:47 | P.PN ---
<TressaronaldHailee - Last Filed: 08/31/21 11:45> Subjective Progress Note Date: 08/31/21 CHIEF COMPLAINT: Right upper quadrant abdominal pain with liver lesions HISTORY OF PRESENT ILLNESS: Patient is reporting prevent in her right-sided abdominal pain. Her appetite was better this morning. She is complaining of some lower leg swelling and some increased swelling in the abdomen. She is having stool and flatus through her ostomy. IR was able to obtain fluid from the abscess. Cultures are pending. Afebrile. WBC is up at 20.5 hemoglobin 9.6. Regular diet. PHYSICAL EXAM: VITAL SIGNS: Reviewed. GENERAL: Well-developed in no acute distress. HEENT: No sclera icterus. Extraocular movements grossly intact. Moist buccal mucosa. Head is atraumatic, normocephalic. ABDOMEN: Soft. Abdominal distention with parastomal hernia. Ostomy functioning. Tenderness to palpation right upper quadrant NEUROLOGIC: Alert and oriented. Cranial nerves II through XII grossly intact. ASSESSMENT: 1. Liver abscess 2. Elevated CEA 3. Hyperbilirubinemia 4. Alcohol abuse 5. History of breast cancer status post lumpectomy and radiation therapy 6. History of pelvic abscess and colon obstruction status post sigmoid clyde ctomy with end colostomy 7. Parastomal hernia PLAN: -Continue supportive care -Continue antibiotic -Culture result for liver abscess pending -No surgical intervention planned -Parastomal hernia will be repaired at a later date with Dr. 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 Signing provider agrees with the documented findings, assessment, and plan of care. Objective - Vital Signs Vital signs: Vital Signs Temp 98.1 F 08/31/21 05:00 Pulse 71 08/31/21 07:52 Resp 16 08/31/21 05:00 BP 128/79 08/31/21 07:52 Pulse Ox 96 08/31/21 05:00 Intake & Output 08/30/21 08/31/21 08/31/21 18:59 06:59 18:59 Intake Total 1000 720 Balance 1000 720 Weight 46.266 kg Intake: Intake, IV Titration 1000 Amount Piperacillin-Tazobactam 3 100 .375 gm In Sodium Chloride 0.9% 100 ml @ 25 mls/hr IVPB Q8HR [facility] Rx# :[id number] Sodium Chloride 0.9% 1, 900 000 ml @ 75 mls/hr IV . [id number] [facility] Rx#:[id number] Oral 720 Other: Voiding Method Toilet Toilet Diaper # Voids 2 # Bowel Movements 1 - Labs CBC & Chem 7: 08/31/21 06:37 08/31/21 06:37 Labs: Abnormal Lab Results - Last 24 Hours (Table) 08/30/21 08/31/21 08/31/21 Range/Units 05:41 06:37 06:37 WBC 20.5 H (3.8-10.6) k/uL RBC 2.80 L (3.80-5.40) m/uL Hgb 9.6 L (11.4-16.0) gm/dL Hct 31.4 L (34.0-46.0) % MCV 112.0 H (80.0-100.0) fL MCHC 30.6 L (31.0-37.0) g/dL Plt Count 599 H (150-450) k/uL Macrocytosis Marked A Sodium 134 L (135-145) mmol/L Potassium 3.4 L (3.5-5.5) mmol/L Carbon Dioxide 16.6 L 17.8 L (21.6-31.8) mmol/L Anion Gap 14.60 H (4.00-12.00) mmol/L BUN 8.0 L 8.5 L (9.0-27.0) mg/dL Creatinine 0.5 L 0.4 L (0.6-1.5) mg/dL BUN/Creatinine Ratio 21.25 H (12.00-20.00) Ratio Calcium 7.8 L 7.5 L (8.7-10.3) mg/dL Microbiology - Last 24 Hours (Table) 08/30/21 12:45 Gram Stain - Preliminary Aspirate Body Fluid Culture - Preliminary 08/30/21 12:45 Anaerobic Culture - Preliminary Aspirate 08/27/21 19:49 Blood Culture - Preliminary Blood No Growth after 72 hours 08/27/21 19:42 Blood Culture - Preliminary Blood No Growth after 72 hours <Carlos Richardson - Last Filed: 08/31/21 15:06> Subjective As above. Patient without new complaints. White blood cell count remains elevated. Gram stain shows gram-positive cocci. Continue antibiotics per infec tious disease. Objective - Vital Signs Vital signs: Vital Signs Temp 98.1 F 08/31/21 11:27 Pulse 68 08/31/21 11:27 Resp 16 08/31/21 11:27 BP 112/71 08/31/21 11:27 Pulse Ox 94 L 08/31/21 11:27 Intake & Output 08/30/21 08/31/21 08/31/21 18:59 06:59 18:59 Intake Total 1000 720 Balance 1000 720 Weight 46.266 kg Intake: Intake, IV Titration 1000 Amount Piperacillin-Tazobactam 3 100 .375 gm In Sodium Chloride 0.9% 100 ml @ 25 mls/hr IVPB Q8HR [facility] Rx# :[id number] Sodium Chloride 0.9% 1, 900 000 ml @ 75 mls/hr IV . [id number] [facility] Rx#:[id number] Oral 720 Other: Voiding Method Toilet Toilet Toilet Diaper # Voids 2 # Bowel Movements 1 - Labs CBC & Chem 7: 08/31/21 06:37 08/31/21 06:37 Labs: Abnormal Lab Results - Last 24 Hours (Table) 08/30/21 08/31/21 08/31/21 Range/Units 05:41 06:37 06:37 WBC 20.5 H (3.8-10.6) k/uL RBC 2.80 L (3.80-5.40) m/uL Hgb 9.6 L (11.4-16.0) gm/dL Hct 31.4 L (34.0-46.0) % MCV 112.0 H (80.0-100.0) fL MCHC 30.6 L (31.0-37.0) g/dL Plt Count 599 H (150-450) k/uL Neutrophils # (Manual) 17.40 H (1.3-7.7) k/uL Monocytes # (Manual) 1.23 H (0-1.0) k/uL Metamyelocytes # (Man) 0.41 H (0) k/uL Myelocytes # (Manual) 0.62 H (0) k/uL Macrocytosis Marked A Sodium 134 L (135-145) mmol/L Potassium 3.4 L (3.5-5.5) mmol/L Carbon Dioxide 16.6 L 17.8 L (21.6-31.8) mmol/L Anion Gap 14.60 H (4.00-12.00) mmol/L BUN 8.0 L 8.5 L (9.0-27.0) mg/dL Creatinine 0.5 L 0.4 L (0.6-1.5) mg/dL BUN/Creatinine Ratio 21.25 H (12.00-20.00) Ratio Calcium 7.8 L 7.5 L (8.7-10.3) mg/dL Microbiology - Last 24 Hours (Table) 08/30/21 12:45 Gram Stain - Preliminary Aspirate Body Fluid Culture - Preliminary 08/30/21 12:45 Anaerobic Culture - Preliminary Aspirate 08/27/21 19:49 Blood Culture - Preliminary Blood No Growth after 72 hours 08/27/21 19:42 Blood Culture - Preliminary Blood No Growth after 72 hours
[2021-08-31] MEDS ORDERED: Potassium Replacement Protocol 1 EACH MISC MISCELLANE PRN (12:18)
--- NOTE | 2021-08-31 12:40 | P.PN ---
Subjective Progress Note Date: 08/31/21 Sarah Kessler is a 56 yo F with PMH of breast cancer s/p lumpectomy in 2008, hx ruptured diverticulitis with colostomy approx 6 months ago, alcohol abuse who presented to the ED complaining of progressively worsening abdominal pain, weakness, chills. She states that ever since she had her ostomy she has been having some mild abdominal pain but recently has worsened. She complains that over the past month she has been having progressive generalized pain and early satiety. She has not followed with a physician for her breast cancer in years. She is a current daily drinker. On presentation pt tachycardic, WBC 19k, bilirubin 4.7, CEA elevated at 6.3. CT abd/pelvis showing multiple hepatic lesions, associated lymphadenopathy. 08/24/2021 evaluated by surgery with no surgical intervention recommended at this time. T bili increased to 5.7 AST increased to 122 alk phos decreased to 152. Oncology workup in progress. CA 27.29. Underwent liver biopsy yesterday, pathology pending. Positive abdominal pain, controlled with morphine. Tolerated procedure well. Afebrile, T-max 100.4, WBC increased to 23 ,preliminary bronchial cultures no growth at 24 hours.Pro-calcitonin elevated 1.63, Zosyn initiated. Sodium improving, 127, creatinine increased, 1.06. Maintained on CIWA protocol, no DTs. 08/25/2021 Pathology pending from liver biopsy. Patient still receiving morphine for pain management. She remains on Zosyn. Labs today show white count 16.5, hemoglobin 9.2. Her chemistry panel still pending from today. Vital signs today include a temp of 98.7 oral, heart rate 110, blood pressure 109/73. She is 96% on room air. She is resting comfortably in the bed able to eat and drink. She has no a cute complaints today. No signs of acute alcohol withdrawal. 08/26/2021 Pathology still pending from liver biopsy. Labs today show a hemoglobin of 9. Sodium improving to 130. Potassium 3.7, CO2 15.7, AST trending down to 79, Alk Phos remains elevated. Continue with current diet from surgical recommendations. Oncology is recommending genetic testing to be done on an outpatient basis. Patient still complaining of some chronic pain. Pain medication with Tylenol and morphine. We added a PT/OT consultation today to start working towards discharge planning. Last drink 6 days ago there've been no signs of acute alcohol withdrawal. Afebrile currently, T-max 101 last 24 hours. Blood pressure 127/80. Room air. 08/28/2021 Patient is evaluated today sitting in chair. She is quite sleepy and states that she just does not have energy. She reports abdominal pain and states that this is chronic for her. There is a colostomy present in the left lower quadrant. Liver biopsy completed shows hepatic parenchyma with abundant inflammation compatible with abscess. There is hepatic steatosis with findings of acute and chronic inflammation of the liver. This is nondiagnostic for malignancy and negative for diagnostic features of cirrhosis. White count today is 15.3, hemoglobin 9.9. Sodium level is 133, potassium 3.7, chloride 109, CO2 11, magnesium 1.6, total bili is 2.7, alk phos 275, albumin low at 2.1. AST is elevated. Blood pressure 128/79, afebrile. Interventional radiology was consulted for drainage of what appears to be liver abscess. Discharge pending with PT including subacute rehab versus home with home care if she is able to achieve PT goals. 08/29/2021 Patient is resting in the bed. She is currently denying any pain, her colostomy was changed yesterday. Labs today show white count of 14.5, hemoglobin 9.1. Her sodium levels 134, potassium 3.4, chloride 108 and CO2 18, mag 1.8. Patient is afebrile, heart rate 97 sinus rhythm, blood pressure 148/85. She is 94% on room air. There is no plan for surgical intervention at this time for liver abscess. Infectious disease was consulted for antibiotic recommendations and we will begin discharge planning. Pt is following along with PT and OT who are currently recommending home with home care vs. subacute rehab pending clinical course. 08/30/21 Patient is feeling much better today, she is up in the chair. She denies any pain. Patient will discharge to rehab once medically cleared. She has been becca ared to go to [facility], she has preauthorization until Friday. She did undergo a fine-needle aspiration of liver abscess today. Infectious disease is on consult for antibiotic recommendations. Labs today show white count 17.1, hemoglobin 9.6. Her INR today is 1.3. We're still pending her chemistry panel from today. Blood pressure today is 13/93, 97% on room air, she is afebrile. 08/31/2021 Patient states her appetite is improving. She is currently denying any pain. Her white count today is elevated though at 20.5, hemoglobin 9.6. Pressure is 120/71, 68 NSR, afebrile on room air. IV fluids were stopped and she does have some mild lower extremity edema, and is tolerating an increase in oral intake. Liver abscess drainage culture is still pending, antibiotics and discharge r ecommendations from ID. She has a preauth for [facility] which she will need to plan for DC Friday otherwise will need to obtain a new preauth on Friday. Patient will need follow-up with Dr. Mcfarland for repair of the parastomal hernia after liver abscess has healed. ROS Constitutional: Denied any fatigue denied any fever. Cardio vascular: denied any chest pain, palpitations Gastrointestinal denied any nausea vomiting Pulmonary: Denied any shortness of breath cough Neurologic denied any new focal deficits All inpatient medications were reviewed and appropriate changes in these medic ations as dictated in the interval history and assessment and plan. Objective - Vital Signs Vital signs: Vital Signs Temp 98.1 F 08/31/21 11:27 Pulse 68 08/31/21 11:27 Resp 16 08/31/21 11:27 BP 112/71 08/31/21 11:27 Pulse Ox 94 L 08/31/21 11:27 Intake & Output 08/30/21 08/31/21 08/31/21 18:59 06:59 18:59 Intake Total 1000 720 Balance 1000 720 Weight 46.266 kg Intake: Intake, IV Titration 1000 Amount Piperacillin-Tazobactam 3 100 .375 gm In Sodium Chloride 0.9% 100 ml @ 25 mls/hr IVPB Q8HR [facility] Rx# :[id number] Sodium Chloride 0.9% 1, 900 000 ml @ 75 mls/hr IV . [id number] [facility] Rx#:[id number] Oral 720 Other: Voiding Method Toilet Toilet Toilet Diaper # Voids 2 # Bowel Movements 1 - Exam PHYSICAL EXAMINATION: GENERAL: The patient is alert and oriented x3, not in any acute distress. Well developed. HEENT: Pupils are round and equally reacting to light. EOMI. No scleral icterus. No conjunctival pallor. Normocephalic, atraumatic. No pharyngeal erythema. No thyromegaly. CARDIOVASCULAR: S1 and S2 present. No murmurs, rubs, or gallops. PULMONARY: Chest is clear to auscultation, no wheezing or crackles. ABDOMEN: Soft, nontender, normoactive bowel sounds. There is a stoma present in the left lower quadrant with distention of the lower abdomen MUSCULOSKELETAL: No joint swelling or deformity. EXTREMITIES: No cyanosis, clubbing, mild +1 lower extremity pitting edema NEUROLOGICAL: Gross neurological examination did not reveal any focal deficits. SKIN: No rashes. - Labs CBC & Chem 7: 08/31/21 06:37 08/31/21 06:37 Labs: Abnormal Lab Results - Last 24 Hours (Table) 08/30/21 08/31/21 08/31/21 Range/Units 05:41 06:37 06:37 WBC 20.5 H (3.8-10.6) k/uL RBC 2.80 L (3.80-5.40) m/uL Hgb 9.6 L (11.4-16.0) gm/dL Hct 31.4 L (34.0-46.0) % MCV 112.0 H (80.0-100.0) fL MCHC 30.6 L (31.0-37.0) g/dL Plt Count 599 H (150-450) k/uL Macrocytosis Marked A Sodium 134 L (135-145) mmol/L Potassium 3.4 L (3.5-5.5) mmol/L Carbon Dioxide 16.6 L 17.8 L (21.6-31.8) mmol/L Anion Gap 14.60 H (4.00-12.00) mmol/L BUN 8.0 L 8.5 L (9.0-27.0) mg/dL Creatinine 0.5 L 0.4 L (0.6-1.5) mg/dL BUN/Creatinine Ratio 21.25 H (12.00-20.00) Ratio Calcium 7.8 L 7.5 L (8.7-10.3) mg/dL Microbiology - Last 24 Hours (Table) 08/30/21 12:45 Gram Stain - Preliminary Aspirate Body Fluid Culture - Preliminary 08/30/21 12:45 Anaerobic Culture - Preliminary Aspirate 08/27/21 19:49 Blood Culture - Preliminary Blood No Growth after 72 hours 08/27/21 19:42 Blood Culture - Preliminary Blood No Growth after 72 hours Assessment and Plan Assessment: Abdominal pain with hepatic lesions, pathology nondiagnostic for cancer or cirrhosis Possible liver abscess, FNA of liver completed today by IR Leukocytosis, improved on initial, now elevated to 20.5, most likely reactive to the liver biopsy Alcohol withdrawal, Ativan has not been given since August 24. Hyponatremia was hypovolemic, however normalized and is now probably hypervolemic, fluids have been discontinued Hypomagnesemia, probably chronic related to chronic alcohol abuse as well as decreased oral intake Status post sigmoid colectomy with end colostomy and drainage of pelvic abscess 01/17/2021 History of breast cancer, status post lumpectomy and radiation therapy History of colon cancer status post sigmoid colectomy with colostomy Elevated CEA Ongoing nicotine dependence Alcohol abuse, dependence Plan: Plan: Continue on current medication regime monitoring and symptomatic treatment IV Zosyn IV fluids Liver biopsy pathology complete ID consult for antibiotic recommendations FNA aspiration of liver abscess today, antibiotic recommendations from ID once cultures are finalized Pain Management CIWA, monitor for acute alcohol withdrawal PT OT consult DC to rehab once medically cleared, pending finalized cultures Peristomal hernia repair with Dr Mcfarland outpatient GI prophylaxis Protonix Time with Patient: Greater than 30
[2021-08-31] MEDS: POTASSIUM CHLORIDE ER 20 MEQ TAB.ER PO SCH ×2 (13:07→14:28)
[2021-08-31 13:46] LABS: Band Neutrophils % 1 %; Eosinophils # (M) 0.21 k/uL (0-0.7); Lymphocytes # (M) 1.23 k/uL (1.0-4.8); Metamyelocytes # (M) 0.41 k/uL (0); Metamyelocytes % 2 %; Monocytes # (M) 1.23 k/uL (0-1.0); Myelocytes # (M) 0.62 k/uL (0); Myelocytes % 3 %; Neutrophils % (M) 84 %; Nucleated Red Blood Cells 0 /100 WBC (0-0); Total Cells Counted 200
--- NOTE | 2021-08-31 17:43 | PN ---
PROGRESS NOTE DATE OF SERVICE: 08/31/2021 REASON FOR FOLLOWUP: Liver abscess. INTERVAL HISTORY: The patient is afebrile. The patient is currently breathing comfortably. The patient denies having any chest pain. No shortness of breath or cough. Has been complaining of more abdominal distention. No vomiting or diarrhea. PHYSICAL EXAMINATION: Blood pressure 112/71 with a pulse of 68, temperature 98.1. She is 94% on room air. General description is a middle-aged female lying in bed in no distress. Respiratory system: Unlabored breathing, clear to auscultation anteriorly. Heart S1, S2. Regular rate and rhythm. Abdomen soft. Mild distention. No guarding or rigidity. LABS: Hemoglobin is 9.4, white count ( ), creatinine 0.4. DIAGNOSTIC IMPRESSION AND PLAN: Patient with a liver abscess ( ) status post CT-guided drainage. Those cultures will be followed. The patient is covered with Zosyn. White count slightly worsened which will be followed. Continue supportive care. MMODL / IJN: [id number] /
[2021-09-01] MEDS: MORPHINE SULFATE 4 MG/ML SYRINGE IVP PRN ×5 (05:55→22:48)
[2021-09-01 08:19] LABS: Basophils # (A) 0.1 k/uL (0-0.2); Basophils % (A) 0 %; Eosinophils # (A) 0.1 k/uL (0-0.7); Eosinophils % (A) 0 %; Hypochromasia Slight; Lymphocytes # (A) 1.3 k/uL (1.0-4.8); Lymphocytes % (A) 6 %; MCH 34.1 pg (25.0-35.0); MCHC 31.4 g/dL (31.0-37.0); MCV 108.9 fL (80.0-100.0); Macrocytosis Marked; Monocytes # (A) 0.7 k/uL (0-1.0); Monocytes % (A) 3 %; Neutrophils # (A) 19.2 k/uL (1.3-7.7); Neutrophils % (A) 89 %; Platelet Count 578 k/uL (150-450); RBC 2.94 m/uL (3.80-5.40); RDW 13.7 % (11.5-15.5); WBC 21.5 k/uL (3.8-10.6)
[2021-09-01 08:20] LABS: African American GFR (CKD) >90 (>60 ml/min/1.73 sqM); Anion Gap 8 mmol/L; Blood Urea Nitrogen 8 mg/dL (7-17); Calcium 8.1 mg/dL (8.4-10.2); Carbon Dioxide 17 mmol/L (22-30); Chloride 110 mmol/L (98-107); Glucose 86 mg/dL (74-99); Non-African American GFR(CKD) >90 (>60 ml/min/1.73 sqM); Sodium 135 mmol/L (137-145)
[2021-09-01 08:39] LABS: Polychromasia Present
[2021-09-01 08:41] LABS: Potassium 4.2 mmol/L (3.5-5.1)
[2021-09-01] MEDS: SERTRALINE 50 MG TAB PO SCH (09:24)
[2021-09-01] MEDS: THIAMINE 100 MG TAB PO SCH ×2 (09:24→17:26)
[2021-09-01] MEDS: METOPROLOL TARTRATE 50 MG TAB PO SCH ×2 (09:24→20:51)
[2021-09-01] MEDS: PANTOPRAZOLE 40 MG/10 ML VIAL IVP SCH (09:25)
[2021-09-01] MEDS: PIPERACILLIN-TAZOBACTAM 3.375 GM in SODIUM CHLORIDE 0.9% 100 ML IVPB SCH ×2 (09:25→15:01)
[2021-09-01] MEDS ORDERED: IBUPROFEN 400 MG TAB PO PRN (09:43)
--- NOTE | 2021-09-01 09:43 | P.PN ---
Subjective Progress Note Date: 09/01/21 Principal diagnosis: Liver abscess Patient still having mild right-sided abdominal pain and epigastric pain. White blood cell count remains elevated at 21.5. No fevers. Requesting more for pain. Objective - Vital Signs Vital signs: Vital Signs Temp 98.0 F 09/01/21 05:00 Pulse 97 09/01/21 09:24 Resp 16 09/01/21 05:00 BP 125/79 09/01/21 09:24 Pulse Ox 99 09/01/21 05:00 Intake & Output 08/31/21 09/01/21 09/01/21 18:59 06:59 18:59 Intake Total 1660 640 Balance 1660 640 Intake: Intake, IV Titration 600 100 Amount Piperacillin-Tazobactam 3 200 100 .375 gm In Sodium Chloride 0.9% 100 ml @ 25 mls/hr IVPB Q8HR [facility] Rx# :[id number] Sodium Chloride 0.9% 1, 400 000 ml @ 75 mls/hr IV . [id number] [facility] Rx#:[id number] Oral 1060 540 Other: Voiding Method Toilet # Voids 3 2 # Bowel Movements 2 - Exam Abdomen: Soft, mild distention, mild epigastric and right upper quadrant tenderness - Labs CBC & Chem 7: 09/01/21 07:22 09/01/21 07:22 Labs: Abnormal Lab Results - Last 24 Hours (Table) 08/31/21 08/31/21 09/01/21 Range/Units 06:37 06:37 07:22 WBC 21.5 H (3.8-10.6) k/uL RBC 2.94 L (3.80-5.40) m/uL Hgb 10.0 L (11.4-16.0) gm/dL Hct 32.0 L (34.0-46.0) % MCV 108.9 H (80.0-100.0) fL Plt Count 578 H (150-450) k/uL Neutrophils # 19.2 H (1.3-7.7) k/uL Neutrophils # (Manual) 17.40 H (1.3-7.7) k/uL Monocytes # (Manual) 1.23 H (0-1.0) k/uL Metamyelocytes # (Man) 0.41 H (0) k/uL Myelocytes # (Manual) 0.62 H (0) k/uL Macrocytosis Marked A Sodium 134 L (135-145) mmol/L Potassium 3.4 L (3.5-5.5) mmol/L Chloride (98-107) mmol/L Carbon Dioxide 17.8 L (21.6-31.8) mmol/L BUN 8.5 L (9.0-27.0) mg/dL Creatinine 0.4 L (0.6-1.5) mg/dL BUN/Creatinine Ratio 21.25 H (12.00-20.00) Ratio Calcium 7.5 L (8.7-10.3) mg/dL 09/01/21 Range/Units 07:22 WBC (3.8-10.6) k/uL RBC (3.80-5.40) m/uL Hgb (11.4-16.0) gm/dL Hct (34.0-46.0) % MCV (80.0-100.0) fL Plt Count (150-450) k/uL Neutrophils # (1.3-7.7) k/uL Neutrophils # (Manual) (1.3-7.7) k/uL Monocytes # (Manual) (0-1.0) k/uL Metamyelocytes # (Man) (0) k/uL Myelocytes # (Manual) (0) k/uL Macrocytosis Sodium 135 L (135-145) mmol/L Potassium (3.5-5.5) mmol/L Chloride 110 H (98-107) mmol/L Carbon Dioxide 17 L (21.6-31.8) mmol/L BUN (9.0-27.0) mg/dL Creatinine 0.42 L (0.6-1.5) mg/dL BUN/Creatinine Ratio (12.00-20.00) Ratio Calcium 8.1 L (8.7-10.3) mg/dL Microbiology - Last 24 Hours (Table) 08/30/21 12:45 Gram Stain - Preliminary Aspirate Body Fluid Culture - Preliminary 08/27/21 19:42 Blood Culture - Preliminary Blood No Growth after 96 hours 08/27/21 19:49 Blood Culture - Preliminary Blood No Growth after 96 hours Assessment and Plan (1) Liver abscess Narrative/Plan: Continue antibiotics per infectious disease. Discharge planning to determine course of outpatient antibiotics. Continue diet as tolerated. We'll modify pain medications. Current Visit: Yes Status: Acute Code(s): K75.0 - ABSCESS OF LIVER SNOMED Code(s): 06070801
--- NOTE | 2021-09-01 19:02 | PN ---
PROGRESS NOTE DATE OF SERVICE: 09/01/2021 REASON FOR FOLLOW UP: Liver abscess. INTERVAL HISTORY: The patient is afebrile. The patient is currently breathing comfortably. Abdominal pain slight decreased in intensity. No nausea, no vomiting and no diarrhea. No chest pain, shortness of breath or cough. PHYSICAL EXAMINATION: Blood pressure 118/75, pulse of 83, temperature 98.3. She is 95% on room air. General description is a middle-aged female lying in bed in no distress. Respiratory system: Unlabored breathing, clear to auscultation anteriorly. Heart S1, S2. Regular rate and rhythm. Abdomen soft, mild distention. No guarding or rigidity. LABS: Hemoglobin is 10.3, white count 21.5, creatinine 0.42. Cultures currently pending. DIAGNOSTIC IMPRESSION AND PLAN: Patient with liver abscess status post CT-guided drainage. The patient is covered with Zosyn, however, did have worsening of the white count with cultures currently pending. We will empirically add Diflucan while waiting for the culture to finalize and monitor clinical course closely. Continue supportive care. MMODL / IJN: [id number] /
[2021-09-01] MEDS: FLUCONAZOLE 100 MG TAB PO SCH (20:51)
[2021-09-02] MEDS: PIPERACILLIN-TAZOBACTAM 3.375 GM in SODIUM CHLORIDE 0.9% 100 ML IVPB SCH ×4 (00:29→23:57)
[2021-09-02] MEDS: MORPHINE SULFATE 4 MG/ML SYRINGE IVP PRN ×6 (01:45→23:59)
[2021-09-02 07:14] LABS: Basophils % (A) 0 %; Eosinophils # (A) 0.1 k/uL (0-0.7); Eosinophils % (A) 0 %; HCT 30.4 % (34.0-46.0); HGB 9.3 gm/dL (11.4-16.0); Hypochromasia Moderate; Lymphocytes # (A) 1.2 k/uL (1.0-4.8); Lymphocytes % (A) 7 %; MCH 34.5 pg (25.0-35.0); MCHC 30.7 g/dL (31.0-37.0); MCV 112.4 fL (80.0-100.0); Macrocytosis Marked; Mean Platelet Volume 7.7; Monocytes # (A) 0.7 k/uL (0-1.0); Monocytes % (A) 4 %; Neutrophils # (A) 15.1 k/uL (1.3-7.7); Neutrophils % (A) 88 %; Platelet Count 570 k/uL (150-450); WBC 17.2 k/uL (3.8-10.6)
[2021-09-02] MEDS: FLUCONAZOLE 100 MG TAB PO SCH (08:28)
[2021-09-02] MEDS: PANTOPRAZOLE 40 MG/10 ML VIAL IVP SCH (08:28)
[2021-09-02] MEDS: THIAMINE 100 MG TAB PO SCH ×2 (08:28→15:05)
[2021-09-02] MEDS: SERTRALINE 50 MG TAB PO SCH (08:28)
[2021-09-02] MEDS: METOPROLOL TARTRATE 50 MG TAB PO SCH ×2 (08:28→20:56)
--- NOTE | 2021-09-02 09:53 | P.PN ---
Subjective Progress Note Date: 09/02/21 Principal diagnosis: Liver abscess Patient doing well today. Says her pain is improved. White blood cell count better at 17.7. Cultures still showing gram-positive cocci only at this point. No fevers. Objective - Vital Signs Vital signs: Vital Signs Temp 98.2 F 09/02/21 04:26 Pulse 99 09/02/21 08:42 Resp 18 09/02/21 04:26 BP 152/84 09/02/21 08:42 Pulse Ox 96 09/02/21 04:26 Intake & Output 09/01/21 09/02/21 09/02/21 19:59 06:59 18:59 Intake Total Balance Intake: Intake, IV Titration Amount Piperacillin-Tazobactam 3 .375 gm In Sodium Chloride 0.9% 100 ml @ 25 mls/hr IVPB Q8HR [facility] Rx# :[id number] Oral Other: Voiding Method # Voids - Exam Abdomen: Soft, nondistended, small amount of incisional drainage, mild epigastric and right upper quadrant tenderness - Labs CBC & Chem 7: 09/02/21 06:16 09/01/21 07:22 Labs: Abnormal Lab Results - Last 24 Hours (Table) 09/02/21 Range/Units 06:16 WBC 17.2 H (3.8-10.6) k/uL RBC 2.70 L (3.80-5.40) m/uL Hgb 9.3 L (11.4-16.0) gm/dL Hct 30.4 L (34.0-46.0) % MCV 112.4 H (80.0-100.0) fL MCHC 30.7 L (31.0-37.0) g/dL Plt Count 570 H (150-450) k/uL Neutrophils # 15.1 H (1.3-7.7) k/uL Macrocytosis Marked A Microbiology - Last 24 Hours (Table) 08/27/21 19:49 Blood Culture - Preliminary Blood No Growth after 120 hours 08/27/21 19:42 Blood Culture - Preliminary Blood No Growth after 120 hours 08/30/21 12:45 Gram Stain - Preliminary Aspirate Body Fluid Culture - Preliminary Assessment and Plan (1) Liver abscess Narrative/Plan: Continue antibiotics for liver abscess. Await final cultures. Await decision from infectious disease regarding home antibiotics. Continue diet. Current Visit: Yes Status: Acute Code(s): K75.0 - ABSCESS OF LIVER SNOMED Code(s): 84538666
[2021-09-02 10:43] LABS: African American GFR (CKD) 134.9 (60.0-200.0); Anion Gap 9.2 mmol/L (4.00-12.00); BUN/Creat Ratio 16.25 Ratio (12.00-20.00); Blood Urea Nitrogen 6.5 mg/dL (9.0-27.0); Calcium 7.9 mg/dL (8.7-10.3); Carbon Dioxide 21.8 mmol/L (21.6-31.8); Non-African American GFR(CKD) 116.4 (60.0-200.0)
[2021-09-02] MEDS: FUROSEMIDE 10 MG/ML 2 ML VIAL IV SCH (16:25)
--- NOTE | 2021-09-02 21:01 | PN ---
PROGRESS NOTE DATE OF SERVICE: 09/02/2021 REASON FOR FOLLOWUP: Liver abscess. INTERVAL HISTORY: The patient is afebrile. She is breathing comfortably. Has been complaining of more swelling to the lower extremity and abdominal area. No chest pain, shortness of breath or cough. No nausea. No vomiting. PHYSICAL EXAMINATION: Blood pressure 123/79 with a pulse of 78, temperature 98.6. She is 94% on room air. General description is a middle-aged female lying in bed in no distress. Respiratory system: Unlabored breathing, decreased breath sounds at the base. No wheeze. Heart S1, S2. Regular rate and rhythm. Abdomen soft, mildly distended. No guarding or rigidity. Extremities 2+ edema of feet. LABS: Hemoglobin is 11.3, white count down to 17.2, creatinine 0.4. Culture so far pending. DIAGNOSTIC IMPRESSION AND PLAN: Patient with abnormality of the liver, status post biopsy suspicious for an abscess, status post CT-guided aspirate. Those cultures are pending. Patient is covered with Zosyn and Flagyl. White count is showing a downward trend. Discharge antibiotics on the basis of the culture report. Continue supportive care. MMODL / IJN: [id number] /
--- NOTE | 2021-09-02 23:32 | P.PN ---
Subjective Progress Note Date: 09/01/21 Principal diagnosis: Abdominal pain with hepatic lesions, pathology nondiagnostic for cancer or cirrhosis Possible liver abscess, FNA of liver completed today by IR Sarah Checo is a 56 yo F with PMH of breast cancer s/p lumpectomy in 2008, hx ruptured diverticulitis with colostomy approx 6 months ago, alcohol abuse who presented to the ED complaining of progressively worsening abdominal pain, weakness, chills. She states that ever since she had her ostomy she has been having some mild abdominal pain but recently has worsened. She complains that over the past month she has been having progressive generalized pain and early satiety. She has not followed with a physician for her breast cancer in years. She is a current daily drinker. On presentation pt tachycardic, WBC 19k, bilirubin 4.7, CEA elevated at 6.3. CT abd/pelvis showing multiple hepatic lesions, associated lymphadenopathy. 08/24/2021 evaluated by surgery with no surgical intervention recommended at this time. T bili increased to 5.7 AST increased to 122 alk phos decreased to 152. Oncology workup in progress. CA 27.29. Underwent liver biopsy yesterday, pathology pending. Positive abdominal pain, controlled with morphine. Tolerated procedure well. Afebrile, T-max 100.4, WBC increased to 23 ,preliminary bronchial cultures no growth at 24 hours.Pro-calcitonin elevated 1.63, Zosyn initiated. Sodium improving, 127, creatinine increased, 1.06. Maintained on CIWA protocol, no DTs. 08/25/2021 Pathology pending from liver biopsy. Patient still receiving morphine for pain management. She remains on Zosyn. Labs today show white count 16.5, hemoglobin 9.2. Her chemistry panel still pending from today. Vital signs today include a temp of 98.7 oral, heart rate 110, blood pressure 109/73. She is 96% on room air. She is resting comfortably in the bed able to eat and drink. She has no acute complaints today. No signs of acute alcohol withdrawal. 08/26/2021 Pathology still pending from liver biopsy. Labs today show a hemoglobin of 9. Sodium improving to 130. Potassium 3.7, CO2 15.7, AST trending down to 79, Alk Phos remains elevated. Continue with current diet from surgical recommendations. Oncology is recommending genetic testing to be done on an outpatient basis. Patient still complaining of some chronic pain. Pain medication with Tylenol and morphine. We added a PT/OT consultation today to start working towards discharge planning. Last drink 6 days ago there've been no signs of acute alcohol withdrawal. Afebrile currently, T-max 101 last 24 hours. Blood pressure 127/80. Room air. 08/28/2021 Patient is evaluated today sitting in chair. She is quite sleepy and states that she just does not have energy. She reports abdominal pain and states that this is chronic for her. There is a colostomy present in the left lower quadrant. Liver biopsy completed shows hepatic parenchyma with abundant inflammation compatible with abscess. There is hepatic steatosis with findings of acute and chronic inflammation of the liver. This is nondiagnostic for malignancy and negative for diagnostic features of cirrhosis. White count today is 15.3, hemoglobin 9.9. Sodium level is 133, potassium 3.7, chloride 109, CO2 11, magnesium 1.6, total bili is 2.7, alk phos 275, albumin low at 2.1. AST is elevated. Blood pressure 128/79, afebrile. Interventional radiology was consu lted for drainage of what appears to be liver abscess. Discharge pending with PT including subacute rehab versus home with home care if she is able to achieve PT goals. 08/29/2021 Patient is resting in the bed. She is currently denying any pain, her colostomy was changed yesterday. Labs today show white count of 14.5, hemoglobin 9.1. Her sodium levels 134, potassium 3.4, chloride 108 and CO2 18, mag 1.8. Patient is afebrile, heart rate 97 sinus rhythm, blood pressure 148/85. She is 94% on room air. There is no plan for surgical intervention at this time for liver abscess. Infectious disease was consulted for antibiotic recommendations and we will begin discharge planning. Pt is following along with PT and OT who are currently recommending home with home care vs. subacute rehab pending clinical course. 08/30/21 Patient is feeling much better today, she is up in the chair. She denies any pain. Patient will discharge to rehab once medically cleared. She has been cleared to go to [facility], she has preauthorization until Friday. She did undergo a fine-needle aspiration of liver abscess today. Infectious disease is on consult for antibiotic recommendations. Labs today show white count 17.1, hemoglobin 9.6. Her INR today is 1.3. We're still pending her chemistry panel from today. Blood pressure today is 13/93, 97% on room air, she is afebrile. 08/31/2021 Patient states her appetite is improving. She is currently denying any pain. Her white count today is elevated though at 20.5, hemoglobin 9.6. Pressure is 120/71, 68 NSR, afebrile on room air. IV fluids were stopped and she does have some mild lower extremity edema, and is tolerating an increase in oral intake. Liver abscess drainage culture is still pending, antibiotics and discharge recommendations from ID. She has a preauth for [facility] which she will need to plan for DC Friday otherwise will need to obtain a new preauth on Friday. Patient will need follow-up with Dr. Mcfarland for repair of the parastomal hernia after liver abscess has healed. 09/01/2021 Patient is currently sitting in the bed. Complains of right upper quadrant pain. Patient is status post fine-needle aspiration of the liver possible abscess. Currently afebrile. No complaints of nausea vomiting or diarrhea. Laboratory data showed WBC 21.5 hemoglobin 10.0 and platelets 578 Sodium 135 potassium 4.2 BUN 18 creatinine 0.420 calcium 8.1 culture from the aspirate is pending at this time. Patient is being continued on antibiotics in the form of Zosyn. General surgery is following. ROS Constitutional: Denied any fatigue denied any fever. Cardio vascular: denied any chest pain, palpitations Gastrointestinal denied any nausea vomiting Pulmonary: Denied any shortness of breath cough Neurologic denied any new focal deficits All inpatient medications were reviewed and appropriate changes in these medications as dictated in the interval history and assessment and plan. Objective - Vital Signs Vital signs: Vital Signs Temp 97.9 F 09/01/21 19:46 Pulse 93 09/01/21 19:46 Resp 18 09/01/21 19:46 BP 120/73 09/01/21 19:46 Pulse Ox 93 L 09/01/21 19:46 Intake & Output 09/01/21 09/01/21 09/02/21 06:59 18:59 05:59 Intake Total 640 1980 400 Balance 640 1979 Intake: Intake, IV Titration 100 200 Amount Piperacillin-Tazobactam 3 100 200 .375 gm In Sodium Chloride 0.9% 100 ml @ 25 mls/hr IVPB Q8HR [facility] Rx# :[id number] Oral 540 1780 400 Other: Voiding Method Toilet Toilet # Voids 2 3 - Exam PHYSICAL EXAMINATION: GENERAL: The patient is alert and oriented x3, not in any acute distress. Well developed. HEENT: Pupils are round and equally reacting to light. EOMI. No scleral icterus. No conjunctival pallor. Normocephalic, atraumatic. No pharyngeal erythema. No thyromegaly. CARDIOVASCULAR: S1 and S2 present. No murmurs, rubs, or gallops. PULMONARY: Chest is clear to auscultation, no wheezing or crackles. ABDOMEN: Soft, nontender, normoactive bowel sounds. There is a stoma present in the left lower quadrant with distention of the lower abdomen MUSCULOSKELETAL: No joint swelling or deformity. EXTREMITIES: No cyanosis, clubbing, +2 lower extremity pitting edema NEUROLOGICAL: Gross neurological examination did not reveal any focal deficits. SKIN: No rashes. - Labs CBC & Chem 7: 09/02/21 06:16 09/02/21 06:16 Labs: Abnormal Lab Results - Last 24 Hours (Table) 09/01/21 09/01/21 Range/Units 07:22 07:22 WBC 21.5 H (3.8-10.6) k/uL RBC 2.94 L (3.80-5.40) m/uL Hgb 10.0 L (11.4-16.0) gm/dL Hct 32.0 L (34.0-46.0) % MCV 108.9 H (80.0-100.0) fL Plt Count 578 H (150-450) k/uL Neutrophils # 19.2 H (1.3-7.7) k/uL Macrocytosis Marked A Sodium 135 L (137-145) mmol/L Chloride 110 H (98-107) mmol/L Carbon Dioxide 17 L (22-30) mmol/L Creatinine 0.42 L (0.52-1.04) mg/dL Calcium 8.1 L (8.4-10.2) mg/dL Microbiology - Last 24 Hours (Table) 08/30/21 12:45 Gram Stain - Preliminary Aspirate Body Fluid Culture - Preliminary 08/27/21 19:42 Blood Culture - Preliminary Blood No Growth after 96 hours 08/27/21 19:49 Blood Culture - Preliminary Blood No Growth after 96 hours Assessment and Plan Assessment: Abdominal pain with hepatic lesions, pathology nondiagnostic for cancer or cirrhosis Possible liver abscess, FNA of liver completed today by IR Leukocytosis, improved on initial, now elevated to 21.5, most likely reactive to the liver biopsy Alcohol withdrawal, Ativan has not been given since August 24. Hyponatremia was hypovolemic, however normalized and is now probably hypervolemic, fluids have been discontinued Hypomagnesemia, probably chronic related to chronic alcohol abuse as well as d ecreased oral intake Status post sigmoid colectomy with end colostomy and drainage of pelvic abscess 01/17/2021 History of breast cancer, status post lumpectomy and radiation therapy History of colon cancer status post sigmoid colectomy with colostomy Elevated CEA Ongoing nicotine dependence Alcohol abuse, dependence Plan: Plan: Continue on current medication regime monitoring and symptomatic treatment IV Zosyn IV fluids Liver biopsy pathology complete ID consult for antibiotic recommendations FNA aspiration of liver abscess , antibiotic recommendations from ID once cultures are finalized Pain Management CIWA, monitor for acute alcohol withdrawal PT OT consult DC to rehab once medically cleared, pending finalized cultures Peristomal hernia repair with Dr Mcfarland outpatient GI prophylaxis Protonix Time with Patient: Greater than 30
--- NOTE | 2021-09-02 23:33 | P.PN ---
Subjective Progress Note Date: 09/02/21 Principal diagnosis: Abdominal pain with hepatic lesions, pathology nondiagnostic for cancer or cirrhosis Possible liver abscess, FNA of liver completed today by IR Sarah Checo is a 56 yo F with PMH of breast cancer s/p lumpectomy in 2008, hx ruptured diverticulitis with colostomy approx 6 months ago, alcohol abuse who presented to the ED complaining of progressively worsening abdominal pain, weakness, chills. She states that ever since she had her ostomy she has been having some mild abdominal pain but recently has worsened. She complains that over the past month she has been having progressive generalized pain and early satiety. She has not followed with a physician for her breast cancer in years. She is a current daily drinker. On presentation pt tachycardic, WBC 19k, bilirubin 4.7, CEA elevated at 6.3. CT abd/pelvis showing multiple hepatic lesions, associated lymphadenopathy. 08/24/2021 evaluated by surgery with no surgical intervention recommended at this time. T bili increased to 5.7 AST increased to 122 alk phos decreased to 152. Oncology workup in progress. CA 27.29. Underwent liver biopsy yesterday, pathology pending. Positive abdominal pain, controlled with morphine. Tolerated procedure well. Afebrile, T-max 100.4, WBC increased to 23 ,preliminary bronchial cultures no growth at 24 hours.Pro-calcitonin elevated 1.63, Zosyn initiated. Sodium improving, 127, creatinine increased, 1.06. Maintained on CIWA protocol, no DTs. 08/25/2021 Pathology pending from liver biopsy. Patient still receiving morphine for pain management. She remains on Zosyn. Labs today show white count 16.5, hemoglobin 9.2. Her chemistry panel still pending from today. Vital signs today include a temp of 98.7 oral, heart rate 110, blood pressure 109/73. She is 96% on room air. She is resting comfortably in the bed able to eat and drink. She has no acute complaints today. No signs of acute alcohol withdrawal. 08/26/2021 Pathology still pending from liver biopsy. Labs today show a hemoglobin of 9. Sodium improving to 130. Potassium 3.7, CO2 15.7, AST trending down to 79, Alk Phos remains elevated. Continue with current diet from surgical recommendations. Oncology is recommending genetic testing to be done on an outpatient basis. Patient still complaining of some chronic pain. Pain medication with Tylenol and morphine. We added a PT/OT consultation today to start working towards discharge planning. Last drink 6 days ago there've been no signs of acute alcohol withdrawal. Afebrile currently, T-max 101 last 24 hours. Blood pressure 127/80. Room air. 08/28/2021 Patient is evaluated today sitting in chair. She is quite sleepy and states that she just does not have energy. She reports abdominal pain and states that this is chronic for her. There is a colostomy present in the left lower quadrant. Liver biopsy completed shows hepatic parenchyma with abundant inflammation compatible with abscess. There is hepatic steatosis with findings of acute and chronic inflammation of the liver. This is nondiagnostic for malignancy and negative for diagnostic features of cirrhosis. White count today is 15.3, hemoglobin 9.9. Sodium level is 133, potassium 3.7, chloride 109, CO2 11, magnesium 1.6, total bili is 2.7, alk phos 275, albumin low at 2.1. AST is elevated. Blood pressure 128/79, afebrile. Interventional radiology was consu lted for drainage of what appears to be liver abscess. Discharge pending with PT including subacute rehab versus home with home care if she is able to achieve PT goals. 08/29/2021 Patient is resting in the bed. She is currently denying any pain, her colostomy was changed yesterday. Labs today show white count of 14.5, hemoglobin 9.1. Her sodium levels 134, potassium 3.4, chloride 108 and CO2 18, mag 1.8. Patient is afebrile, heart rate 97 sinus rhythm, blood pressure 148/85. She is 94% on room air. There is no plan for surgical intervention at this time for liver abscess. Infectious disease was consulted for antibiotic recommendations and we will begin discharge planning. Pt is following along with PT and OT who are currently recommending home with home care vs. subacute rehab pending clinical course. 08/30/21 Patient is feeling much better today, she is up in the chair. She denies any pain. Patient will discharge to rehab once medically cleared. She has been cleared to go to [facility], she has preauthorization until Friday. She did undergo a fine-needle aspiration of liver abscess today. Infectious disease is on consult for antibiotic recommendations. Labs today show white count 17.1, hemoglobin 9.6. Her INR today is 1.3. We're still pending her chemistry panel from today. Blood pressure today is 13/93, 97% on room air, she is afebrile. 08/31/2021 Patient states her appetite is improving. She is currently denying any pain. Her white count today is elevated though at 20.5, hemoglobin 9.6. Pressure is 120/71, 68 NSR, afebrile on room air. IV fluids were stopped and she does have some mild lower extremity edema, and is tolerating an increase in oral intake. Liver abscess drainage culture is still pending, antibiotics and discharge recommendations from ID. She has a preauth for [facility] which she will need to plan for DC Friday otherwise will need to obtain a new preauth on Friday. Patient will need follow-up with Dr. Mcfarland for repair of the parastomal hernia after liver abscess has healed. 09/01/2021 Patient is currently sitting in the bed. Complains of right upper quadrant pain. Patient is status post fine-needle aspiration of the liver possible abscess. Currently afebrile. No complaints of nausea vomiting or diarrhea. Laboratory data showed WBC 21.5 hemoglobin 10.0 and platelets 578 Sodium 135 potassium 4.2 BUN 18 creatinine 0.420 calcium 8.1 culture from the aspirate is pending at this time. Patient is being continued on antibiotics in the form of Zosyn. General surgery is following. 09/02/2021 Patient is currently resting in the bed. Awake alert oriented x3. Complaints of bilateral lower extremity pain and also swelling of the legs. Patient has been afebrile. Currently on antibiotics in the form of Zosyn. Leukocytosis improving to 17.7 Other lab data reviewed. Follow-up culture reports from the liver abscess aspiration. ROS Constitutional: Denied any fatigue denied any fever. Cardio vascular: denied any chest pain, palpitations Gastrointestinal denied any nausea vomiting Pulmonary: Denied any shortness of breath cough Neurologic denied any new focal deficits All inpatient medications were reviewed and appropriate changes in these medications as dictated in the interval history and assessment and plan. Objective - Vital Signs Vital signs: Vital Signs Temp 98.6 F 09/02/21 13:00 Pulse 78 09/02/21 13:00 Resp 16 09/02/21 13:00 BP 123/79 09/02/21 13:00 Pulse Ox 94 L 09/02/21 13:00 Intake & Output 09/01/21 09/02/21 09/02/21 19:59 06:59 18:59 Intake Total 1999 Balance 1999 Intake: Intake, IV Titration 200 Amount Piperacillin-Tazobactam 3 200 .375 gm In Sodium Chloride 0.9% 100 ml @ 25 mls/hr IVPB Q8HR [facility] Rx# :[id number] Oral 1800 Other: Voiding Method Toilet # Voids 5 - Exam PHYSICAL EXAMINATION: GENERAL: The patient is alert and oriented x3, not in any acute distress. Well developed. HEENT: Pupils are round and equally reacting to light. EOMI. No scleral icterus. No conjunctival pallor. Normocephalic, atraumatic. No pharyngeal erythema. No thyromegaly. CARDIOVASCULAR: S1 and S2 present. No murmurs, rubs, or gallops. PULMONARY: Chest is clear to auscultation, no wheezing or crackles. ABDOMEN: Soft, nontender, normoactive bowel sounds. There is a stoma present in the left lower quadrant with distention of the lower abdomen MUSCULOSKELETAL: No joint swelling or deformity. EXTREMITIES: No cyanosis, clubbing, +2 lower extremity pitting edema NEUROLOGICAL: Gross neurological examination did not reveal any focal deficits. SKIN: No rashes. - Labs CBC & Chem 7: 09/02/21 06:16 09/02/21 06:16 Labs: Abnormal Lab Results - Last 24 Hours (Table) 09/02/21 09/02/21 Range/Units 06:16 06:16 WBC 17.2 H (3.8-10.6) k/uL RBC 2.70 L (3.80-5.40) m/uL Hgb 9.3 L (11.4-16.0) gm/dL Hct 30.4 L (34.0-46.0) % MCV 112.4 H (80.0-100.0) fL MCHC 30.7 L (31.0-37.0) g/dL Plt Count 570 H (150-450) k/uL Neutrophils # 15.1 H (1.3-7.7) k/uL Macrocytosis Marked A BUN 6.5 L (9.0-27.0) mg/dL Creatinine 0.4 L (0.6-1.5) mg/dL Calcium 7.9 L (8.7-10.3) mg/dL Microbiology - Last 24 Hours (Table) 08/27/21 19:49 Blood Culture - Preliminary Blood No Growth after 120 hours 08/27/21 19:42 Blood Culture - Preliminary Blood No Growth after 120 hours 08/30/21 12:45 Gram Stain - Preliminary Aspirate Body Fluid Culture - Preliminary Assessment and Plan Assessment: Abdominal pain with hepatic lesions, pathology nondiagnostic for cancer or cirrhosis Possible liver abscess, FNA of liver completed today by IR Leukocytosis, improved on initial, now elevated to 21.5, most likely reactive to the liver biopsy Alcohol withdrawal, Ativan has not been given since August 24. Hyponatremia was hypovolemic, however normalized and is now probably hypervolemic, fluids have been discontinued Hypomagnesemia, probably chronic related to chronic alcohol abuse as well as decreased oral intake Status post sigmoid colectomy with end colostomy and drainage of pelvic abscess 01/17/2021 History of breast cancer, status post lumpectomy and radiation therapy History of colon cancer status post sigmoid colectomy with colostomy Elevated CEA Ongoing nicotine dependence Alcohol abuse, dependence Plan: Plan: Continue on current medication regime monitoring and symptomatic treatment IV Zosyn IV fluids Liver biopsy pathology complete ID consult for antibiotic recommendations FNA aspiration of liver abscess , antibiotic recommendations from ID once cultures are finalized Pain Management CIWA, monitor for acute alcohol withdrawal PT OT consult DC to rehab once medically cleared, pending finalized cultures Peristomal hernia repair with Dr Mcfarland outpatient GI prophylaxis Protonix Time with Patient: Greater than 30
[2021-09-03] MEDS: FUROSEMIDE 10 MG/ML 2 ML VIAL IV SCH ×2 (05:17→16:34)
[2021-09-03] MEDS: MORPHINE SULFATE 4 MG/ML SYRINGE IVP PRN ×3 (06:11→19:59)
[2021-09-03 06:23] LABS: Basophils % (A) 0 %; Eosinophils # (A) 0.1 k/uL (0-0.7); Eosinophils % (A) 1 %; HCT 29.9 % (34.0-46.0); HGB 9.2 gm/dL (11.4-16.0); Hypochromasia Marked; Lymphocytes # (A) 1.3 k/uL (1.0-4.8); Lymphocytes % (A) 7 %; MCH 34.7 pg (25.0-35.0); MCHC 30.9 g/dL (31.0-37.0); MCV 112.6 fL (80.0-100.0); Macrocytosis Marked; Mean Platelet Volume 7.9; Monocytes # (A) 0.9 k/uL (0-1.0); Monocytes % (A) 5 %; Neutrophils # (A) 15.8 k/uL (1.3-7.7); Neutrophils % (A) 86 %; Platelet Count 474 k/uL (150-450); RBC 2.66 m/uL (3.80-5.40); RDW 13.1 % (11.5-15.5); WBC 18.3 k/uL (3.8-10.6)
[2021-09-03 06:27] LABS: African American GFR (CKD) >90 (>60 ml/min/1.73 sqM); Anion Gap 5 mmol/L; Blood Urea Nitrogen 6 mg/dL (7-17); Calcium 7.9 mg/dL (8.4-10.2); Carbon Dioxide 25 mmol/L (22-30); Chloride 105 mmol/L (98-107); Glucose 90 mg/dL (74-99); Non-African American GFR(CKD) >90 (>60 ml/min/1.73 sqM); Potassium 3.5 mmol/L (3.5-5.1); Sodium 135 mmol/L (137-145)
[2021-09-03] MEDS: PIPERACILLIN-TAZOBACTAM 3.375 GM in SODIUM CHLORIDE 0.9% 100 ML IVPB SCH ×2 (08:44→16:34)
[2021-09-03] MEDS: METOPROLOL TARTRATE 50 MG TAB PO SCH ×2 (08:45→20:39)
[2021-09-03] MEDS: SERTRALINE 50 MG TAB PO SCH (08:45)
[2021-09-03] MEDS: PANTOPRAZOLE 40 MG/10 ML VIAL IVP SCH (08:45)
[2021-09-03] MEDS: THIAMINE 100 MG TAB PO SCH ×2 (08:45→16:34)
[2021-09-03] MEDS: FLUCONAZOLE 100 MG TAB PO SCH (08:46)
[2021-09-03] MEDS ORDERED: traMADol 50 MG TAB PO PRN (10:40)
--- NOTE | 2021-09-03 11:21 | P.PN ---
Subjective Progress Note Date: 09/03/21 CHIEF COMPLAINT: Right upper quadrant abdominal pain with liver lesions HISTORY OF PRESENT ILLNESS: Patient is reporting same her right-sided abdominal pain. She has been requiring IV morphine. She is currently being treated for liver abscess. Awaiting final antibiotic recommendations per infectious d alexander. She is tolerating diet. Afebrile. WBC is up at 18.3 hemoglobin 9.2 platelets 474 PHYSICAL EXAM: VITAL SIGNS: Reviewed. GENERAL: Well-developed in no acute distress. HEENT: No sclera icterus. Extraocular movements grossly intact. Moist buccal mucosa. Head is atraumatic, normocephalic. ABDOMEN: Soft. Abdominal distention with parastomal hernia. Ostomy functioning. Tenderness to palpation right upper quadrant. Patient does have serous drainage from a small opening in old incision site NEUROLOGIC: Alert and oriented. Cranial nerves II through XII grossly intact. ASSESSMENT: 1. Liver abscess 2. Elevated CEA 3. Hyperbilirubinemia 4. Alcohol abuse 5. History of breast cancer status post lumpectomy and radiation therapy 6. History of pelvic abscess and colon obstruction status post sigmoid colectomy with end colostomy 7. Parastomal hernia PLAN: -Continue supportive care -Continue antibiotics per ID -Add Ultram for pain control -Encouraged patient to increase activity -No surgical intervention planned -Parastomal hernia will be repaired at a later date with Dr. Mcfarland after her liver abscess has healed Physician Supply Controller note has been reviewed by physician. Signing provider agrees with the documented findings, assessment, and plan of care. Objective - Vital Signs Vital signs: Vital Signs Temp 98.4 F 09/03/21 05:00 Pulse 102 H 09/03/21 08:43 Resp 16 09/03/21 05:00 BP 161/75 09/03/21 08:43 Pulse Ox 95 09/03/21 05:00 Intake & Output 09/02/21 09/03/21 09/03/21 18:59 06:59 18:59 Intake Total 1999 240 Balance 1999 240 Intake: Intake, IV Titration 200 100 Amount Piperacillin-Tazobactam 3 200 100 .375 gm In Sodium Chloride 0.9% 100 ml @ 25 mls/hr IVPB Q8HR [facility] Rx# :[id number] Oral 1800 140 Other: Voiding Method Toilet Toilet # Voids 5 3 - Labs CBC & Chem 7: 09/03/21 05:36 09/03/21 05:36 Labs: Abnormal Lab Results - Last 24 Hours (Table) 09/03/21 09/03/21 Range/Units 05:36 05:36 WBC 18.3 H (3.8-10.6) k/uL RBC 2.66 L (3.80-5.40) m/uL Hgb 9.2 L (11.4-16.0) gm/dL Hct 29.9 L (34.0-46.0) % MCV 112.6 H (80.0-100.0) fL MCHC 30.9 L (31.0-37.0) g/dL Plt Count 474 H (150-450) k/uL Neutrophils # 15.8 H (1.3-7.7) k/uL Macrocytosis Marked A Sodium 135 L (137-145) mmol/L BUN 6 L (7-17) mg/dL Creatinine 0.45 L (0.52-1.04) mg/dL Calcium 7.9 L (8.4-10.2) mg/dL Microbiology - Last 24 Hours (Table) 08/27/21 19:49 Blood Culture - Final Blood No Growth after 144 hours 08/27/21 19:42 Blood Culture - Final Blood No Growth after 144 hours 08/30/21 12:45 Gram Stain - Preliminary Aspirate Body Fluid Culture - Preliminary
--- NOTE | 2021-09-03 13:39 | P.PN ---
Subjective Progress Note Date: 09/03/21 Principal diagnosis: Liver lesion ID following for abscess, abx. Anemia work-up added to for additional supplementation Objective - Vital Signs Vital signs: Vital Signs Temp 97.8 F 09/03/21 12:57 Pulse 80 09/03/21 12:57 Resp 17 09/03/21 12:57 BP 134/76 09/03/21 12:57 Pulse Ox 99 09/03/21 12:57 Intake & Output 09/02/21 09/03/21 09/03/21 18:59 06:59 18:59 Intake Total 1999 240 Balance 1999 240 Weight 46.266 kg Intake: Intake, IV Titration 200 100 Amount Piperacillin-Tazobactam 3 200 100 .375 gm In Sodium Chloride 0.9% 100 ml @ 25 mls/hr IVPB Q8HR [facility] Rx# :[id number] Oral 1800 140 Other: Voiding Method Toilet Toilet # Voids 5 3 - Exam Alert and oriented Jaundice NAD Neck: Supple Lungs: CTA Abd: Soft, Ostomy Heart: RRR Ext: no - Labs CBC & Chem 7: 09/03/21 05:36 09/03/21 05:36 Labs: Abnormal Lab Results - Last 24 Hours (Table) 09/03/21 09/03/21 Range/Units 05:36 05:36 WBC 18.3 H (3.8-10.6) k/uL RBC 2.66 L (3.80-5.40) m/uL Hgb 9.2 L (11.4-16.0) gm/dL Hct 29.9 L (34.0-46.0) % MCV 112.6 H (80.0-100.0) fL MCHC 30.9 L (31.0-37.0) g/dL Plt Count 474 H (150-450) k/uL Neutrophils # 15.8 H (1.3-7.7) k/uL Macrocytosis Marked A Sodium 135 L (137-145) mmol/L BUN 6 L (7-17) mg/dL Creatinine 0.45 L (0.52-1.04) mg/dL Calcium 7.9 L (8.4-10.2) mg/dL Microbiology - Last 24 Hours (Table) 08/27/21 19:49 Blood Culture - Final Blood No Growth after 144 hours 08/27/21 19:42 Blood Culture - Final Blood No Growth after 144 hours 08/30/21 12:45 Gram Stain - Preliminary Aspirate Body Fluid Culture - Preliminary Assessment and Plan (1) HX: breast cancer Current Visit: Yes Status: Acute Code(s): Z85.3 - PERSONAL HISTORY OF MALIGNANT NEOPLASM OF BREAST SNOMED Code(s): 708198632 (2) Hyperbilirubinemia Current Visit: Yes Status: Acute Code(s): E80.6 - OTHER DISORDERS OF BILIRUBIN METABOLISM SNOMED Code(s): 26754450 (3) Liver mass Current Visit: Yes Status: Acute Code(s): R16.0 - HEPATOMEGALY, NOT EL SEWHERE CLASSIFIED SNOMED Code(s): 869195575 (4) Neoplasm of sigmoid colon Current Visit: No Status: Acute Code(s): D49.0 - NEOPLASM OF UNSPECIFIED BEHAVIOR OF DIGESTIVE SYSTEM SNOMED Code(s): 225042300 (5) Pelvic abscess Current Visit: No Status: Acute Code(s): [id number] - SNOMED Code(s): 326505255 Plan: Breast Cancer tumor markers are not significantly elevated She is status post liver biiopsy - infectious abscess on zosyn Recommend Genetic testing if not performed to date (can be done as outpatient) She has a known history of tobacco and ETOH abuse. Defer management of abscess to other specialities. Will check nutrient deficiencies for supplementation with macrocytosis and ETOH folic acid, B1, B12
[2021-09-03] MEDS ORDERED: LIDOCAINE 1% INJ 10MG/ML (20 ML MDV) SQ ONE (15:19)
--- NOTE | 2021-09-03 15:52 | P.PN ---
Subjective Progress Note Date: 09/03/21 Sarah Kessler is a 56 yo F with PMH of breast cancer s/p lumpectomy in 2008, hx ruptured diverticulitis with colostomy approx 6 months ago, alcohol abuse who presented to the ED complaining of progressively worsening abdominal pain, weakness, chills. She states that ever since she had her ostomy she has been having some mild abdominal pain but recently has worsened. She complains that over the past month she has been having progressive generalized pain and early satiety. She has not followed with a physician for her breast cancer in years. She is a current daily drinker. On presentation pt tachycardic, WBC 19k, bilirubin 4.7, CEA elevated at 6.3. CT abd/pelvis showing multiple hepatic lesions, associated lymphadenopathy. 08/24/2021 evaluated by surgery with no surgical intervention recommended at this time. T bili increased to 5.7 AST increased to 122 alk phos decreased to 152. Oncology workup in progress. CA 27.29. Underwent liver biopsy yesterday, pathology pending. Positive abdominal pain, controlled with morphine. Tolerated procedure well. Afebrile, T-max 100.4, WBC increased to 23 ,preliminary bronchial cultures no growth at 24 hours.Pro-calcitonin elevated 1.63, Zosyn initiated. Sodium improving, 127, creatinine increased, 1.06. Maintained on CIWA protocol, no DTs. 08/27/2021 liver biopsy pathology pending.and complains of right upper quadrant pain. receiving morphine, Tylenol for pain control. maintained on Zosyn.. Afebrile, T-max 101.repeat blood cultures ordered.labs pending. 09/03/2021 maintained on Zosyn and Flagyl .Cultures finalizing. PICC line ordered as recommended per ID along with repeat CT of liver in 3 weeks regarding liver abscess and possible liver lesions. Afebrile, WBC 18.3, hemoglobin 9.2, platelets 474. Denies chest pain, palpitations or shortness of breath. Denies nausea, vomiting. Objective - Vital Signs Vital signs: Vital Signs Temp 97.8 F 09/03/21 12:57 Pulse 80 09/03/21 12:57 Resp 17 09/03/21 12:57 BP 134/76 09/03/21 12:57 Pulse Ox 99 09/03/21 12:57 Intake & Output 09/02/21 09/03/21 09/03/21 18:59 06:59 18:59 Intake Total 1999 240 Balance 1999 240 Weight 46.266 kg Intake: Intake, IV Titration 200 100 Amount Piperacillin-Tazobactam 3 200 100 .375 gm In Sodium Chloride 0.9% 100 ml @ 25 mls/hr IVPB Q8HR [facility] Rx# :[id number] Oral 1800 140 Other: Voiding Method Toilet Toilet # Voids 5 3 - Exam General: sitting up in bed,NAD. Vitals reviewed Eyes: PERRL, EOMI, conjunctiva normal HENT: normocephalic, mucus membranes moist Neck: supple, no JVD Lungs: normal respiratory effort, no wheezes or rales CV: Regular rate and rhythm, no murmur. Peripheral pulses 2+ Abdomen: soft, mildly distended, left-sided functioning Ostomy ,ventral hernia.cellulitis near colostomy. Skin: warm and dry. Neuro: A&Ox3, normal mood and affect. Microbiology 08/27/21 19:49 Blood Blood Culture - Final No Growth after 144 hours 08/27/21 19:42 Blood Blood Culture - Final No Growth after 144 hours 08/30/21 12:45 Aspirate Gram Stain - Preliminary 08/30/21 12:45 Aspirate Body Fluid Culture - Preliminary 08/30/21 12:45 Aspirate Anaerobic Culture - Preliminary 08/23/21 04:11 Blood Blood Culture - Final No Growth after 144 hours - Labs CBC & Chem 7: 09/03/21 05:36 09/03/21 05:36 Labs: Abnormal Lab Results - Last 24 Hours (Table) 09/03/21 09/03/21 Range/Units 05:36 05:36 WBC 18.3 H (3.8-10.6) k/uL RBC 2.66 L (3.80-5.40) m/uL Hgb 9.2 L (11.4-16.0) gm/dL Hct 29.9 L (34.0-46.0) % MCV 112.6 H (80.0-100.0) fL MCHC 30.9 L (31.0-37.0) g/dL Plt Count 474 H (150-450) k/uL Neutrophils # 15.8 H (1.3-7.7) k/uL Macrocytosis Marked A Sodium 135 L (137-145) mmol/L BUN 6 L (7-17) mg/dL Creatinine 0.45 L (0.52-1.04) mg/dL Calcium 7.9 L (8.4-10.2) mg/dL Microbiology - Last 24 Hours (Table) 08/27/21 19:49 Blood Culture - Final Blood No Growth after 144 hours 08/27/21 19:42 Blood Culture - Final Blood No Growth after 144 hours 08/30/21 12:45 Gram Stain - Preliminary Aspirate Body Fluid Culture - Preliminary Assessment and Plan Assessment: Abdominal pain with hepatic lesions, suspect metastatic cancer, status post liver biopsy, pathology nondiagnostic for malignancy or cirrhosis, possible liver abscess, status post FNA of liver-aspirate culture pending. Leukocytosis, pro-calcitonin 1.63 hyponatremia, improving Alcohol withdrawal Alcohol abuse, dependence Status post sigmoid colectomy with end colostomy and drainage of pelvic abscess 01/17/2021 History of breast cancer, status post lumpectomy and radiation therapy Elevated CEA Ongoing nicotine dependence Plan: Continue on current medication regime ,monitoring and symptomatic treatment. maintain antibiotics as per ID with midline placement pending. Cultures finalizing. Prognosis guarded given multiple complex medical issues. Discharge planning in progress for tomorrow to [facility]. The impression and plan of care has been dictated as directed. : I performed a history and examination of this patient, discussed the same with the dictator. I agree with the dictator's note ,documented as a scribe. Any additional findings or plans will be noted.
--- NOTE | 2021-09-03 16:06 | IR ---
EXAMINATION TYPE: IR cvc insert >=5 years DATE OF EXAM: 09/03/2021 COMPARISON: NONE CLINICAL HISTORY: Liver lesions, infection, Needs long-term intravenous access for antibiotics. PROCEDURE: Hand hygiene obtained with soap and water and alcohol-based hand rub. After informed consent, the skin overlying the right basilic vein was localized with ultrasound and n oted to be compressible and patent. An ultrasound image was obtained and submitted on the patient's chart. The overlying skin was prepped and draped and Lidocaine was used for local anesthesia. A ski n mor was made with a scalpel. Access was gained to the vein under ultrasound guidance with a 21 ga uge needle and a 0.018 inch wire was advanced. Access site was dilated with Peel-Away sheath and cat heter tailored to the appropriate length and advanced such that the distal tip is at the cavoatrial j unction. Spot image was obtained verifying placement. Catheter was fixed to the skin and a sterile dressing was placed following hemostasis. Catheter was aspirated and flushed with saline. Patient w as discharged in stable condition without complication.Maximal barrier technique is utilized. Ultras ound image is documented on the chart. Ultrasound used with sterile technique. Fluoro time and fluoroscopic images submitted to document procedure: 179 intraoperative C-arm images, 0.5 minutes fluoroscopy time IMPRESSION: STATUS POST ULTRASOUND AND FLUOROSCOPIC GUIDED PICC LINE PLACEMENT, READY FOR USE. THIS PROCEDURE WAS PERFORMED BY THE UNDERSIGNED.
[2021-09-03 20:32] VITALS: RESP 16
[2021-09-03] MEDS: AMPICILLIN-SULBACTAM 3 GM in SODIUM CHLORIDE 0.9% 100 ML IVPB SCH (23:06)
--- NOTE | 2021-09-03 23:07 | PN ---
PROGRESS NOTE DATE OF SERVICE: 09/03/2021 REASON FOR FOLLOW UP: Liver abscess. INTERVAL HISTORY: Patient is afebrile, breathing comfortably. No chest pain, shortness of breath or cough. No vomiting. No worsening abdominal pain. No diarrhea. EXAMINATION: Her blood pressure is 135/69 with a pulse of 90, temperature 98.5. She is 93% on room air. General description is a middle-aged female lying in bed in no distress. Respiratory system: Unlabored breathing, clear to auscultation anteriorly. Heart S1, S2. Regular rate and rhythm. Abdomen soft, no tenderness. LABS: White count slightly elevated 18.3. Culture showing Streptococcus. DIAGNOSTIC IMPRESSION AND PLAN: Patient with liver abscess, culture now showing alpha hemolytic Streptococcus. Antibiotic will be adjusted to Unasyn. She will get a PICC line. Plan for 3-4 weeks of IV antibiotic on discharge and close outpatient followup. PICC line has been requested. Continue supportive care. MMODL / IJN: [id number] /
[2021-09-04 05:24] VITALS: TEMP 98.2
[2021-09-04] MEDS: MORPHINE SULFATE 4 MG/ML SYRINGE IVP PRN (05:50)
[2021-09-04] MEDS: FUROSEMIDE 10 MG/ML 2 ML VIAL IV SCH (05:53)
[2021-09-04] MEDS: AMPICILLIN-SULBACTAM 3 GM in SODIUM CHLORIDE 0.9% 100 ML IVPB SCH ×2 (05:55→12:50)
[2021-09-04 06:19] LABS: Basophils % (A) 0 %; Eosinophils # (A) 0.1 k/uL (0-0.7); Eosinophils % (A) 1 %; HCT 27.3 % (34.0-46.0); HGB 8.6 gm/dL (11.4-16.0); Hypochromasia Slight; Lymphocytes # (A) 1.5 k/uL (1.0-4.8); Lymphocytes % (A) 9 %; MCH 34.4 pg (25.0-35.0); MCHC 31.5 g/dL (31.0-37.0); MCV 109.1 fL (80.0-100.0); Macrocytosis Marked; Monocytes # (A) 0.8 k/uL (0-1.0); Monocytes % (A) 5 %; Neutrophils % (A) 83 %; Platelet Count 443 k/uL (150-450); RDW 13.7 % (11.5-15.5); WBC 15.7 k/uL (3.8-10.6)
[2021-09-04] MEDS: PANTOPRAZOLE 40 MG/10 ML VIAL IVP SCH (08:45)
[2021-09-04] MEDS: METOPROLOL TARTRATE 50 MG TAB PO SCH (08:45)
[2021-09-04] MEDS: THIAMINE 100 MG TAB PO SCH (08:45)
[2021-09-04] MEDS: SERTRALINE 50 MG TAB PO SCH (08:45)
[2021-09-04] MEDS: FLUCONAZOLE 100 MG TAB PO SCH (08:45)
--- NOTE | 2021-09-04 09:31 | P.DS ---
Providers Date of admission: 08/22/21 11:35 Expected date of discharge: 09/04/21 Attending physician: Kulwinder Short MD Consults: 08/22/21 11:30 Consult Physician Routine Consulting Provider: Hugo Mcfarland Consult Reason/Comments: hypoerbilirubinemia, liver mets, Do you want consulting provider notified?: Already Contacted 08/23/21 05:16 Consult Physician Routine Consulting Provider: Jovan Chandler Consult Reason/Comments: hx of breast cancer, new mets to the liver Do you want consulting provider notified?: Yes, Notify in am 08/29/21 13:42 Consult Physician Routine Consulting Provider: Felicia Erwin Consult Reason/Comments: liver abscess, antibiotic recs Do you want consulting provider notified?: Yes Primary care physician: Kulwinder Short MD Hospital Course: Final diagnoses Abdominal pain with hepatic lesions, suspect metastatic cancer, status post liver biopsy, pathology nondiagnostic for malignancy or cirrhosis, possible liver abscess, status post FNA of liver-aspirate culture reporting alpha hemolytic streptococcus. Leukocytosis, pro-calcitonin 1.63 hyponatremia, improving Alcohol withdrawal Alcohol abuse, dependence Status post sigmoid colectomy with end colostomy and drainage of pelvic abscess 01/17/2021 History of breast cancer, status post lumpectomy and radiation therapy Elevated CEA Ongoing nicotine dependence Hospital course:Sarah Kessler is a 56 yo F with PMH of breast cancer s/p lumpectomy in 2008, hx ruptured diverticulitis with colostomy approx 6 months ago, alcohol abuse who presented to the ED complaining of progressively worseni ng abdominal pain, weakness, chills. She states that ever since she had her ostomy she has been having some mild abdominal pain but recently has worsened. She complains that over the past month she has been having progressive generalized pain and early satiety. She has not followed with a physician for her breast cancer in years. She is a current daily drinker. On presentation pt tachycardic, WBC 19k, bilirubin 4.7, CEA elevated at 6.3. CT abd/pelvis showing multiple hepatic lesions, associated lymphadenopathy. 08/24/2021 evaluated by surgery with no surgical intervention recommended at this time. T bili increased to 5.7 AST increased to 122 alk phos decreased to 152. Oncology workup in progress. CA 27.29. Underwent liver biopsy yesterday, pathology pending. Positive abdominal pain, controlled with morphine. Tolerated procedure well. Afebrile, T-max 100.4, WBC increased to 23 ,preliminary bronchial cultures no growth at 24 hours.Pro-calcitonin elevated 1.63, Zosyn initiated. Sodium improving, 127, creatinine increased, 1.06. Maintained on CIWA protocol, no DTs. 08/27/2021 liver biopsy pathology pending.and complains of right upper quadrant pain. receiving morphine, Tylenol for pain control. maintained on Zosyn.. Afebrile, T-max 101.repeat blood cultures ordered.labs pending. 09/03/2021 maintained on Zosyn and Flagyl .Cultures finalizing. PICC line ordered as recommended per ID along with repeat CT of liver in 3 weeks regarding liver abscess and possible liver lesions. Afebrile, WBC 18.3, hemoglobin 9.2, platelets 474. Denies chest pain, palpitations or shortness of breath. Denies nausea, vomiting. Significant clinical improvement. Liver Aspirate culture reporting alpha hemolytic streptococcus. Lungs clear to auscultation . Denies chest pain, palpitations or shortness of breath . Reports mild tenderness at biopsy site. Patient will be discharged to [facility] rehab today in a stable condition with guarded prognosis, pending clearance and final DC recommendations as per ID. Repeat CT of liver in 3 weeks regarding liver abscess and possible liver lesions. Microbiology 08/30/21 12:45 Aspirate Gram Stain - Preliminary 08/30/21 12:45 Aspirate Body Fluid Culture - Preliminary Alpha Hemolytic Streptococcus 08/30/21 12:45 Aspirate Anaerobic Culture - Final 08/27/21 19:49 Blood Blood Culture - Final No Growth after 144 hours 08/27/21 19:42 Blood Blood Culture - Final No Growth after 144 hours 08/23/21 04:11 Blood Blood Culture - Final No Growth after 144 hours The impression and plan of care has been dictated as directed. : I performed a history and examination of this patient, discussed the same with the dictator. I agree with the dictator's note ,documented as a scribe. Any additional findings or plans will be noted. Patient Condition at Discharge: Stable Plan - Discharge Summary Discharge Rx Participant: Yes New Discharge Prescriptions: New Ibuprofen [Motrin] 400 mg PO Q6HR PRN tab PRN Reason: Pain Thiamine [Vitamin B-1] 100 mg PO DAILY tab Ampicillin-Sulbactam [Unasyn] 3 gm IVPB Q6HR 28 Days #112 each Metoprolol Tartrate [Lopressor] 50 mg PO BID tab Acetaminophen Tab [Tylenol] 650 mg PO Q4HR PRN tab PRN Reason: Fever And/ Or Pain Fluconazole [Diflucan] 200 mg PO DAILY #28 tab Continue Sertraline [Zoloft] 50 mg PO DAILY Discontinued lisinopriL [Zestril] 20 mg PO BID Discharge Medication List Sertraline [Zoloft] 50 mg PO DAILY 11/24/18 [History] Acetaminophen Tab [Tylenol] 650 mg PO Q4HR PRN tab 09/04/21 [Rx] Ampicillin-Sulbactam [Unasyn] 3 gm IVPB Q6HR 28 Days #112 each 09/04/21 [Rx] Fluconazole [Diflucan] 200 mg PO DAILY #28 tab 09/04/21 [Rx] Ibuprofen [Motrin] 400 mg PO Q6HR PRN tab 09/04/21 [Rx] Metoprolol Tartrate [Lopressor] 50 mg PO BID tab 09/04/21 [Rx] Thiamine [Vitamin B-1] 100 mg PO DAILY tab 09/04/21 [Rx] Follow up Appointment(s)/Referral(s): Kulwinder Short MD [Primary Care Provider] - 3 Days [facility],Equipment [NON-STAFF] - 1 Week Activity/Diet/Wound Care/Special [facility] from [facility] to Rehab: Last pouching system change: 08.28.2021 [employer] care supplies being sent with the patient to Rehab: [employer]vatec one piece cut to fit flat pouching system with filter #[id number] (3) No sting prep pads (12) Ostomy powder (1) Change the complete pouching system every 3-5 dasys Empty the entire pouching system when it is 1/2 to 1/3 full t pt has been approved for ostomy supplies from [facility]. when pt is d/c for the ECF - please call [facility] [employer] so that they can ship you your supplies. Maintain Thigh high anand hose bilateral legs or gauze dressing followed by bakari wraps on lower extremities Pain management as per surgery Antibx as per ID cbc,bmp in 3 days and weekly while on IV antibiotics Discharge Disposition: TRANSFER TO SNF/ECF
[2021-09-04 11:06] LABS: ALT 13 U/L (8-44); AST 31 U/L (13-35); Albumin 2.1 g/dL (3.8-4.9); Albumin/Globulin Ratio 0.71 (1.60-3.17); Alkaline Phosphatase 185 U/L (41-126); BUN/Creat Ratio 9.91 Ratio (12.00-20.00); Blood Urea Nitrogen 5.3 mg/dL (9.0-27.0); Calcium 7.9 mg/dL (8.7-10.3); Carbon Dioxide 25.8 mmol/L (21.6-31.8); Chloride 102 mmol/L (96-109); Globulin 2.9 g/dL (1.6-3.3); Glucose 91 mg/dL (70-110); Non-African American GFR(CKD) 106.1 (60.0-200.0); Potassium 3.5 mmol/L (3.5-5.5); Sodium 139 mmol/L (135-145)
[2021-09-04 11:46] LABS: Folate, Serum <2.00 ng/mL (4.40-31.00)
--- NOTE | 2021-09-04 12:15 | P.PN ---
Subjective Progress Note Date: 09/04/21 CHIEF COMPLAINT: Right upper quadrant abdominal pain with liver lesions HISTORY OF PRESENT ILLNESS: Patient is reporting same improvement in her right- sided abdominal pain since admission. She has been requiring pain medication. She is currently being treated for liver abscess. She received a PICC line yesterday for outpatient IV antibiotics. Patient denies any nausea vomiting. She is tolerating regular diet. He should being discharged to [facility] today. Afebrile. WBC has come down from 18.3-15.7 PHYSICAL EXAM: VITAL SIGNS: Reviewed. GENERAL: Well-developed in no acute distress. HEENT: No sclera icterus. Extraocular movements grossly intact. Moist buccal mucosa. Head is atraumatic, normocephalic. ABDOMEN: Soft. Abdominal distention with parastomal hernia. Ostomy functioning. Tenderness to palpation right upper quadrant. Patient does have serous drainage from a small opening in old incision site NEUROLOGIC: Alert and oriented. Cranial nerves II through XII grossly intact. ASSESSMENT: 1. Liver abscess 2. Elevated CEA 3. Hyperbilirubinemia 4. Alcohol abuse 5. History of breast cancer status post lumpectomy and radiation therapy 6. History of pelvic abscess and colon obstruction status post sigmoid colectomy with end colostomy 7. Parastomal hernia PLAN: -Continue supportive care -Discharge antibiotics per ID -Agree with repeating computed tomography scan of the liver in 3 weeks for further follow-up on liver abscess -Encouraged patient to increase activity -No surgical intervention planned -Parastomal hernia will be repaired at a later date with Dr. Mcfarland after her liver abscess has healed -Patient can be discharge from surgical standpoint Physician Wholesale Representative note has been reviewed by physician. Signing provider agrees with the documented findings, assessment, and plan of care. Objective - Vital Signs Vital signs: Vital Signs Temp 98.2 F 09/04/21 05:20 Pulse 79 09/04/21 05:20 Resp 16 09/04/21 05:20 BP 147/95 09/04/21 05:20 Pulse Ox 95 09/04/21 05:20 Intake & Output 09/03/21 09/04/21 09/04/21 18:59 06:59 18:59 Intake Total 100 100 Balance 100 100 Weight 46.266 kg Intake: Intake, IV Titration 100 100 Amount Ampicillin-Sulbactam 3 gm 100 In Sodium Chloride 0.9% 100 ml @ 200 mls/hr IVPB Q6HR [facility] Rx#:[id number] Piperacillin-Tazobactam 3 100 .375 gm In Sodium Chloride 0.9% 100 ml @ 25 mls/hr IVPB Q8HR [facility] Rx# :[id number] Other: Voiding Method Toilet Bedside Commode # Voids 4 - Labs CBC & Chem 7: 09/04/21 05:09 09/04/21 05:14 Labs: Abnormal Lab Results - Last 24 Hours (Table) 09/04/21 09/04/21 Range/Units 05:09 05:14 WBC 15.7 H (3.8-10.6) k/uL RBC 2.50 L (3.80-5.40) m/uL Hgb 8.6 L (11.4-16.0) gm/dL Hct 27.3 L (34.0-46.0) % MCV 109.1 H (80.0-100.0) fL Neutrophils # 13.0 H (1.3-7.7) k/uL Macrocytosis Marked A BUN 5.3 L (9.0-27.0) mg/dL Creatinine 0.5 L (0.6-1.5) mg/dL BUN/Creatinine Ratio 9.91 L (12.00-20.00) Ratio Calcium 7.9 L (8.7-10.3) mg/dL Total Bilirubin 1.40 H (0.30-1.20) mg/dL Alkaline Phosphatase 185 H (41-126) U/L Total Protein 5.0 L (6.2-8.2) g/dL Albumin 2.1 L (3.8-4.9) g/dL Albumin/Globulin Ratio 0.71 L (1.60-3.17) g/dL Vitamin B12 1437.0 H (200.0-944.0) pg/mL Folate <2.00 L (4.40-31.00) ng/mL Microbiology - Last 24 Hours (Table) 08/30/21 12:45 Gram Stain - Preliminary Aspirate Body Fluid Culture - Preliminary Alpha Hemolytic Streptococcus 08/30/21 12:45 Anaerobic Culture - Final Aspirate
[2021-09-04 12:41] VITALS: BP 130/73; PULSE 77
--- NOTE | 2021-09-04 13:17 | PN ---
PROGRESS NOTE DATE OF SERVICE: 09/04/2021 REASON FOR FOLLOWUP: Possible liver abscess. INTERVAL HISTORY: The patient is afebrile. The patient is currently breathing comfortably. No chest pain, shortness of breath or cough. Abdominal pain is currently controlled. No vomiting or diarrhea. PHYSICAL EXAMINATION: Blood pressure 130/73 with a pulse of 77, temperature 98.2. She is 95% on room air. General description is a middle-aged female lying in bed in no distress. Respiratory system: Unlabored breathing, decreased breath sounds at the bases, no wheeze. Heart S1, S2. Regular rate and rhythm. Abdomen soft, no tenderness. Extremities no edema of the feet. LABS: Hemoglobin is 8.6, white count 15.7. Creatinine is 0.5. Culture with alpha-hemolytic Streptococcus. DIAGNOSTIC IMPRESSION AND PLAN: Patient with a possible liver abscess on the basis of the biopsy. Culture is showing alpha-hemolytic Streptococcus. Patient is on Unasyn, white count trending down. Plan is for 4 weeks of antibiotics with a repeat CT scan at that point. Continue with supportive care. MMODL / IJN: [id number] /
[2021-09-04] MEDS ORDERED: TEMAZEPAM 15 MG CAP PO SCH (21:00)
== END 2021-09-04 14:56 | DRG 442 ==
LOC: EC 06:37 → 5NMEDONC 11:35
PROVIDERS: ADMIT Family Medicine; ATTEND Family Medicine
PROC: 0FB13ZX Excision of Right Lobe Liver, Percutaneous Approach, Diagnostic (ICD-10-PCS; 2021-08-23)
PROC: 02HV33Z Insertion of Infusion Device into Superior Vena Cava, Percutaneous Approach (ICD-10-PCS; 2021-09-03)
PROC: B5181ZA Fluoroscopy of Superior Vena Cava using Low Osmolar Contrast, Guidance (ICD-10-PCS; principal; 2021-09-03 20:20)
DX: K75.0 Abscess of liver (principal); E87.1 Hypo-osmolality and hyponatremia; F10.239 Alcohol dependence with withdrawal, unspecified; C78.5 Secondary malignant neoplasm of large intestine and rectum; Z93.3 Colostomy status; Z92.3 Personal history of irradiation; Z90.710 Acquired absence of both cervix and uterus; Z90.49 Acquired absence of other specified parts of digestive tract; Z79.899 Other long term (current) drug therapy; Z20.822 Contact with and (suspected) exposure to COVID-19; R59.1 Generalized enlarged lymph nodes; E83.42 Hypomagnesemia; E86.1 Hypovolemia; D72.829 Elevated white blood cell count, unspecified; E87.70 Fluid overload, unspecified; F17.200 Nicotine dependence, unspecified, uncomplicated; F41.9 Anxiety disorder, unspecified; G89.29 Other chronic pain; I10 Essential (primary) hypertension; Z87.730 Personal history of (corrected) cleft lip and palate; Z86.19 Personal history of other infectious and parasitic diseases; Z85.3 Personal history of malignant neoplasm of breast; F32.9 Major depressive disorder, single episode, unspecified; K43.5 Parastomal hernia without obstruction or gangrene; K76.0 Fatty (change of) liver, not elsewhere classified; K82.8 Other specified diseases of gallbladder; N73.9 Female pelvic inflammatory disease, unspecified; Z85.038 Personal history of other malignant neoplasm of large intestine
CPT/HCPCS: 36415; 36573; 47000; 71260; 74177; 75989; 76705; 76942; 80048; 80053; 81001; 82105; 82140; 82150; 82378; 82565; 82607; 82746; 83605; 83690; 83735; 83921; 84145; 84425; 84520; 85025; 85610; 85730; 86300; 87040; 87070; 87075; 87205; 87635; 88307; 96361; 96374; 96375; 99285